=== PATIENT | male | born 1960 | race Caucasian/White ===

== ENCOUNTER 2017-05-06 17:48 | Observation (INO) | payer OTHER ==
[~2017-05-06] VITALS: Ht 167.6 cm; Wt 132.7 kg
[2017-05-06] MEDS ORDERED: SODIUM CHLORIDE 0.9% 1000ML 1,000 ML IV STA (18:02)
[2017-05-06] MEDS ORDERED: GLIP10TA9 PO (18:10)
[2017-05-06] MEDS ORDERED: ATOR-54 PO (18:10)
[2017-05-06] MEDS ORDERED: CHOL20009 PO (18:10)
[2017-05-06] MEDS ORDERED: LISI-461 PO (18:10)
[2017-05-06] MEDS ORDERED: GLC500 PO (18:10)
[2017-05-06] MEDS ORDERED: ASPI81TA28 PO (18:10)
--- NOTE | 2017-05-06 18:28 | EMERGENCY ROOM VISIT NOTE ---
History Report prepared by Efrain: Jaqueline Bach Under the Supervision of: Dr. Yeyo Zamora M.D. First contact with patient: 17:55 Chief Complaint: HYPERGLYCEMIA Stated Complaint: LOW BLOOD SUGAR History of Present Illness The patient is a 56 year old male who presents to the Emergency Room with complaints of constant hyperglycemia beginning this morning. The patient states that he has a history of diabetes but he does not have a glucose monitor at home. He states that he was seen by his PCP this morning and got a call tonight that his blood sugar was high and he should be seen in the ED. He notes that he last checked his blood sugar 1 month ago and it usually is around 100-110. The patient complains of a cold and cough for about 1 month. He denies any frequent urination, thirst, congestion, fever, rash, vomiting, and diarrhea. The patient notes that his last A1C was 5.8 and he has had diabetes for 20 years and takes his medications regularly. Per review of his history, the patient's family has been concerned as the patient has been repeating things, confused, and cannot find his words. The patient has been missing visits for his diabetic compliance and is under increased stress as his father is in ailing health. Source of History: patient Onset: this morning Position: other (global) Quality: other (hyperglycemia) Timing: constant Associated Symptoms: No fevers, No vomiting, No diarrhea, No rash Note: He denies any frequent urination, thirst, cold, congestion. He complains of a cold and congestion. Review of Systems See HPI for pertinent positives & negatives. A total of 10 systems reviewed and were otherwise negative. Past Medical & Surgical Medical Problems: (1) Diabetes mellitus, type 2 (2) Dyslipidemia (3) Hypertension (4) Obesity, morbid, BMI 40.0-49.9 Family History No pertinent family history stated. Social History Smoking Status: Former Smoker Marital Status: Housing Status: lives with significant other Current/Historical Medications Scheduled Aspirin (Aspirin Ec), 81 MG PO DAILY Atorvastatin (Lipitor), 20 MG PO DAILY Cholecalciferol (Vitamin D), 4,000 UNITS PO DAILY Glipizide (Glucotrol), 10 MG PO BID Lisinopril (Zestril), 10 MG PO DAILY Metformin HCl (Metformin HCl), 500 MG PO BID Allergies Coded Allergies: No Known Allergies (Unverified , 05/06/17) Physical Exam Vital Signs Date Time Temp Pulse Resp B/P (MAP) Pulse Ox O2 Delivery O2 Flow Rate FiO2 05/06/17 19:36 77 05/06/17 19:14 67 20 170/88 98 Room Air 05/06/17 17:52 36.9 86 20 152/70 95 Room Air Physical Exam GENERAL: Patient is in no acute distress. HEENT: No acute trauma, normocephalic atraumatic, mucous membranes moist, no nasal congestion, no scleral icterus. NECK: No stridor, no adenopathy, no meningismus, trachea is midline. LUNGS: Clear to auscultation bilaterally, no wheeze, no rhonchi, breath sounds equal. HEART: Without murmurs gallops or rubs, regular rate and rhythm. ABDOMEN: Soft, nontender, bowel sounds positive, no hernias, no peritonitis. EXTREMITIES: No cyanosis or edema, full range of motion of all the joints without pain or difficulty, no signs for acute trauma. NEUROLOGIC: Oriented x 3, no acute motor or sensory deficits, no focal weakness. SKIN: No rash, no jaundice, no diaphoresis. Medical Decision & Procedures ER Provider Diagnostic Interpretation: Radiology results as stated below per my review and radiologist interpretation: CHEST ONE VIEW PORTABLE FINDINGS: Lungs are hypoinflated with bronchovascular crowding. Prominence of the cardiac silhouette is likely secondary to technique and hypoinflation. No pneumothorax. There is blunting of left costophrenic angle with hazy bibasilar opacities. No large pleural effusion identified. Bones of the chest appear grossly intact. There are degenerative changes noted of the bilateral shoulders. IMPRESSION: 1. Hypoinflation with bronchovascular crowding. 2. Subtle bibasilar opacities suggest atelectasis. The above report was generated using voice recognition software. It may contain grammatical, syntax or spelling errors. Electronically signed by: Ramu Toro M.D. 05/06/2017 6:49 PM Dictated Date/Time: 05/06/2017 6:[address] OF THE HEAD WITHOUT CONTRAST FINDINGS: No acute intracranial hemorrhage, midline shift or mass effect is present. There is a 3 cm x 2.1 cm CSF attenuation oval-shaped lesion within the left frontal lobe shown on axial image 18 of . There is no associated mass effect. Ventricular system is normal. Basilar cisterns are patent. There are no extra-axial collections. Islas-white differentiation is maintained. There are no findings to suggest acute dural sinus thrombosis or acute territorial infarct. Visualized portions of the sinuses and mastoid air cells are clear. There are no significant calvarial abnormalities. IMPRESSION: 1. No acute intracranial hemorrhage. 2. 3 cm x 2.1 cm CSF attenuation oval-shaped focus within the left frontal lobe which is likely intraaxial. 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 No associated edema. This finding is of doubtful significance however a follow-up nonemergent MRI of the brain with and without contrast is recommended for further evaluation. Electronically signed by: Adan Raman M.D. 05/06/2017 7:11 PM Dictated Date/Time: 05/06/2017 7:03 PM Laboratory Results 05/06/17 18:20 Red Blood Count 4.42, Mean Corpuscular Volume 90.7, Mean Corpuscular Hemoglobin 31.4, Mean Corpuscular Hemoglobin Concent 34.7, Mean Platelet Volume 9.8, Neutrophils (%) (Auto) 63.1, Lymphocytes (%) (Auto) 25.4, Monocytes (%) (Auto) 9.2, Eosinophils (%) (Auto) 1.2, Basophils (%) (Auto) 0.4, Neutrophils # (Auto) 6.96, Lymphocytes # (Auto) 2.80, Monocytes # (Auto) 1.01, Eosinophils # (Auto) 0.13, Basophils # (Auto) 0.04 05/06/17 18:20 Test 05/06/17 18:20 05/06/17 19:15 05/06/17 19:51 White Blood Count 11.02 K/uL (4.8-10.8) Red Blood Count 4.42 M/uL (4.7-6.1) Hemoglobin 13.9 g/dL (14.0-18.0) Hematocrit 40.1 % (42-52) Mean Corpuscular Volume 90.7 fL (80-100) Mean Corpuscular Hemoglobin 31.4 pg (25-34) Mean Corpuscular Hemoglobin Concent 34.7 g/dl (32-36) Platelet Count 234 K/uL (130-400) Mean Platelet Volume 9.8 fL (7.4-10.4) Neutrophils (%) (Auto) 63.1 % Lymphocytes (%) (Auto) 25.4 % Monocytes (%) (Auto) 9.2 % Eosinophils (%) (Auto) 1.2 % Basophils (%) (Auto) 0.4 % Neutrophils # (Auto) 6.96 K/uL (1.4-6.5) Lymphocytes # (Auto) 2.80 K/uL (1.2-3.4) Monocytes # (Auto) 1.01 K/uL (0.11-0.59) Eosinophils # (Auto) 0.13 K/uL (0-0.5) Basophils # (Auto) 0.04 K/uL (0-0.2) RDW Standard Deviation 42.0 fL (36.4-46.3) RDW Coefficient of Variation 12.7 % (11.5-14.5) Immature Granulocyte % (Auto) 0.7 % Immature Granulocyte # (Auto) 0.08 K/uL (0.00-0.02) Prothrombin Time 11.3 SECONDS (9.0-12.0) Prothromb Time International Ratio 1.1 (0.9-1.1) Activated Partial Thromboplast Time 30.2 SECONDS (21.0-31.0) Partial Thromboplastin Ratio 1.2 Anion Gap 10.0 mmol/L (3-11) Est Creatinine Clear Calc Drug Dose 73.7 ml/min Estimated GFR () 62.0 Estimated GFR (Non- 53.5 BUN/Creatinine Ratio 20.0 (10-20) Calcium Level 9.5 mg/dl (8.5-10.1) Magnesium Level 1.9 mg/dl (1.8-2.4) Total Bilirubin 0.7 mg/dl (0.2-1) Aspartate Amino Transf (AST/SGOT) 18 U/L (15-37) Alanine Aminotransferase (ALT/SGPT) 28 U/L (12-78) Alkaline Phosphatase 92 U/L (45-117) Total Protein 7.7 gm/dl (6.4-8.2) Albumin 4.3 gm/dl (3.4-5.0) Globulin 3.4 gm/dl (2.5-4.0) Albumin/Globulin Ratio 1.3 (0.9-2) Beta-Hydroxybutyric Acid 11.53 mg/dL (0.2-2.81) Thyroid Stimulating Hormone (TSH) 1.860 uIu/ml (0.300-4.500) Urine Color YELLOW Urine Appearance CLEAR (CLEAR) Urine pH 5.0 (4.5-7.5) Urine Specific Endeavor 1.028 (1.000-1.030) Urine Protein NEG (NEG) Urine Glucose (UA) 3+ (NEG) Urine Ketones 1+ (NEG) Urine Occult Blood NEG (NEG) Urine Nitrite NEG (NEG) Urine Bilirubin NEG (NEG) Urine Urobilinogen NEG (NEG) Urine Leukocyte Esterase SMALL (NEG) Urine WBC (Auto) 10-30 /hpf (0-5) Urine RBC (Auto) 0-4 /hpf (0-4) Urine Hyaline Casts (Auto) 1-5 /lpf (0-5) Urine Epithelial Cells (Auto) 10-20 /lpf (0-5) Urine Bacteria (Auto) NEG (NEG) Urine Opiates Screen NEG (NEG) Urine Methadone, Qualitative NEG (NEG) Urine Barbiturates NEG (NEG) Urine Phencyclidine (PCP) Level NEG (NEG) Ur Amphetamine/Methamphetamine NEG (NEG) MDMA (Ecstasy) Screen NEG (NEG) Urine Benzodiazepines Screen NEG (NEG) Urine Cocaine Metabolite NEG (NEG) Urine Marijuana (THC) NEG (NEG) Bedside Glucose 217 mg/dl (70-99) Laboratory results reviewed by me. Medications Administered Medications (Trade) Dose Ordered Sig/Tori Route Start Time Stop Time Status Last Admin Dose Admin Sodium Chloride 1,000 ml @ 999 mls/hr Q1H1M STAT IV 05/06/17 18:02 05/06/17 19:02 DC 05/06/17 18:15 999 MLS/HR Insulin Human Regular (novoLIN-R U-100 PER UNIT) 8 units NOW STAT IV 05/06/17 18:57 05/06/17 18:59 DC 05/06/17 19:27 8 UNITS ECG Indication: altered mental status Rate (beats per minute): 62 Rhythm: normal sinus Findings: no acute ischemic change, no ectopy ED Course 1755: The patient was evaluated in room B6. A complete history and physical exam was performed. 1802: Sodium Chloride 1000 ml @ 999 mls/hr IV. 1822: The patient had some periods of confusion when the nurses were obtaining blood work. 185: Insulin Human Regular 6 units IV. 1949: I reevaluated and updated the patient. 2010: Discussed the patient's case with Dr. Mcqueen. The patient will be evaluated for further management. 2021: Upon reexamination the patient is doing well. I discussed results and treatment plan with the patient. He verbalizes agreement and understanding. I spoke with Dr. Mcqueen. We discussed the patient's results and findings. The patient will be evaluated by him for further management. Medical Decision The patient is a 56 year old male who presents to the ED with complaints of hyperglycemia. Differential diagnoses considered include medication noncompliance, poor diabetic diet control, dehydration, infection, UTI, pneumonia, electrolyte imbalance. There is a mild leukocytosis which could certainly be consistent with infection or possibly just the stress of his situation. No concerning anemia. Sugar was high at over 300. No acidosis. No kidney failure. There was no hepatitis. The patient appeared to be in a euthyroid state. Chest film did not show pneumonia or CHF. EKG showed a normal sinus rhythm, no acute ischemia. Urinalysis does not show evidence for infection. On exam, there was no cellulitis, no focal neurologic deficit by my testing. Brain CT shows a lesion in the frontal area of the brain which was thought chronic. The patient presents with some confusion, I high blood sugar and what sounds like some recent medical noncompliance. He did receive IV saline, he was given IV insulin, his blood sugar has lowered with treatment. The patient did have some confusion here as per the nurses. This apparently has been what he has been demonstrating at home. With the change of mental status, the high blood sugar, the abnormal brain CT, a hospital stay was felt warranted. Further workup is required. I spoke to the patient and case management. The on-call hospitalist was consulted. Medication Reconcilliation Current Medication List: was personally reviewed by me Blood Pressure Screening Patient's blood pressure: Elevated blood pressure Blood pressure disposition: Elevated BP felt to be situational Consults Time Called: 2004 Consulting Physician: Dr. Joey Nunes Returned Call: 2010 Discussed the patient's case with Dr. Mcqueen. The patient will be evaluated for further management. Impression Primary Impression: Change in mental status Additional Impression: Hyperglycemia Scribe Attestation The scribe's documentation has been prepared under my direction and personally reviewed by me in its entirety. I confirm that the note above accurately reflects all work, treatment, procedures, and medical decision making performed by me. Departure Information Dispostion Being Evaluated By Hospitalist Referrals No Doctor, Assigned (PCP) Patient Instructions My [facility] Stroke History Time Last Known Well 1 month ago Stroke t-PA Criteria Reviewed Does NOT meet criteria for t-PA Reason t-PA Not Given Treatment not indicated Problem Qualifiers
[2017-05-06 18:35] LABS: BASO % 0.4 %; BASO ABS # 0.04 K/uL (0-0.2); EOS % 1.2 %; EOS ABS # 0.13 K/uL (0-0.5); HEMATOCRIT 40.1 % (42-52); HEMOGLOBIN 13.9 g/dL (14.0-18.0); IG# 0.08 K/uL (0.00-0.02); LYMPH % 25.4 %; MEAN CELL VOLUME 90.7 fL (80-100); MEAN CORPUSCULAR HEMOGLOBIN 31.4 pg (25-34); MEAN CORPUSCULAR HGB CONC 34.7 g/dl (32-36); MEAN PLATELET VOLUME 9.8 fL (7.4-10.4); MONO % 9.2 %; MONO ABS # 1.01 K/uL (0.11-0.59); NEUT % 63.1 %; NEUT ABS # 6.96 K/uL (1.4-6.5); PLATELET COUNT 234 K/uL (130-400); RED CELL DISTRIBUTION WIDTH CV 12.7 % (11.5-14.5); WHITE BLOOD COUNT 11.02 K/uL (4.8-10.8)
--- NOTE | 2017-05-06 18:50 | DIAGNOSTIC IMAGING REPORT ---
CHEST ONE VIEW PORTABLE HISTORY: 56 years-old Male EVALUATE ALTERED MENTAL STATUS/WEAKNESS acute altered mental status COMPARISON: None available TECHNIQUE: Portable AP view of the chest FINDINGS: Lungs are hypoinflated with bronchovascular crowding. Prominence of the cardiac silhouette is likely secondary to technique and hypoinflation. No pneumothorax. There is blunting of left costophrenic angle with hazy bibasilar opacities. No large pleural effusion identified. Bones of the chest appear grossly intact. There are degenerative changes noted of the bilateral shoulders. IMPRESSION: 1. Hypoinflation with bronchovascular crowding. 2. Subtle bibasilar opacities suggest atelectasis. The above report was generated using voice recognition software. It may contain grammatical, syntax or spelling errors. Electronically signed by: Ramu Toro M.D. 05/06/2017 6:49 PM Dictated Date/Time: 05/06/2017 6:48 PM
[2017-05-06 18:56] LABS: ALBUMIN 4.3 gm/dl (3.4-5.0); CALCIUM 9.5 mg/dl (8.5-10.1); CREATININE 1.44 mg/dl (0.60-1.40); POTASSIUM 4.1 mmol/L (3.5-5.1)
[2017-05-06] MEDS ORDERED: NovoLIN-R INSULIN PER UNIT CHARGE IV STA (18:57)
[2017-05-06 19:06] LABS: TOTAL PROTEIN 7.7 gm/dl (6.4-8.2)
--- NOTE | 2017-05-06 19:12 | DIAGNOSTIC IMAGING REPORT ---
CT OF THE HEAD WITHOUT CONTRAST CLINICAL HISTORY: Confusion. COMPARISON STUDY: No previous studies for comparison. CT DOSE: 634.23 mGy.cm TECHNIQUE: Helical axial images of the head were obtained without IV contrast. Automated exposure control was utilized for the study. A dose lowering technique was utilized adhering to the principles of ALARA. FINDINGS: No acute intracranial hemorrhage, midline shift or mass effect is present. There is a 3 cm x 2.1 cm CSF attenuation oval-shaped lesion within the left frontal lobe shown on axial image 18 of 28. There is no associated mass effect. Ventricular system is normal. Basilar cisterns are patent. There are no extra-axial collections. Islas-white differentiation is maintained. There are no findings to suggest acute dural sinus thrombosis or acute territorial infarct. Visualized portions of the sinuses and mastoid air cells are clear. There are no significant calvarial abnormalities. IMPRESSION: 1. No acute intracranial hemorrhage. 2. 3 cm x 2.1 cm CSF attenuation oval-shaped focus within the left frontal lobe which is likely intraaxial. 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 No associated edema. This finding is of doubtful significance however a follow-up nonemergent MRI of the brain with and without contrast is recommended for further evaluation. Electronically signed by: Adan Raman M.D. 05/06/2017 7:11 PM Dictated Date/Time: 05/06/2017 7:03 PM
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
[2017-05-06 20:42] LABS: INR 1.1 (0.9-1.1); PTT PATIENT 30.2 SECONDS (21.0-31.0)
[2017-05-06] MEDS ORDERED: IV FLUIDS COMPLETED PRN (22:00)
[2017-05-06] MEDS ORDERED: NSS + 20MEQ KCL 1000ML 1,000 ML IV SCH (22:00)
[2017-05-06] MEDS ORDERED: INSULIN GLARGINE SOLOSTAR 100 UNITS/ML 3 ML PEN SC ONE (22:00)
[2017-05-06] MEDS ORDERED: DEXTROSE 50% 50 ML SYR IV PRN (22:00)
[2017-05-06] MEDS ORDERED: GLUCAGON FOR INJ 1 MG VIAL SQ PRN (22:00)
[2017-05-06] MEDS ORDERED: GLUCOSE 40% GEL 15 GM TUBE PO PRN (22:00)
[2017-05-06] MEDS ORDERED: GLUCOSE 10 TABS/TUBE PO PRN (22:00)
--- NOTE | 2017-05-06 22:00 | NUR ---
ID/OBV: Pt arrived to room 455 under observation status. Pt is alert and oriented X4 expressive aphasia noted. VSS. Oriented patient to room. Full assessment completed. OOB with supervision. Call dixon within reach. Hourly rounding maintained. Continuing to monitor.
[2017-05-06 23:05] VITALS: BP 149/95; PULSE 70; TEMP 36.4; O2SAT 96; BMI 47.2
[2017-05-07] VITALS: BP 111/73; PULSE 67; TEMP 36.5; O2SAT 96
[2017-05-07 01:00] LABS: HEP C IGG 13 YRS+OLDER_RFLX NEG (NEG)
[2017-05-07] MEDS ORDERED: INSULIN ASPART 100 UNITS/ML 3 ML PEN SC ONE (01:00)
--- NOTE | 2017-05-07 02:00 | NUR ---
OBS: Pt has been sleeping on and off. Alert and oriented X4. Can be confused at times. VSS. Right Saline lock. Hourly rounding maintained. Call dixon in reach. Continuing to monitor.
--- NOTE | 2017-05-07 06:00 | NUR ---
OBS: Pt sleeping in bed at this time. No complaints at this time. Assessment has not changed. Encouraged to ring for assistance, bed alarm on for safety. Hourly rounding maintained. Will continue to monitor.
[2017-05-07 07:20] VITALS: BP 147/85; PULSE 55; TEMP 36.6; O2SAT 96
[2017-05-07] MEDS ORDERED: INFLUENZA ADMINISTRATION CHARGE ONE (08:00)
[2017-05-07] MEDS ORDERED: INFLUENZA VIRUS QUAD VACCINE 0.5 ML SYR IM. ONE (08:00)
--- NOTE | 2017-05-07 08:00 | NUR ---
OBS Note: Pt. A&Ox4. vss. denies pain. tolerates a Diabetic type 2 diet well. OOB independently. ACHS BSG checks with insulin coverage as ordered. D//C planning uncertain. Will continue to monitor patient.
[2017-05-07] MEDS: ASPIRIN 81 MG ECTAB PO SCH (08:52)
[2017-05-07] MEDS: LISINOPRIL 10 MG TAB PO SCH (08:52)
[2017-05-07] MEDS: ATORVASTATIN 20 MG TAB PO SCH (08:52)
[2017-05-07] MEDS: ENOXAPARIN 40 MG/0.4 ML SYR SQ SCH (08:53)
[2017-05-07] MEDS: INSULIN ASPART 100 UNITS/ML 3 ML PEN SC SCH ×4 (08:58→20:58)
[2017-05-07] MEDS: INSULIN GLARGINE SOLOSTAR 100 UNITS/ML 3 ML PEN SC SCH ×2 (09:00→20:59)
[2017-05-07 09:15] LABS: CALCIUM 8.6 mg/dl (8.5-10.1); CREATININE 0.97 mg/dl (0.60-1.40); POTASSIUM 4.1 mmol/L (3.5-5.1)
--- NOTE | 2017-05-07 12:00 | NUR ---
OBS Note: Assessment unchanged from previous OBS note.
--- NOTE | 2017-05-07 15:51 | NUR ---
Case Management- Met with pt and to review role of disease case manager rn and discuss discharge needs. Pt lives with and reports he is independent with ADLs at baseline, he also drives. is supportive ans assists prn. Pt denies any current community services or issues related to access to medications. Physician documentation noted pt does not check his sugars, they report its because he does not have a monitor. If supplied with a machine pt is willing to check. Diabetic education consult made. Pt denies need for home health or any other services at this time. Will continue to follow.
[2017-05-07 16:06] VITALS: BP 132/81; PULSE 73; TEMP 36.6; O2SAT 97
[2017-05-07 16:10] VITALS: O2SAT 97
--- NOTE | 2017-05-07 16:12 | NUR ---
OBS: Pt is a 56 y/o male admitted with uncontrolled DM. Ordered MRI of brain and R shoulder. C/O of right shoulder pain 08/26. Refuses medication. A/O x4, did not know who the president was. Seems to be word searching, and aphasic at times. Glasses. Clear on RA. Tolerating AHA/TD2 diet. LBM yest. Voiding in toilet. Independent in room, steady gait. R AC SL.
--- NOTE | 2017-05-07 18:09 | Progress Note ---
Internal Med Progress Note Date of Service: May 07, 2017. Provider Documentation: SUBJECTIVE: resting comfortably in the chair denies any pain or sob no blurred vision concerned that patient is getting forgetful since recently denies any fevers eating ok patient does not want to go on insulin OBJECTIVE: Vital Signs-as noted below Exam: General-alert and oriented. not in distress ENT-Normal hearing Neck-no neck masses Lungs-Cta b/l no wheezing or crackles Heart-S1 and S2 heard regular No murmurs Abdomen-Soft Bowel sounds present Non tender No distension Extremities-No edema No erythema Neuro-alert and awake moves extremities Lab data as noted below. ASSESSMENT & PLAN: DM TYPE 2, UNCONTROLLED Darlene says he was sick for some time now and may be causing his sugars to go high and he doesn't want to go on isulin at discharge Hgb A1C 12.7.at pcp office yesterday and sugars were running high on metformin 500 mg BID and glipizide 10 mg BID questionable compliance . In ED this evening 324. Received 8 units regular insulin IV + 1 L NSS in ER Continuing glipizide. Holding metformin Placed on Lantus / NovoLog per protocol. declines insulin at discharge will metformin to 1000 mg BID at time of discharge. diabetes education / support. 217/182/199/202 will monitor ACUTE KIDNEY INJURY / DEHYDRATION BUN 29, creatinine 1.44. secondary to above resolved ALTERED MENTAL STATUS Metabolic encephalopathy? notes confusion / memory difficulties over past several weeks. TSH normal at pcp office as per h and p. Head CT any acute findings. 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 Will f/u MRI head ABNORMAL UA / NOCTURIA will f/u cx RIGHT SHOULDER PAIN Chronic, recently worse. will f/u mri HYPERTENSION on lisinopril. will monitor DYSLIPIDEMIA on atorvastatin. MORBID OBESITY BMI 46. Has lost about 50 kg with dietary measures as per h and p. f/u crime specialist. VTE PROPHYLAXIS on lovenox RESUSCITATION STATUS Full code as per h and p DISPOSITION to be determined Vital Signs: Date Time Temp Pulse Resp B/P (MAP) Pulse Ox O2 Delivery O2 Flow Rate FiO2 05/07/17 16:06 36.6 73 18 132/81 (98) 97 Room Air 05/07/17 09:15 Room Air 05/07/17 07:20 36.6 55 16 147/85 (105) 96 Room Air 05/07/17 00:00 36.5 67 16 111/73 (86) 96 Room Air 05/06/17 23:05 36.4 70 18 149/95 96 Room Air 05/06/17 21:11 65 20 149/92 97 Room Air 05/06/17 20:27 71 20 143/90 97 Room Air 05/06/17 19:36 77 05/06/17 19:14 67 20 170/88 98 Room Air 05/06/17 17:52 36.9 86 20 152/70 95 Room Air Lab Results: Results Past 24 Hours Test 05/06/17 17:54 05/06/17 18:00 05/06/17 18:20 05/06/17 19:15 Range/Units Bedside Glucose 315 70-99 mg/dl Hepatitis C Antibody Screen NEG NEG Hepatitis C Antibody NEG NEG White Blood Count 11.02 4.8-10.8 K/uL Red Blood Count 4.42 4.7-6.1 M/uL Hemoglobin 13.9 14.0-18.0 g/dL Hematocrit 40.1 42-52 % Mean Corpuscular Volume 90.7 80-100 fL Mean Corpuscular Hemoglobin 31.4 25-34 pg Mean Corpuscular Hemoglobin Concent 34.7 32-36 g/dl Platelet Count 234 130-400 K/uL Mean Platelet Volume 9.8 7.4-10.4 fL Neutrophils (%) (Auto) 63.1 % Lymphocytes (%) (Auto) 25.4 % Monocytes (%) (Auto) 9.2 % Eosinophils (%) (Auto) 1.2 % Basophils (%) (Auto) 0.4 % Neutrophils # (Auto) 6.96 1.4-6.5 K/uL Lymphocytes # (Auto) 2.80 1.2-3.4 K/uL Monocytes # (Auto) 1.01 0.11-0.59 K/uL Eosinophils # (Auto) 0.13 0-0.5 K/uL Basophils # (Auto) 0.04 0-0.2 K/uL RDW Standard Deviation 42.0 36.4-46.3 fL RDW Coefficient of Variation 12.7 11.5-14.5 % Immature Granulocyte % (Auto) 0.7 % Immature Granulocyte # (Auto) 0.08 0.00-0.02 K/uL Prothrombin Time 11.3 9.0-12.0 SECONDS Prothromb Time International Ratio 1.1 0.9-1.1 Activated Partial Thromboplast Time 30.2 21.0-31.0 SECONDS Partial Thromboplastin Ratio 1.2 Sodium Level 132 136-145 mmol/L Potassium Level 4.1 3.5-5.1 mmol/L Chloride Level 98 98-107 mmol/L Carbon Dioxide Level 24 21-32 mmol/L Anion Gap 10.0 3-11 mmol/L Blood Urea Nitrogen 29 7-18 mg/dl Creatinine 1.44 0.60-1.40 mg/dl Est Creatinine Clear Calc Drug Dose 73.7 ml/min Estimated GFR () 62.0 Estimated GFR (Non- 53.5 BUN/Creatinine Ratio 20.0 10-20 Random Glucose 324 70-99 mg/dl Calcium Level 9.5 8.5-10.1 mg/dl Magnesium Level 1.9 1.8-2.4 mg/dl Total Bilirubin 0.7 0.2-1 mg/dl Aspartate Amino Transf (AST/SGOT) 18 15-37 U/L Alanine Aminotransferase (ALT/SGPT) 28 12-78 U/L Alkaline Phosphatase 92 45-117 U/L Total Protein 7.7 6.4-8.2 gm/dl Albumin 4.3 3.4-5.0 gm/dl Globulin 3.4 2.5-4.0 gm/dl Albumin/Globulin Ratio 1.3 0.9-2 Beta-Hydroxybutyric Acid 11.53 0.2-2.81 mg/dL Thyroid Stimulating Hormone (TSH) 1.860 0.300-4.500 uIu/ml Urine Color YELLOW Urine Appearance CLEAR CLEAR Urine pH 5.0 4.5-7.5 Urine Specific [place] 1.028 1.000-1.030 Urine Protein NEG NEG Urine Glucose (UA) 3+ NEG Urine Ketones 1+ NEG Urine Occult Blood NEG NEG Urine Nitrite NEG NEG Urine Bilirubin NEG NEG Urine Urobilinogen NEG NEG Urine Leukocyte Esterase SMALL NEG Urine WBC (Auto) 10-30 0-5 /hpf Urine RBC (Auto) 0-4 0-4 /hpf Urine Hyaline Casts (Auto) 1-5 0-5 /lpf Urine Epithelial Cells (Auto) 10-20 0-5 /lpf Urine Bacteria (Auto) NEG NEG Urine Opiates Screen NEG NEG Urine Methadone, Qualitative NEG NEG Urine Barbiturates NEG NEG Urine Phencyclidine (PCP) Level NEG NEG Ur Amphetamine/Methamphetamine NEG NEG MDMA (Ecstasy) Screen NEG NEG Urine Benzodiazepines Screen NEG NEG Urine Cocaine Metabolite NEG NEG Urine Marijuana (THC) NEG NEG Test 05/06/17 19:51 05/06/17 22:04 05/07/17 00:52 05/07/17 08:15 Range/Units Bedside Glucose 217 182 199 70-99 mg/dl Sodium Level 137 136-145 mmol/L Potassium Level 4.1 3.5-5.1 mmol/L Chloride Level 105 98-107 mmol/L Carbon Dioxide Level 24 21-32 mmol/L Anion Gap 9.0 3-11 mmol/L Blood Urea Nitrogen 22 7-18 mg/dl Creatinine 0.97 0.60-1.40 mg/dl Est Creatinine Clear Calc Drug Dose 108.5 ml/min Estimated GFR () 100.0 Estimated GFR (Non- 86.3 BUN/Creatinine Ratio 22.7 10-20 Random Glucose 202 70-99 mg/dl Calcium Level 8.6 8.5-10.1 mg/dl Microbiology Results 05/06/17 Urine Culture - Preliminary, Resulted PIN-POINT GROWTH PRESENT, REINCUBATING.
--- NOTE | 2017-05-07 20:02 | NUR ---
OBS: Pt is resting in room. Awaiting MRI of brain and R shoulder. Pt is becoming agitated and swearing in room. States is frustrated about staying hte night. Increased confusion. Calms down easily. Provided comfort to patient. Encouraged to ring for assist.
--- NOTE | 2017-05-08 | NUR ---
OBS: Patient out of room at this time for brain and upper extremity MRI.
[2017-05-08] MEDS ORDERED: GADAVIST IV PRN (00:30)
[2017-05-08 01:14] VITALS: BP 138/98; PULSE 70; TEMP 36.6; O2SAT 98
--- NOTE | 2017-05-08 04:00 | NUR ---
A: Patient sleeping. No complaints at this time. Alert & oriented x 4; expressive aphasia noted. VSS. No c/o pain. OOB with minimal supervision/independently to BR. D/C plan at this time for return home. D/C date uncertain @ this time. Will continue to monitor.
--- NOTE | 2017-05-08 06:37 | DIAGNOSTIC IMAGING REPORT ---
MRI OF THE RIGHT SHOULDER WITHOUT CONTRAST CLINICAL HISTORY: Severe chronic right shoulder pain. COMPARISON STUDY: No previous studies for comparison. TECHNIQUE: Utilizing a 1.5 Swati magnet and dedicated coil, multiplanar, multiecho imaging of the right shoulder was performed without intravenous or intra-articular contrast. FINDINGS: This study is moderately compromised by motion artifact. There is no fracture or evidence for marrow replacement. There is moderate osteoarthritis of the right acromioclavicular joint and mild osteoarthritis of the right glenohumeral joint. There is fluid within the subacromial/subdeltoid bursa. There is a small to moderate right shoulder joint effusion. The glenoid labrum is suboptimal assessed on this nonarthrogram exam, particularly given motion artifact. A possible posterior superior labral tear is present. The proximal long head of the biceps tendon is not well visualized on this exam and is not within the bicipital groove. There is a large full-thickness tear of supraspinatus with 2.1 cm of tendon retraction and muscular atrophy. In addition, there is complete tear of infraspinatus with 1.6 cm of tendon retraction and muscular atrophy. There is marked muscular atrophy of infraspinatus. There is also a suspected high-grade tear of subscapularis with muscular atrophy. Teres minor is intact. IMPRESSION: 1. Extensive full-thickness rotator cuff tears involving supraspinatus, infraspinatus and subscapularis with tendon retraction and muscular atrophy, as described above. 2. Small to moderate right shoulder joint effusion. 3. Moderate osteoarthritis of the acromioclavicular joint with abnormal acromial alignment and suspected impingement. 4. Suboptimal evaluation of the glenoid labrum given motion artifact. Possible posterior superior labral tear. 5. Proximal long head of the biceps tendon not well visualized on this exam. This tendon may be torn or medially subluxed. Electronically signed by: Adan Raman M.D. 05/08/2017 6:36 AM Dictated Date/Time: 05/08/2017 6:29 AM
--- NOTE | 2017-05-08 06:47 | DIAGNOSTIC IMAGING REPORT ---
MRI OF THE BRAIN WITHOUT AND WITH IV CONTRAST CLINICAL HISTORY: Confusion. Abnormal head CT. COMPARISON STUDY: Head CT dated 05/06/2017 TECHNIQUE: MRI of the brain was performed from the vertex to the skull base utilizing various T1 and T2 weighted sequences. Following the IV administration of 13.2 mL of Gadavist contrast, additional enhanced images were obtained. FINDINGS: Sagittal T1, axial diffusion, proton density and T2 weighted axial, coronal FLAIR, and pre and post axial T1-weighted images were acquired. These were supplemented with post gadolinium coronal T1 weighted images. There is a 3 cm cystic lesion within the left frontal lobe. This follows CSF intensity on all sequences. There is no pathologic enhancement. There is no surrounding edema. Axial diffusion-weighted images reveal no evidence of acute or subacute infarction. There is no evidence of ventricular dilatation. Proton density T2-weighted and FLAIR images reveal scattered foci of increased T2 signal within the white matter, likely on a small vessel basis. There are no abnormal flow voids. There is no evidence of pathologic enhancement. Incidental note is made of maxillary sinus retention cysts. IMPRESSION: 1. No evidence of acute or subacute infarction 2. 3 cm cystic lesion within the left frontal lobe. There is no pathologic enhancement. There is no surrounding edema. This lesion may be congenital/developmental or related to some remote insult. It is unlikely to be of acute clinical significance. Electronically signed by: Graham Perales M.D. 05/08/2017 6:46 AM Dictated Date/Time: 05/08/2017 6:42 AM
[2017-05-08 07:35] VITALS: BP 105/69; PULSE 65; TEMP 36.4; O2SAT 99
--- NOTE | 2017-05-08 08:00 | NUR ---
OBS Note: Pt. A&Ox4. VSS. Denies pain. OOB independently. Saline lock intact. Tolerates a type two diabetic diet well. D/C planning per psychologist social. Will continue to monitor patient.
[2017-05-08] MEDS: LISINOPRIL 10 MG TAB PO SCH (08:02)
[2017-05-08] MEDS: ASPIRIN 81 MG ECTAB PO SCH (08:03)
[2017-05-08] MEDS: ENOXAPARIN 40 MG/0.4 ML SYR SQ SCH (08:03)
[2017-05-08] MEDS: ATORVASTATIN 20 MG TAB PO SCH (08:03)
[2017-05-08] MEDS: INSULIN GLARGINE SOLOSTAR 100 UNITS/ML 3 ML PEN SC SCH ×2 (08:48→20:50)
[2017-05-08] MEDS: INSULIN ASPART 100 UNITS/ML 3 ML PEN SC SCH ×4 (08:55→20:49)
[2017-05-08 15:55] VITALS: BP 132/81; PULSE 70; TEMP 36.7; O2SAT 95
[2017-05-08 16:08] VITALS: O2SAT 97
--- NOTE | 2017-05-08 16:11 | NUR ---
OBS: Pt admitted with elevated BS. A/O x4 periods of confusion. Aphasia. childbirth educator in room with patient. Independnet in room. Neuro and ortho consulted. Ryan VILLARREAL. plan to be discharged home.
--- NOTE | 2017-05-08 16:40 | Progress Note ---
Internal Med Progress Note Date of Service: May 08, 2017. Provider Documentation: SUBJECTIVE: resting comfortably in the chair feeling better today denies any pain or sob afebrile says he is ok for taking one shot of insulin every day but does not want to take insulin every time he eats OBJECTIVE: Vital Signs-as noted below Exam: General-alert and oriented. not in distress ENT-Normal hearing Neck-no neck masses Lungs-Cta b/l no wheezing or crackles Heart-S1 and S2 heard regular No murmurs Abdomen-Soft Bowel sounds present Non tender No distension Extremities-No edema No erythema painful right shoulder movements Neuro-alert and awake moves extremities Lab data as noted below. ASSESSMENT & PLAN: DM TYPE 2, UNCONTROLLED Darlene says he was sick for some time now and may be causing his sugars to go high and he doesn't want to go on isulin at discharge Hgb A1C 12.7.at pcp office yesterday and sugars were running high on metformin 500 mg BID and glipizide 10 mg BID questionable compliance . In ED this evening 324. Received 8 units regular insulin IV + 1 L NSS in ER Continuing glipizide. Holding metformin Placed on Lantus / NovoLog per protocol. Agrees for one dose of Lantus at discharge.But does not want short acting insulin diabetes education / support. will monitor ACUTE KIDNEY INJURY / DEHYDRATION BUN 29, creatinine 1.44. secondary to above resolved ALTERED MENTAL STATUS Metabolic encephalopathy? notes confusion / memory difficulties over past several weeks. TSH normal at pcp office as per h and p. Head CT any acute findings. 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 MRI head: 1. No evidence of acute or subacute infarction 2. 3 cm cystic lesion within the left frontal lobe. There is no pathologic enhancement. There is no surrounding edema. This lesion may be congenital/developmental or related to some remote insult. It is unlikely to be of acute clinical significance ABNORMAL UA / NOCTURIA will f/u cx RIGHT SHOULDER PAIN Chronic, recently worse. MRI shows rotator cuff tear consulted ortho HYPERTENSION on lisinopril. will monitor DYSLIPIDEMIA on atorvastatin. MORBID OBESITY BMI 46. Has lost about 50 kg with dietary measures as per h and p. f/u edger hand. VTE PROPHYLAXIS on lovenox RESUSCITATION STATUS Full code as per h and p DISPOSITION pt/ot to be determined Vital Signs: Date Time Temp Pulse Resp B/P (MAP) Pulse Ox O2 Delivery O2 Flow Rate FiO2 05/08/17 15:55 36.7 70 20 132/81 (98) 95 Room Air 05/08/17 08:10 Room Air 05/08/17 07:35 36.4 65 18 105/69 (81) 99 Room Air 05/08/17 01:14 36.6 70 20 138/98 (111) 98 Room Air 05/08/17 00:15 Room Air Lab Results: Results Past 24 Hours Test 05/07/17 20:42 05/08/17 07:26 Range/Units Bedside Glucose 223 91 70-99 mg/dl
--- NOTE | 2017-05-08 18:09 | Orthopedic Consultation ---
Orthopedic Consultation Date of Consultation: May 08, 2017. Attending Physician: Alex Smith MD Reason for Consultation: Right shoulder pain and rotator cuff tear History of Present Illness Patient is a 56-year-old male who was admitted for treatment of uncontrolled diabetes and altered mental status. He states that he's had pain in the right shoulder off and on for a number of months now. Denies acute trauma. Locates his pain nature laterally. He has weakness with overactivity. He has not has evaluated previously is not any treatments for this as of yet. Denies radicular pain denies neurologic symptoms. Past Medical/Surgical History Medical Problems: (1) Change in mental status Status: Acute (2) Hyperglycemia Status: Acute Family History Diabetes mellitus GRANDMOTHER Ovarian cancer Stroke FATHER Social History Smoking Status: Former Smoker Alcohol Use: occasionally Marital Status: Housing Status: lives with significant other Occupation Status: unemployed Allergies Coded Allergies: No Known Allergies (Unverified , 05/06/17) Home Medications Scheduled Aspirin (Aspirin Ec), 81 MG PO DAILY Atorvastatin (Lipitor), 20 MG PO DAILY Cholecalciferol (Vitamin D), 4,000 UNITS PO DAILY Glipizide (Glucotrol), 10 MG PO BID Lisinopril (Zestril), 10 MG PO DAILY Metformin HCl (Metformin HCl), 500 MG PO BID Current Inpatient Medications Current Inpatient Medications Medications (Trade) Dose Ordered Sig/Tori Route Start Time Stop Time Status Last Admin Dose Admin Enoxaparin Sodium (Lovenox Inj) 40 mg DAILY SQ 05/07/17 08:00 06/06/17 08:59 05/08/17 08:03 40 MG Aspirin (Ecotrin Tab) 81 mg DAILY PO 05/07/17 08:00 06/06/17 08:59 05/08/17 08:03 81 MG Atorvastatin Calcium (Lipitor Tab) 20 mg DAILY PO 05/07/17 08:00 06/06/17 08:59 05/08/17 08:03 20 MG Glipizide (Glucotrol Tab) 10 mg BIDM PO 05/07/17 08:00 06/06/17 07:59 05/08/17 17:43 10 MG Lisinopril (Zestril Tab) 10 mg DAILY PO 05/07/17 08:00 06/06/17 08:59 05/08/17 08:02 10 MG Insulin Glargine (Lantus Solostar Pen) BSG LANTUS SQ < ... BID SC 05/07/17 08:00 06/06/17 08:59 05/07/17 20:59 16 UNITS Glucose (Glucose 40% Gel) 15-30 GRAMS 15 GRAMS... UD PRN PO 05/06/17 22:00 06/05/17 21:59 Glucose (Glucose Chew Tab) 4-8 Tablets 4 Tabl... UD PRN PO 05/06/17 22:00 06/05/17 21:59 Dextrose (Dextrose 50% 50ML Syringe) 25-50ML OF 50% DW IV FOR... UD PRN IV 05/06/17 22:00 06/05/17 21:59 Glucagon (Glucagon Inj) 1 mg UD PRN SQ 05/06/17 22:00 06/05/17 21:59 Miscellaneous (Iv Fluids Completed) 1 ea PRN PRN N/A 05/06/17 22:00 05/06/18 21:59 Insulin Aspart (novoLOG ASPART) SLIDING SCALE G... ACHS SC 05/07/17 06:30 06/06/17 06:29 05/08/17 17:48 6 UNITS Gadobutrol (Gadavist) 13.2 mmol UD PRN IV 05/08/17 00:30 05/12/17 00:29 Review of Systems Constitutional: No fever, No chills Physical Exam Date Time Temp Pulse Resp B/P (MAP) Pulse Ox O2 Delivery O2 Flow Rate FiO2 05/08/17 15:55 36.7 70 20 132/81 (98) 95 Room Air 05/08/17 08:10 Room Air 05/08/17 07:35 36.4 65 18 105/69 (81) 99 Room Air 05/08/17 01:14 36.6 70 20 138/98 (111) 98 Room Air 05/08/17 00:15 Room Air Right upper extremity: Active forward flexion 0-170 active abduction 0-160. Weakness to testing of the supraspinatus as well as upper spinatus. Normal strength to the subscapularis. Positive Neer and De La Cruz impingement signs. Skin is normal. Left upper shoulder: Unremarkable examination General Appearance: WD/WN Head: normocephalic Eyes: normal inspection ENT: normal ENT inspection Neck: supple Respiratory/Chest: chest non-tender Cardiovascular: no edema Abdomen/GI: soft Laboratory Results Last 24 Hours Test 05/07/17 20:42 05/08/17 07:26 Bedside Glucose 223 mg/dl 91 mg/dl Assessment & Plan Right shoulder full-thickness rotator cuff tear MRI demonstrates a full-thickness rotator cuff right shoulder. There is only some mild retraction. This is something that would be best treated with arthroscopic repair. However is not something that we would tackle during this admission. We'll wait until his blood sugars are under better control his under better management. He can follow-up with me in the office after discharge and we can discuss proceeding with the rotator cuff repair.
[2017-05-08 18:33] VITALS: BMI 47.2
--- NOTE | 2017-05-08 18:35 | NUR ---
DIABETES press helper screen identified pt for BG > 200mg/dl via BG report and difficulty managing diabetes. Pt also identified for elevated BG > 300mg/dl on admit. Consult also received for diabetes education. BG 315 on admit. BG 395 and A1c 12.7% at PCP prior to admit. Current Meds: Lantus SSI (0-16units), Novolog 1:10 plus CF:35 with BG goal of 120-160, and Glipizide 10mg BID. Fasting BG 91 this AM. BG 244 with lunch and 240 with dinner. Please see [facility]: Inpatient Teaching Record (note pad icon) for additional info. INPATIENT RECOMMENDATIONS: 1. Consider readjusting Lantus scale to eliminate 0units. RECOMMENDATIONS POST-DISCHARGE: 1. A1c 12.7% - add Lantus once daily to current diabetes medication regimen. 2. SMBG 2x/day - fasting and another time (vary this time). 3. A1c > 9% - follow-up with PCP within next 4 weeks. Addendum: 05/08/17 at [address] Amended: Links added.
[2017-05-08] MEDS: DICLOFENAC SOD 1% GEL 100 GM TUBE EXT SCH (20:41)
[2017-05-08] MEDS: IBUPROFEN 600 MG TAB PO PRN (20:41)
--- NOTE | 2017-05-08 20:50 | NUR ---
Spoke with Dr. Joey valentine BS of 308. Ordered to check at 0100am.
--- NOTE | 2017-05-08 20:50 | NUR ---
OBS: No changes. Complaints of R shoulder pain. Ordered ibuprofen. Ryan VILLARREAL.
--- NOTE | 2017-05-08 22:15 | DIAGNOSTIC IMAGING REPORT ---
BILATERAL CAROTID DOPPLER STUDY HISTORY: tia with aphasia COMPARISON: None. TECHNIQUE: Real-time, grayscale, and color Doppler sonography of the carotid arteries was performed. Imaging reviewed in the transverse and longitudinal planes. All measurements were calculated based on NASCET criteria. FINDINGS: Antegrade flow is seen in the bilateral vertebral arteries. The brachial pressures are slightly asymmetric measuring 138/68 on the right and 114/57 on the left. However, the subclavian arteries demonstrate normal velocities and are patent.. Minimal calcified plaque within the bilateral carotid bifurcations. The peak systolic velocity within the right ICA is 72 cm/s. The right systolic ratio is . The peak systolic velocity within the left ICA is 52 cm/s. The left systolic ratio is . Elevated peak systolic velocity within the proximal left common carotid artery of 181 cm/s. However, there is no evidence for stenosis at this location. IMPRESSION: 1. No hemodynamically significant stenosis seen within the carotid arteries. 2. The vertebral arteries appear patent. 3. Elevated velocity within the proximal left common carotid artery. However, there is no evidence for stenosis at this location. Therefore, this is of uncertain clinical significance. Electronically signed by: Rico Arias M.D. 05/08/2017 10:13 PM Dictated Date/Time: 05/08/2017 10:10 PM
[2017-05-08 23:28] VITALS: BP 118/76; PULSE 58; TEMP 36.7; O2SAT 97
--- NOTE | 2017-05-09 | NUR ---
OBS/ID: Pt is AAO x 4. VSS. Sleeping in bed upon assessment. OOB independently. No c/o pain or SOB. Saline locked in RAC. See EMR for full assessment. Will continue to monitor.
[2017-05-09] MEDS ORDERED: INSULIN ASPART 100 UNITS/ML 3 ML PEN SC ONE (01:00)
--- NOTE | 2017-05-09 04:00 | NUR ---
OBS/ID: BSG at 0100 was 124. Assessment unchanged. Pt continues to sleep without any pain. SL in RAC. Anticipate to return home when medically stable. Will monitor.
[2017-05-09 07:04] VITALS: BP 113/72; PULSE 62; TEMP 36.4; O2SAT 97
--- NOTE | 2017-05-09 07:04 | NEUROLOGY CONSULTATION ---
DATE OF CONSULTATION: 05/08/2017 REASON FOR CONSULTATION: Episodic confusion. HISTORY OF PRESENT ILLNESS: The patient is a 56-year-old right-handed male with a history of diabetes, hypertension, dyslipidemia. The has noted that he has problems with confusion over the last 4-6 weeks. She reports that he has had some difficulty remembering some of the important events over the last several weeks. She was hospitalized with pneumonia and he does not recall that this was the case. She needed at home oxygen and he was confused as to what the oxygen was and why it was there in the home. She has noted some episodic isolated word-finding difficulty. She notes that when he speaks to his friends that are long-term truck drivers and they discuss locations in driving, that he no longer remembers where things were. He is also repeating himself. During this period of time in part of which she was out of the home, she is uncertain whether or not he has been taking his medications regularly. He does not monitor his home blood sugar. He has not had any episodes of sweatiness, shaking, loss of consciousness or loss of awareness. He has not had any fevers. No significant ongoing headaches. No unilateral weakness or numbness. MEDICAL HISTORY: Notable for above including dyslipidemia, hypertension, morbid obesity. FAMILY HISTORY: Father, stroke; grandmother, diabetes. Former smoker. Currently unemployed. MEDICATIONS PRIOR TO ADMISSION: Aspirin, Lipitor, vitamin D, Glucotrol, Zestril and metformin. REVIEW OF SYSTEMS: No change in vision, no hearing loss. No cough or shortness of breath. No chest pain, palpitations, nausea or vomiting. Joint pain in the right shoulder for several months. Psychiatric, depression. These are partly obtained from the review of systems from the admitting physician. LABORATORY DATA ON ADMISSION: White count was 11, H&H 13.9 and 40. PT and PTT normal. Chemistry profile on admission, glucose 315, sodium 132, BUN and creatinine 29 and 1.4. TSH normal, transaminases normal. Urinalysis notable for 1+ ketones, 3+ glucose, small leukocyte esterase, 10-20 epithelial cells. Toxicology negative. Serology for hepatitis C negative. MRI of the brain with and without contrast shows a 3 cm cystic lesion in the left frontal lobe without pathologic enhancement. There is no surrounding edema. CT of the head, noncontrast, shows no intracranial calcification. Electrocardiogram, normal sinus rhythm. PHYSICAL EXAMINATION: The patient is a well-developed male, morbidly obese, appearing older than stated age. He is oriented to person, place, time. There is no right/left confusion. He does have modest difficulty with word finding. He had 0/3 memory at 3 minutes. There are no carotid bruits. No heart murmurs. Heart has regular rate and rhythm. Lungs are clear. Pupils are equal, round, reactive to light. The optic nerve is unremarkable. Normal stahl, motility, facial sensation. There is widening of the right palpebral fissure and mild flattening of the right nasolabial fold. Speech is nondysarthric. Motor, there is atrophy of the intrinsic hand muscles with weakness of the right APB, FDI and ADM, to a lesser extent the left FDI and ADM. Otherwise, there is symmetric strength. No drift. Normal rapid alternating movements. Lower extremity reflexes are diminished. Toes are downgoing. Npsuld-[id number] and kaje-cv-vhaz are normal. There is an ankle level to temperature. No sensory loss is noted in the upper. His gait is orthopedic. IMPRESSION: This patient has had poor blood sugar control over the last 4-6 weeks and some of his cognitive dysfunction may be on the basis of the same. The history does not speak of transient events, although I recommend a carotid ultrasound. Seizure is within the differential and an EEG was ordered. 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 It is also in the frontal lobe which could affect expressive language, although appears fairly high to do so. In summary, I suspect the patient's fluctuating mental status is more likely related to his blood sugar. I will see him back in the office to further reassess cognition once he is normoglycemic. NICOLE
--- NOTE | 2017-05-09 08:00 | NUR ---
OBS Note: Pt. A&Ox4. vss. Reports pain that is tolerable with Voltaren gel. Saline lock intact. Tolerates a type two diabetic diet well. Call dixon intact and operational at bedside. D/C planning uncertain. Will continue to monitor patient.
[2017-05-09] MEDS: ASPIRIN 81 MG ECTAB PO SCH (08:42)
[2017-05-09] MEDS: LISINOPRIL 10 MG TAB PO SCH (08:42)
[2017-05-09] MEDS: ATORVASTATIN 20 MG TAB PO SCH (08:42)
[2017-05-09] MEDS: ENOXAPARIN 40 MG/0.4 ML SYR SQ SCH (08:43)
[2017-05-09] MEDS: DICLOFENAC SOD 1% GEL 100 GM TUBE EXT SCH ×2 (08:43→17:03)
[2017-05-09] MEDS: INSULIN ASPART 100 UNITS/ML 3 ML PEN SC SCH ×4 (08:48→21:53)
[2017-05-09] MEDS: INSULIN GLARGINE SOLOSTAR 100 UNITS/ML 3 ML PEN SC SCH (08:49)
[2017-05-09 10:47] VITALS: BP 139/88; PULSE 65; O2SAT 98
[2017-05-09 12:49] VITALS: BMI 47.2
--- NOTE | 2017-05-09 12:50 | NUR ---
DIABETES Diabetes Follow-up. Pt also identified for elevated BG > 300mg/dl via BG report. BG 315 on admit. BG 395 and A1c 12.7% at PCP prior to admit. Current Meds: Lantus SSI (0-16units), Novolog 1:10 plus CF:35 with BG goal of 120-160, and Glipizide 10mg BID. Fasting BG 147 this AM. Other values 91-244-240- 308-124 yesterday/overnight. TDD= 34units yesterday with Glipizide on board. Please see [facility]: Inpatient Teaching Record (note pad icon) for additional information. INPATIENT RECOMMENDATIONS: 1. Consider readjusting Lantus scale to eliminate 0units. RECOMMENDATIONS POST-DISCHARGE: 1. A1c 12.7% - add Lantus once daily to current diabetes medication regimen. 2. SMBG 2x/day - fasting and another time (vary this time). 3. A1c > 9% - follow-up with PCP within next 4 weeks. PRESCRIPTIONS NEEDED: 1. Lantus solostar pen. 2. BD Myesha insulin pen. 3. OneTouch Verio test strips to check 2x/day. 4. OneTouch Delica lancets to check 2x/day. Addendum: 05/09/17 at [address] Amended: Links added.
--- NOTE | 2017-05-09 14:49 | NUR ---
Case Management- Met with pt and to review discharge plans, they deny any needs. Pt is new to insulin, reports she feels comfortable with injections. Offered home health services, again pt and declined reporting they have an JOIST SETTER in the family if needed. Pt was given a glucometer during this hospitalization. No further needs noted.
[2017-05-09 16:00] VITALS: O2SAT 98
--- NOTE | 2017-05-09 16:00 | NUR ---
A: Patient is alert and oriented with periods of confusion. Patient without IV site at this time. Admitted with uncontrolled DM II. Blood sugars running in the mid hundreds to low two hundreds. Patient denies any other c/o other than right shoulder pain. Medicated with PRN ibuprophen and voltaren gel. Will continue to monitor.
[2017-05-09 16:04] VITALS: BP 130/79; PULSE 62; TEMP 37; O2SAT 98
[2017-05-09] MEDS ORDERED: PHARMACY GLYCEMIC MGMT CONSULT PRN (16:53)
[2017-05-09] MEDS: IBUPROFEN 600 MG TAB PO PRN (17:03)
--- NOTE | 2017-05-09 17:54 | Progress Note ---
Internal Med Progress Note Date of Service: May 09, 2017. Provider Documentation: SUBJECTIVE: resting comfortably alert and oriented in room and thinks he was little confused in the morning denies any sob afebrile OBJECTIVE: Vital Signs-as noted below Exam: General-alert and oriented. not in distress ENT-Normal hearing Neck-no neck masses Lungs-Cta b/l no wheezing or crackles Heart-S1 and S2 heard regular No murmurs Abdomen-Soft Bowel sounds present Non tender No distension Extremities-No edema No erythema painful right shoulder movements Neuro-alert and awake moves extremities Lab data as noted below. ASSESSMENT & PLAN: DM TYPE 2, UNCONTROLLED Darlene says he was sick for some time now and may be causing his sugars to go high and he doesn't want to go on isulin at discharge Hgb A1C 12.7.at pcp office yesterday and sugars were running high on metformin 500 mg BID and glipizide 10 mg BID questionable compliance . In ED this evening 324. Received 8 units regular insulin IV + 1 L NSS in ER Continuing glipizide. Holding metformin Placed on Lantus / NovoLog per protocol. Agrees for one dose of Lantus at discharge.But does not want short acting insulin diabetes education / support. pharmacy consulted to help with home regimen will monitor ACUTE KIDNEY INJURY / DEHYDRATION BUN 29, creatinine 1.44. secondary to above resolved ALTERED MENTAL STATUS Metabolic encephalopathy? notes confusion / memory difficulties over past several weeks. TSH normal at pcp office as per h and p. Head CT any acute findings. 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 MRI head: 1. No evidence of acute or subacute infarction 2. 3 cm cystic lesion within the left frontal lobe. There is no pathologic enhancement. There is no surrounding edema. This lesion may be congenital/developmental or related to some remote insult. It is unlikely to be of acute clinical significance ABNORMAL UA / NOCTURIA will f/u cx RIGHT SHOULDER PAIN Chronic, recently worse. MRI shows rotator cuff tear consulted ortho-plan for elective surgery HYPERTENSION on lisinopril. will monitor DYSLIPIDEMIA on atorvastatin. MORBID OBESITY BMI 46. Has lost about 50 kg with dietary measures as per h and p. f/u [place]. will do nocturnal pulse ox study VTE PROPHYLAXIS on lovenox RESUSCITATION STATUS Full code as per h and p DISPOSITION pt/ot possible d/c in am Vital Signs: Date Time Temp Pulse Resp B/P (MAP) Pulse Ox O2 Delivery O2 Flow Rate FiO2 05/09/17 16:04 37.0 62 18 130/79 (96) 98 Room Air 05/09/17 10:47 65 98 05/09/17 08:00 Room Air 05/09/17 07:04 36.4 62 18 113/72 (86) 97 Room Air 05/09/17 00:00 Room Air 05/08/17 23:28 36.7 58 18 118/76 (90) 97 Room Air Lab Results: Results Past 24 Hours Test 05/08/17 20:07 05/09/17 00:58 05/09/17 07:17 Range/Units Bedside Glucose 308 124 147 70-99 mg/dl
--- NOTE | 2017-05-09 17:55 | ELECTROENCEPHALOGRAPH REPORT ---
FOR: Dr. Mendez. CLINICAL DIAGNOSIS: Diabetic man with poor glucose control and episodic confusional episodes and cystic lesion, left frontal lobe of uncertain nature. ELECTROENCEPHALOGRAM DIAGNOSIS: Essentially normal during wakefulness. DESCRIPTION OF TRACING: This EEG was done as a bedside recording and was of good technical quality. There are few muscle movement artifacts early on. Photic stimulation was performed. Video analysis of patient's behavior was performed continuously. Drowsiness not recorded. Under these conditions, there is evidence for a background rhythm in the alpha range of about 9 Hz of maximum frequency and 30 microvolts of maximum amplitude. This is maximum posterior head regions and bilaterally symmetrical. Polymorphic mid frequency theta activity is seen over all head regions without clear focal or regional predominance. Anterior head region, maximal bilaterally symmetrical low voltage fast activity in the beta range is present. At no time during the waking tracing is there evidence for potentially epileptogenic activity in the form of polyspike or spike wave bursts, focal sharp waves or focal spikes. Photic stimulation provokes modest driving response without a photomyogenic or photoparoxysmal component. INTERPRETATION: This EEG is essentially normal during wakefulness without evidence for a focal or generalized encephalopathy without evidence for potentially epileptogenic activity. MTDD
--- NOTE | 2017-05-09 18:03 | PROGRESS NOTE ---
DATE: 05/09/2017 SUBJECTIVE: I saw Mr. Montesinos in followup of confusion. MRI showing a cystic left frontal mass. EEG showing no seizure activity. Carotid ultrasound, no high-grade carotid stenosis. The patient was seen. His speech and language appeared more appropriate. I suspect the patient has some ongoing cognitive impairment related to persistent hyperglycemia. I suspect this will take a month or so of relatively normal glycemia to improve. While there is no convincing evidence of transient ischemia, he does have multiple vascular risk factors and if no contraindications, I would recommend the antiplatelet therapy. The patient should see me in followup post-discharge in about a month and I will reevaluate him. I have asked the department of radiology at [facility] to reinterpret his images. 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 NICOLE
--- NOTE | 2017-05-09 20:00 | NUR ---
OBS: Assessment unchanged. Mentation appears to be clearing over the course of the shift. Patient reports shoulder pain modestly improved after PRN motrin/voltaren gel. Patient agreeable to overnight pulse ox study. Independent in the room. Will continue to monitor.
[2017-05-09] MEDS ORDERED: INSULIN GLARGINE SOLOSTAR 100 UNITS/ML 3 ML PEN SC SCH (22:00)
--- NOTE | 2017-05-09 22:19 | Pharmacy Progress Note ---
Glycemic Control Intl Consult Date of Service May 09, 2017. Scope Glycemic Pharmacist consulted by Dr Smith on 05/09/17 for glycemic control and to write orders per [facility] inpatient glycemic control protocol Objective Weight (Kilograms): 132.700 Accuchecks BSG (last 24hrs): Test 05/09/17 00:58 05/09/17 07:17 05/09/17 11:22 05/09/17 16:27 Bedside Glucose 124 mg/dl (70-99) 147 mg/dl (70-99) 225 mg/dl (70-99) 238 mg/dl (70-99) Test 05/09/17 20:41 Bedside Glucose 159 mg/dl (70-99) Recent Pertinent Medications Outpatient Anti-diabetic Regimen: * metformin 500 mg PO BID + glipizide 10 mg PO BID The patient is currently receiving: * Basal insulin: Lantus 0-16 units every 12 hours * Correctional Insulin: Novolog Correction per scale ACHS Goal Range: Low 120 mg/dL - High 180 mg/dL Correction Factor: 35 mg/dL/unit * Prandial insulin: Per carb ratio of 1 unit per 10 grams CHO consumed * Oral Agents: glipizide 10 mg PO BIDM Risk Factors for Insulin Resistance: * Diet: type 2 diabetic diet Assessment & Plan ASSESSMENT: * Mr Montesinos is a 56 y/o M admitted on 05-06-17 with altered mental status plus uncontrolled DM. His HbA1C is unknown and the patient only takes oral medications at home. On 05-07-17 his blood sugars ranged from 199-268 mg/dL ( received 58 units of insulin with 32 units of basal); on 05-08-17 his blood sugars ranged from 91-308 mg/dL (received 37 units with 16 units of basal). Today the patient's blood sugars have ranged from 147-238 mg/dL. He received Lantus 12 units today. * For dinner, the Novolog was tightened to weight based stress of 2 as the patient tends to climb throughout the day. His blood sugars tend to decrease overnight significantly. After dinner, the patient's blood sugar decreased from 238 mg/dL to 159 mg/dL. * The patient may require once daily Lantus in the morning as his blood sugars tend to recover well overnight. Gave only 12 units tonight to ensure that patient is not very low tomorrow morning. AM dose of Lantus not ordered. * Will discontinue glipizide as not recommended during hospitalization. PLAN FOR INPATIENT GLYCEMIC CONTROL: * Holding outpatient oral diabetes medications * Basal insulin with LANTUS 12 units SQ x 1 tonight then dose based upon level * Correctional Insulin with NOVOLOG per scale ACHS or Q6hrs while NPO * Goal Range: Low 110 mg/dL - High 140 mg/dL * Correction Factor: 20 mg/dL/unit * Nutritional / Prandial insulin per carb ratio of 1 unit per 6 grams CHO consumed * Please note that the plan above was derived based on current level of insulin resistance and hospital stress. These recommendations are appropriate for inpatient admission only. Plan of care upon discharge will need to be reassessed to avoid potential outpatient hypo/hyperglycemia. Thank you.
[2017-05-09 23:58] VITALS: BP 92/57; PULSE 66; TEMP 36.7; O2SAT 94
--- NOTE | 2017-05-10 | NUR ---
OBS/ID: Pt is AAO x 4 with periods of confusion. VSS. OOB independently. C/o R shoulder pain, see eMAR for medication administration. No IV site. See EMR for full assessment. Anticipate to return home when medically stable. Will continue to monitor.
[2017-05-10] MEDS: IBUPROFEN 600 MG TAB PO PRN (00:35)
--- NOTE | 2017-05-10 04:00 | NUR ---
OBS: No changes. Pt is AAO x 4 with periods of confusion. VSS. No IV site. Will continue to monitor.
[2017-05-10 05:36] VITALS: PULSE 81; O2SAT 96
[2017-05-10] MEDS ORDERED: INSULIN GLARGINE SOLOSTAR 100 UNITS/ML 3 ML PEN SC SCH (08:00)
--- NOTE | 2017-05-10 08:00 | NUR ---
OBS: Patient alert and oriented times four. Patient has no complaint of chest pain or shortness of breath. Patient ambulates independently in room. Patient is resting with call dixon in reach.
[2017-05-10 08:06] VITALS: BP 94/58; PULSE 64; TEMP 36.5; O2SAT 97
[2017-05-10] MEDS: DICLOFENAC SOD 1% GEL 100 GM TUBE EXT SCH (08:06)
[2017-05-10] MEDS: ATORVASTATIN 20 MG TAB PO SCH (08:07)
[2017-05-10] MEDS: LISINOPRIL 10 MG TAB PO SCH (08:07)
[2017-05-10] MEDS: ASPIRIN 81 MG ECTAB PO SCH (08:07)
[2017-05-10] MEDS: INSULIN ASPART 100 UNITS/ML 3 ML PEN SC SCH ×2 (08:11→12:53)
[2017-05-10] MEDS: ENOXAPARIN 40 MG/0.4 ML SYR SQ SCH (08:14)
--- NOTE | 2017-05-10 08:58 | Pharmacy Progress Note ---
Glycemic Control Progress Note Date of Service May 10, 2017. Scope Glycemic Pharmacist consulted for glycemic control to write orders per [facility] inpatient glycemic control protocol. Objective Accuchecks BSG (last 24hrs): Test 05/09/17 11:22 05/09/17 16:27 05/09/17 20:41 05/10/17 07:51 Bedside Glucose 225 mg/dl (70-99) 238 mg/dl (70-99) 159 mg/dl (70-99) 126 mg/dl (70-99) HbA1c: Test 05/10/17 06:36 Hemoglobin A1c 13.0 % (4.5-5.6) H Recent Pertinent Medications The patient is currently receiving: * Basal insulin: Lantus 12 units in AM and PM yesterday * Correctional Insulin: Novolog Correction per scale ACHS Goal Range: Low 110 mg/dL - High 140 mg/dL Correction Factor: 20 mg/dL/unit * Prandial insulin: Per carb ratio of 1 unit per 6 grams CHO consumed * Oral Agents: None currently Outpatient Anti-Diabetic Meds Metformin 500mg PO BID Glipizide 10mg PO BID A1c = 13% 05/10/17 Assessment & Plan ASSESSMENT: 05/10/17 * Poorly controlled type 2 diabetic converted to basal / bolus SQ regimen this admission and oral agents currently on hold * Fasting BSG 126 this AM with 24 units Lantus on board (~0.18unit/kg/day), would be reasonable to continue the same basal dose at this time given weight- based dose and total daily insulin requirement. * Received 51 units of SQ insulin yesterday while tolerating a diet; BSGs ranged 126-238 over the last 24 hrs * Post-prandial hyperglycemia observed yesterday until CR adjusted with dinner. HS BSG at goal after this change. PLAN FOR INPATIENT GLYCEMIC CONTROL: * Continuing Lantus 12 units SQ BID * Continuing correction factor 20 mg/dl/unit * Continuing carb ratio 1 unit per 6 grams CHO consumed * Continuing goal range Low 110 mg/dL - High 140 mg/dL RECOMMENDATIONS FOR DISCHARGE: * Given A1c of 13 % he likely needs adjustment of his outpatient regimen. He would likely benefit from the addition of basal insulin to his current outpt regimen. * Please note that the plan above was derived based on current level of insulin resistance and hospital stress. These recommendations are appropriate for inpatient admission only. Plan of care upon discharge will need to be reassessed to avoid potential outpatient hypo/hyperglycemia. Thank you.
--- NOTE | 2017-05-10 12:00 | NUR ---
OBS: patient is alert and oriented times four. Patient has no complaint of chest pain or shortness of breath. Patient ambulates independently in room. Patient has persistent pain in shoulder on right side. refuses any meds. Patient is resting with call dixon in reach.
[2017-05-10] MEDS ORDERED: MTR600X PO ×2 (14:01→16:59)
[2017-05-10] MEDS ORDERED: METF1000 PO ×2 (14:01→16:59)
[2017-05-10] MEDS ORDERED: INSDGIPEN SC ×2 (14:01→16:59)
--- NOTE | 2017-05-10 14:08 | Discharge Instructions ---
Discharge Instructions Date of Service May 10, 2017. Admission Reason for Admission: Dm, Type 2, Uncontrolled Discharge Discharge Diagnosis / Problem: Uncontrolled DM, confusion? Discharge Goals Goal(s): Decrease discomfort, Improve function Activity Recommendations Activity Limitations: resume your previous activity . Instructions / Follow-Up Instructions / Follow-Up FOLLOWUP WITH FAMILY DOCTOR IN ONE WEEK FOLLOWUP WITH NEUROLOGY DR.Kathleen Mendez IN ONE MONTH.( [address] [place] [id number] ). TO CHECK BLOOD SUGAR TWICE DAILY9 BEFORE BREAKFAST, LUNCH, DINNER OR BEFORE GOING TO SLEEP) AND TO NOTE THE READINGS WITH TIME IN A LOG BOOK AND TO SHOW THEM TO FAMILY DOCTOR FOR FURTHER ADJUSTMENTS OF DIABETIC MEDICATIONS. MEDICATION CHANGES: STOPPING GLIPIZIDE. INCREASING METFORMIN TO 1000MG PO TWICE DAILY. ADDING LANTUS (LONG ACTING INSULIN) 25UNITS DAILY IN THE MORNING BEFORE BREAKFAST TO CALL FAMILY DOCTOR IF BLOOD SUGARS ABOVE 300 OR BELOW 80. IF BLOOD SUGARS BELOW 80 TO DRINK ORANGE JUICE OR EAT SUGAR AND TO CALL FAMILY DOCTOR. FOLLOWUP WITH ORTHOPEDICS DR Lily Rader M.D. FOR RIGHT SHOULDER ROTATOR CUFF INJURY.([facility] [address] [place] [id number] ). Current Hospital Diet Patient's current hospital diet: AHA Diet (Heart Healthy), Diabetes Type 2 Diet Discharge Diet Recommended Diet: AHA Diet (Heart Healthy), Diabetes Type 2 Diet Pending Studies Studies pending at discharge: no Laboratory Results Hemoglobin A1c Test 05/10/17 06:36 Range/Units Estimated Average Glucose 326 mg/dl Hemoglobin A1c 13.0 H 4.5-5.6 % Medical Emergencies . Who to Call and When: Medical Emergencies: If at any time you feel your situation is an emergency, please call 911 immediately. . Non-Emergent Contact Non-Emergency issues call your: Primary Care Provider . . "Provider Documentation" section prepared by Alex Smith. . VTE Core Measure Inpt VTE Proph given/why not?: Enoxaparin (Lovenox)SQ
[2017-05-10 14:31] VITALS: BP 94/58; PULSE 64; TEMP 36.5; O2SAT 97
--- NOTE | 2017-05-10 18:25 | Progress Note ---
Internal Med Progress Note Date of Service: May 10, 2017. Provider Documentation: SUBJECTIVE: resting comfortably alert and oriented denies any pain no sob ok to go home OBJECTIVE: Vital Signs-as noted below Exam: General-alert and oriented. not in distress ENT-Normal hearing Neck-no neck masses Lungs-Cta b/l no wheezing or crackles Heart-S1 and S2 heard regular No murmurs Abdomen-Soft Bowel sounds present Non tender No distension Extremities-No edema No erythema painful right shoulder movements Neuro-alert and awake moves extremities Lab data as noted below. ASSESSMENT & PLAN: DM TYPE 2, UNCONTROLLED Darlene says he was sick for some time now and may be causing his sugars to go high and he doesn't want to go on isulin at discharge Hgb A1C 12.7.at pcp office yesterday and sugars were running high on metformin 500 mg BID and glipizide 10 mg BID questionable compliance . In ED this evening 324. Received 8 units regular insulin IV + 1 L NSS in ER Continuing glipizide. Holding metformin Placed on Lantus / NovoLog per protocol. Agrees for one dose of Lantus at discharge.But does not want short acting insulin diabetes education / support. pharmacy consulted to help with home regimen discharged on metformin 1000mg bid and lantus 25units in am close f/u with pcp ACUTE KIDNEY INJURY / DEHYDRATION BUN 29, creatinine 1.44. secondary to above resolved ALTERED MENTAL STATUS Metabolic encephalopathy? notes confusion / memory difficulties over past several weeks. TSH normal at pcp office as per h and p. Head CT any acute findings. 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 MRI head: 1. No evidence of acute or subacute infarction 2. 3 cm cystic lesion within the left frontal lobe. There is no pathologic enhancement. There is no surrounding edema. This lesion may be congenital/developmental or related to some remote insult. It is unlikely to be of acute clinical significance ABNORMAL UA / NOCTURIA will f/u cx RIGHT SHOULDER PAIN Chronic, recently worse. MRI shows rotator cuff tear consulted ortho-plan for elective surgery HYPERTENSION on lisinopril. will monitor DYSLIPIDEMIA on atorvastatin. MORBID OBESITY BMI 46. Has lost about 50 kg with dietary measures as per h and p. 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 will do nocturnal pulse ox study-unremarkable discharged home Vital Signs: Date Time Temp Pulse Resp B/P (MAP) Pulse Ox O2 Delivery O2 Flow Rate FiO2 05/10/17 14:31 36.5 64 18 97 Room Air 05/10/17 08:06 36.5 64 18 94/58 (70) 97 05/10/17 08:00 Room Air 05/10/17 05:36 81 16 96 Room Air 05/10/17 00:00 Room Air 05/09/17 23:58 36.7 66 18 92/57 (69) 94 Room Air Lab Results: Results Past 24 Hours Test 05/09/17 20:41 05/10/17 06:36 05/10/17 07:51 05/10/17 11:05 Range/Units Bedside Glucose 159 126 217 70-99 mg/dl Estimated Average Glucose 326 mg/dl Hemoglobin A1c 13.0 4.5-5.6 %
--- NOTE | 2017-05-10 19:03 | Discharge Summary ---
Discharge Summary Date of Service May 10, 2017. Discharge Summary Admission Date: May 06, 2017 at 20:20 Discharge Date: May 10, 2017 Discharge Disposition: Home Principal Diagnosis: METABOLIC ENCEPHALOPATHY UNCONTROLLED DM TYPE 2 Secondary Diagnoses/Problems: 1) Diabetes mellitus, type 2 Status: Chronic (2) Dyslipidemia Status: Chronic (3) Hypertension Status: Chronic (4) Obesity, morbid, BMI 40.0-49.9 Status: Chronic Procedures: CT HEAD: 1. No acute intracranial hemorrhage. 2. 3 cm x 2.1 cm CSF attenuation oval-shaped focus within the left frontal lobe which is likely intraaxial. 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 No associated edema. This finding is of doubtful significance however a follow-up nonemergent MRI of the brain with and without contrast is recommended for further evaluation. BRAIN MRI: 1. No evidence of acute or subacute infarction 2. 3 cm cystic lesion within the left frontal lobe. There is no pathologic enhancement. There is no surrounding edema. This lesion may be congenital/developmental or related to some remote insult. It is unlikely to be of acute clinical significance. MRI RIGHT SHOULDER:1. Extensive full-thickness rotator cuff tears involving supraspinatus, infraspinatus and subscapularis with tendon retraction and muscular atrophy, as described above. 2. Small to moderate right shoulder joint effusion. 3. Moderate osteoarthritis of the acromioclavicular joint with abnormal acromial alignment and suspected impingement. 4. Suboptimal evaluation of the glenoid labrum given motion artifact. Possible posterior superior labral tear. 5. Proximal long head of the biceps tendon not well visualized on this exam. This tendon may be torn or medially subluxed. CAROTID US: 1. No hemodynamically significant stenosis seen within the carotid arteries. 2. The vertebral arteries appear patent. 3. Elevated velocity within the proximal left common carotid artery. However, there is no evidence for stenosis at this location. Therefore, this is of uncertain clinical significance. EEG: This EEG is essentially normal during wakefulness without evidence for a focal or generalized encephalopathy without evidence for potentially epileptogenic activity. Consultations: NEUROLOGY ORTHOPEDICS Medication Reconciliation New Medications: Insulin Glargine (Lantus Solostar) 100 Unit/Ml Inj 25 UNITS SC DAILYBB, #1 PEN 3 Refills Metformin Hcl (Glucophage) 1,000 Mg Tab 1000 MG PO BID, #60 TAB 3 Refills Ibuprofen (Ibuprofen) 600 Mg Tab 600 MG PO Q8H PRN for pain, #30 TAB Continued Medications: Aspirin (Aspirin Ec) 81 Mg Tab 81 MG PO DAILY Atorvastatin (Lipitor) 20 Mg Tab 20 MG PO DAILY, TAB Cholecalciferol (Vitamin D) 2,000 Unit Tab 4000 UNITS PO DAILY Lisinopril (Zestril) 10 Mg Tab 10 MG PO DAILY, TAB Discontinued Medications: Glipizide (Glucotrol) 10 Mg Tab 10 MG PO BID Metformin HCl (Metformin HCl) 500 Mg Tab 500 MG PO BID Admission Information HPI (per Admitting provider): 56 YO male followed by Dr. Palomino in [place]. History of DM type 2, hypertension, dyslipidemia, and other problems as noted below. has noted problems with memory and confusion over the past several weeks. Seen in Dr. Palomino's office today and labs were obtained. Random blood sugar was 395. Patient was referred to ED for further evaluation and management. Patient states that he has been taking his medications as prescribed. Has not been checking his blood sugars regularly. Denies polyuria or polydipsia. He has morbid obesity. Lost a significant amount of weight with dietary management; weights have been fairly stable over past year. No fever. Had cold symptoms (cough) about 4-6 weeks ago with resolution of symptoms. No nausea, vomiting, diarrhea. Stable nocturia; no dysuria. Experiencing some right shoulder pain. Chronic problem, but recently worse. No trauma. . Physical Exam (per Admitting): General Appearance: no apparent distress, + obese Head: normocephalic, atraumatic Eyes: normal inspection, PERRL, EOMI, sclerae normal (conjunctivae clear) ENT: normal ENT inspection, hearing grossly normal, pharynx normal, + pertinent finding (dentition good) Neck: supple, no adenopathy, thyroid normal, trachea midline Respiratory/Chest: lungs clear (A&P), no respiratory distress, no accessory muscle use Cardiovascular: regular rate, rhythm, no edema, no gallop, no JVD, normal peripheral pulses, + systolic murmur (II/ sys murmur at base) Abdomen/GI: normal bowel sounds, non tender, soft, no organomegaly, no pulsatile mass Extremities/Musculoskelatal: no calf tenderness, normal capillary refill, + pertinent finding (right shoulder without deformity, erythema, or warmth) Neurologic/Psych: hay buckler II-XII nml as tested (PERRL, EOMI, no facial palsy, no dysarthria), no motor/sensory deficits (motor strength and sensation grossly intact), alert, oriented x 3 (oriented x 3, but unable to name current president ), + aphasia (intermittent expressive aphasia) Skin: normal color, warm/dry, no rash Lymphatic: no adenopathy (cervical) Hospital Course DM TYPE 2, UNCONTROLLED Darlene says he was sick for some time now and may be causing his sugars to go high and he doesn't want to go on isulin at discharge Hgb A1C 12.7.at pcp office yesterday and sugars were running high on metformin 500 mg BID and glipizide 10 mg BID questionable compliance . In ED this evening 324. Received 8 units regular insulin IV + 1 L NSS in ER Continuing glipizide. Holding metformin Placed on Lantus / NovoLog per protocol. Agrees for one dose of Lantus at discharge.But does not want short acting insulin diabetes education / support. pharmacy consulted to help with home regimen discharged on metformin 1000mg bid and lantus 25units in am close f/u with pcp ACUTE KIDNEY INJURY / DEHYDRATION BUN 29, creatinine 1.44. secondary to above resolved ALTERED MENTAL STATUS Metabolic encephalopathy? notes confusion / memory difficulties over past several weeks. TSH normal at pcp office as per h and p. Head CT any acute findings. 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 MRI head: 1. No evidence of acute or subacute infarction 2. 3 cm cystic lesion within the left frontal lobe. There is no pathologic enhancement. There is no surrounding edema. This lesion may be congenital/developmental or related to some remote insult. It is unlikely to be of acute clinical significance ABNORMAL UA / NOCTURIA will f/u cx RIGHT SHOULDER PAIN Chronic, recently worse. MRI shows rotator cuff tear consulted ortho-plan for elective surgery HYPERTENSION on lisinopril. will monitor DYSLIPIDEMIA on atorvastatin. MORBID OBESITY BMI 46. Has lost about 50 kg with dietary measures as per h and p. f/u nurse orthopedic. will do nocturnal pulse ox study-unremarkable discharged home Total time spent on discharge = 40MINUTES This includes examination of the patient, discharge planning, medication reconciliation, and communication with other providers. Discharge Instructions Discharge Instructions Date of Service May 10, 2017. Admission Reason for Admission: Dm, Type 2, Uncontrolled Discharge Discharge Diagnosis / Problem: Uncontrolled DM, confusion? Discharge Goals Goal(s): Decrease discomfort, Improve function Activity Recommendations Activity Limitations: resume your previous activity . Instructions / Follow-Up Instructions / Follow-Up FOLLOWUP WITH FAMILY DOCTOR IN ONE WEEK FOLLOWUP WITH NEUROLOGY DR.Kathleen Mendez IN ONE MONTH.( [address] [place] [id number] ). TO CHECK BLOOD SUGAR TWICE DAILY9 BEFORE BREAKFAST, LUNCH, DINNER OR BEFORE GOING TO SLEEP) AND TO NOTE THE READINGS WITH TIME IN A LOG BOOK AND TO SHOW THEM TO FAMILY DOCTOR FOR FURTHER ADJUSTMENTS OF DIABETIC MEDICATIONS. MEDICATION CHANGES: STOPPING GLIPIZIDE. INCREASING METFORMIN TO 1000MG PO TWICE DAILY. ADDING LANTUS (LONG ACTING INSULIN) 25UNITS DAILY IN THE MORNING BEFORE BREAKFAST TO CALL FAMILY DOCTOR IF BLOOD SUGARS ABOVE 300 OR BELOW 80. IF BLOOD SUGARS BELOW 80 TO DRINK ORANGE JUICE OR EAT SUGAR AND TO CALL FAMILY DOCTOR. FOLLOWUP WITH ORTHOPEDICS DR Lily Rader M.D. FOR RIGHT SHOULDER ROTATOR CUFF INJURY.([facility] [address] [place] [id number] ). Current Hospital Diet Patient's current hospital diet: AHA Diet (Heart Healthy), Diabetes Type 2 Diet Discharge Diet Recommended Diet: AHA Diet (Heart Healthy), Diabetes Type 2 Diet Pending Studies Studies pending at discharge: no Laboratory Results Hemoglobin A1c Test 05/10/17 06:36 Range/Units Estimated Average Glucose 326 mg/dl Hemoglobin A1c 13.0 H 4.5-5.6 % Medical Emergencies . Who to Call and When: Medical Emergencies: If at any time you feel your situation is an emergency, please call 911 immediately. . Non-Emergent Contact Non-Emergency issues call your: Primary Care Provider . . "Provider Documentation" section prepared by Alex Smith. . VTE Core Measure Inpt VTE Proph given/why not?: Enoxaparin (Lovenox)SQ
[2017-05-21 11:15] VITALS: Ht 167.6 cm; Wt 132.7 kg
--- NOTE | 2017-05-21 11:15 | NUR ---
DIABETES Spoke with via telephone to follow-up post-discharge in r/t new insulin start. Please see [facility]: Inpatient Teaching Record (note pad icon) for additional information. Addendum: 05/21/17 at [address] Amended: Links added.
[2017-06-13] MEDS ORDERED: ULT50X PO (14:34)
[2017-06-13] MEDS ORDERED: NRN300 PO (14:34)
== END 2017-05-10 15:00 | disposition home or self-care (01) ==
LOC: C.EDB 17:50 → C.MS4W 20:20 → ENRESERV 20:35 → CANRESERV 20:35 → ENRESERV 21:17
PROVIDERS: ADMIT Hospitalist; ATTEND Internal Medicine
DX: E11.65 Type 2 diabetes mellitus with hyperglycemia (principal); G93.41 Metabolic encephalopathy; D72.829 Elevated white blood cell count, unspecified; M75.101 Unspecified rotator cuff tear or rupture of right shoulder, not specified as traumatic; G93.0 Cerebral cysts; R35.1 Nocturia; R82.8 Abnormal findings on cytological and histological examination of urine; E86.0 Dehydration; N17.9 Acute kidney failure, unspecified; I10 Essential (primary) hypertension; E78.5 Hyperlipidemia, unspecified; E66.01 Morbid (severe) obesity due to excess calories; Z87.891 Personal history of nicotine dependence; Z79.82 Long term (current) use of aspirin; Z79.899 Other long term (current) drug therapy; Z79.84 Long term (current) use of oral hypoglycemic drugs; Z82.3 Family history of stroke; Z83.3 Family history of diabetes mellitus

== ENCOUNTER 2017-05-22 13:16 | Inpatient (IN) | payer OTHER ==
[2017-05-22] VITALS (8 sets, daily range): BP systolic 113–141; BP diastolic 55–82; PULSE 66–99; TEMP 36.4; O2SAT 96–100; BMI 45.5
[~2017-05-22] VITALS: Ht 165.1 cm; Wt 130.7 kg
[~2017-05-22 13:16] MED LIST: ASPI81TA28 PO; ATOR-54 PO; CHOL20009 PO; INSDGIPEN SC; LISI-461 PO; METF1000 PO; MTR600X PO
--- NOTE | 2017-05-22 14:28 | EMERGENCY ROOM VISIT NOTE ---
History First contact with patient: 13:24 Chief Complaint: MENTAL HEALTH EVALUATION Stated Complaint: DEPRESSION,PT IS HYPERGLYCEMIC History of Present Illness The patient is a 56 year old male who presents to the Emergency Room from his PCP's office for a mental health evaluation. Patient was only able to give a limited history and gave the majority of the history below. He was in [facility] from May 05 - May 10 for hyperglycemia and altered mental status. While in the hospital he had a Brain MRI which showed a 3cm cystic lesion in the frontal lobe, he had a normal EEG, normal carotid US and normal pulse ox. He was discharged home with follow up with his PCP and neurology. His PCP started the patient on escitalopram 4 days ago due to the thought that the patient may be suffering from depression. The patient went to see his PCP today and was sent to the hospital for a mental health evaluation This morning his did notice that he was unable to dress himself and was unable to shower which is a new and unusual for him. He did have dysarthria which has been occurring since March. He had no suicidal ideation and when asked if he is depressed he says he is unsure. He has guns in his home which are locked up according to his . Over the past month he has had difficulty with word finding and has been sleeping a lot. His notes that he has been repeating himself very frequently and has not been eating very much. He also notes that he has had a headache over the past few weeks which has been over his eye. Review of Systems Unable to obtain ROS as patient does not answer questions appropriately Past Medical/Surgical History Medical Problems: (1) Diabetes mellitus, type 2 (2) Dyslipidemia (3) Hypertension (4) Obesity, morbid, BMI 40.0-49.9 Family History Diabetes mellitus GRANDMOTHER Ovarian cancer Stroke FATHER Social History Smoking Status: Never Smoker Alcohol Use: none Drug Use: none Marital Status: Housing Status: lives with significant other Occupation Status: unemployed Current/Historical Medications Scheduled Aspirin (Aspirin Ec), 81 MG PO DAILY Atorvastatin (Lipitor), 20 MG PO DAILY Cholecalciferol (Vitamin D), 4,000 UNITS PO DAILY Escitalopram Oxalate (Lexapro), 5 MG PO QPM Insulin Glargine (Lantus Solostar), 25 UNITS SC DAILYBB Lisinopril (Zestril), 10 MG PO DAILY Metformin Hcl (Glucophage), 500 MG PO BID Multivitamin (Multivitamin), 1 TAB PO DAILY Scheduled PRN Ibuprofen (Ibuprofen), 600 MG PO Q8H PRN for pain Allergies NKDA Physical Exam Vital Signs Date Time Temp Pulse Resp B/P (MAP) Pulse Ox O2 Delivery O2 Flow Rate FiO2 05/22/17 15:44 55 16 131/67 96 Room Air 05/22/17 14:59 129/66 05/22/17 14:57 96 Room Air 05/22/17 14:48 138/69 05/22/17 14:46 60 05/22/17 14:30 61 05/22/17 14:28 125/73 05/22/17 13:20 36.5 72 20 157/95 94 Room Air Physical Exam HEENT: Head - normocephalic and atraumatic. Pupils are equal, round, and reactive to light. Mouth - moist buccal mucosa. Oropharynx is nonerythematous and there is no tonsillar exudate or edema noted. Neck: Supple; no JVD, nuchal rigidity, cervical lymphadenopathy, or auscultated bruits. Heart: Regular rate and rhythm. 2/6 murmur at the LLSB. Lungs: Clear to auscultation bilaterally with no wheezes, rales, or rhonchi. Abdomen: Soft, completely nontender, nondistended, with good bowel sounds. There are no palpable pulsatile masses or hepatosplenomegaly. There is no guarding, rigidity, or rebound noted. Extremities: No evidence of cyanosis, clubbing, or edema. There are easily palpable peripheral pulses. Cranial nerve exam: Unable to obtain full cranial nerve exam due to patient not cooperating with exam: Patient with PEERLA, no obvious facial droop, no facial muscular deficits, no deficits with eye movements, patient able to keep eyes closed against resistance, able to shrug shoulders against resistance, facial sensation intact Upper limb neuro: patient unable to close R hand, 5/5 power in upper extremities , decreased sensation in R upper extremity Lower limb neuro: 5/5 power in both lower extremities, sensation intact bilaterally, patient with difficulty discerning sensation in both lower extremities Medical Decision & Procedures ER Provider Diagnostic Interpretation: FINDINGS: 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 Ventricles and sulci normal in size. Chronic well-defined CSF signal intensity lesion in the paramedian left frontal lobe without clear to medication to the frontal horn of the left lateral ventricle. Brain parenchyma normal in appearance with preserved garcia-white differentiation. No mass effect or midline shift. No hemorrhage or acute territorial infarct. No extra-axial fluid collection. Paranasal sinuses and mastoid air cells clear. Calvarium intact. IMPRESSION: 1. No significant change compared to the prior study. No acute intracranial abnormality. Laboratory Results 05/22/17 14:43 05/22/17 14:43 Test 05/22/17 13:20 05/22/17 14:30 05/22/17 14:43 05/22/17 14:52 Bedside Glucose 203 mg/dl (70-99) Bedside Prothrombin Time INR 1.1 (0.9-1.1) Red Blood Count 4.32 M/uL (4.7-6.1) Mean Corpuscular Volume 90.7 fL (80-100) Mean Corpuscular Hemoglobin 31.3 pg (25-34) Mean Corpuscular Hemoglobin Concent 34.4 g/dl (32-36) RDW Standard Deviation 40.6 fL (36.4-46.3) RDW Coefficient of Variation 12.2 % (11.5-14.5) Mean Platelet Volume 9.6 fL (7.4-10.4) Prothrombin Time 11.9 SECONDS (9.0-12.0) Prothromb Time International Ratio 1.1 (0.9-1.1) Activated Partial Thromboplast Time 28.4 SECONDS (21.0-31.0) Partial Thromboplastin Ratio 1.1 Anion Gap 5.0 mmol/L (3-11) Est Creatinine Clear Calc Drug Dose 75.6 ml/min Estimated GFR () 68.9 Estimated GFR (Non- 59.5 BUN/Creatinine Ratio 18.8 (10-20) Calcium Level 9.3 mg/dl (8.5-10.1) Magnesium Level 1.3 mg/dl (1.8-2.4) Total Bilirubin 0.7 mg/dl (0.2-1) Aspartate Amino Transf (AST/SGOT) 14 U/L (15-37) Alanine Aminotransferase (ALT/SGPT) 22 U/L (12-78) Alkaline Phosphatase 78 U/L (45-117) Ammonia < 10.0 umol/L (11-32) Total Creatine Kinase 253 U/L (39-308) Creatine Kinase MB 1.7 ng/ml (0.5-3.6) Creatine Kinase MB Ratio 0.7 (0-3.0) Troponin I < 0.015 ng/ml (0-0.045) Total Protein 7.3 gm/dl (6.4-8.2) Albumin 3.8 gm/dl (3.4-5.0) Globulin 3.5 gm/dl (2.5-4.0) Albumin/Globulin Ratio 1.1 (0.9-2) Thyroid Stimulating Hormone (TSH) 1.150 uIu/ml (0.300-4.500) Acetaminophen Level < 2 ug/ml (10-30) Ethyl Alcohol mg/dL < 3.0 mg/dl (0-3) ECG Indication: altered mental status Rate (beats per minute): 57 Rhythm: sinus bradycardia ED Course 13:30 - patient was seen and a full history and exam was obtained by myself 14:10 - the case was discussed with Dr. Moody who then went to evaluate the patient. Labs were ordered and a CT scan of the patients head was ordered 14:25 - Dr. Moody called for a stroke alert and the patient was transferred to . His CT scan was unchanged from prior. I evaluated the patient at this point and the patient was in no acute distress 15:10 - Dr. Moody was able to get in contact with Dr. Amato who suggested the patient get a EEG and MRI for further investigation 15:35 - the case management assistant was contacted in order to get in contact with the [facility]ist 16:15 - Dr. Moody spoke to the [facility]ist agreed to evaluate the patient for admission and further management Medical Decision The patient's history was concerning for altered mental status. Differential diagnosis: Etiologies such as stroke, metabolic, infection, hypoglycemia, electrolyte abnormalities, cardiac sources, intracerebral event, toxicologic, neurologic, as well as others were entertained. Patient had a CT scan of his brain which showed an unchanged lesion from last time he was in the hospital. Neurology were consulted who suggested that the patient get a an EEG and that an MRI be ordered. Impression Primary Impression: Altered mental status Departure Information Dispostion Admitted as an inpatient Condition POOR Referrals Quique Palomino M.D. (PCP) Patient Instructions My [facility] Problem Qualifiers Primary Impression: Altered mental status Altered mental status type: disorientation Qualified Codes: R41.0 - Disorientation, unspecified
--- NOTE | 2017-05-22 14:41 | DIAGNOSTIC IMAGING REPORT ---
HEAD WITHOUT CONTRAST (CT) CLINICAL HISTORY: 56 years-old Male presenting with Altered mental status. TECHNIQUE: Multidetector CT imaging of the head was performed without the use of intravenous contrast. IV contrast: None. A dose lowering technique was used consistent with the principles of ALARA (as low as reasonably achievable). COMPARISON: 05/06/2017. CT DOSE (mGy.cm): The estimated cumulative dose is 537.48 mGy.cm. 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 Ventricles and sulci normal in size. Chronic well-defined CSF signal intensity lesion in the paramedian left frontal lobe without clear to medication to the frontal horn of the left lateral ventricle. Brain parenchyma normal in appearance with preserved garcia-white differentiation. No mass effect or midline shift. No hemorrhage or acute territorial infarct. No extra-axial fluid collection. Paranasal sinuses and mastoid air cells clear. Calvarium intact. IMPRESSION: 1. No significant change compared to the prior study. No acute intracranial abnormality. Electronically signed by: Marcus Pope M.D. 05/22/2017 2:40 PM Dictated Date/Time: 05/22/2017 2:37 PM
[2017-05-22 15:03] LABS: HEMATOCRIT 39.2 % (42-52); HEMOGLOBIN 13.5 g/dL (14.0-18.0); MEAN CELL VOLUME 90.7 fL (80-100); MEAN CORPUSCULAR HEMOGLOBIN 31.3 pg (25-34); MEAN CORPUSCULAR HGB CONC 34.4 g/dl (32-36); MEAN PLATELET VOLUME 9.6 fL (7.4-10.4); PLATELET COUNT 278 K/uL (130-400); RED CELL DISTRIBUTION WIDTH CV 12.2 % (11.5-14.5); RED CELL DISTRIBUTION WIDTH SD 40.6 fL (36.4-46.3); WHITE BLOOD COUNT 14.37 K/uL (4.8-10.8)
[2017-05-22 15:09] LABS: INR 1.1 (0.9-1.1); PTT PATIENT 28.4 SECONDS (21.0-31.0)
[2017-05-22 15:24] LABS: ALBUMIN 3.8 gm/dl (3.4-5.0); ALT/SGPT 22 U/L (12-78); AST/SGOT 14 U/L (15-37); BLOOD UREA NITROGEN 25 mg/dl (7-18); CALCIUM 9.3 mg/dl (8.5-10.1); CARBON DIOXIDE 29 mmol/L (21-32); CREATININE 1.32 mg/dl (0.60-1.40); GLUCOSE 197 mg/dl (70-99); POTASSIUM 4.1 mmol/L (3.5-5.1); SODIUM 129 mmol/L (136-145)
[2017-05-22 15:34] LABS: ALKALINE PHOSPHATASE 78 U/L (45-117); CKMB 1.7 ng/ml (0.5-3.6); TOTAL PROTEIN 7.3 gm/dl (6.4-8.2)
[2017-05-22] MEDS ORDERED: ESCI1TAB6 PO (15:37)
[2017-05-22] MEDS ORDERED: MULT-506 PO (15:37)
[2017-05-22] MEDS ORDERED: GLC/500 PO (15:37)
--- NOTE | 2017-05-22 17:19 | EMERGENCY ROOM VISIT NOTE ---
History Report prepared by Efrain: Chavo Brandt Under the Supervision of: Dr. Hiram Moody M.D. First contact with patient: 13:24 Chief Complaint: MENTAL HEALTH EVALUATION Stated Complaint: DEPRESSION,PT IS HYPERGLYCEMIC History of Present Illness The patient is a 56 year old male who presents to the Emergency Room with complaints of constant confusion beginning 6 weeks ago. The patient's states he had flulike symptoms 7 weeks ago. She notes he did not have a fever. Since then he has had a change in his normal cognitive state. She reports it started as a memory issue, and he was not confused. The notes he was able to recognize everyone. She states he was evaluated in the hospital from the - 08 of May due to high blood sugar levels and confusion. The reports he was evaluated by a neurologist and had an MRI of the brain that showed a 3.0 cm cystic lesion in his frontal lobe. She notes at the time it was considered benign and not significant. The states he started to develop headaches a week before his hospital stay but not when he had his flu like symptoms. She reports his blood sugars were elevated prior to admission and was told that was contributing to his altered mental status and confusion. The notes he is still having confusion and difficulty finding his words. He has had difficulty with his Medication during his hospitalization. She states since discharge, he is sleeping most of the day and wakes two to three times a day to eat and take his medication. The reports he denies suicidal ideations, fevers, alcohol use, drug use, tobacco use, and hallucinations. She notes the patient has not been eating like he used to. The states for the past 7 days he has had difficulty with normal daily tasks. He cannot open a door or dress himself. The notes he was evaluated by his PCP today and was sent to the ED for a mental health evaluation. His PCP thought that his symptoms were secondary to depression. She states the patient lost the ability to squeeze his right hand this morning, and he seems more confused since they arrived to the ED. HPI limited secondary to altered mental status. Source of History: spouse/significant other History Limited By: AMS Onset: 6 weeks, worse over the past 7 days Position: other (Global) Symptom Intensity: severe Quality: other (change in mental status) Timing: worsening Associated Symptoms: + headache, No fevers Review of Systems ROS limited secondary to altered mental status. Past Medical & Surgical Medical Problems: (1) Diabetes mellitus, type 2 (2) Dyslipidemia (3) Hypertension (4) Obesity, morbid, BMI 40.0-49.9 Family History Diabetes mellitus GRANDMOTHER Ovarian cancer Stroke FATHER Social History Smoking Status: Never Smoker Marital Status: Housing Status: lives with significant other Occupation Status: unemployed Current/Historical Medications Scheduled Aspirin (Aspirin Ec), 81 MG PO DAILY Atorvastatin (Lipitor), 20 MG PO DAILY Cholecalciferol (Vitamin D), 4,000 UNITS PO DAILY Escitalopram Oxalate (Lexapro), 5 MG PO QPM Insulin Glargine (Lantus Solostar), 25 UNITS SC DAILYBB Lisinopril (Zestril), 10 MG PO DAILY Metformin Hcl (Glucophage), 500 MG PO BID Multivitamin (Multivitamin), 1 TAB PO DAILY Scheduled PRN Ibuprofen (Ibuprofen), 600 MG PO Q8H PRN for pain Allergies Coded Allergies: No Known Allergies (Unverified , 05/22/17) Physical Exam Vital Signs Date Time Temp Pulse Resp B/P (MAP) Pulse Ox O2 Delivery O2 Flow Rate FiO2 05/22/17 16:43 66 20 120/65 97 Room Air 05/22/17 15:44 55 16 131/67 96 Room Air 05/22/17 14:59 129/66 05/22/17 14:57 96 Room Air 05/22/17 14:48 138/69 05/22/17 14:46 60 05/22/17 14:30 61 05/22/17 14:28 125/73 05/22/17 13:20 36.5 72 20 157/95 94 Room Air Physical Exam Constitutional: Vital signs reviewed. Exam is limited secondary to altered mental status. Eyes: Pupils are equal round reactive to light. Conjunctiva are noninjected. ENT: Pharynx is clear without erythema or exudate. Mucous membranes are moist. Neck supple without meningeal signs. Respiratory: Clear to auscultation bilaterally. Breath sounds are equal bilaterally. Cardiovascular: Regular rate and rhythm. No rubs or gallops. GI: Soft, nondistended and nontender. Bowel sounds are present. Musculoskeletal: No peripheral edema. No lower extremity tenderness. Integumentary: No cyanosis. Neurological: The patient is awake and oriented to person only. Expressive aphasia and agnosia. Right-sided neglect (he will follow commands on the right side but will not know when I am touching him there; he withdraws from painful stimuli but does not show any pain visibly on his face where he will do so on the left side), asymmetric smile on the right side. No pronator drift. Normal motor strength throughout extremities. Psychiatric: Affect is unable to assess Medical Decision & Procedures ER Provider Diagnostic Interpretation: CT results as stated below per my review and radiologist interpretation. HEAD WITHOUT CONTRAST (CT) CLINICAL HISTORY: 56 years-old Male presenting with Altered mental status. TECHNIQUE: Multidetector CT imaging of the head was performed without the use of intravenous contrast. IV contrast: None. A dose lowering technique was used consistent with the principles of ALARA (as low as reasonably achievable). COMPARISON: 05/06/2017. CT DOSE (mGy.cm): The estimated cumulative dose is 537.48 mGy.cm. 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 Ventricles and sulci normal in size. Chronic well-defined CSF signal intensity lesion in the paramedian left frontal lobe without clear to medication to the frontal horn of the left lateral ventricle. Brain parenchyma normal in appearance with preserved garcia-white differentiation. No mass effect or midline shift. No hemorrhage or acute territorial infarct. No extra-axial fluid collection. Paranasal sinuses and mastoid air cells clear. Calvarium intact. IMPRESSION: 1. No significant change compared to the prior study. No acute intracranial abnormality. Electronically signed by: Marcus Pope M.D. 05/22/2017 2:40 PM Dictated Date/Time: 05/22/2017 2:37 PM Laboratory Results 05/22/17 14:43 05/22/17 14:43 Test 05/22/17 13:20 05/22/17 14:30 05/22/17 14:43 05/22/17 14:52 Bedside Glucose 203 mg/dl (70-99) Bedside Prothrombin Time INR 1.1 (0.9-1.1) Red Blood Count 4.32 M/uL (4.7-6.1) Mean Corpuscular Volume 90.7 fL (80-100) Mean Corpuscular Hemoglobin 31.3 pg (25-34) Mean Corpuscular Hemoglobin Concent 34.4 g/dl (32-36) RDW Standard Deviation 40.6 fL (36.4-46.3) RDW Coefficient of Variation 12.2 % (11.5-14.5) Mean Platelet Volume 9.6 fL (7.4-10.4) Prothrombin Time 11.9 SECONDS (9.0-12.0) Prothromb Time International Ratio 1.1 (0.9-1.1) Activated Partial Thromboplast Time 28.4 SECONDS (21.0-31.0) Partial Thromboplastin Ratio 1.1 Anion Gap 5.0 mmol/L (3-11) Est Creatinine Clear Calc Drug Dose 75.6 ml/min Estimated GFR () 68.9 Estimated GFR (Non- 59.5 BUN/Creatinine Ratio 18.8 (10-20) Calcium Level 9.3 mg/dl (8.5-10.1) Magnesium Level 1.3 mg/dl (1.8-2.4) Total Bilirubin 0.7 mg/dl (0.2-1) Aspartate Amino Transf (AST/SGOT) 14 U/L (15-37) Alanine Aminotransferase (ALT/SGPT) 22 U/L (12-78) Alkaline Phosphatase 78 U/L (45-117) Ammonia < 10.0 umol/L (11-32) Total Creatine Kinase 253 U/L (39-308) Creatine Kinase MB 1.7 ng/ml (0.5-3.6) Creatine Kinase MB Ratio 0.7 (0-3.0) Troponin I < 0.015 ng/ml (0-0.045) Total Protein 7.3 gm/dl (6.4-8.2) Albumin 3.8 gm/dl (3.4-5.0) Globulin 3.5 gm/dl (2.5-4.0) Albumin/Globulin Ratio 1.1 (0.9-2) Thyroid Stimulating Hormone (TSH) 1.150 uIu/ml (0.300-4.500) Acetaminophen Level < 2 ug/ml (10-30) Ethyl Alcohol mg/dL < 3.0 mg/dl (0-3) Laboratory results as reviewed by me. ECG Indication: other (neurological symptoms) Rate (beats per minute): 57 Rhythm: sinus bradycardia Findings: no ectopy, other (Biphasic T-waves in V4-V6) ED Course 1329: The patient was evaluated in room A08 by the medical tech under my control. A complete history and physical exam was performed. 1410: The patient was evaluated in room A08 by me. A complete history and physical exam was performed. 1429: I reassessed the patient. He is still experiencing neglect on the right side and aphasic. His smile is symmetric, and the CT showed no acute process. 1526: I reevaluated the patient, and he has not changed. The said he had an EEG prior to discharge from the hospital that was normal. 1530: I discussed the patient's case with Dr. Amato, Neurology. The patient needs an MRI and MRA. He suggests the patient should be evaluated by the hospitalist for further evaluation. We are currently trying to get an EEG. 1623: I discussed the patient's case with VENKAT Kam, [facility] Hospitalist. The patient will be evaluated for further management and care. 1709: I reevaluated the patient, and Dr. Smith was evaluating the patient. The EEG was performed and was grossly normal. Medical Decision This is a 56-year-old male who presents with altered mental status. Differential diagnosis includes TIA, CVA, encephalopathy, intracranial mass, intracranial bleed, postictal state, seizure. I did perform a limited focused review of portions of the patient's old chart on the electronic medical record. The patient was admitted from the -08 of May for what was thought to be metabolic encephalopathy. He had a brain MRI that showed a 3.0cm cystic lesion to the frontal lobe that was thought to be insignificant. I did evaluate the patient as noted above. The patient is presenting with worsening altered mental status over the past 6 days. He has gotten to the point where he can no longer perform daily tasks such as dressing himself or opening a door. This morning he woke up and his states that he has not been using the right side of his body. On my examination he does appear to have neglect of the right side although no appreciable loss of strength as described above. He initially had an asymmetric smile but when I later tested and he had asymmetric smile. I'm unclear if this was true weakness or lack of cooperation. He does have expressive aphasia. I did call a stroke alert after seeing the patient. He is not a TPA candidate due to the timeframe. IV access was established. The patient was placed on a continuous monitoring manager. I did order and personally review the patient's 12-lead EKG and chest x-ray as described above. I did order and review the patient's blood work as noted in the electronic medical record. He does have hyponatremia. I did order a CT of the head. I did review the images myself as well as the radiology report as described above. There is no evidence of acute intracranial process. I did reassess the patient multiple times. He has not had any significant change in his symptoms. I did talk to Dr. Amato of neurology who recommended admitting the patient for MRI and MRA and further workup. I did order a stat EEG which was performed in the emergency department. No acute abnormalities were noted. I did discuss case with the hospitalist and rn case management. Resident Physician Supervision Note: I did evaluate and examine this patient myself. I did guide management for the patient. I agree with the resident's Dr. Markus Whitney assessment as discussed. Please see the resident's dictation for further details. Medication Reconcilliation Current Medication List: was personally reviewed by me Blood Pressure Screening Patient's blood pressure: Elevated blood pressure Blood pressure disposition: Referred to PCP Consults Time Called: 1446 Consulting Physician: Dr. Amato, Neurology Returned Call: 1530 I discussed the patient's case with Dr. Amato, Neurology. The patient needs an MRI and MRA. He suggests the patient should be evaluated by the hospitalist for further evaluation. Additional Consults: Time Called: 1621 Consulted Physician: VENKAT Kam [facility]ist Returned Call: 1628 Additional Comments: I [facility] the patient[facility] The patient will be evaluated for further management and care. Impression Primary Impression: Altered mental status Additional Impressions: Expressive aphasia Herb-neglect of right side Hyponatremia Scribe Attestation The scribe's documentation has been prepared under my direct and personally reviewed by me in its entirety. I confirm that the note above accurately reflects all work, treatment, procedures, and medical decision making performed by me. Departure Information Dispostion Being Evaluated By Hospitalist Referrals Quique Palomino M.D. (PCP) Patient Instructions My [facility] Problem Qualifiers Primary Impression: Altered mental status Altered mental status type: disorientation Qualified Codes: R41.0 - Disorientation, unspecified
[2017-05-22] MEDS ORDERED: ALUMINUM/MAGNESIUM/SIMETH (MAALOX MAX) 30 ML UDC PO PRN (17:30)
[2017-05-22] MEDS ORDERED: ACETAMINOPHEN 325 MG TAB PO PRN (17:30)
[2017-05-22] MEDS ORDERED: ONDANSETRON INJ 2 MG/ML 2 ML VIAL IV PRN (17:30)
[2017-05-22] MEDS ORDERED: NITROGLYCERIN 0.4 MG SL PER TAB CHARGE SL PRN (17:30)
[2017-05-22] MEDS ORDERED: DEXTROSE 50% 50 ML SYR IV PRN (17:45)
[2017-05-22] MEDS ORDERED: GLUCAGON FOR INJ 1 MG VIAL SQ PRN (17:45)
[2017-05-22] MEDS ORDERED: GLUCOSE 10 TABS/TUBE PO PRN (17:45)
[2017-05-22] MEDS ORDERED: GLUCOSE 40% GEL 15 GM TUBE PO PRN (17:45)
--- NOTE | 2017-05-22 17:52 | ELECTROENCEPHALOGRAPH REPORT ---
REQUESTING PHYSICIAN: Dr. Amato. CLINICAL DIAGNOSIS: Episodic confusion, question intermittent seizure activity. EEG DIAGNOSIS: Abnormal EEG with focal slow wave activity left hemisphere, maximum central mid temporal regions during apparent wakefulness. DESCRIPTION OF TRACING: This EEG was done as a bedside recording and is of good technical quality with few or no muscle or movement artifacts. Simultaneous video analysis of patient movement and behavior was obtained. Photic stimulation was performed. Hyperventilation was not and drowsiness and light sleep were not clearly seen. Under these conditions there is evidence for a normal appearing background rhythm in the alpha range of up to 9-10 Hz of maximum frequency and up to 30 microvolts of maximum amplitude. This is maximum posterior head regions bilaterally symmetrical. Polymorphic mid frequency theta activity is seen over the right hemisphere in normal amounts, but over the left hemisphere this activity is shifted into slightly lower frequencies and is slightly higher amplitude and at times appears to be more rhythmic, but there are not any clear cut potentially epileptogenic features in the form of focal sharp waves, spikes or long runs of high amplitude rhythmic theta or delta. Anterior head region maximum bilaterally symmetrical low voltage fast activity in the beta range is present. Episodically throughout the recording there is short duration bursts of some posterior higher amplitude semi-rhythmic delta activity but again no clear cut potentially epileptogenic features are seen and there is no clinical manifestations based on video analysis. Photic stimulation provokes no significant driving response and no photomyogenic or photoparoxysmal components are seen. INTERPRETATION: This EEG reveals focal slow wave activity over the left hemisphere, maximum in the central mid temporal regions. This is not associated with any unequivocal potentially epileptogenic features and may indicate the presence of some structural disease in this area, but could alternatively also reflect postictal slowing. Clinical correlation is required.
[2017-05-22] MEDS ORDERED: CLOPIDOGREL BISULFATE 75 MG TAB PO ONE (18:00)
--- NOTE | 2017-05-22 18:10 | DIAGNOSTIC IMAGING REPORT ---
CHEST ONE VIEW PORTABLE CLINICAL HISTORY: 56 years-old Male presenting with INFILTRATE. TECHNIQUE: Portable upright AP view of the chest was obtained. COMPARISON: . FINDINGS: Atherosclerosis of the aortic arch. Prominence of the cardiac silhouette and pulmonary vasculature likely related to low lung volumes and hypoventilatory changes. Lungs and pleural spaces otherwise clear. Degenerative changes of the thoracic spine. Upper abdomen normal. IMPRESSION: 1. Low lung volumes and hypoventilatory changes. No focal infiltrate to suggest pneumonia. Electronically signed by: Marcus Pope M.D. 05/22/2017 6:08 PM Dictated Date/Time: 05/22/2017 6:07 PM
[2017-05-22] MEDS ORDERED: PHARMACIST DISCHARGE MED REC CONSULT PRN (18:45)
[2017-05-22] MEDS ORDERED: VANCOMYCIN CONSULT ACTIVE PRN (19:00)
--- NOTE | 2017-05-22 19:28 | HISTORY & PHYSICAL EXAMINATION ---
DATE OF ADMISSION: 05/22/2017 CHIEF COMPLAINT: Confusion. HISTORY OF PRESENT ILLNESS: This is a 56-year-old male with past medical history significant for morbid obesity, diabetes, hypertension, hyperlipidemia, presents with confusion. The patient was here in the hospital from May 06 to May 10 with the same problem. At that time it was mild, thought to be secondary to hyperglycemia. At that time, workup for his MRI of the head and CT of the head and carotid Dopplers and EEG were unremarkable and evaluated by neurology and thought to be possibly secondary to hyperglycemia as his blood sugars were also running high and his HbA1c was high. 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 He was having difficulty finding words and also he was not eating and was helping him to eat and even he is having difficulty putting on his dress and he was also sleeping a lot. She notified family doctor and thought to be depression, started him on Lexapro, but today morning, he seems to be having right facial droop and weakness in the right extremities, so she brought him to the ER and initial stroke alert was called. CT of the head was unremarkable and he was thought to be not a TPA candidate with timeframe. Currently, the patient is comfortable and hemodynamically stable. He can tell his name, can tell his 's name. He cannot tell his date of , does not know where is he, initially did not recognize me but later he told I saw him in the hospital. On and off waxing and waning mental status, could not get a complete review. As per the and as per the patient too, denies any chest pain, no shortness of breath, no cough, no fever, no chills, no nausea, no abdominal pain. As per , he is moving his bowels okay. Appetite is not that great. ALLERGIES: No known drug allergies. PAST MEDICAL AND SURGICAL HISTORY: As above. FAMILY HISTORY: Significant for father had stroke. Grandmother has diabetes. SOCIAL HISTORY: Former smoker. Alcohol occasionally. 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 MEDICATIONS: Aspirin 81 mg p.o. daily, Lipitor 20 mg p.o. daily, vitamin D 4000 units p.o. daily, lisinopril 10 mg p.o. daily, metformin 500 mg p.o. b.i.d. and Lantus 25 mg p.o. a.m. REVIEW OF SYSTEMS: Unobtainable at this time as the patient is confused. PHYSICAL EXAMINATION: GENERAL: The patient is morbidly obese, confused, not in distress. VITAL SIGNS: Temperature 36.5, pulse 64, respiratory rate 20, blood pressure 120/60, oxygen 97% room air. HEENT: No pallor, no icterus. Pupils equal, round react to light. NECK: No JVD, no neck masses, no carotid bruits. CARDIOVASCULAR: S1, S2 heard, regular rate and rhythm, no murmur, no gallop. RESPIRATORY SYSTEM: Clear to auscultation bilaterally. No wheezing, no crackles. ABDOMEN: Soft, bowel sounds present. Nontender. No distention. CENTRAL NERVOUS SYSTEM: Alert and oriented x1. Intact recent memory, waxing and waning. Obeys simple commands. moving his extremities. Some lack of sensation on and off on the right extremities. Could not do complete exam as the patient is confused. EXTREMITIES: No edema, no erythema. LABORATORY DATA: WBC 14.3, hemoglobin 13.5, hematocrit 39.2, platelets 278. Sodium 129, potassium 4.1, chloride 95, CO2 29, BUN 25, creatinine 1.3, serum glucose 187, calcium 9.3, magnesium 1.3. Total bilirubin 0.7, AST 14, ALT 22, alkaline phosphatase 78. Ammonia less than 10. Total creatine kinase 253, CK-MB 1.7, troponin I less than 0.015. TSH 1.15. PT 11.9, INR 1.1, PTT 28.4. Acetaminophen level less than 2. Ethyl alcohol level less than 3. CT of the head, no acute intracranial findings. EKG sinus bradycardia, rate of 57, no significant change from previous EKG. EEG, focal wave activity of the left hemisphere at mid temporal regions is not associated with any unequivocal potential epileptogenic features and may indicate the presence of some structural disease in this area but could alternate also with postictal slowing. Clinical correlation is required. ASSESSMENT AND PLAN: This is a 56-year-old male who presents with altered mental status. 1. Altered mental status, confusion, encephalopathy, possible cerebrovascular accident versus seizures versus metabolic causes. CAT scan of the head is unremarkable and EEG is nonspecific. We will plan to do MRI/MRA of the head. The patient is already on aspirin, statin and we will add Plavix. Neurology is notified. Further recommendation as per neurology. Monitor on tele floor. Last admission MRI of the head, EEG and nocturnal pulse oximetry were unremarkable. We will also follow the echocardiogram. 2. Leukocytosis. We will follow urinalysis, chest x-ray, empirically place on IV vancomycin and Zosyn and follow the cultures. 3. Diabetes. Continue his Lantus. Hold his metformin. Last time metformin increased dose he was not tolerating. Back metformin 500 mg BID at home which we will hold for now and place on insulin sliding scale. 4. Hypertension. Continue lisinopril. 5. Hyperlipidemia. Continue statin. 6. Deep venous thrombosis prophylaxis, heparin subQ. DISPOSITION: Admit to tele floor. Social Service to help with discharge planning. Level 1 full code. MTDD
[2017-05-22] MEDS ORDERED: VANCOMYCIN INJ 2,750 MG in SODIUM CHLORIDE 0.9% 500ML 500 ML IV ONE (19:30)
[2017-05-22] MEDS ORDERED: NURSING VERBAL MED ORDER ONE (20:00)
[2017-05-22] MEDS ORDERED: LORAZEPAM 2 MG/ML 1 ML VIAL ONE (20:21)
[2017-05-22] MEDS ORDERED: METHYLPREDNISOLONE 125 MG VIAL ONE (20:29)
[2017-05-22] MEDS ORDERED: AMPICILLIN/SULBACTAM SOD INJ 1,500 MG in SODIUM CHLORIDE 0.9% 100ML 100 ML IV SCH (20:45)
[2017-05-22] MEDS ORDERED: LORAZEPAM INJ 2 MG in SYRINGE 1 ML IV PRN (20:45)
[2017-05-22] MEDS ORDERED: LORAZEPAM 2 MG/ML 1 ML VIAL IV PRN (20:45)
--- NOTE | 2017-05-22 20:50 | DIAGNOSTIC IMAGING REPORT ---
CT HEAD WITHOUT CONTRAST (CT) CLINICAL HISTORY: seizure activity COMPARISON STUDY: 05/22/2017 TECHNIQUE: Axial CT of the brain is performed from the vertex to the skull base. IV contrast was not administered for this examination. A dose lowering technique was utilized adhering to the principles of ALARA. CT DOSE: 1074.96 mGy.cm FINDINGS: There is a stable 31 mm left frontal cystic lesion. There is no significant mass effect. There is no CT evidence of acute cortical infarction. There is no evidence of midline shift. There is no evidence of acute hemorrhage. There are patchy white matter hypodensities likely on a small vessel basis. There is no evidence of pathologic ventricular dilatation. There is no evidence of acute sinusitis IMPRESSION: 1. No significant change from the preceding study. Stable 31 mm cystic left frontal lesion. 2. No acute intracranial findings. Electronically signed by: Graham Perales M.D. 05/22/2017 8:49 PM Dictated Date/Time: 05/22/2017 8:46 PM
[2017-05-22] MEDS ORDERED: ALBUT/IPRATROP 3MG/0.5MG NEB 3 ML VIAL INH ONE (21:00)
[2017-05-22] MEDS ORDERED: INSULIN ASPART 100 UNITS/ML 3 ML PEN SC SCH (21:00)
[2017-05-22] MEDS ORDERED: METHYLPREDNISOLONE IV 20 MG in SYRINGE 0 ML IV ONE (21:00)
[2017-05-22] MEDS ORDERED: VANCOMYCIN INJ 1,000 MG in SODIUM CHLORIDE 0.9% 250ML 250 ML IV SCH (21:00)
[2017-05-22] MEDS ORDERED: CEFEPIME IV 2,000 MG in DEXTROSE 5% 100ML 100 ML IV SCH (21:00)
[2017-05-22] MEDS: SODIUM CHLORIDE 0.9% 1000ML 1,000 ML IV SCH (21:03)
[2017-05-22] MEDS: VALPROATE SOD IV 500 MG in DEXTROSE 5% 50ML 50 ML IV SCH (21:04)
--- NOTE | 2017-05-22 21:10 | DIAGNOSTIC IMAGING REPORT ---
CHEST ONE VIEW PORTABLE CLINICAL HISTORY: aspiration COMPARISON STUDY: 05/22/2017 FINDINGS: The cardiac and mediastinal contours remain stable. There is no overt failure. There is no acute parenchymal consolidation. There are no significant pleural effusions. There are relatively low lung volumes with mild basilar hypoventilatory changes.[ IMPRESSION: AP portable study. No acute findings. Electronically signed by: Graham Perales M.D. 05/22/2017 9:09 PM Dictated Date/Time: 05/22/2017 9:08 PM
[2017-05-22] MEDS: CEFEPIME IV 2,000 MG in SYRINGE 7.5 ML IV SCH (21:32)
--- NOTE | 2017-05-22 21:32 | Critical Care Consultation ---
Critical Care Consultation Date of Consultation: May 22, 2017. Attending Physician: Alex Smith MD Reason for Consultation: Juani Worley s/p seizure History of Present Illness Scot pages 56-year-old male with a past medical history of hyperlipidemia, htn, dm2 that presented to [facility] this evening for a mental health evaluation at the prompting of his PCP. Per emergency room documentation patient was unable to provide much history but the was available at that time and did state that he has been unable to dress himself and unable to shower which is new and unusual for him. She also states that over the past month patient has had difficulty with word finding and has been sleeping more than usual. He has not been eating much and has been frequently repeating himself. Patient's PCP had recently started him on Lexapro 4 days prior to arrival for suspicion of depression. She notes that the confusion began a proximally 6 weeks ago, approximately one week after flulike symptoms. Per emergency room documentation the patient had been experiencing neglect on the right side and was a phasic. His smile was symmetric. EEG performed in the emergency department showed no acute abnormalities. Discussion with Dr. Amato of neurology recommended admission for MRI/MRA and patient was admitted to telemetry. Patient's most recent admission was May 06 to the for hyperglycemia and altered mental status at which time incidental finding of 3cm cystic lesion in the left frontal lobe was noted on head CT. This evening patient was found to be unresponsive in his bed at approximately 2030, he had last been seen well at 2015 during an Accu-Check. Juani worley was called patient had previously been on room air with adequate saturations. During code patient did desaturate, received a nasal trumpet and nonrebreather. Patient received 2 of Ativan for what appeared to be witnessed tonic-clonic seizure activity. Upon my arrival patient was post ictal and unresponsive. Patient was transferred to ICU where he did regain some level of consciousness; but was not back to baseline. Per documentation prior to code patient was able to tell you his name and his 's name. He could not tell you his date of or where he was. It is my understanding that his mental status was waxing and waning. ABG in the ICU demonstrated a pH of 7.456, a PCO2 of 34.7, PO2 200, and a bicarbonate of 24.6. Patient's nasal trumpet and nonrebreather removed and is placed on 4 L nasal cannula with adequate saturations at that time. Dr. Smith spoke with Dr. Dillard and the decision to begin Depakote was made. Pt became combative around midnight in the ICU, at which time he raised his forearm to his forehead and went still. His eyes oscillated left to right and he went unresponsive. Pt received 2mg of IV Ativan for second seizure. I updated Dr. Corea, community engagement coordinator and paged Dr. Dillard. She returned the call and stated that she believes the pt to be having clinical seizures, no additional eeg is needed currently as prior eeg demonstrated pt was not in status. She suggested that we load the pt with Dilantin at this time. Pt remained post-ictal and left for MRI a short time after. ROS could not be obtained secondary to pts altered mental status. He his not oriented and can not answer questions. Past Medical/Surgical History Medical Problems: Diabetes mellitus, type 2 Dyslipidemia Hypertension Obesity, morbid, BMI 40.0-49.9 Hyperlipidemia Right-sided neglect Confusion Seizure Altered mental status Family History Diabetes mellitus GRANDMOTHER Ovarian cancer Stroke FATHER Social History Smoking Status: Former Smoker Drug Use: none Marital Status: Housing Status: lives with significant other Occupation Status: unemployed Allergies Coded Allergies: No Known Allergies (Unverified , 05/22/17) Home Medications Scheduled Aspirin (Aspirin Ec), 81 MG PO DAILY Atorvastatin (Lipitor), 20 MG PO DAILY Cholecalciferol (Vitamin D), 4,000 UNITS PO DAILY Escitalopram Oxalate (Lexapro), 5 MG PO QPM Insulin Glargine (Lantus Solostar), 25 UNITS SC DAILYBB Lisinopril (Zestril), 10 MG PO DAILY Metformin Hcl (Glucophage), 500 MG PO BID Multivitamin (Multivitamin), 1 TAB PO DAILY Scheduled PRN Ibuprofen (Ibuprofen), 600 MG PO Q8H PRN for pain Current Inpatient Medications Current Inpatient Medications Medications (Trade) Dose Ordered Sig/Tori Route Start Time Stop Time Status Last Admin Dose Admin Heparin Sodium (Porcine) (Heparin Sq 5000 Unit/0.5ml) 5,000 unit Q8 SQ 05/22/17 22:00 06/21/17 21:59 Sodium Chloride 1,000 ml @ 75 mls/hr [id number] IV 05/22/17 17:25 06/21/17 17:24 05/22/17 21:03 75 MLS/HR Acetaminophen (Tylenol Tab) 650 mg Q4H PRN PO 05/22/17 17:30 06/21/17 17:29 Al Hydrox/Mg Hydrox/Simethicone (Maalox Max Susp) 15 ml Q4H PRN PO 05/22/17 17:30 06/21/17 17:29 Ondansetron HCl (Zofran Inj) 4 mg Q6H PRN IV 05/22/17 17:30 06/21/17 17:29 Nitroglycerin (Nitrostat Tab) 0.4 mg UD PRN SL 05/22/17 17:30 06/21/17 17:29 Aspirin (Ecotrin Tab) 81 mg DAILY PO 05/23/17 09:00 06/22/17 08:59 Atorvastatin Calcium (Lipitor Tab) 20 mg DAILY PO 05/23/17 09:00 06/22/17 08:59 Lisinopril (Zestril Tab) 10 mg DAILY PO 05/23/17 09:00 06/22/17 08:59 Multivitamins (Multivitamin Tab) 1 tab DAILY PO 05/23/17 09:00 06/22/17 08:59 Cholecalciferol (Vitamin D Tab) 4,000 inter.unit DAILY PO 05/23/17 09:00 06/22/17 08:59 Clopidogrel Bisulfate (plAVix TAB) 75 mg QAM PO 05/23/17 09:00 06/22/17 08:59 Glucose (Glucose 40% Gel) 15-30 GRAMS 15 GRAMS... UD PRN PO 05/22/17 17:45 06/21/17 17:44 Glucose (Glucose Chew Tab) 4-8 Tablets 4 Tabl... UD PRN PO 05/22/17 17:45 06/21/17 17:44 Dextrose (Dextrose 50% 50ML Syringe) 25-50ML OF 50% DW IV FOR... UD PRN IV 05/22/17 17:45 06/21/17 17:44 Glucagon (Glucagon Inj) 1 mg UD PRN SQ 05/22/17 17:45 06/21/17 17:44 Miscellaneous Information (Pharmacist Discharge Med Rec Consult) 1 ea UD PRN N/A 05/22/17 18:45 06/21/17 18:44 Vancomycin HCl 2750 mg/Sodium Chloride 555 ml @ 200 mls/hr ONE ONCE IV 05/22/17 19:30 05/22/17 22:16 Vancomycin HCl (Consult) 1 ea UD PRN N/A 05/22/17 19:00 06/21/17 18:59 Cefepime HCl 2000 mg/Syringe 20 ml @ 5 mls/min Q8H IV 05/22/17 21:00 05/29/17 20:59 Vancomycin HCl 1750 mg/Sodium Chloride 535 ml @ 200 mls/hr Q18H IV 05/23/17 13:00 05/30/17 12:59 Insulin Glargine (Lantus Solostar Pen) 20 units DAILYBB SC 05/23/17 06:00 06/22/17 06:59 Insulin Aspart (novoLOG ASPART) SLIDING SCALE G... Q6 SC 05/23/17 00:00 06/22/17 00:00 Valproate Sodium 500 mg/Dextrose 55 ml @ 55 mls/hr Q12H IV 05/22/17 21:00 06/21/17 20:59 05/22/17 21:04 55 MLS/HR Lorazepam 2 mg/ Syringe 2 ml @ 0.5 mls/min Q2HWA PRN IV 05/22/17 20:45 06/21/17 20:44 Lorazepam (Ativan Inj) 2 mg Q2H PRN IV 05/22/17 20:45 06/21/17 20:44 Review of Systems ROS could not be obtained secondary to pts altered mental status. He his not oriented and can not answer questions. Physical Exam Date Time Temp Pulse Resp B/P (MAP) Pulse Ox O2 Delivery O2 Flow Rate FiO2 05/22/17 20:35 88 20 98 15.0 05/22/17 19:47 36.4 66 18 136/78 (97) 96 Room Air 05/22/17 18:23 98 Room Air 05/22/17 17:48 54 18 122/76 95 Room Air 05/22/17 16:43 66 20 120/65 97 Room Air 05/22/17 15:44 55 16 131/67 96 Room Air 05/22/17 14:59 129/66 05/22/17 14:57 96 Room Air 05/22/17 14:48 138/69 05/22/17 14:46 60 05/22/17 14:30 61 05/22/17 14:28 125/73 05/22/17 13:20 36.5 72 20 157/95 94 Room Air Vital Signs - as noted Laboratory Data - as noted Physical Exam: General - Unresponsive in post ictal state Eyes - PERRL, No icterus, gaze conjugate ENT - Mucosa dry, no lesions or candidiasis Neck - Supple, trachea midline, no masses or lymphadenopathy, no JVD or bruits Lungs - No paradoxical chest wall movement, clear to auscultation bilaterally, no wheezes, rales, or rhonchi Heart - Reg rate and rhythm, No murmur, rubs, clicks, or gallops appreciated Abdomen - normoactive BS present, no bruits noted, tympanic to percussion, soft , nontender, nondistended, no organomegaly Extremities - No edema, pedal pulses intact Neuro - Best Rahat Coma Score 12 Strength moves all extremities CN:PERRL, no facial asymmetry, uvula/tongue midline Laboratory Results Last 24 Hours Test 05/22/17 13:20 05/22/17 14:25 05/22/17 14:30 05/22/17 14:43 Bedside Glucose 203 mg/dl Creatine Kinase MB Ratio 0.7 Bedside Prothrombin Time INR 1.1 White Blood Count 14.37 K/uL Red Blood Count 4.32 M/uL Hemoglobin 13.5 g/dL Hematocrit 39.2 % Mean Corpuscular Volume 90.7 fL Mean Corpuscular Hemoglobin 31.3 pg Mean Corpuscular Hemoglobin Concent 34.4 g/dl RDW Standard Deviation 40.6 fL RDW Coefficient of Variation 12.2 % Platelet Count 278 K/uL Mean Platelet Volume 9.6 fL Prothrombin Time 11.9 SECONDS Prothromb Time International Ratio 1.1 Activated Partial Thromboplast Time 28.4 SECONDS Partial Thromboplastin Ratio 1.1 Sodium Level 129 mmol/L Potassium Level 4.1 mmol/L Chloride Level 95 mmol/L Carbon Dioxide Level 29 mmol/L Anion Gap 5.0 mmol/L Blood Urea Nitrogen 25 mg/dl Creatinine 1.32 mg/dl Est Creatinine Clear Calc Drug Dose 75.6 ml/min Estimated GFR () 68.9 Estimated GFR (Non- 59.5 BUN/Creatinine Ratio 18.8 Random Glucose 197 mg/dl Calcium Level 9.3 mg/dl Magnesium Level 1.3 mg/dl Total Bilirubin 0.7 mg/dl Aspartate Amino Transf (AST/SGOT) 14 U/L Alanine Aminotransferase (ALT/SGPT) 22 U/L Alkaline Phosphatase 78 U/L Ammonia < 10.0 umol/L Total Creatine Kinase 253 U/L Creatine Kinase MB 1.7 ng/ml Troponin I < 0.015 ng/ml Total Protein 7.3 gm/dl Albumin 3.8 gm/dl Globulin 3.5 gm/dl Albumin/Globulin Ratio 1.1 Thyroid Stimulating Hormone (TSH) 1.150 uIu/ml Acetaminophen Level < 2 ug/ml Test 05/22/17 14:52 05/22/17 19:25 05/22/17 19:54 05/22/17 20:31 Ethyl Alcohol mg/dL < 3.0 mg/dl Urine Color DK YELLOW Urine Appearance CLEAR Urine pH 5.0 Urine Specific [place] 1.026 Urine Protein NEG Urine Glucose (UA) TRACE Urine Ketones TRACE Urine Occult Blood NEG Urine Nitrite NEG Urine Bilirubin NEG Urine Urobilinogen NEG Urine Leukocyte Esterase TRACE Urine WBC (Auto) 1-5 /hpf Urine RBC (Auto) 0-4 /hpf Urine Hyaline Casts (Auto) 1-5 /lpf Urine Epithelial Cells (Auto) 5-10 /lpf Urine Bacteria (Auto) NEG Urine Opiates Screen NEG Urine Methadone, Qualitative NEG Urine Barbiturates NEG Urine Phencyclidine (PCP) Level NEG Ur Amphetamine/Methamphetamine NEG MDMA (Ecstasy) Screen NEG Urine Benzodiazepines Screen NEG Urine Cocaine Metabolite NEG Urine Marijuana (THC) NEG Bedside Glucose 201 mg/dl Test 05/22/17 21:19 Diagnostic Results HEAD WITHOUT CONTRAST (CT) CLINICAL HISTORY: 56 years-old Male presenting with Altered mental status. TECHNIQUE: Multidetector CT imaging of the head was performed without the use of intravenous contrast. IV contrast: None. A dose lowering technique was used consistent with the principles of ALARA (as low as reasonably achievable). COMPARISON: 05/06/2017. CT DOSE (mGy.cm): The estimated cumulative dose is 537.48 mGy.cm. FINDINGS: Collection Manager topogram: 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 Ventricles and sulci normal in size. Chronic well-defined CSF signal intensity lesion in the paramedian left frontal lobe without clear to medication to the frontal horn of the left lateral ventricle. Brain parenchyma normal in appearance with preserved garcia-white differentiation. No mass effect or midline shift. No hemorrhage or acute territorial infarct. No extra-axial fluid collection. Paranasal sinuses and mastoid air cells clear. Calvarium intact. IMPRESSION: 1. No significant change compared to the prior study. No acute intracranial abnormality. Electronically signed by: Marcus Pope M.D. 05/22/2017 2:40 PM Dictated Date/Time: 05/22/2017 2:37 PM CHEST ONE VIEW PORTABLE CLINICAL HISTORY: 56 years-old Male presenting with INFILTRATE. TECHNIQUE: Portable upright AP view of the chest was obtained. COMPARISON: . FINDINGS: Atherosclerosis of the aortic arch. Prominence of the cardiac silhouette and pulmonary vasculature likely related to low lung volumes and hypoventilatory changes. Lungs and pleural spaces otherwise clear. Degenerative changes of the thoracic spine. Upper abdomen normal. IMPRESSION: 1. Low lung volumes and hypoventilatory changes. No focal infiltrate to suggest pneumonia. Electronically signed by: Marcus Pope M.D. 05/22/2017 6:08 PM Dictated Date/Time: 05/22/2017 6:[address] HEAD WITHOUT CONTRAST (CT) CLINICAL HISTORY: seizure activity COMPARISON STUDY: 05/22/2017 TECHNIQUE: Axial CT of the brain is performed from the vertex to the skull base. IV contrast was not administered for this examination. A dose lowering technique was utilized adhering to the principles of ALARA. CT DOSE: 1074.96 mGy.cm FINDINGS: There is a stable 31 mm left frontal cystic lesion. There is no significant mass effect. There is no CT evidence of acute cortical infarction. There is no evidence of midline shift. There is no evidence of acute hemorrhage. There are patchy white matter hypodensities likely on a small vessel basis. There is no evidence of pathologic ventricular dilatation. There is no evidence of acute sinusitis IMPRESSION: 1. No significant change from the preceding study. Stable 31 mm cystic left frontal lesion. 2. No acute intracranial findings. Electronically signed by: Graham Perales M.D. 05/22/2017 8:49 PM Dictated Date/Time: 05/22/2017 8:46 PM CHEST ONE VIEW PORTABLE CLINICAL HISTORY: aspiration COMPARISON STUDY: 05/22/2017 FINDINGS: The cardiac and mediastinal contours remain stable. There is no overt failure. There is no acute parenchymal consolidation. There are no significant pleural effusions. There are relatively low lung volumes with mild basilar hypoventilatory changes.[ IMPRESSION: AP portable study. No acute findings. Electronically signed by: Graham Perales M.D. 05/22/2017 9:09 PM Dictated Date/Time: 05/22/2017 9:08 PM 05/22/17 EEG INTERPRETATION: This EEG reveals focal slow wave activity over the left hemisphere, maximum in the central mid temporal regions. This is not associated with any unequivocal potentially epileptogenic features and may indicate the presence of some structural disease in this area, but could alternatively also reflect postictal slowing. Clinical correlation is required. Assessment & Plan (1) Seizure (2) Expressive aphasia (3) DM (diabetes mellitus), type 2, uncontrolled (4) Hypertension (5) Dyslipidemia (6) Abnormal CT of brain (7) Obesity, morbid, BMI 40.0-49.9 (8) Altered mental status Reason Critically Ill: Patient is an 56-year-old male who is transferred to the ICU after tonic clonic seizure activity was noted. Pt has recently been hospitalized for hyperglycemia and confusion. At which time an incidental finding of a 3 cm cystic lesion on the left frontal lobe was identified. This lesion was thought to be insignificant. Patient was discharged May 10 home. Since that time his has noted increasing confusion, increasing sleep patterns, decreasing appetite and inability to complete daily activities of life. Patient has now been treated with multiple doses of Ativan; as well as started on Depakote and Dilantin as prophylaxis. Emergency room EEG did demonstrate the patient was not in status epilepticus. Neurology consult is pending. PLAN: Neuro: * 3 witnessed seizures at this time. Pt becomes combative and agitated shortly before the last 2 seizures. * MRI brain pending * Neuro consult pending * Pt started on Depakote and Dilantin as noted above. * Prior Head CT demonstrated 3cm cystic lesion on the left frontal lobe * Per ED: aphasic and right sided neglected * This had resolved and was not seen by nursing staff on admission to med/tele * Neuro checks per protocol * Ammonia < 10; Toxicology Negative * Seizure precautions ordered Resp: * Pt on Non-rebreather during code purple with nasal trumpet in palced * AB.456/34.7/200/24.6 * Transitioned to 4L nasal cannula * Wean as tolerated, Adequate saturations on telemetry CV: * Hx of Hyperlipidemia, Hypertension * Pts home medications continued * ASA, Lipitor, Lisinopril * Cardiac Enzymes Negative * Monitor on telemetry Fluids/Renal: * Cr 1.32 -> 1.37, Last admit 0.97 * NSS at 75mL/hr * Song Catheter to [place] * Strict I&Os ID: * No obvious source for infection * Leukocytosis, afebrile, trend fever curve * U/A: Trace Leukocyte Esterase * Blood Cultures x 2 pending * No overt signs of infection * Broad Spectrum Abx: Cefepime and Vanco (first day 05/22/17) GI/Nutrition: * NPO * AST Low, otherwise LFTs WNL Heme: * H&H: 13.5/39.2; plts: 278 * Coags: WNL * Trend daily labs Endocrine: * Insulin infusion started for 2 accu-checks greater than 180 * Continue home lantus dose in addition * TSH: 1.15 CCT: 60 Minutes; This time is exclusive of all separately billable procedures. Thank you for involving us in the care of this patient. Please refer to Dr. Niall Corea's addendum for further recommendations. I have personally evaluated and examined this patient. I agree with assessment and plan of Dominique Wells PA-C. During my evaluation the patient patient still exhibited post ictal signs and symptoms. We will load him with antiepileptics and if patient does not improve in alertness the next hour he may need to undergo further testing to evaluate for seizure activity Problem Qualifiers (1) Altered mental status: Altered mental status type: disorientation Qualified Codes: R41.0 - Disorientation, unspecified
[2017-05-22] MEDS: HEPARIN SOD 5000 UNIT/0.5 ML CARP SQ SCH (22:03)
[2017-05-22 22:54] LABS: CALCIUM 9.2 mg/dl (8.5-10.1); CREATININE 1.39 mg/dl (0.60-1.40); POTASSIUM 4.2 mmol/L (3.5-5.1)
[2017-05-22] MEDS ORDERED: INSULIN GLARGINE SOLOSTAR 100 UNITS/ML 3 ML PEN SC ONE (23:32)
[2017-05-23] VITALS (13 sets, daily range): BP systolic 89–181; BP diastolic 39–69; PULSE 49–76; TEMP 36.5–37; O2SAT 94–100; Ht 165.1 cm; Wt 130.7 kg
[2017-05-23] MEDS ORDERED: SODIUM CHLORIDE 0.9% IV STA (00:28)
[2017-05-23] MEDS ORDERED: PHENYTOIN INFUSION IV STA (00:28)
[2017-05-23] MEDS: MAGNESIUM SULFATE 1GM / D5W 1 GM in PREMIXED IN D5W 100 ML IV SCH ×3 (00:40→03:56)
[2017-05-23] MEDS ORDERED: LORAZEPAM 2 MG/ML 1 ML VIAL IV STA (01:07)
[2017-05-23] MEDS ORDERED: LORAZEPAM 2 MG/ML 1 ML VIAL IV PRN (01:15)
[2017-05-23] MEDS ORDERED: INSULIN IV INFUSION PROTOCOL STA (02:11)
[2017-05-23] MEDS ORDERED: INSULIN PROTOCOL GOAL RANGE ONE (02:15)
[2017-05-23] MEDS ORDERED: SEVERE STRESS LEVEL ONE (02:15)
[2017-05-23] MEDS ORDERED: NovoLIN R BOLUS FROM BAG IV ONE (02:30)
[2017-05-23] MEDS ORDERED: INSULIN REGULAR 250 UNITS in SODIUM CHLORIDE 0.9% 250ML 250 ML IV SCH (02:30)
[2017-05-23] MEDS: CEFEPIME IV 2,000 MG in SYRINGE 7.5 ML IV SCH ×2 (05:14→12:27)
[2017-05-23] MEDS: HEPARIN SOD 5000 UNIT/0.5 ML CARP SQ SCH ×2 (05:15→14:28)
[2017-05-23] MEDS ORDERED: INSULIN GLARGINE SOLOSTAR 100 UNITS/ML 3 ML PEN SC SCH ×3 (06:00→09:00)
[2017-05-23 06:24] LABS: HEMATOCRIT 35.8 % (42-52); HEMOGLOBIN 12.2 g/dL (14.0-18.0); MEAN CELL VOLUME 89.9 fL (80-100); MEAN CORPUSCULAR HEMOGLOBIN 30.7 pg (25-34); MEAN CORPUSCULAR HGB CONC 34.1 g/dl (32-36); MEAN PLATELET VOLUME 9.2 fL (7.4-10.4); PLATELET COUNT 234 K/uL (130-400); RED CELL DISTRIBUTION WIDTH CV 12.1 % (11.5-14.5); RED CELL DISTRIBUTION WIDTH SD 39.4 fL (36.4-46.3); WHITE BLOOD COUNT 20.03 K/uL (4.8-10.8)
[2017-05-23 06:53] LABS: BASO ABS # 0.01 K/uL (0-0.2); IG# 0.07 K/uL (0.00-0.02); LYMPH % 8.2 %; LYMPH ABS # 1.65 K/uL (1.2-3.4); MONO % 7.2 %; MONO ABS # 1.45 K/uL (0.11-0.59); NEUT % 84.3 %; NEUT ABS # 16.85 K/uL (1.4-6.5)
[2017-05-23 07:03] LABS: CALCIUM 8.8 mg/dl (8.5-10.1); CREATININE 0.94 mg/dl (0.60-1.40)
[2017-05-23] MEDS: SODIUM CHLORIDE 0.9% 1000ML 1,000 ML IV SCH (07:03)
[2017-05-23 07:07] LABS: PHOSPHORUS 2.9 mg/dl (2.5-4.9)
[2017-05-23] MEDS: VALPROATE SOD IV 500 MG in DEXTROSE 5% 50ML 50 ML IV SCH (08:00)
[2017-05-23] MEDS ORDERED: INSULIN ASPART 100 UNITS/ML 3 ML PEN SC SCH ×2 (08:00)
[2017-05-23 08:22] LABS: HEMOGLOBIN A1C 12.1 % (4.5-5.6)
[2017-05-23] MEDS ORDERED: NORMOSOL R 1,000 ML IV SCH (08:45)
[2017-05-23] MEDS ORDERED: CHOLECALCIFEROL 1000 INTER.UNIT TAB PO SCH (09:00)
[2017-05-23] MEDS ORDERED: LISINOPRIL 10 MG TAB PO SCH (09:00)
[2017-05-23] MEDS ORDERED: MULTIVITAMIN TAB PO SCH (09:00)
[2017-05-23] MEDS ORDERED: ASPIRIN 81 MG ECTAB PO SCH (09:00)
[2017-05-23] MEDS ORDERED: ATORVASTATIN 20 MG TAB PO SCH (09:00)
[2017-05-23] MEDS ORDERED: CLOPIDOGREL BISULFATE 75 MG TAB PO SCH (09:00)
[2017-05-23] MEDS ORDERED: [UNRECOGNIZED DRUG - REMARK] ONE (10:00)
--- NOTE | 2017-05-23 10:12 | Neurology Consultation ---
Neurology Consultation Date of Consultation: May 23, 2017. Attending Physician: Alex Smith MD Primary Care Physician: Quique Palomino M.D. Reason for Consultation: Consultation for altered mental status History of Present Illness Source: patient, hospital records This is a 56-year-old male who initially presented last month for evaluation of altered mental status. It does not sound like he ever fully recovered and due to worsening mental status was brought back to the hospital yesterday. Patient was initially evaluated by neurologist Dr. Mendez, but per family request wanted an evaluation by a different neurologist. When he was evaluated in April the only explanation for his altered mental status with uncontrolled diabetes at that time. Reportedly he has had better control in the last few weeks but still remains significantly altered. There is also reports that over the last month he has become more lethargic and tends to repeat himself frequently, and doesn't seem to be using his right side as much. EEG done in April was normal Ultrasound of the carotids done in April was unremarkable MRI of the brain report and images from April were reviewed by myself. Significant for a left frontal cystic lesion. [place] to be a remote injury or congenital on previous evaluation. At previous and recent labs were reviewed. Patient noted to have a sodium on this admission 01 29, WBCs of 14 that went to 20 this morning. Tox screen and April was negative. Hep C was negative. TSH unremarkable. Hemoglobin A1c in April was 13 and this admission 12. Magnesium was 1.3. Ammonia less than 10. Creatinine 1.3 This morning labs are notable for another negative tox screen. UA was unremarkable. Phosphorus level was normal. Repeat magnesium level was normal. I sent off for some lapses morning and so far B12 level is normal at 992, ESR is within normal limits, CRP is slightly elevated at 0.8 CT of the head still notes left frontal cystic lesion. Repeat MRI of the brain which was recommended for further evaluation has not been obtained due to mental status and the patient not standing still. Repeat EEG done yesterday afternoon showed some mild left hemispheric slowing. I reviewed the EEG tracings myself and I agree with formal read. After the patient had been admitted to the floor nursing described seizure-like activity of unresponsiveness, eyes rolled up, and shaking. Patient reportedly became hypoxic and was transferred to the ICU. Per my recommendation, patient was started on Depakote IV 500 mg twice a day. At around midnight the patient had a another seizure-like episode described as sudden unresponsiveness and eyes rolled up. Patient was given Ativan and per my recommendations was loaded with Dilantin. Per nursing notes it appears the patient may have had another small seizure-like events as Dilantin was being administered. No additional seizure-like activity since Dilantin was given. Past Medical/Surgical History Medical Problems: (1) Altered mental status Status: Acute (2) Change in mental status Status: Acute (3) Expressive aphasia Status: Acute (4) Herb-neglect of right side Status: Acute (5) Hyperglycemia Status: Acute (6) Hyponatremia Status: Acute Diabetes type 2 Dyslipidemia Hypertension Family History Unobtainable at this time due to mental status Social History Unobtainable due to mental status Drug Use: none Marital Status: Housing Status: lives with significant other Occupation Status: unemployed Allergies Coded Allergies: No Known Allergies (Unverified , 05/22/17) Current Inpatient Medications Current Inpatient Medications Medications (Trade) Dose Ordered Sig/Tori Route Start Time Stop Time Status Last Admin Dose Admin Heparin Sodium (Porcine) (Heparin Sq 5000 Unit/0.5ml) 5,000 unit Q8 SQ 05/22/17 22:00 06/21/17 21:59 05/23/17 05:15 5,000 UNIT Acetaminophen (Tylenol Tab) 650 mg Q4H PRN PO 05/22/17 17:30 06/21/17 17:29 Al Hydrox/Mg Hydrox/Simethicone (Maalox Max Susp) 15 ml Q4H PRN PO 05/22/17 17:30 06/21/17 17:29 Ondansetron HCl (Zofran Inj) 4 mg Q6H PRN IV 05/22/17 17:30 06/21/17 17:29 Nitroglycerin (Nitrostat Tab) 0.4 mg UD PRN SL 05/22/17 17:30 06/21/17 17:29 Aspirin (Ecotrin Tab) 81 mg DAILY PO 05/23/17 09:00 06/22/17 08:59 Atorvastatin Calcium (Lipitor Tab) 20 mg DAILY PO 05/23/17 09:00 06/22/17 08:59 Lisinopril (Zestril Tab) 10 mg DAILY PO 05/23/17 09:00 06/22/17 08:59 Multivitamins (Multivitamin Tab) 1 tab DAILY PO 05/23/17 09:00 06/22/17 08:59 Cholecalciferol (Vitamin D Tab) 4,000 inter.unit DAILY PO 05/23/17 09:00 06/22/17 08:59 Clopidogrel Bisulfate (plAVix TAB) 75 mg QAM PO 05/23/17 09:00 06/22/17 08:59 Future Hold Glucose (Glucose 40% Gel) 15-30 GRAMS 15 GRAMS... UD PRN PO 05/22/17 17:45 06/21/17 17:44 Glucose (Glucose Chew Tab) 4-8 Tablets 4 Tabl... UD PRN PO 05/22/17 17:45 06/21/17 17:44 Dextrose (Dextrose 50% 50ML Syringe) 25-50ML OF 50% DW IV FOR... UD PRN IV 05/22/17 17:45 06/21/17 17:44 Glucagon (Glucagon Inj) 1 mg UD PRN SQ 05/22/17 17:45 06/21/17 17:44 Miscellaneous Information (Pharmacist Discharge Med Rec Consult) 1 ea UD PRN N/A 05/22/17 18:45 06/21/17 18:44 Vancomycin HCl (Consult) 1 ea UD PRN N/A 05/22/17 19:00 06/21/17 18:59 Cefepime HCl 2000 mg/Syringe 20 ml @ 5 mls/min Q8H IV 05/22/17 21:00 05/29/17 20:59 05/23/17 05:14 5 MLS/MIN Vancomycin HCl 1750 mg/Sodium Chloride 535 ml @ 200 mls/hr Q18H IV 05/23/17 13:00 05/30/17 12:59 Valproate Sodium 500 mg/Dextrose 55 ml @ 55 mls/hr Q12H IV 05/22/17 21:00 06/21/17 20:59 05/23/17 08:00 55 MLS/HR Lorazepam 2 mg/ Syringe 2 ml @ 0.5 mls/min Q2HWA PRN IV 05/22/17 20:45 06/21/17 20:44 Lorazepam (Ativan Inj) 2 mg Q2H PRN IV 1/4/18 20:45 06/21/17 20:44 05/22/17 23:47 2 MG Lorazepam (Ativan Inj) 1 mg NOW PRN IV 05/23/17 01:15 06/22/17 01:14 Insulin Aspart (novoLOG ASPART) SLIDING SCALE PCHS SC 05/23/17 08:00 06/22/17 07:59 Insulin Human Regular 250 units/ Sodium Chloride 252.5 ml @ 0 mls/hr Q24H IV 05/23/17 02:30 06/22/17 02:29 05/23/17 02:58 4.6 MLS/HR Insulin Glargine (Lantus Solostar Pen) 7 units BID SC 05/23/17 09:00 06/22/17 08:59 Parenteral Electrolyte Solution 1,000 ml @ 75 mls/hr [id number] IV 05/23/17 08:45 06/22/17 08:44 05/23/17 08:50 75 MLS/HR Review of Systems Unobtainable due to mental status Physical Exam Vital Signs (Past 24 Hrs): Date Time Temp Pulse Resp B/P (MAP) Pulse Ox O2 Delivery O2 Flow Rate FiO2 05/23/17 08:00 96 Nasal Cannula 3.0 05/23/17 08:00 62 15 89/51 (64) 95 3.0 05/23/17 06:00 65 18 98/62 (74) 97 3.0 05/23/17 04:00 36.5 66 16 141/60 (87) 99 3.0 05/23/17 04:00 97 Nasal Cannula 3.0 05/23/17 02:34 69 19 142/51 (81) 97 3.0 05/23/17 02:00 76 111/44 (66) 98 4.0 05/23/17 01:00 75 20 160/46 (84) 94 4.0 05/23/17 00:30 64 21 147/46 (79) 98 4.0 05/23/17 00:01 36.8 62 21 126/39 (68) 95 4.0 05/22/17 23:59 97 Nasal Cannula 05/22/17 22:01 74 19 126/55 (106) 100 05/22/17 21:31 85 26 141/75 (95) 99 05/22/17 21:01 97 30 135/82 (103) 97 05/22/17 20:55 99 25 137/65 (91) 96 05/22/17 20:35 88 20 98 15.0 05/22/17 19:47 36.4 66 18 136/78 (97) 96 Room Air 05/22/17 18:23 98 Room Air 05/22/17 17:48 54 18 122/76 95 Room Air 05/22/17 16:43 66 20 120/65 97 Room Air 05/22/17 15:44 55 16 131/67 96 Room Air 05/22/17 14:59 129/66 05/22/17 14:57 96 Room Air 05/22/17 14:48 138/69 05/22/17 14:46 60 05/22/17 14:30 61 05/22/17 14:28 125/73 05/22/17 13:20 36.5 72 20 157/95 94 Room Air Overall physical examination is limited due to mental status Gen.: Patient is alert and in no acute distress. HEENT: Normocephalic /atraumatic, no scleral icterus Heart: Regular rate and rhythm Extremities: No gross deformities or rashes noted Neurological examination: Mental status: Patient is alert. Not oriented to person place or time. Appears to be agitated and moving frequently. Does not follow commands. Fund of knowledge and remote and recent memory are impaired Speech: Sparse with only rare words spoken. No dysarthria noted Cranial nerve: Funduscopic examination not well visualized due to mental status and patient moving around. Pupils equally round and reactive to light. Patient appeared to be able to look in all directions. No facial asymmetry noted at rest or with spontaneous movement. The rest of the cranial nerve examination was not obtainable due to patient's mental status and cooperation Strength: Patient was moving all extremities equally and antigravity. Was not able to do a formal strength examination due to mental status Sensation: Appeared to be grossly intact to touch. Deep tendon reflexes: +1 in bilateral biceps, brachioradialis and patellar. Toes were downgoing to plantar stimulation on the right but upgoing on the left Coordination: Could not adequately assess coordination due to mental status Station within the bed was normal. Cannot assess gait due to mental status Laboratory Results Past 24 Hours: 05/23/17 05:54 Red Blood Count 3.98, Mean Corpuscular Volume 89.9, Mean Corpuscular Hemoglobin 30.7, Mean Corpuscular Hemoglobin Concent 34.1, Mean Platelet Volume 9.2, Neutrophils (%) (Auto) 84.3, Lymphocytes (%) (Auto) 8.2, Monocytes (%) (Auto) 7.2, Eosinophils (%) (Auto) 0.0, Basophils (%) (Auto) 0.0, Neutrophils # (Auto) 16.85, Lymphocytes # (Auto) 1.65, Monocytes # (Auto) 1.45, Eosinophils # (Auto) 0.00, Basophils # (Auto) 0.01 05/23/17 05:54 Test 05/22/17 14:30 05/22/17 14:43 05/22/17 14:52 05/22/17 19:25 Bedside Prothrombin Time INR 1.1 (0.9-1.1) Prothrombin Time 11.9 SECONDS (9.0-12.0) Prothromb Time International Ratio 1.1 (0.9-1.1) Activated Partial Thromboplast Time 28.4 SECONDS (21.0-31.0) Partial Thromboplastin Ratio 1.1 Total Bilirubin 0.7 mg/dl (0.2-1) Aspartate Amino Transf (AST/SGOT) 14 U/L (15-37) Alanine Aminotransferase (ALT/SGPT) 22 U/L (12-78) Alkaline Phosphatase 78 U/L (45-117) Ammonia < 10.0 umol/L (11-32) Total Creatine Kinase 253 U/L (39-308) Creatine Kinase MB 1.7 ng/ml (0.5-3.6) Creatine Kinase MB Ratio 0.7 (0-3.0) Troponin I < 0.015 ng/ml (0-0.045) Total Protein 7.3 gm/dl (6.4-8.2) Albumin 3.8 gm/dl (3.4-5.0) Globulin 3.5 gm/dl (2.5-4.0) Albumin/Globulin Ratio 1.1 (0.9-2) Thyroid Stimulating Hormone (TSH) 1.150 uIu/ml (0.300-4.500) Acetaminophen Level < 2 ug/ml (10-30) Ethyl Alcohol mg/dL < 3.0 mg/dl (0-3) Urine Color DK YELLOW Urine Appearance CLEAR (CLEAR) Urine pH 5.0 (4.5-7.5) Urine Specific [place] 1.026 (1.000-1.030) Urine Protein NEG (NEG) Urine Glucose (UA) TRACE (NEG) Urine Ketones TRACE (NEG) Urine Occult Blood NEG (NEG) Urine Nitrite NEG (NEG) Urine Bilirubin NEG (NEG) Urine Urobilinogen NEG (NEG) Urine Leukocyte Esterase TRACE (NEG) Urine WBC (Auto) 1-5 /hpf (0-5) Urine RBC (Auto) 0-4 /hpf (0-4) Urine Hyaline Casts (Auto) 1-5 /lpf (0-5) Urine Epithelial Cells (Auto) 5-10 /lpf (0-5) Urine Bacteria (Auto) NEG (NEG) Urine Opiates Screen NEG (NEG) Urine Methadone, Qualitative NEG (NEG) Urine Barbiturates NEG (NEG) Urine Phencyclidine (PCP) Level NEG (NEG) Ur Amphetamine/Methamphetamine NEG (NEG) MDMA (Ecstasy) Screen NEG (NEG) Urine Benzodiazepines Screen NEG (NEG) Urine Cocaine Metabolite NEG (NEG) Urine Marijuana (THC) NEG (NEG) Test 05/22/17 21:19 05/22/17 21:59 05/23/17 03:44 05/23/17 05:54 Osmolality 291 mOsm/kg (280-300) Blood Gas Sample Site L Radial Bedside Blood Gas pH (LAB) 7.46 (7.35-7.45) Bedside Blood Gas pCO2 (LAB) 35 mmHg (35-46) Bedside Blood Gas pO2 (LAB) 200 mmHg (80-95) Bedside Blood Gas HCO3 (LAB) 25 meq/L (19-24) Bedside Blood Gas Total CO2 26 mEq/l (24-31) Bedside Blood Gas Base Excess (LAB) 1.0 meq/L (-9-1.8) Bedside Blood Gas O2 Saturation 100.0 % (90-95) Oxygen Delivery Device NonRb Mask Bedside FiO2 0 % Bedside Glucose 174 mg/dl (70-99) White Blood Count 20.03 K/uL (4.8-10.8) Red Blood Count 3.98 M/uL (4.7-6.1) Hemoglobin 12.2 g/dL (14.0-18.0) Hematocrit 35.8 % (42-52) Mean Corpuscular Volume 89.9 fL (80-100) Mean Corpuscular Hemoglobin 30.7 pg (25-34) Mean Corpuscular Hemoglobin Concent 34.1 g/dl (32-36) Platelet Count 234 K/uL (130-400) Mean Platelet Volume 9.2 fL (7.4-10.4) Neutrophils (%) (Auto) 84.3 % Lymphocytes (%) (Auto) 8.2 % Monocytes (%) (Auto) 7.2 % Eosinophils (%) (Auto) 0.0 % Basophils (%) (Auto) 0.0 % Neutrophils # (Auto) 16.85 K/uL (1.4-6.5) Lymphocytes # (Auto) 1.65 K/uL (1.2-3.4) Monocytes # (Auto) 1.45 K/uL (0.11-0.59) Eosinophils # (Auto) 0.00 K/uL (0-0.5) Basophils # (Auto) 0.01 K/uL (0-0.2) RDW Standard Deviation 39.4 fL (36.4-46.3) RDW Coefficient of Variation 12.1 % (11.5-14.5) Immature Granulocyte % (Auto) 0.3 % Immature Granulocyte # (Auto) 0.07 K/uL (0.00-0.02) Erythrocyte Sedimentation Rate 13 mm/hr (0-14) Arterial Blood pH 7.44 (7.35-7.45) Arterial Blood Partial Pressure CO2 38 mmHg (35-46) Arterial Blood Partial Pressure O2 111 mm/Hg (80-95) Arterial Blood HCO3 25 mmol/L (19-24) Arterial Blood Oxygen Saturation 98.3 % (90-95) Arterial Blood Base Excess 1.2 mEq/L (-9-1.8) Arterial Blood Gas Delivery 2.5L Sam Test POS (POS) Anion Gap 8.0 mmol/L (3-11) Est Creatinine Clear Calc Drug Dose 109.4 ml/min Estimated GFR () 103.9 Estimated GFR (Non- 89.6 BUN/Creatinine Ratio 24.2 (10-20) Estimated Average Glucose 301 mg/dl Hemoglobin A1c 12.1 % (4.5-5.6) Calcium Level 8.8 mg/dl (8.5-10.1) Phosphorus Level 2.9 mg/dl (2.5-4.9) Magnesium Level 2.3 mg/dl (1.8-2.4) C-Reactive Protein 0.86 mg/dl (0-0.29) Triglycerides Level 55 mg/dl (0-150) Cholesterol Level 81 mg/dl (0-200) HDL Cholesterol 44 mg/dl LDL Cholesterol, Calculated 26 mg/dl VLDL Cholesterol, Calculated 11 mg/dl Cholesterol/HDL Ratio 1.8 Vitamin B12 Level 992 pg/mL (211-911) Procalcitonin < 0.05 ng/ml (0-0.5) Lyme Disease IgG Antibody NEG (NEG) Date/Time Source Procedure Growth Status 05/22/17 21:00 Nasal MRSA DNA Surveillance Screen - Final Specimen Negative for MRSA by DNA Probe Complete Imaging As noted above in history of present illness Impression This is a 56-year-old male who presents with progressive encephalopathy over the last month or 2. Since being admitted to the hospital he's had at least 2 discrete events that seem consistent with seizures without a return to baseline consistent with status epilepticus. Based off of the exam and limited description could have a left hemispheric focal onset especially considering cystic lesion in the left frontal lobe. Patient's white cell count is elevated concerning for possible underlying infectious etiology. No fevers have been recorded in hospital. Plan This morning I had sent for additional labs for general evaluation of acute encephalopathy including heavy metal screen, OSMANY, Lyme, thiamine. EEG this morning to make sure the patient is not in nonconvulsive status. Recommend repeating MRI of the brain with contrast for further evaluation of cystic lesion to see if there is any changes or progression. This has been complicated by patient's mental status. Discussed care and further workup with ICU team. Agree that due to limitations with trying to adequately and fully evaluate cystic lesion which could be a source of seizures, may need neurosurgical evaluation. Also discussed lumbar puncture for further evaluation but due to size of cystic lesion, would feel more comfortable with patient being at a facility with neurosurgery in case there is complications. Overall for further workup, recommend considering lumbar puncture for infectious workup to include basic cell count, bacterial and viral cultures, AFB culture, cytology, cryptococcal, VDRL If no infectious etiology is found, could consider sending for paraneoplastic antibody panel Would also recommend considering checking for HIV for further evaluation of seizures and a progressive encephalopathy. Thank you for allowing me to participate in this patient's care. If there is any questions or concerns, feel free to call/page me
--- NOTE | 2017-05-23 10:48 | EEG Procedure Note ---
EEG Procedure Note Date of Service May 23, 2017. Start / End Times Start Time: 8:53 AM End Time: 9:13 AM Referring Physician Bobbi Dillard History This is a 56-year-old male who presented with acute encephalopathy and multiple seizure-like events overnight. EEG for further evaluation of seizure etiology and to rule out nonconvulsive status. Home Medication List Scheduled Aspirin (Aspirin Ec), 81 MG PO DAILY Atorvastatin (Lipitor), 20 MG PO DAILY Cholecalciferol (Vitamin D), 4,000 UNITS PO DAILY Escitalopram Oxalate (Lexapro), 5 MG PO QPM Insulin Glargine (Lantus Solostar), 25 UNITS SC DAILYBB Lisinopril (Zestril), 10 MG PO DAILY Metformin Hcl (Glucophage), 500 MG PO BID Multivitamin (Multivitamin), 1 TAB PO DAILY Scheduled PRN Ibuprofen (Ibuprofen), 600 MG PO Q8H PRN for pain Inpatient Medication List Current Inpatient Medications Medications (Trade) Dose Ordered Sig/Tori Route Start Time Stop Time Status Last Admin Dose Admin Heparin Sodium (Porcine) (Heparin Sq 5000 Unit/0.5ml) 5,000 unit Q8 SQ 05/22/17 22:00 06/21/17 21:59 05/23/17 05:15 5,000 UNIT Acetaminophen (Tylenol Tab) 650 mg Q4H PRN PO 05/22/17 17:30 06/21/17 17:29 Al Hydrox/Mg Hydrox/Simethicone (Maalox Max Susp) 15 ml Q4H PRN PO 05/22/17 17:30 06/21/17 17:29 Ondansetron HCl (Zofran Inj) 4 mg Q6H PRN IV 05/22/17 17:30 06/21/17 17:29 Nitroglycerin (Nitrostat Tab) 0.4 mg UD PRN SL 05/22/17 17:30 06/21/17 17:29 Aspirin (Ecotrin Tab) 81 mg DAILY PO 05/23/17 09:00 06/22/17 08:59 Atorvastatin Calcium (Lipitor Tab) 20 mg DAILY PO 05/23/17 09:00 06/22/17 08:59 Lisinopril (Zestril Tab) 10 mg DAILY PO 05/23/17 09:00 06/22/17 08:59 Multivitamins (Multivitamin Tab) 1 tab DAILY PO 05/23/17 09:00 06/22/17 08:59 Cholecalciferol (Vitamin D Tab) 4,000 inter.unit DAILY PO 05/23/17 09:00 06/22/17 08:59 Clopidogrel Bisulfate (plAVix TAB) 75 mg QAM PO 05/23/17 09:00 06/22/17 08:59 Future Hold Glucose (Glucose 40% Gel) 15-30 GRAMS 15 GRAMS... UD PRN PO 05/22/17 17:45 06/21/17 17:44 Glucose (Glucose Chew Tab) 4-8 Tablets 4 Tabl... UD PRN PO 05/22/17 17:45 06/21/17 17:44 Dextrose (Dextrose 50% 50ML Syringe) 25-50ML OF 50% DW IV FOR... UD PRN IV 05/22/17 17:45 06/21/17 17:44 Glucagon (Glucagon Inj) 1 mg UD PRN SQ 05/22/17 17:45 06/21/17 17:44 Miscellaneous Information (Pharmacist Discharge Med Rec Consult) 1 ea UD PRN N/A 05/22/17 18:45 06/21/17 18:44 Vancomycin HCl (Consult) 1 ea UD PRN N/A 05/22/17 19:00 06/21/17 18:59 Cefepime HCl 2000 mg/Syringe 20 ml @ 5 mls/min Q8H IV 05/22/17 21:00 05/29/17 20:59 05/23/17 05:14 5 MLS/MIN Valproate Sodium 500 mg/Dextrose 55 ml @ 55 mls/hr Q12H IV 05/22/17 21:00 06/21/17 20:59 05/23/17 08:00 55 MLS/HR Lorazepam 2 mg/ Syringe 2 ml @ 0.5 mls/min Q2HWA PRN IV 05/22/17 20:45 06/21/17 20:44 Lorazepam (Ativan Inj) 2 mg Q2H PRN IV 05/22/17 20:45 06/21/17 20:44 05/22/17 23:47 2 MG Lorazepam (Ativan Inj) 1 mg NOW PRN IV 05/23/17 01:15 2/4/18 01:14 Insulin Glargine (Lantus Solostar Pen) 7 units BID SC 05/23/17 09:00 06/22/17 08:59 Future hold Parenteral Electrolyte Solution 1,000 ml @ 75 mls/hr [id number] IV 05/23/17 08:45 06/22/17 08:44 05/23/17 08:50 75 MLS/HR Insulin Aspart (novoLOG ASPART) SLIDING SCALE Q4 SC 05/23/17 12:00 06/22/17 11:59 Vancomycin HCl 1750 mg/Sodium Chloride 535 ml @ 200 mls/hr Q10H IV 05/23/17 12:00 05/30/17 11:59 Description This is a 21 electrode EEG with a single channel dedicated to limited EKG. The electrodes were placed in accordance with the International 10-20 system. At the start of this recording the patient was in altered mental status. Background was poorly organized with poorly formed anterior to posterior gradient. Background was composed of moderate amplitude predominantly 5-6 Hz theta frequencies with intermixed delta and elbow/beta frequencies. There was mild continuous slowing over the left hemisphere. Hyperventilation and photic stimulation were not done. There was no state changes or sleep transients. Interpretation This is an abnormal routine EEG secondary to: 1) mild continuous left hemispheric slowing 2) moderate background disorganization and slowing There was no electrographic seizures or epileptiform discharges. Clinical Correlation This EEG indicates: 1) functional or structural cerebral dysfunction in the left hemisphere. This could be consistent with patient's known cystic lesion in the left frontal lobe. Cannot rule out postictal slowing. 2) moderate encephalopathy of nonspecific etiology
[2017-05-23] MEDS: INSULIN ASPART 100 UNITS/ML 3 ML PEN SC SCH ×2 (12:00→16:00)
[2017-05-23] MEDS ORDERED: VANCOMYCIN INJ 1,750 MG in SODIUM CHLORIDE 0.9% 500ML 500 ML IV SCH ×2 (12:00→13:00)
--- NOTE | 2017-05-23 15:35 | Pharmacy Progress Note ---
Pharmacy Abx Dose Short Note Date of Service May 23, 2017. Assessment & Plan Assessment * 56 year old, poorly controlled, type 2 diabetic admitted yesterday for mental status changes, tonic clonic sz, possible CVA/TIA * Empiric abx therapy started for leukocytosis: Vancomycin + Cefepime * Afebrile, leukocytosis noted on labs however Solu-medrol given in ED * UA not remarkable for UTI, CXR reported negative, BLCX's pending, MRSA nasal swab negative, Lyme IgM equivocal - bands pending Plan Vancomycin * Loading dose: 2750mg x 1 given at 2132 last PM * eCrCl ~100-110cc/min * Maintenance dose: 1750mg (13.4mg/kg) IV Q 10 hours * Goal trough level for empiric coverage for unknown source : 15 to 20 mcg/mL * Trough level ordered for: 05/24/17 w/ 4th dose Glycemic control * Patient's BSGs were in the 200's yesterday when first admitted and he was started on IV insulin infusion per protocol, goal range 100-180 * He was given 10 units of Lantus last PM + 20 units of Lantus at ~0600 this AM * Insulin drip on hold this AM due to BSGs in the 70's. Will stop the insulin infusion at this time as he likely has adequate basal insulin on board and remains NPO. * He has 30 units of Lantus on board at this time, will not give additional Lantus this AM. Rather will place him a reduced dose according to scale. * Will check BSGs Q 4 hrs and cover with Novolog SQ * Plan: * Lantus Q AM: 0 units if BSG less than 110, 18 units if BSG 110-160, 25 units if above 160 * Novolog SQ: Goal 130 - 160mg/dL, CF 20mg/dL/unit, CR 1 unit per 7gm CHO Pharmacy will continue to follow and will adjust dose/frequency as necessary. Thank you.
[2017-05-23] MEDS ORDERED: AMPICILLIN CONSULT PHARMACY PRN (16:15)
[2017-05-23] MEDS ORDERED: ACYCLOVIR CONSULT ACTIVE PRN (16:15)
[2017-05-23] MEDS ORDERED: ACYCLOVIR SOD INJ 500 MG in DEXTROSE 5% 100ML 100 ML IV SCH (16:15)
[2017-05-23] MEDS ORDERED: CEFTRIAXONE SOD INJ 2,000 MG in DEXTROSE 5% 50ML 50 ML IV SCH (17:00)
--- NOTE | 2017-05-23 17:00 | Discharge Instructions ---
Discharge Instructions Date of Service May 23, 2017. Admission Reason for Admission: Altered Mental Status Discharge Discharge Diagnosis / Problem: AMS, seizures, meningitis? Discharge Goals Goal(s): Decrease discomfort, Improve function Activity Recommendations Activity Level: Bedrest . Additional Information Patient informed of condition: Yes Advance Directives: Yes DNR: No Level of Care: Other ([place], [place]) Communicable Disease: No Prognosis: Other (TRANSFERRING TO [place]) Song Catheter: Yes Instructions / Follow-Up Instructions / Follow-Up FOLLOWUP PER [place] RECOMMENDATIONS Current Hospital Diet Patient's current hospital diet: Full Liquid Diet, Diabetes Type 2 Diet Discharge Diet Recommended Diet: Full Liquid Diet, Diabetes Type 2 Diet Pending Studies Studies pending at discharge: no Physician Orders On Transfer IV Therapy: IV VANCO IV ROCEPHIN IV AMPICILLIN IV ACYCLOVIR IV VALPROATE IV ATIVAN PRN Additional Orders: PLEASE GO THROUGH MEDICATION RECONCILIATION FOR ACCURATE CURRENT MED LIST Laboratory Results Hemoglobin A1c Test 05/23/17 05:54 Range/Units Estimated Average Glucose 301 mg/dl Hemoglobin A1c 12.1 H 4.5-5.6 % Lipid Panel Test 05/23/17 05:54 Range/Units Triglycerides Level 55 0-150 mg/dl Cholesterol Level 81 0-200 mg/dl HDL Cholesterol 44 mg/dl Cholesterol/HDL Ratio 1.8 LDL Cholesterol, Calculated 26 mg/dl Medical Emergencies . Who to Call and When: Medical Emergencies: If at any time you feel your situation is an emergency, please call 911 immediately. . Non-Emergent Contact Non-Emergency issues call your: Primary Care Provider . . "Provider Documentation" section prepared by Alex Smith. . Core Measure Problem Core Measures: None
--- NOTE | 2017-05-23 17:45 | ECHOCARDIOGRAM REPORT ---
*NOTICE TO RECEIVING CONSTITUTION PARTY AGENCY This information is strictly Confidential and protected under [place] law. [place] law prohibits you from making any further disclosure of this information unless further disclosure is expressly permitted by the written consent of the person to whom it pertains or is authorized by law. A general authorization for the release of medical or other information is not sufficient for this purpose. Hospital accepts no responsibility if the information is made available to any other person, INCLUDING THE PATIENT. Interpretation Summary * Name: JEVON TAVERAS Study Date: 05/23/2017 07:57 AM BP: 141/60 mmHg * Patient Location: .[facility]\S\E108\S\1 HR: 66 * : 1960 (M/d/yyyy) Gender: Male Height: 65 in * Age: 56 yrs Ethnicity: [place] Weight: 273 lb * Ordering Physician: Alex Smith * Referring Physician: Self, Referred * Performed By: Adele Mcghee RDCS * * Reason For Study: CVA * BSA: 2.3 m2 * The study was technically difficult. * There is no comparison study available. * -- Conclusions -- * There is normal left ventricular wall thickness. * There is mild global hypokinesis of the left ventricle. * Left ventricular systolic function is mildly reduced. * The LV Ejection Fraction = 45-50%. * The right ventricle is mildly dilated. * The right ventricular systolic function is normal as assessed by tricuspid annular plane systolic excursion (TAPSE) (normal >1.5 cm). * There is no significant valvular heart disease. Procedure Details * A complete two-dimensional transthoracic echocardiogram was performed (2D, M-mode, Doppler and color flow Doppler). * A saline contrast injection was performed to assess for cardiac shunting. * The injection was performed through an intravenous line in the left arm. * The attending nurse who injected the saline contrast was Alfred Trinidad RN. * A total of 20 cc of agitated saline was given. * A contrast injection of Definity was performed to improve assessment of LV function. * Contrast was injected into an intravenous site in the left arm. * One vial of Definity ultrasound contrast was diluted in normal saline to a total volume of 10 ml. A total of '2' ml of solution was administered during imaging. * Lot # [id number] of Definity utilized for procedure. * Expiration date JUL 07. * The attending nurse who injected the contrast agent was Alfred Trinidad RN. Left Ventricle * The left ventricle is normal in size. * There is normal left ventricular wall thickness. * Left ventricular systolic function is mildly reduced. * Ejection Fraction = 45-50%. * There is mild global hypokinesis of the left ventricle. Right Ventricle * The right ventricle is mildly dilated. * The right ventricular systolic function is normal as assessed by tricuspid annular plane systolic excursion (TAPSE) (normal >1.5 cm). Atria * The left atrial size is normal. * Right atrial size is normal. * The interatrial septum is intact with no evidence for an atrial septal defect. Mitral Valve * The mitral valve is normal. * There is no mitral valve stenosis. * Significant mitral regurgitation is absent. Tricuspid Valve * The tricuspid valve is normal. * There is no tricuspid stenosis. * Significant tricuspid regurgitation is absent. Aortic Valve * The aortic valve is trileaflet. * Aortic stenosis is absent. * There is no significant aortic regurgitation. Pulmonic Valve * The pulmonary valve is not well seen, but the Doppler examination is normal without significant regurgitation or stenosis. Great Vessels * The aortic root and proximal ascending aorta are normal sized. Pericardium/Pleural * There is no pericardial effusion. Great Vessels * Normal inferior vena cava diameter and respiratory variation suggests normal central venous pressure. Left Ventricular Diastolic Function * Grade I diastolic dysfunction, (abnormal relaxation pattern). MMode 2D Measurements and Calculations IVSd 0.79 cm LVIDd 5.1 cm LVIDs 3.8 cm LVPWd 0.98 cm IVS/LVPW 0.80 FS 26.7 % EDV(Teich) 125.7 ml ESV(Teich) 60.6 ml EF(Teich) 51.8 % EDV(cubed) 135.3 ml ESV(cubed) 53.4 ml EF(cubed) 60.5 % LV mass(C)d 162.4 grams LV mass(C)dI 71.9 grams/m\S\2 SV(Teich) 65.1 ml SI(Teich) 28.8 ml/m\S\2 SV(cubed) 81.9 ml SI(cubed) 36.3 ml/m\S\2 Ao root diam 3.0 cm Ao root area 7.0 cm\S\2 ACS 2.2 cm LA dimension 3.4 cm asc Aorta Diam 3.0 cm LA/Ao 1.1 LVOT diam 2.0 cm LVOT area 3.2 cm\S\2 LVAd ap4 41.4 cm\S\2 LVLd ap4 7.9 cm EDV(MOD-sp4) 178.2 ml EDV(sp4-el) 184.3 ml LVAs ap4 27.7 cm\S\2 LVLs ap4 7.0 cm ESV(MOD-sp4) 90.6 ml ESV(sp4-el) 93.9 ml EF(MOD-sp4) 49.1 % EF(sp4-el) 49.0 % LVAd ap2 51.1 cm\S\2 LVLd ap2 9.4 cm EDV(MOD-sp2) 233.3 ml EDV(sp2-el) 237.3 ml LVAs ap2 32.4 cm\S\2 LVLs ap2 7.6 cm ESV(MOD-sp2) 116.3 ml ESV(sp2-el) 117.7 ml EF(MOD-sp2) 50.1 % EF(sp2-el) 50.4 % LVLd %diff 15.4 % EDV(MOD-bp) 222.1 ml LVLs %diff 8.4 % ESV(MOD-bp) 107.7 ml EF(MOD-bp) 51.5 % SV(MOD-sp4) 87.6 ml SI(MOD-sp4) 38.8 ml/m\S\2 SV(MOD-sp2) 117.0 ml SI(MOD-sp2) 51.8 ml/m\S\2 SV(MOD-bp) 114.5 ml SI(MOD-bp) 50.7 ml/m\S\2 SV(sp4-el) 90.4 ml SI(sp4-el) 40.0 ml/m\S\2 SV(sp2-el) 119.6 ml SI(sp2-el) 53.0 ml/m\S\2 Doppler Measurements and Calculations MV E max cielo 57.2 cm/sec MV A max cielo 54.3 cm/sec MV E/A 1.1 MV dec time 0.23 sec Ao V2 max 106.9 cm/sec Ao max PG 4.6 mmHg Ao max PG (full) 0.88 mmHg ELE(V,A) 2.9 cm\S\2 ELE(V,D) 2.9 cm\S\2 LV V1 max PG 3.7 mmHg LV V1 max 96.0 cm/sec
[2017-05-23] MEDS ORDERED: AMPICILLIN IV 2,000 MG in SODIUM CHLOR 0.9% AD-VAN 100ML 100 ML IV SCH (18:00)
[2017-05-23] MEDS ORDERED: ACYCLOVIR SOD INJ 600 MG in DEXTROSE 5% 100ML 100 ML IV SCH (18:00)
--- NOTE | 2017-05-23 18:15 | Critical Care Progress Note ---
Critical Care Progress Note Date of Service May 23, 2017. ICU Day ICU Day Number: [address] Corea Subjective Increased alertness compared to yesterday, however difficult to reorient Objective General - resting comfortably in bed Eyes - PERRL, ENT -moist mucous membranes Neck - Supple, trachea midline, no nuchal rigidity Lungs -lungs clear to auscultation Heart - Reg rate and rhythm Abdomen -soft abdomen Extremities - No edema, pedal pulses intact Neuro -alert, needing constant redirection, will follow commands Strength moves all extremities Assessment & Plan (1) Seizure (2) Expressive aphasia (3) DM (diabetes mellitus), type 2, uncontrolled (4) Hypertension (5) Dyslipidemia (6) Abnormal CT of brain (7) Obesity, morbid, BMI 40.0-49.9 (8) Altered mental status Neuro: Seizure activity Left frontal cystic lesion Progressive encephalopathy * Family reports that this has been a progressive change in his mental status with the past several weeks. He had questionable seizure activity with his last admission. Clinically he appeared to have seizure activity during this admission. * Antiepileptic medication * Initial load of Depakote * Second antiepileptic after repeated seizure-like activity Dilantin Resp: * Tolerating nasal cannula CV: * Hx of Hyperlipidemia, Hypertension * Pts home medications continued * ASA, Lipitor, Lisinopril * Plavix was added on admission, I have discontinued this in case he needs surgical intervention Fluids/Renal: * Improved and creatinine * normosol maintenance fluid * Song Catheter to Burke ID: * Leukocytosis, afebrile, unremarkable * U/A: Trace Leukocyte Esterase * Blood Cultures x 2 pending * No overt signs of infection * Broad Spectrum Abx: Cefepime (first day 05/22/17) and Vanco (first day 05/22/17) * Procalcitonin negative GI/Nutrition: * NPO * AST Low, otherwise LFTs WNL Heme: * H&H: 13.5/39.2; plts: 278 * Coags: WNL * Trend daily labs * Patient was on heparin 5000 units 3 times a day prophylaxis Endocrine: * Adjusted patient's insulin, suspect hyperglycemia secondary to seizure-like activity in the acute phase reactant * TSH: 1.15 Patient has returned to his recent baseline, however this is not his baseline compared to several months ago. Discussed with neurology today. Given the brain lesion on progressive worsening of his neuro status, felt that neurosurgical evaluation should be undertaken to better clarify the lesion. Patient had already been placed on antibiotics and would likely result in sterile tap with concern for meningitis. I would note that there are no clinical signs at this time for meningitis, nuchal rigidity, fever. Given that the patient does have a brain lesion and the addition of antibiotics we will defer lumbar puncture to neurosurgical service. Discussed with hospital service with regards to transfer for formal neurosurgical evaluation. Consults & Procedures Consultants: Neurology Procedures: EEG #1 05/22/2017 EEG #2 05/23/2017 Data Medications: Current Inpatient Medications Medications (Trade) Dose Ordered Sig/Tori Route Start Time Stop Time Status Last Admin Dose Admin Heparin Sodium (Porcine) (Heparin Sq 5000 Unit/0.5ml) 5,000 unit Q8 SQ 05/22/17 22:00 06/21/17 21:59 05/23/17 14:28 5,000 UNIT Acetaminophen (Tylenol Tab) 650 mg Q4H PRN PO 05/22/17 17:30 06/21/17 17:29 Al Hydrox/Mg Hydrox/Simethicone (Maalox Max Susp) 15 ml Q4H PRN PO 05/22/17 17:30 06/21/17 17:29 Ondansetron HCl (Zofran Inj) 4 mg Q6H PRN IV 05/22/17 17:30 06/21/17 17:29 Nitroglycerin (Nitrostat Tab) 0.4 mg UD PRN SL 05/22/17 17:30 06/21/17 17:29 Aspirin (Ecotrin Tab) 81 mg DAILY PO 05/23/17 09:00 06/22/17 08:59 Atorvastatin Calcium (Lipitor Tab) 20 mg DAILY PO 05/23/17 09:00 06/22/17 08:59 Lisinopril (Zestril Tab) 10 mg DAILY PO 05/23/17 09:00 06/22/17 08:59 Multivitamins (Multivitamin Tab) 1 tab DAILY PO 05/23/17 09:00 06/22/17 08:59 Cholecalciferol (Vitamin D Tab) 4,000 inter.unit DAILY PO 05/23/17 09:00 06/22/17 08:59 Clopidogrel Bisulfate (plAVix TAB) 75 mg QAM PO 05/23/17 09:00 06/22/17 08:59 Future Hold Glucose (Glucose 40% Gel) 15-30 GRAMS 15 GRAMS... UD PRN PO 05/22/17 17:45 06/21/17 17:44 Glucose (Glucose Chew Tab) 4-8 Tablets 4 Tabl... UD PRN PO 05/22/17 17:45 06/21/17 17:44 Dextrose (Dextrose 50% 50ML Syringe) 25-50ML OF 50% DW IV FOR... UD PRN IV 05/22/17 17:45 06/21/17 17:44 05/23/17 17:05 25 ML Glucagon (Glucagon Inj) 1 mg UD PRN SQ 05/22/17 17:45 06/21/17 17:44 Miscellaneous Information (Pharmacist Discharge Med Rec Consult) 1 ea UD PRN N/A 05/22/17 18:45 06/21/17 18:44 Vancomycin HCl (Consult) 1 ea UD PRN N/A 05/22/17 19:00 06/21/17 18:59 Valproate Sodium 500 mg/Dextrose 55 ml @ 55 mls/hr Q12H IV 05/22/17 21:00 06/21/17 20:59 05/23/17 08:00 55 MLS/HR Lorazepam 2 mg/ Syringe 2 ml @ 0.5 mls/min Q2HWA PRN IV 05/22/17 20:45 06/21/17 20:44 Lorazepam (Ativan Inj) 2 mg Q2H PRN IV 05/22/17 20:45 06/21/17 20:44 05/22/17 23:47 2 MG Lorazepam (Ativan Inj) 1 mg NOW PRN IV 05/23/17 01:15 06/22/17 01:14 Parenteral Electrolyte Solution 1,000 ml @ 75 mls/hr [id number] IV 05/23/17 08:45 06/22/17 08:44 05/23/17 08:50 75 MLS/HR Insulin Aspart (novoLOG ASPART) SLIDING SCALE Q4 SC 05/23/17 12:00 06/22/17 11:59 Vancomycin HCl 1750 mg/Sodium Chloride 535 ml @ 200 mls/hr Q10H IV 05/23/17 12:00 05/30/17 11:59 05/23/17 12:28 200 MLS/HR Insulin Glargine (Lantus Solostar Pen) see protocol text QAM SC 05/24/17 09:00 06/23/17 08:59 Ceftriaxone Sodium 2000 mg/ Dextrose 70 ml @ 100 mls/hr Q12@0500,1700 IV 05/23/17 17:00 06/02/17 16:59 05/23/17 16:48 100 MLS/HR Acyclovir Sodium (Consult) 1 ea UD PRN N/A 05/23/17 16:15 06/22/17 16:14 Miscellaneous Information (Pharmacy Consult) 1 ea UD PRN N/A 05/23/17 16:15 06/22/17 16:14 Acyclovir Sodium 600 mg/Dextrose 112 ml @ 100 mls/hr Q8H IV 05/23/17 18:00 06/02/17 17:59 Ampicillin Sodium 2000 mg/Sodium Chloride 108 ml @ 216 mls/hr Q4H IV 05/23/17 18:00 06/02/17 17:59 I & O: 24-Hour Column 05/24/17 07:59 Intake Total 804 ml Output Total 1300 ml Balance -496 ml Vital Signs: Date Time Temp Pulse Resp B/P (MAP) Pulse Ox O2 Delivery O2 Flow Rate FiO2 05/23/17 16:00 100 Nasal Cannula 3.0 05/23/17 16:00 37.0 67 18 115/69 (84) 100 Nasal Cannula 3.0 05/23/17 14:00 67 25 128/45 (72) 05/23/17 12:00 96 Nasal Cannula 3.0 05/23/17 12:00 49 17 181/66 (104) 100 2.0 05/23/17 10:00 36.9 58 17 129/47 (74) 99 2.0 05/23/17 08:00 96 Nasal Cannula 3.0 05/23/17 08:00 62 15 89/51 (64) 95 3.0 05/23/17 06:00 65 18 98/62 (74) 97 3.0 05/23/17 04:00 36.5 66 16 141/60 (87) 99 3.0 05/23/17 04:00 97 Nasal Cannula 3.0 05/23/17 02:34 69 19 142/51 (81) 97 3.0 05/23/17 02:00 76 111/44 (66) 98 4.0 05/23/17 01:00 75 20 160/46 (84) 94 4.0 05/23/17 00:30 64 21 147/46 (79) 98 4.0 05/23/17 00:01 36.8 62 21 126/39 (68) 95 4.0 05/22/17 23:59 97 Nasal Cannula 05/22/17 22:01 74 19 126/55 (106) 100 05/22/17 21:31 85 26 141/75 (95) 99 05/22/17 21:01 97 30 135/82 (103) 97 05/22/17 20:55 99 25 137/65 (91) 96 05/22/17 20:35 88 20 98 15.0 05/22/17 19:47 36.4 66 18 136/78 (97) 96 Room Air 05/22/17 18:23 98 Room Air 05/22/17 17:48 54 18 122/76 95 Room Air Laboratory Results: Last 24 Hours Test 05/22/17 19:25 05/22/17 19:54 05/22/17 21:19 05/22/17 21:59 Urine Color DK YELLOW Urine Appearance CLEAR Urine pH 5.0 Urine Specific Burke 1.026 Urine Protein NEG Urine Glucose (UA) TRACE Urine Ketones TRACE Urine Occult Blood NEG Urine Nitrite NEG Urine Bilirubin NEG Urine Urobilinogen NEG Urine Leukocyte Esterase TRACE Urine WBC (Auto) 1-5 /hpf Urine RBC (Auto) 0-4 /hpf Urine Hyaline Casts (Auto) 1-5 /lpf Urine Epithelial Cells (Auto) 5-10 /lpf Urine Bacteria (Auto) NEG Urine Opiates Screen NEG Urine Methadone, Qualitative NEG Urine Barbiturates NEG Urine Phencyclidine (PCP) Level NEG Ur Amphetamine/Methamphetamine NEG MDMA (Ecstasy) Screen NEG Urine Benzodiazepines Screen NEG Urine Cocaine Metabolite NEG Urine Marijuana (THC) NEG Bedside Glucose 201 mg/dl Sodium Level 130 mmol/L Potassium Level 4.2 mmol/L Chloride Level 94 mmol/L Carbon Dioxide Level 23 mmol/L Anion Gap 13.0 mmol/L Blood Urea Nitrogen 26 mg/dl Creatinine 1.39 mg/dl Est Creatinine Clear Calc Drug Dose 71.7 ml/min Estimated GFR () 64.7 Estimated GFR (Non- 55.9 BUN/Creatinine Ratio 18.6 Random Glucose 261 mg/dl Osmolality 291 mOsm/kg Calcium Level 9.2 mg/dl Magnesium Level 1.3 mg/dl Blood Gas Sample Site L Radial Bedside Blood Gas pH (LAB) 7.46 Bedside Blood Gas pCO2 (LAB) 35 mmHg Bedside Blood Gas pO2 (LAB) 200 mmHg Bedside Blood Gas HCO3 (LAB) 25 meq/L Bedside Blood Gas Total CO2 26 mEq/l Bedside Blood Gas Base Excess (LAB) 1.0 meq/L Bedside Blood Gas O2 Saturation 100.0 % Sam Test Pass Oxygen Delivery Device NonRb Mask Bedside FiO2 0 % Test 05/22/17 23:55 05/23/17 03:44 05/23/17 04:44 05/23/17 05:42 Bedside Glucose 255 mg/dl 174 mg/dl 138 mg/dl 139 mg/dl Test 05/23/17 05:54 05/23/17 06:30 05/23/17 07:41 05/23/17 07:57 White Blood Count 20.03 K/uL Red Blood Count 3.98 M/uL Hemoglobin 12.2 g/dL Hematocrit 35.8 % Mean Corpuscular Volume 89.9 fL Mean Corpuscular Hemoglobin 30.7 pg Mean Corpuscular Hemoglobin Concent 34.1 g/dl Platelet Count 234 K/uL Mean Platelet Volume 9.2 fL Neutrophils (%) (Auto) 84.3 % Lymphocytes (%) (Auto) 8.2 % Monocytes (%) (Auto) 7.2 % Eosinophils (%) (Auto) 0.0 % Basophils (%) (Auto) 0.0 % Neutrophils # (Auto) 16.85 K/uL Lymphocytes # (Auto) 1.65 K/uL Monocytes # (Auto) 1.45 K/uL Eosinophils # (Auto) 0.00 K/uL Basophils # (Auto) 0.01 K/uL RDW Standard Deviation 39.4 fL RDW Coefficient of Variation 12.1 % Immature Granulocyte % (Auto) 0.3 % Immature Granulocyte # (Auto) 0.07 K/uL Erythrocyte Sedimentation Rate 13 mm/hr Arterial Blood pH 7.44 Arterial Blood Partial Pressure CO2 38 mmHg Arterial Blood Partial Pressure O2 111 mm/Hg Arterial Blood HCO3 25 mmol/L Arterial Blood Oxygen Saturation 98.3 % Arterial Blood Base Excess 1.2 mEq/L Arterial Blood Gas Delivery 2.5L Sam Test POS Sodium Level 134 mmol/L Potassium Level 4.0 mmol/L Chloride Level 101 mmol/L Carbon Dioxide Level 25 mmol/L Anion Gap 8.0 mmol/L Blood Urea Nitrogen 23 mg/dl Creatinine 0.94 mg/dl Est Creatinine Clear Calc Drug Dose 109.4 ml/min Estimated GFR () 103.9 Estimated GFR (Non- 89.6 BUN/Creatinine Ratio 24.2 Random Glucose 117 mg/dl Estimated Average Glucose 301 mg/dl Hemoglobin A1c 12.1 % Calcium Level 8.8 mg/dl Phosphorus Level 2.9 mg/dl Magnesium Level 2.3 mg/dl C-Reactive Protein 0.86 mg/dl Triglycerides Level 55 mg/dl Cholesterol Level 81 mg/dl HDL Cholesterol 44 mg/dl LDL Cholesterol, Calculated 26 mg/dl VLDL Cholesterol, Calculated 11 mg/dl Cholesterol/HDL Ratio 1.8 Vitamin B12 Level 992 pg/mL Procalcitonin < 0.05 ng/ml Lyme Disease IgG Antibody NEG Lyme Disease IgM Antibody EQUIVOCAL Bedside Glucose 120 mg/dl 90 mg/dl 89 mg/dl Test 05/23/17 08:27 05/23/17 09:23 05/23/17 11:30 05/23/17 11:37 Bedside Glucose 79 mg/dl 73 mg/dl 74 mg/dl Problem Qualifiers (1) Altered mental status: Altered mental status type: disorientation Qualified Codes: R41.0 - Disorientation, unspecified
[2017-05-23] MEDS ORDERED: AMPICILLIN IV 2 GM in SODIUM CHLOR 0.9% AD-VAN 50ML 50 ML IV SCH (20:00)
--- NOTE | 2017-05-23 20:39 | Progress Note ---
Internal Med Progress Note Date of Service: May 23, 2017. Provider Documentation: SUBJECTIVE: awake but confused cannot tell his name and does not recognize his afebrile hemodynamics stable OBJECTIVE: Vital Signs-as noted below Exam: General-alert and awake. confused. Not oriented. ENT-Normal hearing Neck-no neck masses supple Lungs-cta b/l no wheezing no crackles present Heart-S1 and S2 heard regular rate and rthym, no murmurs Abdomen-Soft bowel sounds present non tender distended Extremities-no edema no erythema Neuro-alert and awake confused moves extremities Lab data as noted below. ASSESSMENT & PLAN: This is a 56-year-old male who presents with altered mental status. 1. Altered mental status, confusion, encephalopathy, possible cerebrovascular accident versus seizures versus metabolic causes. CAT scan of the head is unremarkable and EEG is nonspecific. We will plan to do MRI of the head. The patient is already on aspirin, statin and we will add Plavix. Neurology is notified. Further recommendation as per neurology. Monitor on tele floor. Last admission MRI of the head, EEG and nocturnal pulse oximetry were unremarkable. We will also follow the echocardiogram. 05/23/17 last night had seizures and jose worley was called. Was given iv Ativan and transferred to ICU/ Neurology recommended iv valproic acid. Again later in night had another seizure and Ativan was given and notified neurology and at that patient was loaded with Dilantin. Today neurology recommenced transfer to [facility] to be valuated by Neurosurgery for the a 3 cm cystic lesion within the left frontal lobe. Also Need LP. D/w neurosurgery, Neurology and critical care and was accepted to transfer to [facility]. Broadened abx to cover fully meningitis. 2. Leukocytosis. on iv abx. 3. Diabetes. Continue his Lantus. Hold his metformin. ISS. 4. Hypertension. Continue lisinopril. 5. Hyperlipidemia. Continue statin. 6. Deep venous thrombosis prophylaxis, heparin subQ. Transferred to [facility]. Vital Signs: Date Time Temp Pulse Resp B/P (MAP) Pulse Ox O2 Delivery O2 Flow Rate FiO2 05/23/17 18:00 63 20 106/41 (62) 99 Nasal Cannula 3.0 05/23/17 16:00 100 Nasal Cannula 3.0 05/23/17 16:00 37.0 67 18 115/69 (84) 100 Nasal Cannula 3.0 05/23/17 14:00 67 25 128/45 (72) 05/23/17 12:00 96 Nasal Cannula 3.0 05/23/17 12:00 49 17 181/66 (104) 100 2.0 05/23/17 10:00 36.9 58 17 129/47 (74) 99 2.0 05/23/17 08:00 96 Nasal Cannula 3.0 05/23/17 08:00 62 15 89/51 (64) 95 3.0 05/23/17 06:00 65 18 98/62 (74) 97 3.0 05/23/17 04:00 36.5 66 16 141/60 (87) 99 3.0 05/23/17 04:00 97 Nasal Cannula 3.0 05/23/17 02:34 69 19 142/51 (81) 97 3.0 05/23/17 02:00 76 111/44 (66) 98 4.0 05/23/17 01:00 75 20 160/46 (84) 94 4.0 05/23/17 00:30 64 21 147/46 (79) 98 4.0 05/23/17 00:01 36.8 62 21 126/39 (68) 95 4.0 05/22/17 23:59 97 Nasal Cannula 05/22/17 22:01 74 19 126/55 (106) 100 05/22/17 21:31 85 26 141/75 (95) 99 05/22/17 21:01 97 30 135/82 (103) 97 05/22/17 20:55 99 25 137/65 (91) 96 05/22/17 20:35 88 20 98 15.0 Lab Results: Results Past 24 Hours Test 05/22/17 21:19 05/22/17 21:59 05/22/17 23:55 05/23/17 03:44 Range/Units Sodium Level 130 136-145 mmol/L Potassium Level 4.2 3.5-5.1 mmol/L Chloride Level 94 98-107 mmol/L Carbon Dioxide Level 23 21-32 mmol/L Anion Gap 13.0 3-11 mmol/L Blood Urea Nitrogen 26 7-18 mg/dl Creatinine 1.39 0.60-1.40 mg/dl Est Creatinine Clear Calc Drug Dose 71.7 ml/min Estimated GFR () 64.7 Estimated GFR (Non- 55.9 BUN/Creatinine Ratio 18.6 10-20 Random Glucose 261 70-99 mg/dl Osmolality 291 280-300 mOsm/kg Calcium Level 9.2 8.5-10.1 mg/dl Magnesium Level 1.3 1.8-2.4 mg/dl Blood Gas Sample Site L Radial Bedside Blood Gas pH (LAB) 7.46 7.35-7.45 Bedside Blood Gas pCO2 (LAB) 35 35-46 mmHg Bedside Blood Gas pO2 (LAB) 200 80-95 mmHg Bedside Blood Gas HCO3 (LAB) 25 19-24 meq/L Bedside Blood Gas Total CO2 26 24-31 mEq/l Bedside Blood Gas Base Excess (LAB) 1.0 -9-1.8 meq/L Bedside Blood Gas O2 Saturation 100.0 90-95 % Sam Test Pass Oxygen Delivery Device NonRb Mask Bedside FiO2 0 % Bedside Glucose 255 174 70-99 mg/dl Test 05/23/17 04:44 05/23/17 05:42 05/23/17 05:54 05/23/17 06:30 Range/Units Bedside Glucose 138 139 120 70-99 mg/dl White Blood Count 20.03 4.8-10.8 K/uL Red Blood Count 3.98 4.7-6.1 M/uL Hemoglobin 12.2 14.0-18.0 g/dL Hematocrit 35.8 42-52 % Mean Corpuscular Volume 89.9 80-100 fL Mean Corpuscular Hemoglobin 30.7 25-34 pg Mean Corpuscular Hemoglobin Concent 34.1 32-36 g/dl Platelet Count 234 130-400 K/uL Mean Platelet Volume 9.2 7.4-10.4 fL Neutrophils (%) (Auto) 84.3 % Lymphocytes (%) (Auto) 8.2 % Monocytes (%) (Auto) 7.2 % Eosinophils (%) (Auto) 0.0 % Basophils (%) (Auto) 0.0 % Neutrophils # (Auto) 16.85 1.4-6.5 K/uL Lymphocytes # (Auto) 1.65 1.2-3.4 K/uL Monocytes # (Auto) 1.45 0.11-0.59 K/uL Eosinophils # (Auto) 0.00 0-0.5 K/uL Basophils # (Auto) 0.01 0-0.2 K/uL RDW Standard Deviation 39.4 36.4-46.3 fL RDW Coefficient of Variation 12.1 11.5-14.5 % Immature Granulocyte % (Auto) 0.3 % Immature Granulocyte # (Auto) 0.07 0.00-0.02 K/uL Erythrocyte Sedimentation Rate 13 0-14 mm/hr Arterial Blood pH 7.44 7.35-7.45 Arterial Blood Partial Pressure CO2 38 35-46 mmHg Arterial Blood Partial Pressure O2 111 80-95 mm/Hg Arterial Blood HCO3 25 19-24 mmol/L Arterial Blood Oxygen Saturation 98.3 90-95 % Arterial Blood Base Excess 1.2 -9-1.8 mEq/L Arterial Blood Gas Delivery 2.5L Sam Test POS POS Sodium Level 134 136-145 mmol/L Potassium Level 4.0 3.5-5.1 mmol/L Chloride Level 101 98-107 mmol/L Carbon Dioxide Level 25 21-32 mmol/L Anion Gap 8.0 3-11 mmol/L Blood Urea Nitrogen 23 7-18 mg/dl Creatinine 0.94 0.60-1.40 mg/dl Est Creatinine Clear Calc Drug Dose 109.4 ml/min Estimated GFR () 103.9 Estimated GFR (Non- 89.6 BUN/Creatinine Ratio 24.2 10-20 Random Glucose 117 70-99 mg/dl Estimated Average Glucose 301 mg/dl Hemoglobin A1c 12.1 4.5-5.6 % Calcium Level 8.8 8.5-10.1 mg/dl Phosphorus Level 2.9 2.5-4.9 mg/dl Magnesium Level 2.3 1.8-2.4 mg/dl C-Reactive Protein 0.86 0-0.29 mg/dl Triglycerides Level 55 0-150 mg/dl Cholesterol Level 81 0-200 mg/dl HDL Cholesterol 44 mg/dl LDL Cholesterol, Calculated 26 mg/dl VLDL Cholesterol, Calculated 11 mg/dl Cholesterol/HDL Ratio 1.8 Vitamin B12 Level 992 211-911 pg/mL Procalcitonin < 0.05 0-0.5 ng/ml Lyme Disease IgG Antibody NEG NEG Lyme Disease IgM Antibody EQUIVOCAL NEG Test 05/23/17 07:41 05/23/17 07:57 05/23/17 08:27 05/23/17 09:23 Range/Units Bedside Glucose 90 89 79 73 70-99 mg/dl Test 05/23/17 11:30 05/23/17 11:37 05/23/17 17:30 Range/Units Bedside Glucose 74 101 70-99 mg/dl Microbiology Results 05/22/17 MRSA DNA Surveillance Screen - Final, Complete Specimen Negative for MRSA by DNA Probe
--- NOTE | 2017-05-23 20:54 | Discharge Summary ---
Discharge Summary Date of Service May 23, 2017. Discharge Summary Admission Date: May 22, 2017 at 17:34 Discharge Date: May 23, 2017 Discharge Disposition: Acute care facility ([facility]) Principal Diagnosis: morbid obesity, diabetes, hypertension, hyperlipidemia, Procedures: CT HEAD: 1. No significant change compared to the prior study. No acute intracranial abnormality. CXR: 1. Low lung volumes and hypoventilatory changes. No focal infiltrate to suggest pneumonia. ECHO: * There is normal left ventricular wall thickness. * There is mild global hypokinesis of the left ventricle. * Left ventricular systolic function is mildly reduced. * The LV Ejection Fraction = 45-50%. * The right ventricle is mildly dilated. * The right ventricular systolic function is normal as assessed by tricuspid annular plane systolic excursion (TAPSE) (normal >1.5 cm). * There is no significant valvular heart disease. * * EEG: * 1) functional or structural cerebral dysfunction in the left hemisphere. This could be consistent with patient's known cystic lesion in the left frontal lobe. Cannot rule out postictal slowing. 2) moderate encephalopathy of nonspecific etiology Consultations: NEUROLOGY CRITICAL CARE Medication Reconciliation Continued Medications: Aspirin (Aspirin Ec) 81 Mg Tab 81 MG PO DAILY Atorvastatin (Lipitor) 20 Mg Tab 20 MG PO DAILY, TAB Insulin Glargine (Lantus Solostar) 100 Unit/Ml Inj 25 UNITS SC DAILYBB, #1 PEN 3 Refills Lisinopril (Zestril) 10 Mg Tab 10 MG PO DAILY, TAB Discontinued Medications: Cholecalciferol (Vitamin D) 2,000 Unit Tab 4000 UNITS PO DAILY Escitalopram Oxalate (Lexapro) 5 Mg Tab 5 MG PO QPM, TAB Ibuprofen (Ibuprofen) 600 Mg Tab 600 MG PO Q8H PRN for pain, #30 TAB Metformin Hcl (Glucophage) 500 Mg Tab 500 MG PO BID, TAB Multivitamin (Multivitamin) Tab 1 TAB PO DAILY, TAB Admission Information HPI (per Admitting provider): This is a 56-year-old male with past medical history significant for morbid obesity, diabetes, hypertension, hyperlipidemia, presents with confusion. The patient was here in the hospital from May 06 to May 10 with the same problem. At that time it was mild, thought to be secondary to hyperglycemia. At that time, workup for his MRI of the head and CT of the head and carotid Dopplers and EEG were unremarkable and evaluated by neurology and thought to be possibly secondary to hyperglycemia as his blood sugars were also running high and his HbA1c was high. 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 He was having difficulty finding words and also he was not eating and was helping him to eat and even he is having difficulty putting on his dress and he was also sleeping a lot. She notified family doctor and thought to be depression, started him on Lexapro, but today morning, he seems to be having right facial droop and weakness in the right extremities, so she brought him to the ER and initial stroke alert was called. CT of the head was unremarkable and he was thought to be not a TPA candidate with timeframe. Currently, the patient is comfortable and hemodynamically stable. He can tell his name, can tell his 's name. He cannot tell his date of , does not know where is he, initially did not recognize me but later he told I saw him in the hospital. On and off waxing and waning mental status, could not get a complete review. As per the and as per the patient too, denies any chest pain, no shortness of breath, no cough, no fever, no chills, no nausea, no abdominal pain. As per , he is moving his bowels okay. Appetite is not that great. Physical Exam (per Admitting): GENERAL: The patient is morbidly obese, confused, not in distress. VITAL SIGNS: Temperature 36.5, pulse 64, respiratory rate 20, blood pressure 120/60, oxygen 97% room air. HEENT: No pallor, no icterus. Pupils equal, round react to light. NECK: No JVD, no neck masses, no carotid bruits. CARDIOVASCULAR: S1, S2 heard, regular rate and rhythm, no murmur, no gallop. RESPIRATORY SYSTEM: Clear to auscultation bilaterally. No wheezing, no crackles. ABDOMEN: Soft, bowel sounds present. Nontender. No distention. CENTRAL NERVOUS SYSTEM: Alert and oriented x1. Intact recent memory, waxing and waning. Obeys simple commands. moving his extremities. Some lack of sensation on and off on the right extremities. Could not do complete exam as the patient is confused. EXTREMITIES: No edema, no erythema. Hospital Course This is a 56-year-old male who presents with altered mental status. 1. Altered mental status, confusion, encephalopathy, possible cerebrovascular accident versus seizures versus metabolic causes. CAT scan of the head is unremarkable and EEG is nonspecific. We will plan to do MRI of the head. The patient is already on aspirin, statin and we will add Plavix. Neurology is notified. Further recommendation as per neurology. Monitor on tele floor. Last admission MRI of the head, EEG and nocturnal pulse oximetry were unremarkable. We will also follow the echocardiogram. 05/23/17 last night had seizures and jose worley was called. Was given iv Ativan and transferred to ICU/ Neurology recommended iv valproic acid. Again later in night had another seizure and Ativan was given and notified neurology and at that patient was loaded with Dilantin. 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 Also Need LP. D/w neurosurgery, Neurology and critical care and was accepted to transfer to [facility]. Broadened abx to cover fully meningitis. 2. Leukocytosis. on iv abx. 3. Diabetes. Continue his Lantus. Hold his metformin. ISS. 4. Hypertension. Continue lisinopril. 5. Hyperlipidemia. Continue statin. 6. Deep venous thrombosis prophylaxis, heparin subQ. Transferred to [facility]. Total time spent on discharge = 45MINUTES This includes examination of the patient, discharge planning, medication reconciliation, and communication with other providers. Discharge Instructions Discharge Instructions Date of Service May 23, 2017. Admission Reason for Admission: Altered Mental Status Discharge Discharge Diagnosis / Problem: AMS, seizures, meningitis? Discharge Goals Goal(s): Decrease discomfort, Improve function Activity Recommendations Activity Level: Bedrest . Additional Information Patient informed of condition: Yes Advance Directives: Yes DNR: No Level of Care: Other ([facility] [place]) Communicable Disease: No Prognosis: Other (TRANSFERRING TO [facility]) Song Catheter: Yes Instructions / Follow-Up Instructions / Follow-Up FOLLOWUP PER [facility] RECOMMENDATIONS Current Hospital Diet Patient's current hospital diet: Full Liquid Diet, Diabetes Type 2 Diet Discharge Diet Recommended Diet: Full Liquid Diet, Diabetes Type 2 Diet Pending Studies Studies pending at discharge: no Physician Orders On Transfer IV Therapy: IV VANCO IV ROCEPHIN IV AMPICILLIN IV ACYCLOVIR IV VALPROATE IV ATIVAN PRN Additional Orders: PLEASE GO THROUGH MEDICATION RECONCILIATION FOR ACCURATE CURRENT MED LIST Laboratory Results Hemoglobin A1c Test 05/23/17 05:54 Range/Units Estimated Average Glucose 301 mg/dl Hemoglobin A1c 12.1 H 4.5-5.6 % Lipid Panel Test 05/23/17 05:54 Range/Units Triglycerides Level 55 0-150 mg/dl Cholesterol Level 81 0-200 mg/dl HDL Cholesterol 44 mg/dl Cholesterol/HDL Ratio 1.8 LDL Cholesterol, Calculated 26 mg/dl Medical Emergencies . Who to Call and When: Medical Emergencies: If at any time you feel your situation is an emergency, please call 911 immediately. .
[2017-05-24] MEDS ORDERED: VANCOMYCIN TROUGH ONE ×2 (06:30→17:30)
[2017-05-24] MEDS ORDERED: INSULIN GLARGINE SOLOSTAR 100 UNITS/ML 3 ML PEN SC SCH (09:00)
[2017-05-27 13:46] LABS: ANA SCREEN TC 249X POSITIVE (NEGATIVE)
[2017-05-30 15:05] LABS: ANA TITER > OR = 1:1280 TITER (<1:40)
[2017-06-13] MEDS ORDERED: NRN300 PO (14:34)
[2017-06-13] MEDS ORDERED: ULT50X PO (14:34)
== END 2017-05-23 18:25 | disposition short-term general hospital (02) | DRG 100 ==
LOC: C.EDB 13:17 → C.MED 17:34 → ENRESERV 17:52 → C.MSICU 20:49
PROVIDERS: ADMIT Internal Medicine; ATTEND Internal Medicine
DX: R56.9 Unspecified convulsions (principal); G03.9 Meningitis, unspecified; I63.9 Cerebral infarction, unspecified; G93.40 Encephalopathy, unspecified; Z68.42 Body mass index [BMI] 45.0-49.9, adult; R47.01 Aphasia; G81.91 Hemiplegia, unspecified affecting right dominant side; E87.1 Hypo-osmolality and hyponatremia; G93.0 Cerebral cysts; D72.829 Elevated white blood cell count, unspecified; R29.703 NIHSS score 3; R51 Headache; R41.82 Altered mental status, unspecified; E11.9 Type 2 diabetes mellitus without complications; I10 Essential (primary) hypertension; E66.01 Morbid (severe) obesity due to excess calories; E78.5 Hyperlipidemia, unspecified; Z51.81 Encounter for therapeutic drug level monitoring; Z79.899 Other long term (current) drug therapy; Z79.4 Long term (current) use of insulin; Z79.82 Long term (current) use of aspirin; Z83.3 Family history of diabetes mellitus; Z87.891 Personal history of nicotine dependence; Z82.3 Family history of stroke; Z80.41 Family history of malignant neoplasm of ovary

== ENCOUNTER 2017-06-08 10:01 | Inpatient (IN) | payer OTHER ==
[~2017-06-08] VITALS: Ht 165.1 cm; Wt 130.2 kg
[~2017-06-08 10:01] MED LIST changes: +ESCI1TAB6 PO; +GLC/500 PO; -METF1000 PO; +MULT-506 PO
--- NOTE | 2017-06-08 10:12 | EMERGENCY ROOM VISIT NOTE ---
History Report prepared by fErain: Liseth Hamilton Under the Supervision of: Dr. Markus Milian M.D. First contact with patient: 10:04 Stated Complaint: ILLNESS/HYPOTENSION History of Present Illness The patient is a 56 year old male who presents to the Emergency Room with complaints of worsening fatigue. He was brought to the ED via EMS. He states "I haven't been feeling well" and "my blood pressures has been low". He reports he saw his PCP recently and was told "everything was OK". A few days later, his doctor called him and told him he had "issues with his sugar" and he was told to go to the ED. He went to [facility] and was released a few days ago after approximately a 10 day stay. He was discharged to [facility] and brought to the ED this morning via EMS. EMS reports last night his blood pressure was in the 60's and his BSG was elevated. The patient denies any chest pain, shortness of breath or abdominal pain. He has a history of kidney failure and makes only small amounts of urine. He denies any headaches, melena or hematochezia. Source of History: patient, EMS Onset: PSYCH TECH Position: other (global) Timing: worsening Associated Symptoms: + weakness, No headache, No chest pain, No SOB, No abdominal pain, No melena, No hematochezia Review of Systems See HPI for pertinent positives & negatives. A total of 10 systems reviewed and were otherwise negative. Past Medical & Surgical Medical Problems: (1) Diabetes mellitus, type 2 (2) Dyslipidemia (3) Hypertension (4) Obesity, morbid, BMI 40.0-49.9 (5) Seizure Family History Diabetes mellitus GRANDMOTHER Ovarian cancer Stroke FATHER Social History Smoking Status: Former Smoker Alcohol Use: none Drug Use: none Marital Status: Housing Status: lives with significant other Occupation Status: unemployed Current/Historical Medications Scheduled Atorvastatin (Lipitor), 20 MG PO DAILY Cholecalciferol (Vitamin D), 4,000 UNITS PO DAILY Docusate Sodium (Docusate Sodium), 100 MG PO BID Insulin Aspart (Novolog Flexpen), 15 UNITS SC TIDM Insulin Aspart (Novolog Flexpen), 1 DOSE SC ACHS Insulin Glargine (Lantus Solostar), 60 UNITS SC HS Levetiracetam (Keppra), 500 MG PO BID Multivitamin (Multivitamin), 1 TAB PO DAILY Nystatin (Topical) (Nystatin), 1 APPLN TOP BID Pantoprazole (Protonix), 40 MG PO DAILY Scheduled PRN Acetaminophen (Tylenol), 500 MG PO Q4H PRN for UNDECIDED Magnesium Hydroxide (Milk Of Magnesia), 30 ML PO DAILY PRN for Constipation Allergies Coded Allergies: No Known Allergies (Unverified , 05/22/17) Physical Exam Vital Signs Date Time Temp Pulse Resp B/P (MAP) Pulse Ox O2 Delivery O2 Flow Rate FiO2 06/08/17 13:08 65 16 98/52 97 Room Air 06/08/17 11:24 70 16 126/50 99 Room Air 06/08/17 10:17 79 06/08/17 10:12 36.6 88 18 126/50 99 Room Air Physical Exam GENERAL: Patient is well appearing and in no acute distress. HEENT: No acute trauma, normocephalic atraumatic, mucous membranes moist, no nasal congestion, no scleral icterus. NECK: No stridor, no adenopathy, no meningismus, trachea is midline. LUNGS: No dyspnea. Clear to auscultation and equal bilaterally. No wheeze, no rhonchi. HEART: Regular rate and rhythm. No murmurs, rubs, gallops appreciated. ABDOMEN: Soft, nontender, bowel sounds positive, no masses appreciated, no peritonitis. BACK: No midline tenderness, no CVA tenderness EXTREMITIES: Edema in bilateral lower extremities and bilateral hands. Normal motion all extremities, no cyanosis. NEUROLOGIC: Alert and oriented, no acute motor or sensory deficits, no focal weakness, cranial nerves grossly intact. SKIN: No rash, no jaundice, no diaphoresis. Medical Decision & Procedures ER Provider Diagnostic Interpretation: Radiology results and stated below per my review and radiologist interpretation: CHEST ONE VIEW PORTABLE HISTORY: 56 years-old Male generalized weakness acute generalized weakness COMPARISON: Chest radiograph 05/22/2017 TECHNIQUE: Portable AP view of the chest FINDINGS: Cardiomediastinal and hilar silhouettes are within normal limits. There is no pneumothorax, pleural effusion, focal airspace consolidation or overt pulmonary edema. Mild right hemidiaphragmatic elevation. Degenerative changes involve the shoulders and spine. The bones appear grossly intact. IMPRESSION: No acute process. The above report was generated using voice recognition software. It may contain grammatical, syntax or spelling errors. Electronically signed by: Ramu Toro M.D. 06/08/2017 10:26 AM Laboratory Results 06/08/17 10:45 Red Blood Count 3.59, Mean Corpuscular Volume 92.2, Mean Corpuscular Hemoglobin 30.9, Mean Corpuscular Hemoglobin Concent 33.5, Mean Platelet Volume 9.3, Neutrophils (%) (Auto) 62.2, Lymphocytes (%) (Auto) 24.3, Monocytes (%) (Auto) 7.9, Eosinophils (%) (Auto) 3.0, Basophils (%) (Auto) 0.8, Neutrophils # (Auto) 4.39, Lymphocytes # (Auto) 1.72, Monocytes # (Auto) 0.56, Eosinophils # (Auto) 0.21, Basophils # (Auto) 0.06 06/08/17 10:45 Test 06/08/17 10:45 06/08/17 11:19 White Blood Count 7.07 K/uL (4.8-10.8) Red Blood Count 3.59 M/uL (4.7-6.1) Hemoglobin 11.1 g/dL (14.0-18.0) Hematocrit 33.1 % (42-52) Mean Corpuscular Volume 92.2 fL (80-100) Mean Corpuscular Hemoglobin 30.9 pg (25-34) Mean Corpuscular Hemoglobin Concent 33.5 g/dl (32-36) Platelet Count 331 K/uL (130-400) Mean Platelet Volume 9.3 fL (7.4-10.4) Neutrophils (%) (Auto) 62.2 % Lymphocytes (%) (Auto) 24.3 % Monocytes (%) (Auto) 7.9 % Eosinophils (%) (Auto) 3.0 % Basophils (%) (Auto) 0.8 % Neutrophils # (Auto) 4.39 K/uL (1.4-6.5) Lymphocytes # (Auto) 1.72 K/uL (1.2-3.4) Monocytes # (Auto) 0.56 K/uL (0.11-0.59) Eosinophils # (Auto) 0.21 K/uL (0-0.5) Basophils # (Auto) 0.06 K/uL (0-0.2) RDW Standard Deviation 44.8 fL (36.4-46.3) RDW Coefficient of Variation 13.4 % (11.5-14.5) Immature Granulocyte % (Auto) 1.8 % Immature Granulocyte # (Auto) 0.13 K/uL (0.00-0.02) Anion Gap 10.0 mmol/L (3-11) Estimated GFR () 19.9 Estimated GFR (Non- 17.2 BUN/Creatinine Ratio 19.6 (10-20) Calcium Level 9.9 mg/dl (8.5-10.1) Urine Color YELLOW Urine Appearance CLEAR (CLEAR) Urine pH 5.0 (4.5-7.5) Urine Specific [place] 1.014 (1.000-1.030) Urine Protein NEG (NEG) Urine Glucose (UA) NEG (NEG) Urine Ketones NEG (NEG) Urine Occult Blood NEG (NEG) Urine Nitrite NEG (NEG) Urine Bilirubin NEG (NEG) Urine Urobilinogen NEG (NEG) Urine Leukocyte Esterase NEG (NEG) Urine WBC (Auto) 0 /hpf (0-5) Urine RBC (Auto) 0-4 /hpf (0-4) Urine Hyaline Casts (Auto) 1-5 /lpf (0-5) Urine Epithelial Cells (Auto) 10-20 /lpf (0-5) Urine Bacteria (Auto) NEG (NEG) Laboratory results as reviewed by me. Medications Administered Medications (Trade) Dose Ordered Sig/Tori Route Start Time Stop Time Status Last Admin Dose Admin Sodium Chloride 1,000 ml @ 100 mls/hr Q10H STAT IV 06/08/17 11:44 06/08/17 21:43 06/08/17 11:44 100 MLS/HR ED Course 1005: The patient was evaluated in room B4. A complete history and physical exam was performed. 1129: I discussed the patients case with Dr. Smith, [facility] Hospitalist. The patient will be further evaluated. 1144: NSS 1000 ml @ 100 mls/hr IV. 1150: I revaluated the patient. He is resting comfortably. I discussed my recommendation he remain in the hospital for further evaluation and management and he verbalized complete understanding and agreement. Medical Decision Differential: Sepsis, Infectious (UTI/Pneumonia/Meningitis/etc), Metabolic/ Electrolyte Abnormality, Cardiac, Hepatic, Endocrine, Toxicologic, Neurologic, amongst other pathologies entertained. 56 yr old male arrives for evaluation of abnormal labs as outpatient. Complex history over last month with multiple admissions, infections and plasmapheresis for immune encephalopathy. He is awake, alert, oriented and really in no distress here. No evidence infection by exam. Vitals are stable and he is comfortable. Labs do reveal acute renal failure significant up from his normal baseline Cr. BUN quite elevated though he doesn't appear significantly dehydrated. Will start fluids while awaiting medicine evaluation. K at 5 thus no need to intervene on this currently. Medication Reconcilliation Current Medication List: was personally reviewed by me Blood Pressure Screening Patient's blood pressure: Low blood pressure Consults Time Called: 1121 Consulting Physician: Manju Del Valle Hospitalist Returned Call: [phone] I discussed the patients case with Manju Del Valle Hospitalist. The patient will be further evaluated. Impression Primary Impression: Acute renal failure Scribe Attestation The scribe's documentation has been prepared under my direction and personally reviewed by me in its entirety. I confirm that the note above accurately reflects all work, treatment, procedures, and medical decision making performed by me. Departure Information Dispostion Being Evaluated By Hospitalist Referrals Quique Palomino M.D. (PCP)
--- NOTE | 2017-06-08 10:27 | DIAGNOSTIC IMAGING REPORT ---
CHEST ONE VIEW PORTABLE HISTORY: 56 years-old Male generalized weakness acute generalized weakness COMPARISON: Chest radiograph 05/22/2017 TECHNIQUE: Portable AP view of the chest FINDINGS: Cardiomediastinal and hilar silhouettes are within normal limits. There is no pneumothorax, pleural effusion, focal airspace consolidation or overt pulmonary edema. Mild right hemidiaphragmatic elevation. Degenerative changes involve the shoulders and spine. The bones appear grossly intact. IMPRESSION: No acute process. The above report was generated using voice recognition software. It may contain grammatical, syntax or spelling errors. Electronically signed by: Ramu Toro M.D. 06/08/2017 10:26 AM Dictated Date/Time: 06/08/2017 10:25 AM
[2017-06-08] MEDS ORDERED: INSDGIPEN SC (10:33)
[2017-06-08] MEDS ORDERED: LEVE500T13 PO (10:33)
[2017-06-08] MEDS ORDERED: PANT40TA PO (10:33)
[2017-06-08] MEDS ORDERED: MOML PO (10:33)
[2017-06-08] MEDS ORDERED: DOCU100C31 PO (10:33)
[2017-06-08] MEDS ORDERED: NYST100033 TOP (10:33)
[2017-06-08] MEDS ORDERED: NVLGI/PEN SC ×2 (10:33)
[2017-06-08] MEDS ORDERED: ACET-1256 PO (10:33)
[2017-06-08 11:05] LABS: BASO % 0.8 %; BASO ABS # 0.06 K/uL (0-0.2); EOS ABS # 0.21 K/uL (0-0.5); HEMATOCRIT 33.1 % (42-52); HEMOGLOBIN 11.1 g/dL (14.0-18.0); IG# 0.13 K/uL (0.00-0.02); LYMPH % 24.3 %; LYMPH ABS # 1.72 K/uL (1.2-3.4); MEAN CELL VOLUME 92.2 fL (80-100); MEAN CORPUSCULAR HEMOGLOBIN 30.9 pg (25-34); MEAN CORPUSCULAR HGB CONC 33.5 g/dl (32-36); MEAN PLATELET VOLUME 9.3 fL (7.4-10.4); MONO % 7.9 %; MONO ABS # 0.56 K/uL (0.11-0.59); NEUT % 62.2 %; NEUT ABS # 4.39 K/uL (1.4-6.5); PLATELET COUNT 331 K/uL (130-400); RED CELL DISTRIBUTION WIDTH CV 13.4 % (11.5-14.5); RED CELL DISTRIBUTION WIDTH SD 44.8 fL (36.4-46.3); WHITE BLOOD COUNT 7.07 K/uL (4.8-10.8)
[2017-06-08 11:17] LABS: BLOOD UREA NITROGEN 72 mg/dl (7-18); CALCIUM 9.9 mg/dl (8.5-10.1); CARBON DIOXIDE 22 mmol/L (21-32); CREATININE 3.69 mg/dl (0.60-1.40); GLUCOSE 217 mg/dl (70-99); SODIUM 133 mmol/L (136-145)
[2017-06-08] MEDS ORDERED: SODIUM CHLORIDE 0.9% 1000ML 1,000 ML IV STA (11:44)
[2017-06-08] MEDS ORDERED: NITROGLYCERIN 0.4 MG SL PER TAB CHARGE SL PRN (13:30)
[2017-06-08] MEDS ORDERED: ACETAMINOPHEN 325 MG TAB PO PRN (13:30)
[2017-06-08] MEDS ORDERED: ALUMINUM/MAGNESIUM/SIMETH (MAALOX MAX) 30 ML UDC PO PRN (13:30)
[2017-06-08] MEDS ORDERED: ONDANSETRON INJ 2 MG/ML 2 ML VIAL IV PRN (13:30)
[2017-06-08] MEDS ORDERED: POLYETHYLENE (MIRALAX) 17 GM PACK PO PRN (13:30)
[2017-06-08] MEDS ORDERED: PHARMACY GLYCEMIC MGMT CONSULT PRN (13:46)
[2017-06-08 15:36] VITALS: O2SAT 96; BMI 48.5
--- NOTE | 2017-06-08 15:40 | Pharmacy Progress Note ---
Glycemic Control Intl Consult Date of Service Jun 08, 2017. Scope Glycemic Pharmacist consulted by Dr Smith on 06/08/17 for glycemic control and to write orders per [facility] inpatient glycemic control protocol Objective Weight (Kilograms): 132.200 Accuchecks BSG (last 24hrs): Test 06/08/17 10:45 Random Glucose 217 mg/dl (70-99) Laboratory Data (last 24hrs) Test 06/08/17 10:45 Anion Gap 10.0 mmol/L BUN/Creatinine Ratio 19.6 Blood Urea Nitrogen 72 mg/dl Creatinine 3.69 mg/dl Potassium Level 5.0 mmol/L Sodium Level 133 mmol/L White Blood Count 7.07 K/uL Red Blood Count 3.59 M/uL Hemoglobin 11.1 g/dL Hematocrit 33.1 % Mean Corpuscular Volume 92.2 fL Mean Corpuscular Hemoglobin 30.9 pg Mean Corpuscular Hemoglobin Concent 33.5 g/dl Platelet Count 331 K/uL Mean Platelet Volume 9.3 fL Neutrophils (%) (Auto) 62.2 % Lymphocytes (%) (Auto) 24.3 % Monocytes (%) (Auto) 7.9 % Eosinophils (%) (Auto) 3.0 % Basophils (%) (Auto) 0.8 % Neutrophils # (Auto) 4.39 K/uL Lymphocytes # (Auto) 1.72 K/uL Monocytes # (Auto) 0.56 K/uL Eosinophils # (Auto) 0.21 K/uL Basophils # (Auto) 0.06 K/uL Recent Pertinent Medications Risk Factors for Insulin Resistance: * Diet: ordered T2DM / AHA diet Assessment & Plan ASSESSMENT: 06/08/17 * Type 2 diabetic admitted today for increasing fatigue and hypotension - noted to have MACIE on initial labs * Patient is known to the glycemic control service thru prior admissions * His outpt reported insulin doses on the med rec are much greater than he has required while hospitalized * Given MACIE and prior admission data will reduce the Lantus dose to 12 units BID ; he has become mildly hypoglycemic when given 30 units of basal per day but seems to tolerate a dose in the range of 16 - 24 units of basal daily * Will trial the same CF and CR that performed well in the past PLAN FOR INPATIENT GLYCEMIC CONTROL: * Changing Lantus to 12 units SQ BID * Novolog SQ ACHS per the following parameters: * Correction factor 20 mg/dl/unit * Carb ratio 1 unit per 6 grams CHO consumed * Goal range Low 110 mg/dL - High 140 mg/dL * Please note that the plan above was derived based on current level of insulin resistance and hospital stress. These recommendations are appropriate for inpatient admission only. Plan of care upon discharge will need to be reassessed to avoid potential outpatient hypo/hyperglycemia. Thank you.
[2017-06-08 15:46] VITALS: BP 100/64; PULSE 71; TEMP 36.5; O2SAT 100
--- NOTE | 2017-06-08 15:52 | Nephrology Consultation ---
Nephrology Consultation Date of Consultation: Jun 08, 2017. Attending Physician: Dr Smith Requesting Physician: Dr Smith Reason for Consultation: MACIE History of Present Illness 56 year old male w/ dm, htn, obesity, baseline creatinine 0.9-1.3 for admission today w/ hypotension and acute renal failure w/ presenting creatinine 3.7. He was admitted here in late Dec for mild confusion attributed to hyperglycemia. 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 MS improved but not to baseline and then worsened again. He presented here again w/ confusion 05/22/17 and was transferred the next day to [facility] for lumbar puncture after he had seizures here. 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 He was discharged from [facility] 06/04 to [facility] with new meds including insulin, keppra, omeprazole; his prior to admission statin and ACEI were resumed. His d/c creatinine was 0.9; his creatinine ran 0.7-0.9 throughout the [facility] admission. His metformin was stopped at [facility] discharge. He did have IV contrast w/ CT imaging on 05/24/17. The patient tells me that his blood pressures have been "normal" at "140-170/120" until the past day when they were "50-60/30-40." EMS reported that last evening his sbp had been in 60s systolic w/ elevated BG. His initial SBP here was 128 but then dropped to 90s. He denies feeling acutely ill. Has ongoing diffuse myalgias / arthralgias over the past several weeks which are unchanged. Denies loss of appetite or decreased po intake though his who is at bedside states that he has eaten poorly and drunk less in the past 24 hrs than previously. Past Medical/Surgical History Medical Problems: (1) Acute renal failure Status: Acute (2) Change in mental status Status: Acute (3) Expressive aphasia Status: Acute (4) Herb-neglect of right side Status: Acute (5) Hyperglycemia Status: Acute (6) Hyponatremia Status: Acute as per hpi Family History Diabetes mellitus GRANDMOTHER Ovarian cancer Stroke FATHER Social History Smoking Status: Never Smoker Alcohol Use: none Drug Use: none Marital Status: Housing Status: lives with significant other Occupation Status: unemployed Allergies Coded Allergies: No Known Allergies (Unverified , 05/22/17) Medications Current Inpatient Medications Medications (Trade) Dose Ordered Sig/Tori Route Start Time Stop Time Status Last Admin Dose Admin Sodium Chloride 1,000 ml @ 100 mls/hr Q10H STAT IV 06/08/17 11:44 06/08/17 21:43 06/08/17 11:44 100 MLS/HR Heparin Sodium (Porcine) (Heparin Sq 5000 Unit/0.5ml) 5,000 unit Q8 SQ 06/08/17 14:00 07/08/17 13:59 UNV Sodium Chloride 1,000 ml @ 100 mls/hr Q10H IV 06/08/17 13:29 07/08/17 13:28 UNV Acetaminophen (Tylenol Tab) 650 mg Q4H PRN PO 06/08/17 13:30 07/08/17 13:29 Al Hydrox/Mg Hydrox/Simethicone (Maalox Max Susp) 15 ml Q4H PRN PO 06/08/17 13:30 07/08/17 13:29 Ondansetron HCl (Zofran Inj) 4 mg Q6H PRN IV 06/08/17 13:30 07/08/17 13:29 Nitroglycerin (Nitrostat Tab) 0.4 mg UD PRN SL 06/08/17 13:30 07/08/17 13:29 Polyethylene (Miralax Powder Packet) 17 gm DAILY PRN PO 06/08/17 13:30 07/08/17 13:29 UNV Atorvastatin Calcium (Lipitor Tab) 20 mg DAILY PO 06/09/17 09:00 07/09/17 08:59 UNV Docusate Sodium (coLACE CAP) 100 mg BID PO 06/08/17 21:00 07/08/17 20:59 UNV Levetiracetam (Keppra Tab) 500 mg BID PO 06/08/17 21:00 07/08/17 20:59 UNV Multivitamins (Multivitamin Tab) 1 tab DAILY PO 06/09/17 09:00 07/09/17 08:59 UNV Nystatin (Mycostatin Powder) 1 appln BID EXT 06/08/17 21:00 07/08/17 20:59 UNV Pantoprazole Sodium (Protonix Tab) 40 mg DAILY PO 06/09/17 09:00 07/09/17 08:59 UNV Insulin Glargine (Lantus Solostar Pen) 20 units HS SC 06/08/17 21:00 07/08/17 20:59 UNV Insulin Aspart (novoLOG ASPART) SLIDING SCALE G... ACHS SC 06/08/17 16:00 07/08/17 15:59 UNV Miscellaneous Information (Consult Glycemic Management Pharmacy) 1 ea UD PRN N/A 06/08/17 13:46 07/08/17 13:45 Home Meds and Scripts Medications Dose Route/Sig Max Daily Dose Days Date Category Dose Instructions Novolog Flexpen (Insulin Aspart) 100 Units/Ml Inj 1 Dose SC ACHS 06/08/17 Reported LESS THAN 70 = HYPGLYCEMIA PROTOCOL 70-130 = 0 UNITS 131-180 = 4 UNITS 181-240 = 8 UNITS 241-300 = 10 UNITS 301-350 = 12 UNITS 351-400 = 16 UNITS GREATER THAN 400 = 20 UNITS / CALL Novolog Flexpen (Insulin Aspart) 100 Units/Ml Inj 15 Units SC TIDM 06/08/17 Reported Lantus Solostar (Insulin Glargine) 100 Unit/Ml Inj 60 Units SC HS 06/08/17 Reported Nystatin (Nystatin (Topical)) 100,000 Unit/Gm Pow 1 Appln TOP BID 06/08/17 Reported Tylenol (Acetaminophen) 500 Mg Tab 500 Mg PO Q4H PRN 06/08/17 Reported Milk Of Magnesia (Magnesium Hydroxide) 30 Ml Susp 30 Ml PO DAILY PRN 06/08/17 Reported Docusate Sodium 100 Mg Cap 100 Mg PO BID 7 06/08/17 Reported Protonix (Pantoprazole Sodium) 40 Mg Tab 40 Mg PO DAILY 06/08/17 Reported Keppra (Levetiracetam) 500 Mg Tab 500 Mg PO BID 06/08/17 Reported Multivitamin (Multivitamins) Tab 1 Tab PO DAILY 05/22/17 Reported Vitamin D (Cholecalciferol) 2,000 Unit Tab 4,000 Units PO DAILY 05/06/17 Reported Lipitor (Atorvastatin) 20 Mg Tab 20 Mg PO DAILY 05/06/17 Reported Review of Systems Constitutional: + weakness, + fatigue, No fever Eyes: No worsening of vision ENT: No hearing loss Respiratory: No cough, No shortness of breath, No dyspnea on exertion, No dyspnea at rest Cardiac: No chest pain, No orthopnea, No edema, No palpitations Abdomen: No pain, No nausea, No vomiting, No diarrhea, No constipation Musculoskeletal: + see HPI, + joint pain, + muscle pain Male : No dysuria, No urinary frequency, No incontinence, No hematuria Neuro: + memory loss, + weakness, + balance problems Psych: No depression symptoms, No anxiety Heme: No abnormal bleeding/bruising Endo: + fatigue Skin: No rash Physical Exam Date Time Temp Pulse Resp B/P (MAP) Pulse Ox O2 Delivery O2 Flow Rate FiO2 06/08/17 13:08 65 16 98/52 97 Room Air 06/08/17 11:24 70 16 126/50 99 Room Air 06/08/17 10:17 79 06/08/17 10:12 36.6 88 18 126/50 99 Room Air General Appearance: WD/WN, no apparent distress (on RA, alert and oriented x 3 but not clear how reliable a historian he is), + obese Eyes: EOMI ENT: normal ENT inspection Neck: supple Respiratory/Chest: lungs clear, normal breath sounds Cardiovascular: regular rate, rhythm, no edema Abdomen: normal bowel sounds, non tender, soft Extremities: normal inspection, no pedal edema Neurologic/Psych: alert, normal mood/affect, oriented x 3 Skin: no jaundice, warm/dry, no rash Diagnostics Last 24 Hours Test 06/08/17 10:45 06/08/17 11:19 White Blood Count 7.07 K/uL Red Blood Count 3.59 M/uL Hemoglobin 11.1 g/dL Hematocrit 33.1 % Mean Corpuscular Volume 92.2 fL Mean Corpuscular Hemoglobin 30.9 pg Mean Corpuscular Hemoglobin Concent 33.5 g/dl Platelet Count 331 K/uL Mean Platelet Volume 9.3 fL Neutrophils (%) (Auto) 62.2 % Lymphocytes (%) (Auto) 24.3 % Monocytes (%) (Auto) 7.9 % Eosinophils (%) (Auto) 3.0 % Basophils (%) (Auto) 0.8 % Neutrophils # (Auto) 4.39 K/uL Lymphocytes # (Auto) 1.72 K/uL Monocytes # (Auto) 0.56 K/uL Eosinophils # (Auto) 0.21 K/uL Basophils # (Auto) 0.06 K/uL RDW Standard Deviation 44.8 fL RDW Coefficient of Variation 13.4 % Immature Granulocyte % (Auto) 1.8 % Immature Granulocyte # (Auto) 0.13 K/uL Sodium Level 133 mmol/L Potassium Level 5.0 mmol/L Chloride Level 101 mmol/L Carbon Dioxide Level 22 mmol/L Anion Gap 10.0 mmol/L Blood Urea Nitrogen 72 mg/dl Creatinine 3.69 mg/dl Estimated GFR () 19.9 Estimated GFR (Non- 17.2 BUN/Creatinine Ratio 19.6 Random Glucose 217 mg/dl Calcium Level 9.9 mg/dl Urine Color YELLOW Urine Appearance CLEAR Urine pH 5.0 Urine Specific [place] 1.014 Urine Protein NEG Urine Glucose (UA) NEG Urine Ketones NEG Urine Occult Blood NEG Urine Nitrite NEG Urine Bilirubin NEG Urine Urobilinogen NEG Urine Leukocyte Esterase NEG Urine WBC (Auto) 0 /hpf Urine RBC (Auto) 0-4 /hpf Urine Hyaline Casts (Auto) 1-5 /lpf Urine Epithelial Cells (Auto) 10-20 /lpf Urine Bacteria (Auto) NEG Diagnostic Radiology: CT chest/abd/pelvis w/ con 06/03/17 in [facility] unremarkable overall including unremarkable kidneys, bladder, adrenals Assessment & Plan complex 56 y/o M w/ DM, obesity, HTN, HL, baseline creatinine 0.9, multiple recent admissions to evaluate stuttering confusion/seizures attributed to post infectious autoimmune encephalopathy s/p plasmapheresis and d/c on 06/04 after 11 day [facility] admission to [facility] now admitted on 06/08 with hypotension and acute kidney injury w/ presenting creatinine 3.7. Of note his lisinopril was resumed at hospital d/c; had not been given for at least 4 days prior to hospital d/c while he was receiving apheresis. Doubt role for post contrast nephropathy as creatinine was stable after studies at [facility] all on 05/24. Acute renal failure and relative hypotension with bland urine sediment in the setting of recent therapy for presumed post infectious autoimmune encephalitis -unclear if this is prerenal or ischemic ATN; much less likely would be dx like rhabdomyolysis; doubt interstitial nephritis given completely bland urine sediment and no eos on CBC; favor prerenal MACIE from lower blood pressures -agree with holding lisinopril -recommend hydration w/ NS at as aggressive a rate as pt will tolerate to get SBP consistently >100 -do not believe he needs sales but recommend bladder scan q shift and straight cath if >200 mL retained urine -cont strict I/O -daily bmp -added CK to his labs from admission -recommend low K diet until it can be established which way his creatinine will trend -no indication for renal u/s yet or for prot/creat ratio unless he does not improve clinically Myalgias/ arthralgias, hypotension -given that he had a recent central line and now w/ hypotension check blood cultures but would not treat empirically -consider checking ESR in am Appreciate consult; will follow with you.
[2017-06-08] MEDS: INSULIN ASPART 100 UNITS/ML 3 ML PEN SC SCH ×2 (17:26→21:33)
[2017-06-08] MEDS: SODIUM CHLORIDE 0.9% 1000ML 1,000 ML IV SCH (17:28)
--- NOTE | 2017-06-08 18:12 | HISTORY & PHYSICAL EXAMINATION ---
DATE OF ADMISSION: 06/08/2017 CHIEF COMPLAINT: Acute renal failure and a history of hypertension. HISTORY OF PRESENT ILLNESS: This is a 56-year-old male with a past medical history significant for diabetes, hyperlipidemia, hypertension, GERD, questionable seizures, morbid obesity and recently diagnosed with postinfectious autoimmune encephalomyelitis, presents from rehab for hypotension and not feeling well and found to have acute kidney failure. The patient has been admitted in May 06 and also May 22 with confusion and when he was first admitted in May 06, his altered mental status was thought to be secondary to hyperglycemia and his hba1c was greater than 12 and was placed on Lantus and NovoLog and was discharged, but after going home, he was not getting better. During first admission, also EEG and MRI of the brain and a nocturnal pulse ox were okay except for an old brain cyst, but after discharge, he was again getting more and more confused and having word finding difficulties and his family doctor put him on Lexapro, but he was not getting better and he was readmitted on May 22 to [facility] as he was having some facial droop and some weakness . He was not given TPA was not given as he was out of the window and CT head was unremarkable . He admitted to the telemetry floor and in the night, he had episode of seizure activity and received iv Ativan.. Then he became hypoxic and was transferred to the ICU and then in the night, he had another episode of seizure and was loaded with Dilantin and the next day, he was transferred to [place] for further workup. In [place], LP was done and it showed elevated WBCs and because of viral like infection before all this symptoms started, it was thought to be postinfectious autoimmune encephalomyelitis and he was given plasmapheresis 5 times every other day, after which his mental status much improved .Today seems like his mental status seems to be back to baseline. During the second hospital course received antibiotic vancomycin and Zosyn.In [place], he also has an anion gap metabolic acidosis,thought to be from atypical DKA. He did fine and since he was deconditioned, he was transferred to [facility]. In the [facility], he was walking with the help of assistance, but he is complaining of pain all over his body and today, he was also found to be hypotensive and was transferred to [facility] and his labs showed a creatinine of 3.6. Currently, resting comfortably except for pain all over the body. Denies any other complaints. Denies any fever or chills. No cough. No runny nose. No sore throat. No difficulty swallowing. No chest pain. No abdominal pain. Says that he is urinating okay. Normal bowel movements. No diarrhea. No vomiting. He has some swelling in the legs. Blood pressure is okay here in the ER. ALLERGIES: No known drug allergies. PAST MEDICAL HISTORY: As mentioned above. The patient is also alert and oriented x3 now. He can suspect 100 from 7. He knows the President. He knows the [facility]. His mental status seems to be back to his baseline, though his thinks that he is not completely back. PAST SURGICAL HISTORY: Nothing as per records. MEDICATIONS: The patient is currently on Lantus 44 units at bedtime, NovoLog sliding scale with every 0ne unit for every blood sugar 50 above 150, Keppra 500 mg p.o. b.i.d., omeprazole 20 mg p.o. daily, vitamin D 4000 units p.o. daily, multivitamins 1 tablet daily, lisinopril 10 mg p.o. daily, and Lipitor 20 mg p.o. daily. FAMILY HISTORY: Significant for father had stroke. Grandmother has diabetes. SOCIAL HISTORY: Former smoker. Alcohol occasionally. . 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 REVIEW OF SYMPTOMS: As per HPI. Rest of review of systems negative. PHYSICAL EXAMINATION: GENERAL: The patient is morbidly obese, not in distress. VITAL SIGNS: Temperature 36.6, pulse 65, respiratory rate 16, blood pressure 90/52, and oxygen 97% on room air. HEENT: No pallor. No icterus. Pupils equal and round react to light. NECK: No JVD, no neck masses, and no carotid bruits. CARDIOVASCULAR: S1 and S2 heard. Regular rate and rhythm. No murmur. No gallop. RESPIRATORY SYSTEM: No accessory muscle use. No wheezing. No crackles. ABDOMEN: Soft. Bowel sounds present. Nontender. No distention. CENTRAL NERVOUS SYSTEM: Cranial nerves II-XII grossly intact. Alert and oriented x3. Nonfocal. EXTREMITIES: No extremity edema. No erythema seen. LABORATORIES: WBC 7, hemoglobin 11.1, hematocrit 33.1, and platelets 331. Sodium 133, potassium 5, chloride 101, CO2 of 22, BUN 72, creatinine 3.6, serum glucose 217, and calcium 9.9. Urinalysis negative. Chest x-ray, no acute process seen. EKG: Normal sinus rhythm with rate of 73. No acute ST changes seen. ASSESSMENT AND PLAN: This is a 56-year-old male who presents with acute renal failure. 1. Acute renal failure. The patient has prolonged hospitalizations recently.New medication Keppra was added, also received antibiotics Could be from medications. Could be from contrast for CT of the abdomen and pelvis on 05/24/2017 at [place]. Could be from dehydration and poor oral intake. We will check bladder scan to make sure there is no obstruction. We will do ultrasound. He hypotensive today at the rehab. We will place him on IV NS 100 mL per hour. Check urine for eosinophils. Follow the labs. Notified nephrology and further recommendation as per nephrology. 2. Diabetes. He was on Lantus 44 units at bedtime and insulin sliding scale. We will cut back the Lantus to 20 units at bedtime and place him on insulin sliding scale as the patient is having renal failure and consult pharmacy for glycemic management. Last HbA1c was greater than 12. 3. Seizures ON Keppra.Last admission he had a Code purple for seizures. He was started on Depakote and load of Dilantin here and he was transferred to [place]. AT [place] was placed on Keppra. As per the family, he had 3 days of seizure study at [place] and it was unremarkable. To follow with neurology for continuation of Keppra. 4. GERD, Prilosec. 5. Hyperlipidemia. Continue statin. 6. History of postinfectious encephalomyelitis, status post plasmapheresis. 7. Deep venous thrombosis prophylaxis, heparin subQ. DISPOSITION: Close monitor in tele floor. PT and OT prior to discharge. Social Service is to help with discharge planning. Possible d/c back to rehab when stable MTDD
[2017-06-08 19:25] VITALS: O2SAT 100
[2017-06-08 19:27] VITALS: BP 101/56; PULSE 70; TEMP 36.7; O2SAT 97
[2017-06-08] MEDS: NYSTATIN POWDER 15GM BTL EXT SCH (21:25)
[2017-06-08] MEDS: DOCUSATE SODIUM 100 MG CAP PO SCH (21:26)
[2017-06-08] MEDS: LEVETIRACETAM 500 MG TAB PO SCH (21:26)
[2017-06-08] MEDS: INSULIN GLARGINE SOLOSTAR 100 UNITS/ML 3 ML PEN SC SCH (21:34)
[2017-06-08] MEDS: HEPARIN SOD 5000 UNIT/0.5 ML CARP SQ SCH (21:34)
[2017-06-08 23:46] VITALS: BP 104/63; PULSE 86; TEMP 36.4; O2SAT 96
[2017-06-09] VITALS (8 sets, daily range): BP systolic 84–135; BP diastolic 50–71; PULSE 65–96; TEMP 36.4–37; O2SAT 96–99; Ht 165.1 cm; Wt 130.2 kg
[2017-06-09] MEDS: SODIUM CHLORIDE 0.9% 1000ML 1,000 ML IV SCH ×3 (01:33→22:40)
[2017-06-09 06:12] LABS: BASO % 1.9 %; EOS % 2.6 %; EOS ABS # 0.14 K/uL (0-0.5); HEMATOCRIT 28.6 % (42-52); HEMOGLOBIN 9.4 g/dL (14.0-18.0); IG# 0.08 K/uL (0.00-0.02); LYMPH % 28.9 %; LYMPH ABS # 1.53 K/uL (1.2-3.4); MEAN CELL VOLUME 92.9 fL (80-100); MEAN CORPUSCULAR HEMOGLOBIN 30.5 pg (25-34); MEAN CORPUSCULAR HGB CONC 32.9 g/dl (32-36); MEAN PLATELET VOLUME 9.1 fL (7.4-10.4); MONO % 11.3 %; NEUT % 53.8 %; NEUT ABS # 2.85 K/uL (1.4-6.5); PLATELET COUNT 279 K/uL (130-400); RED CELL DISTRIBUTION WIDTH CV 13.5 % (11.5-14.5); RED CELL DISTRIBUTION WIDTH SD 46.1 fL (36.4-46.3)
[2017-06-09] MEDS: HEPARIN SOD 5000 UNIT/0.5 ML CARP SQ SCH ×3 (06:17→23:10)
[2017-06-09 06:52] LABS: CALCIUM 9.1 mg/dl (8.5-10.1); CREATININE 2.27 mg/dl (0.60-1.40); POTASSIUM 5.2 mmol/L (3.5-5.1)
--- NOTE | 2017-06-09 07:49 | Nephrology Progress Note ---
Nephrology Progress Note Date of Service: Jun 09, 2017. Subjective 56 yo male seen for tommie in the setting of ms and recent admission for post infection autoimmune encephalitis requiring 5 plasmapheresis treatments. pt eating breakfast. no sob. on iv fluids. urinating well. Objective Date Time Temp Pulse Resp B/P (MAP) Pulse Ox O2 Delivery O2 Flow Rate FiO2 06/09/17 04:00 Room Air 06/09/17 02:54 36.5 96 18 112/68 (83) 98 Room Air 06/08/17 23:59 Room Air 06/08/17 23:46 36.4 86 16 104/63 (77) 96 Room Air 06/08/17 19:27 36.7 70 20 101/56 (71) 97 Room Air 06/08/17 19:25 100 Room Air 06/08/17 15:46 36.5 71 20 100/64 (76) 100 Room Air 06/08/17 15:36 96 Room Air 06/08/17 15:03 73 16 96/78 99 Room Air 06/08/17 13:08 65 16 98/52 97 Room Air 06/08/17 11:24 70 16 126/50 99 Room Air 06/08/17 10:17 79 06/08/17 10:12 36.6 88 18 126/50 99 Room Air Physical Exam: General-[id number] Eyes-no scleral icterus ENT-mmm Neck-supple Lungs-cta Heart-rrr Abdomen-bs+ s/nt/nd Extremities-no c/c/e Neuro-nonfocal Current Inpatient Medications Medications (Trade) Dose Ordered Sig/Tori Route Start Time Stop Time Status Last Admin Dose Admin Heparin Sodium (Porcine) (Heparin Sq 5000 Unit/0.5ml) 5,000 unit Q8 SQ 06/08/17 22:00 07/08/17 21:59 06/09/17 06:17 5,000 UNIT Sodium Chloride 1,000 ml @ 100 mls/hr Q10H IV 06/08/17 16:30 07/08/17 16:29 06/09/17 01:33 100 MLS/HR Acetaminophen (Tylenol Tab) 650 mg Q4H PRN PO 06/08/17 13:30 07/08/17 13:29 06/08/17 23:49 650 MG Al Hydrox/Mg Hydrox/Simethicone (Maalox Max Susp) 15 ml Q4H PRN PO 06/08/17 13:30 07/08/17 13:29 Ondansetron HCl (Zofran Inj) 4 mg Q6H PRN IV 06/08/17 13:30 07/08/17 13:29 Nitroglycerin (Nitrostat Tab) 0.4 mg UD PRN SL 06/08/17 13:30 07/08/17 13:29 Polyethylene (Miralax Powder Packet) 17 gm DAILY PRN PO 06/08/17 13:30 07/08/17 13:29 Atorvastatin Calcium (Lipitor Tab) 20 mg DAILY PO 06/09/17 09:00 07/09/17 08:59 Docusate Sodium (coLACE CAP) 100 mg BID PO 06/08/17 21:00 07/08/17 20:59 06/08/17 21:26 100 MG Levetiracetam (Keppra Tab) 500 mg BID PO 06/08/17 21:00 07/08/17 20:59 06/08/17 21:26 500 MG Nystatin (Mycostatin Powder) 1 appln BID EXT 06/08/17 21:00 07/08/17 20:59 06/08/17 21:25 1 APPLN Pantoprazole Sodium (Protonix Tab) 40 mg DAILY PO 06/09/17 09:00 07/09/17 08:59 Insulin Glargine (Lantus Solostar Pen) 12 units BID SC 06/08/17 21:00 07/08/17 20:59 06/08/17 21:34 12 UNITS Insulin Aspart (novoLOG ASPART) SLIDING SCALE G... ACHS SC 06/08/17 16:00 07/08/17 15:59 06/08/17 21:33 3 UNITS Miscellaneous Information (Consult Glycemic Management Pharmacy) 1 ea UD PRN N/A 06/08/17 13:46 07/08/17 13:45 Oxycodone/ Acetaminophen (Percocet 5-325mg Tab) 1 tab Q4H PRN PO 06/08/17 18:45 06/22/17 18:44 Last 24 Hours Test 06/08/17 10:45 06/08/17 11:19 06/08/17 16:21 06/08/17 20:58 White Blood Count 7.07 K/uL Red Blood Count 3.59 M/uL Hemoglobin 11.1 g/dL Hematocrit 33.1 % Mean Corpuscular Volume 92.2 fL Mean Corpuscular Hemoglobin 30.9 pg Mean Corpuscular Hemoglobin Concent 33.5 g/dl Platelet Count 331 K/uL Mean Platelet Volume 9.3 fL Neutrophils (%) (Auto) 62.2 % Lymphocytes (%) (Auto) 24.3 % Monocytes (%) (Auto) 7.9 % Eosinophils (%) (Auto) 3.0 % Basophils (%) (Auto) 0.8 % Neutrophils # (Auto) 4.39 K/uL Lymphocytes # (Auto) 1.72 K/uL Monocytes # (Auto) 0.56 K/uL Eosinophils # (Auto) 0.21 K/uL Basophils # (Auto) 0.06 K/uL RDW Standard Deviation 44.8 fL RDW Coefficient of Variation 13.4 % Immature Granulocyte % (Auto) 1.8 % Immature Granulocyte # (Auto) 0.13 K/uL Sodium Level 133 mmol/L Potassium Level 5.0 mmol/L Chloride Level 101 mmol/L Carbon Dioxide Level 22 mmol/L Anion Gap 10.0 mmol/L Blood Urea Nitrogen 72 mg/dl Creatinine 3.69 mg/dl Estimated GFR () 19.9 Estimated GFR (Non- 17.2 BUN/Creatinine Ratio 19.6 Random Glucose 217 mg/dl Calcium Level 9.9 mg/dl Urine Color YELLOW Urine Appearance CLEAR Urine pH 5.0 Urine Specific [place] 1.014 Urine Protein NEG Urine Glucose (UA) NEG Urine Ketones NEG Urine Occult Blood NEG Urine Nitrite NEG Urine Bilirubin NEG Urine Urobilinogen NEG Urine Leukocyte Esterase NEG Urine WBC (Auto) 0 /hpf Urine RBC (Auto) 0-4 /hpf Urine Hyaline Casts (Auto) 1-5 /lpf Urine Epithelial Cells (Auto) 10-20 /lpf Urine Bacteria (Auto) NEG Bedside Glucose 161 mg/dl 189 mg/dl Test 06/09/17 05:26 06/09/17 07:13 White Blood Count 5.30 K/uL Red Blood Count 3.08 M/uL Hemoglobin 9.4 g/dL Hematocrit 28.6 % Mean Corpuscular Volume 92.9 fL Mean Corpuscular Hemoglobin 30.5 pg Mean Corpuscular Hemoglobin Concent 32.9 g/dl Platelet Count 279 K/uL Mean Platelet Volume 9.1 fL Neutrophils (%) (Auto) 53.8 % Lymphocytes (%) (Auto) 28.9 % Monocytes (%) (Auto) 11.3 % Eosinophils (%) (Auto) 2.6 % Basophils (%) (Auto) 1.9 % Neutrophils # (Auto) 2.85 K/uL Lymphocytes # (Auto) 1.53 K/uL Monocytes # (Auto) 0.60 K/uL Eosinophils # (Auto) 0.14 K/uL Basophils # (Auto) 0.10 K/uL RDW Standard Deviation 46.1 fL RDW Coefficient of Variation 13.5 % Immature Granulocyte % (Auto) 1.5 % Immature Granulocyte # (Auto) 0.08 K/uL Erythrocyte Sedimentation Rate 5 mm/hr Sodium Level 141 mmol/L Potassium Level 5.2 mmol/L Chloride Level 111 mmol/L Carbon Dioxide Level 21 mmol/L Anion Gap 9.0 mmol/L Blood Urea Nitrogen 69 mg/dl Creatinine 2.27 mg/dl Est Creatinine Clear Calc Drug Dose 45.2 ml/min Estimated GFR () 35.8 Estimated GFR (Non- 30.9 BUN/Creatinine Ratio 30.3 Random Glucose 168 mg/dl Calcium Level 9.1 mg/dl Magnesium Level 2.2 mg/dl Total Creatine Kinase 84 U/L Bedside Glucose 167 mg/dl Assessment & Plan tommie-thought to be pre-renal vs atn from hemodynamic compromise with low blood pressures. bp is better. creatinine responding favorably to the iv fluids. ua was bland so unlikely to have GN component. continue iv fluids for another 24 hours and then re-evaluate.
[2017-06-09] MEDS: INSULIN GLARGINE SOLOSTAR 100 UNITS/ML 3 ML PEN SC SCH ×2 (09:00→20:43)
[2017-06-09] MEDS ORDERED: MULTIVITAMIN TAB PO SCH (09:00)
[2017-06-09] MEDS: DOCUSATE SODIUM 100 MG CAP PO SCH ×2 (09:36→20:36)
[2017-06-09] MEDS: PANTOprazole SOD 40 MG TAB PO SCH (09:36)
[2017-06-09] MEDS: NYSTATIN POWDER 15GM BTL EXT SCH ×2 (09:36→20:35)
[2017-06-09] MEDS: LEVETIRACETAM 500 MG TAB PO SCH ×2 (09:36→20:36)
[2017-06-09] MEDS: ATORVASTATIN 20 MG TAB PO SCH (09:36)
[2017-06-09] MEDS: INSULIN ASPART 100 UNITS/ML 3 ML PEN SC SCH ×4 (09:40→20:42)
--- NOTE | 2017-06-09 13:37 | Pharmacy Progress Note ---
Glycemic: Assessment & Plan Date of Service Jun 09, 2017. Assessment & Plan Please see pharmacist note from 06/08/17 for additional background information Assessment * BSG's ranging 161-212 mg/dL over the last 24 hours * Highest BSG post-prandial elevation after breakfast - will very slightly tighten carb ratio * Will maintain Lantus at current dose despite AM fasting BSG elevated to 167 mg /dL as patient will receive a 2nd dose of Lantus this AM. Anticipate improvement in AM BSG without alteration of regimen Plan * Basal insulin: Lantus 12 units every 12 hours * Correctional Insulin: Novolog Correction per scale ACHS Goal Range: Low 110 mg/dL - High 140 mg/dL Correction Factor: 20 mg/dL/unit * Prandial insulin: Tighten Per carb ratio of 1 unit per 5 grams CHO consumed Pharmacy will continue to monitor patient daily and write orders per [facility] inpatient glycemic control protocol. Thanks. * Please note that the plan above was derived based on current level of insulin resistance and hospital stress. These recommendations are appropriate for inpatient admission only. Plan of care upon discharge will need to be reassessed to avoid potential outpatient hypo/hyperglycemia.
--- NOTE | 2017-06-09 19:45 | Progress Note ---
Medicine Progress Note Date & Time of Visit: Jun 09, 2017 at ~ 19:00 . Subjective CC: Follow-up visit for acute kidney injury and other problems. HPI: Doing well. No nausea, vomiting, diarrhea. Urine output improved. No dysuria or hematuria. ROS: General- no fever, no chills Resp- no cough; no shortness of breath Cardiac- no chest pain, no edema GI- as noted above in HPI - as noted above in HPI . Objective Last 8 Hrs Date Time Temp Pulse Resp B/P (MAP) Pulse Ox O2 Delivery O2 Flow Rate FiO2 06/09/17 16:08 36.5 67 18 107/61 (76) 97 Room Air 06/09/17 16:00 96 Room Air 06/09/17 12:27 36.5 71 16 118/53 (74) 96 Room Air 06/09/17 12:22 96 Room Air Physical Exam: General- sitting in chair; no distress Lungs- clear to auscultation; no respiratory distress Cardiovascular- RRR; no gallop; no JVD; no pretibial edema Abdomen- + bowel sounds, soft, nontender Extremities- no cyanosis; no calf tenderness Neuro- alert, oriented Skin- warm & dry . Laboratory Results: Last 24 Hours Test 06/08/17 20:58 06/09/17 05:26 06/09/17 07:13 06/09/17 11:06 Bedside Glucose 189 mg/dl 167 mg/dl 212 mg/dl White Blood Count 5.30 K/uL Red Blood Count 3.08 M/uL Hemoglobin 9.4 g/dL Hematocrit 28.6 % Mean Corpuscular Volume 92.9 fL Mean Corpuscular Hemoglobin 30.5 pg Mean Corpuscular Hemoglobin Concent 32.9 g/dl Platelet Count 279 K/uL Mean Platelet Volume 9.1 fL Neutrophils (%) (Auto) 53.8 % Lymphocytes (%) (Auto) 28.9 % Monocytes (%) (Auto) 11.3 % Eosinophils (%) (Auto) 2.6 % Basophils (%) (Auto) 1.9 % Neutrophils # (Auto) 2.85 K/uL Lymphocytes # (Auto) 1.53 K/uL Monocytes # (Auto) 0.60 K/uL Eosinophils # (Auto) 0.14 K/uL Basophils # (Auto) 0.10 K/uL RDW Standard Deviation 46.1 fL RDW Coefficient of Variation 13.5 % Immature Granulocyte % (Auto) 1.5 % Immature Granulocyte # (Auto) 0.08 K/uL Erythrocyte Sedimentation Rate 5 mm/hr Sodium Level 141 mmol/L Potassium Level 5.2 mmol/L Chloride Level 111 mmol/L Carbon Dioxide Level 21 mmol/L Anion Gap 9.0 mmol/L Blood Urea Nitrogen 69 mg/dl Creatinine 2.27 mg/dl Est Creatinine Clear Calc Drug Dose 45.2 ml/min Estimated GFR () 35.8 Estimated GFR (Non- 30.9 BUN/Creatinine Ratio 30.3 Random Glucose 168 mg/dl Calcium Level 9.1 mg/dl Magnesium Level 2.2 mg/dl Total Creatine Kinase 84 U/L Test 06/09/17 16:34 Bedside Glucose 133 mg/dl Assessment & Plan ACUTE KIDNEY INJURY Serum creatinine at time of admission 3.69. UA benign. Seen by Nephrology. Probable prerenal azotemia. Receiving IV fluids with improvement. Creatinine today 2.27. DIABETES MELLITUS TYPE 2 Not well-controlled. Hgb A1C 12.1 05/23/17. Lantus / NovoLog per protocol. GERD Continue PPI. SEIZURE DISORDER Continue levetiracetam. 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 MORBID OBESITY BMI 47. AHA / diabetic diet. VTE PROPHYLAXIS SQ heparin. DISPOSITION Expected return to [facility] for inpatient rehab. . Consultants: Nephrology . Current Inpatient Medications: Current Inpatient Medications Medications (Trade) Dose Ordered Sig/Tori Route Start Time Stop Time Status Last Admin Dose Admin Heparin Sodium (Porcine) (Heparin Sq 5000 Unit/0.5ml) 5,000 unit Q8 SQ 06/08/17 22:00 07/08/17 21:59 06/09/17 17:19 5,000 UNIT Sodium Chloride 1,000 ml @ 100 mls/hr Q10H IV 06/08/17 16:30 07/08/17 16:29 06/09/17 11:03 100 MLS/HR Acetaminophen (Tylenol Tab) 650 mg Q4H PRN PO 06/08/17 13:30 07/08/17 13:29 06/08/17 23:49 650 MG Al Hydrox/Mg Hydrox/Simethicone (Maalox Max Susp) 15 ml Q4H PRN PO 06/08/17 13:30 07/08/17 13:29 Ondansetron HCl (Zofran Inj) 4 mg Q6H PRN IV 06/08/17 13:30 07/08/17 13:29 Nitroglycerin (Nitrostat Tab) 0.4 mg UD PRN SL 06/08/17 13:30 07/08/17 13:29 Polyethylene (Miralax Powder Packet) 17 gm DAILY PRN PO 06/08/17 13:30 07/08/17 13:29 Atorvastatin Calcium (Lipitor Tab) 20 mg DAILY PO 06/09/17 09:00 07/09/17 08:59 06/09/17 09:36 20 MG Docusate Sodium (coLACE CAP) 100 mg BID PO 06/08/17 21:00 07/08/17 20:59 06/09/17 09:36 100 MG Levetiracetam (Keppra Tab) 500 mg BID PO 06/08/17 21:00 07/08/17 20:59 06/09/17 09:36 500 MG Nystatin (Mycostatin Powder) 1 appln BID EXT 06/08/17 21:00 07/08/17 20:59 06/09/17 09:36 1 APPLN Pantoprazole Sodium (Protonix Tab) 40 mg DAILY PO 06/09/17 09:00 07/09/17 08:59 06/09/17 09:36 40 MG Insulin Glargine (Lantus Solostar Pen) 12 units BID SC 06/08/17 21:00 07/08/17 20:59 06/09/17 09:00 12 UNITS Insulin Aspart (novoLOG ASPART) SLIDING SCALE G... ACHS SC 06/08/17 16:00 07/08/17 15:59 06/09/17 17:19 8 UNITS Miscellaneous Information (Consult Glycemic Management Pharmacy) 1 ea UD PRN N/A 06/08/17 13:46 07/08/17 13:45 Oxycodone/ Acetaminophen (Percocet 5-325mg Tab) 1 tab Q4H PRN PO 06/08/17 18:45 06/22/17 18:44
[2017-06-10] VITALS (8 sets, daily range): BP systolic 85–142; BP diastolic 45–83; PULSE 62–88; TEMP 36.6–37; O2SAT 94–98
[2017-06-10 05:53] LABS: BASO % 1.8 %; BASO ABS # 0.09 K/uL (0-0.2); EOS % 3.8 %; EOS ABS # 0.19 K/uL (0-0.5); HEMATOCRIT 28.6 % (42-52); HEMOGLOBIN 9.5 g/dL (14.0-18.0); IG# 0.03 K/uL (0.00-0.02); LYMPH % 23.2 %; LYMPH ABS # 1.15 K/uL (1.2-3.4); MEAN CELL VOLUME 92.6 fL (80-100); MEAN CORPUSCULAR HEMOGLOBIN 30.7 pg (25-34); MEAN CORPUSCULAR HGB CONC 33.2 g/dl (32-36); MONO ABS # 0.84 K/uL (0.11-0.59); NEUT % 53.6 %; NEUT ABS # 2.65 K/uL (1.4-6.5); PLATELET COUNT 277 K/uL (130-400); RED CELL DISTRIBUTION WIDTH CV 13.5 % (11.5-14.5); RED CELL DISTRIBUTION WIDTH SD 45.3 fL (36.4-46.3); WHITE BLOOD COUNT 4.95 K/uL (4.8-10.8)
[2017-06-10] MEDS: HEPARIN SOD 5000 UNIT/0.5 ML CARP SQ SCH ×3 (06:36→21:44)
[2017-06-10 06:40] LABS: CALCIUM 9.1 mg/dl (8.5-10.1); CREATININE 1.47 mg/dl (0.60-1.40); POTASSIUM 4.6 mmol/L (3.5-5.1)
[2017-06-10] MEDS: INSULIN ASPART 100 UNITS/ML 3 ML PEN SC SCH ×4 (07:49→20:04)
[2017-06-10] MEDS: INSULIN GLARGINE SOLOSTAR 100 UNITS/ML 3 ML PEN SC SCH ×2 (07:49→20:06)
[2017-06-10] MEDS: LEVETIRACETAM 500 MG TAB PO SCH ×2 (07:50→19:56)
[2017-06-10] MEDS: PANTOprazole SOD 40 MG TAB PO SCH (07:50)
[2017-06-10] MEDS: ATORVASTATIN 20 MG TAB PO SCH (07:50)
[2017-06-10] MEDS: DOCUSATE SODIUM 100 MG CAP PO SCH ×2 (07:51→19:55)
[2017-06-10] MEDS: NYSTATIN POWDER 15GM BTL EXT SCH ×2 (07:51→20:10)
[2017-06-10] MEDS: SODIUM CHLORIDE 0.9% 1000ML 1,000 ML IV SCH ×2 (07:51→20:02)
--- NOTE | 2017-06-10 09:28 | Nephrology Progress Note ---
Nephrology Progress Note Date of Service: Jun 10, 2017. Subjective 56 yo male with tommie which is improving with iv fluids. tolerating the fluids well. no specific complaints. eating and drinking well. Objective Date Time Temp Pulse Resp B/P (MAP) Pulse Ox O2 Delivery O2 Flow Rate FiO2 06/10/17 07:34 37.0 68 18 125/63 (83) 95 06/10/17 04:00 Room Air 06/10/17 03:23 36.8 88 18 142/73 (96) 96 Room Air 06/09/17 23:59 Room Air 06/09/17 23:18 36.5 68 18 84/62 (69) 97 Room Air 135/58 (83) 06/09/17 20:00 Room Air 06/09/17 19:54 37.0 73 20 118/50 (72) 99 Room Air 06/09/17 16:08 36.5 67 18 107/61 (76) 97 Room Air 06/09/17 16:00 96 Room Air 06/09/17 12:27 36.5 71 16 118/53 (74) 96 Room Air 06/09/17 12:22 96 Room Air Physical Exam: General-aaox3 Eyes-no scleral icterus ENT-mmm Neck-supple Lungs-clear Heart-regular Abdomen-bs+ s/nt/nd Extremities-no c/c/e Neuro-nonfocal Current Inpatient Medications Medications (Trade) Dose Ordered Sig/Tori Route Start Time Stop Time Status Last Admin Dose Admin Heparin Sodium (Porcine) (Heparin Sq 5000 Unit/0.5ml) 5,000 unit Q8 SQ 06/08/17 22:00 07/08/17 21:59 06/10/17 06:36 5,000 UNIT Sodium Chloride 1,000 ml @ 100 mls/hr Q10H IV 06/08/17 16:30 07/08/17 16:29 06/10/17 07:51 100 MLS/HR Acetaminophen (Tylenol Tab) 650 mg Q4H PRN PO 06/08/17 13:30 07/08/17 13:29 06/08/17 23:49 650 MG Al Hydrox/Mg Hydrox/Simethicone (Maalox Max Susp) 15 ml Q4H PRN PO 06/08/17 13:30 07/08/17 13:29 Ondansetron HCl (Zofran Inj) 4 mg Q6H PRN IV 06/08/17 13:30 07/08/17 13:29 Nitroglycerin (Nitrostat Tab) 0.4 mg UD PRN SL 06/08/17 13:30 07/08/17 13:29 Polyethylene (Miralax Powder Packet) 17 gm DAILY PRN PO 06/08/17 13:30 07/08/17 13:29 Atorvastatin Calcium (Lipitor Tab) 20 mg DAILY PO 06/09/17 09:00 07/09/17 08:59 06/10/17 07:50 20 MG Docusate Sodium (coLACE CAP) 100 mg BID PO 06/08/17 21:00 07/08/17 20:59 06/09/17 09:36 100 MG Levetiracetam (Keppra Tab) 500 mg BID PO 06/08/17 21:00 07/08/17 20:59 06/10/17 07:50 500 MG Nystatin (Mycostatin Powder) 1 appln BID EXT 06/08/17 21:00 07/08/17 20:59 06/10/17 07:51 1 APPLN Pantoprazole Sodium (Protonix Tab) 40 mg DAILY PO 06/09/17 09:00 07/09/17 08:59 06/10/17 07:50 40 MG Insulin Glargine (Lantus Solostar Pen) 12 units BID SC 06/08/17 21:00 07/08/17 20:59 06/10/17 07:49 12 UNITS Insulin Aspart (novoLOG ASPART) SLIDING SCALE G... ACHS SC 06/08/17 16:00 07/08/17 15:59 06/10/17 07:49 7 UNITS Miscellaneous Information (Consult Glycemic Management Pharmacy) 1 ea UD PRN N/A 06/08/17 13:46 07/08/17 13:45 Oxycodone/ Acetaminophen (Percocet 5-325mg Tab) 1 tab Q4H PRN PO 06/08/17 18:45 06/22/17 18:44 Last 24 Hours Test 06/09/17 11:06 06/09/17 16:34 06/09/17 20:39 06/10/17 05:22 Bedside Glucose 212 mg/dl 133 mg/dl 166 mg/dl White Blood Count 4.95 K/uL Red Blood Count 3.09 M/uL Hemoglobin 9.5 g/dL Hematocrit 28.6 % Mean Corpuscular Volume 92.6 fL Mean Corpuscular Hemoglobin 30.7 pg Mean Corpuscular Hemoglobin Concent 33.2 g/dl Platelet Count 277 K/uL Mean Platelet Volume 9.0 fL Neutrophils (%) (Auto) 53.6 % Lymphocytes (%) (Auto) 23.2 % Monocytes (%) (Auto) 17.0 % Eosinophils (%) (Auto) 3.8 % Basophils (%) (Auto) 1.8 % Neutrophils # (Auto) 2.65 K/uL Lymphocytes # (Auto) 1.15 K/uL Monocytes # (Auto) 0.84 K/uL Eosinophils # (Auto) 0.19 K/uL Basophils # (Auto) 0.09 K/uL RDW Standard Deviation 45.3 fL RDW Coefficient of Variation 13.5 % Immature Granulocyte % (Auto) 0.6 % Immature Granulocyte # (Auto) 0.03 K/uL Sodium Level 142 mmol/L Potassium Level 4.6 mmol/L Chloride Level 113 mmol/L Carbon Dioxide Level 21 mmol/L Anion Gap 8.0 mmol/L Blood Urea Nitrogen 48 mg/dl Creatinine 1.47 mg/dl Est Creatinine Clear Calc Drug Dose 69.8 ml/min Estimated GFR () 60.5 Estimated GFR (Non- 52.2 BUN/Creatinine Ratio 33.0 Random Glucose 99 mg/dl Calcium Level 9.1 mg/dl Magnesium Level 1.9 mg/dl Assessment & Plan tommie-creatinine continues to improve with hydration. bp is good. will stop the iv fluids. ok from renal perspective to go home off the lisinopril. repeat bmp in a week.
--- NOTE | 2017-06-10 10:12 | Progress Note ---
Medicine Progress Note Date & Time of Visit: Jun 10, 2017 at 10:01. Subjective patient seen sitting up in bedside chair oriented x 2, comfortable states he feels somewhat better since admission no problems with urinating denies dizziness no chest pain, dyspnea, palpitations reports mild BL knee and ankle pain no other symptoms Objective Last 8 Hrs Date Time Temp Pulse Resp B/P (MAP) Pulse Ox O2 Delivery O2 Flow Rate FiO2 06/10/17 08:00 Room Air 06/10/17 07:34 37.0 68 18 125/63 (83) 95 06/10/17 04:00 Room Air 06/10/17 03:23 36.8 88 18 142/73 (96) 96 Room Air Physical Exam: General- oriented x 2, not in distress, speaks in sentences with no effort Head- atraumatic Eyes- PERRL, EOMI, anicteric ENT- oropharynx clear Neck- supple, no JVD, no adenopathy, no thyromegaly Lungs- clear breath sounds bilaterally, no rales/wheezes Heart- regular rhythm; no murmur, normal rate Abdomen- normal bowel sounds, soft, nontender Extremities- no pretibial edema, no calf tenderness; peripheral pulses intact no joint edema/warmth/tenderness Neuro- alert, oriented x 2; PERRL, EOMI; no facial palsy; no dysarthria; motor 5 /5 bilaterally; sensation 100% no other gross focal neuro deficits Skin- warm & dry Laboratory Results: Last 24 Hours Test 06/09/17 11:06 06/09/17 16:34 06/09/17 20:39 06/10/17 05:22 Bedside Glucose 212 mg/dl 133 mg/dl 166 mg/dl White Blood Count 4.95 K/uL Red Blood Count 3.09 M/uL Hemoglobin 9.5 g/dL Hematocrit 28.6 % Mean Corpuscular Volume 92.6 fL Mean Corpuscular Hemoglobin 30.7 pg Mean Corpuscular Hemoglobin Concent 33.2 g/dl Platelet Count 277 K/uL Mean Platelet Volume 9.0 fL Neutrophils (%) (Auto) 53.6 % Lymphocytes (%) (Auto) 23.2 % Monocytes (%) (Auto) 17.0 % Eosinophils (%) (Auto) 3.8 % Basophils (%) (Auto) 1.8 % Neutrophils # (Auto) 2.65 K/uL Lymphocytes # (Auto) 1.15 K/uL Monocytes # (Auto) 0.84 K/uL Eosinophils # (Auto) 0.19 K/uL Basophils # (Auto) 0.09 K/uL RDW Standard Deviation 45.3 fL RDW Coefficient of Variation 13.5 % Immature Granulocyte % (Auto) 0.6 % Immature Granulocyte # (Auto) 0.03 K/uL Sodium Level 142 mmol/L Potassium Level 4.6 mmol/L Chloride Level 113 mmol/L Carbon Dioxide Level 21 mmol/L Anion Gap 8.0 mmol/L Blood Urea Nitrogen 48 mg/dl Creatinine 1.47 mg/dl Est Creatinine Clear Calc Drug Dose 69.8 ml/min Estimated GFR () 60.5 Estimated GFR (Non- 52.2 BUN/Creatinine Ratio 33.0 Random Glucose 99 mg/dl Calcium Level 9.1 mg/dl Magnesium Level 1.9 mg/dl Assessment & Plan ACUTE KIDNEY INJURY Serum creatinine at time of admission 3.69. UA benign. Seen by Nephrology Dr. 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 He had a lumbar puncture which showed elevated protein and WBCs, consistent with diagnosis. 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 He was started on plasmapheresis with much improvement in mental status. He completed 5 treatments (every other day) with last treatment on 06/02/17." - during my update with patient's , Reina, today, she expressed concern regarding continuation of Keppra because of its possible side effects will consult Neurologist Dr. Catalan DIABETES MELLITUS TYPE 2 Not well-controlled. Hgb A1C 12.1 05/23/17. Lantus / NovoLog per protocol. -- BSG improving MORBID OBESITY BMI 47. AHA / diabetic diet. BILATERAL KNEE AND ANKLE PAIN possible osteoarthritis no swelling, tenderness, warmth on exam may need further work up if persistent VTE PROPHYLAXIS SQ heparin. DISPOSITION Expected return to [facility] for inpatient rehab. 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 He had a lumbar puncture which showed elevated protein and WBCs, consistent with diagnosis. 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 He was started on plasmapheresis with much improvement in mental status. He completed 5 treatments (every other day) with last treatment on 06/02/17. Consultants: Nephrology . Current Inpatient Medications: Current Inpatient Medications Medications (Trade) Dose Ordered Sig/Tori Route Start Time Stop Time Status Last Admin Dose Admin Heparin Sodium (Porcine) (Heparin Sq 5000 Unit/0.5ml) 5,000 unit Q8 SQ 06/08/17 22:00 07/08/17 21:59 06/10/17 06:36 5,000 UNIT Acetaminophen (Tylenol Tab) 650 mg Q4H PRN PO 06/08/17 13:30 07/08/17 13:29 06/08/17 23:49 650 MG Al Hydrox/Mg Hydrox/Simethicone (Maalox Max Susp) 15 ml Q4H PRN PO 06/08/17 13:30 07/08/17 13:29 Ondansetron HCl (Zofran Inj) 4 mg Q6H PRN IV 06/08/17 13:30 07/08/17 13:29 Nitroglycerin (Nitrostat Tab) 0.4 mg UD PRN SL 06/08/17 13:30 07/08/17 13:29 Polyethylene (Miralax Powder Packet) 17 gm DAILY PRN PO 06/08/17 13:30 07/08/17 13:29 Atorvastatin Calcium (Lipitor Tab) 20 mg DAILY PO 06/09/17 09:00 07/09/17 08:59 06/10/17 07:50 20 MG Docusate Sodium (coLACE CAP) 100 mg BID PO 06/08/17 21:00 07/08/17 20:59 06/09/17 09:36 100 MG Levetiracetam (Keppra Tab) 500 mg BID PO 06/08/17 21:00 07/08/17 20:59 06/10/17 07:50 500 MG Nystatin (Mycostatin Powder) 1 appln BID EXT 06/08/17 21:00 07/08/17 20:59 06/10/17 07:51 1 APPLN Pantoprazole Sodium (Protonix Tab) 40 mg DAILY PO 06/09/17 09:00 07/09/17 08:59 06/10/17 07:50 40 MG Insulin Glargine (Lantus Solostar Pen) 12 units BID SC 06/08/17 21:00 07/08/17 20:59 06/10/17 07:49 12 UNITS Insulin Aspart (novoLOG ASPART) SLIDING SCALE G... ACHS SC 06/08/17 16:00 07/08/17 15:59 06/10/17 07:49 7 UNITS Miscellaneous Information (Consult Glycemic Management Pharmacy) 1 ea UD PRN N/A 06/08/17 13:46 07/08/17 13:45 Oxycodone/ Acetaminophen (Percocet 5-325mg Tab) 1 tab Q4H PRN PO 06/08/17 18:45 06/22/17 18:44
[2017-06-10] MEDS: OXYCODONE/ACETAMINOPHEN 5-325 TAB PO PRN ×2 (12:42→20:02)
[2017-06-11] MEDS: HEPARIN SOD 5000 UNIT/0.5 ML CARP SQ SCH ×3 (05:30→21:04)
[2017-06-11 06:00] LABS: BASO % 1.7 %; BASO ABS # 0.07 K/uL (0-0.2); EOS % 4.3 %; EOS ABS # 0.18 K/uL (0-0.5); HEMATOCRIT 28.9 % (42-52); HEMOGLOBIN 9.4 g/dL (14.0-18.0); IG# 0.04 K/uL (0.00-0.02); LYMPH % 29.4 %; LYMPH ABS # 1.23 K/uL (1.2-3.4); MEAN CELL VOLUME 94.1 fL (80-100); MEAN CORPUSCULAR HEMOGLOBIN 30.6 pg (25-34); MEAN CORPUSCULAR HGB CONC 32.5 g/dl (32-36); MONO % 17.9 %; MONO ABS # 0.75 K/uL (0.11-0.59); NEUT % 45.7 %; NEUT ABS # 1.92 K/uL (1.4-6.5); PLATELET COUNT 252 K/uL (130-400); RED CELL DISTRIBUTION WIDTH CV 13.6 % (11.5-14.5); RED CELL DISTRIBUTION WIDTH SD 46.8 fL (36.4-46.3); WHITE BLOOD COUNT 4.19 K/uL (4.8-10.8)
[2017-06-11 06:24] LABS: CREATININE 1.37 mg/dl (0.60-1.40)
[2017-06-11 06:25] LABS: CALCIUM 8.7 mg/dl (8.5-10.1); POTASSIUM 4.8 mmol/L (3.5-5.1)
[2017-06-11 08:05] VITALS: BP 90/57; PULSE 56; TEMP 36.4; O2SAT 97
[2017-06-11] MEDS: LEVETIRACETAM 500 MG TAB PO SCH ×2 (08:34→19:33)
[2017-06-11] MEDS: PANTOprazole SOD 40 MG TAB PO SCH (08:34)
[2017-06-11] MEDS: DOCUSATE SODIUM 100 MG CAP PO SCH ×2 (08:35→19:31)
[2017-06-11] MEDS: ATORVASTATIN 20 MG TAB PO SCH (08:35)
[2017-06-11] MEDS: NYSTATIN POWDER 15GM BTL EXT SCH ×2 (08:36→19:32)
[2017-06-11] MEDS: INSULIN ASPART 100 UNITS/ML 3 ML PEN SC SCH ×4 (08:44→21:00)
[2017-06-11] MEDS ORDERED: MAGNESIUM SULFATE 1GM / D5W 1 GM in PREMIXED IN D5W 100 ML IV ONE (08:45)
[2017-06-11] MEDS: INSULIN GLARGINE SOLOSTAR 100 UNITS/ML 3 ML PEN SC SCH ×2 (08:48→19:37)
[2017-06-11] MEDS: SODIUM CHLORIDE 0.9% 1000ML 1,000 ML IV SCH ×2 (08:49→15:53)
--- NOTE | 2017-06-11 13:15 | Pharmacy Progress Note ---
Pharmacy Glycemic Short Note 2 Date of Service Jun 11, 2017. OUTPATIENT ANTIDIABETIC REGIMEN: * Lantus 60 units qHS plus Novolog 15 units TIDM and SS ASSESSMENT: * Mr Montesinos is a 56 y/o M well known to the glycemic service to who presents with fatigue and decreased blood pressure. Like previous admissions, the patient has a lower blood sugar in the morning and then has significant spikes at lunch. Had a low blood sugar yesterday at dinner time secondary to aggressive Novolog at lunch. * Fasting today is 117 mg/dL which is similar to yesterday's fasting of 103 mg/ dL. Yesterday blood sugars ranged from 65-249 mg/dL and he received about 42 units of insulin. Estimate patient requires around 50 units/day. * Due to excessive spikes around lunch- tighten Novolog significantly for breakfast then use el teacher scale for the rest of the day.Fasting is okay so continue Lantus. PLAN FOR INPATIENT GLYCEMIC CONTROL: * Basal insulin * Lantus 12 units SQ BID * Bolus insulin * NovoLog per scale ACHS or Q6hrs while NPO * Goal Range: Low 110 mg/dL - High 140 mg/dL * Correction Factor: 20 mg/dL/unit * Nutritional / Prandial insulin per carb ratio of 1 unit per 4 grams CHO consumed with breakfast and 6 rest of the day.
--- NOTE | 2017-06-11 13:16 | Neurology Consultation ---
Neurology Consultation Date of Consultation: Jun 11, 2017. Attending Physician: Alejandro Sanford MD Primary Care Physician: Quique Palomino M.D. Reason for Consultation: Consultation regarding management of seizure medication History of Present Illness Source: patient, hospital records This is a 56-year-old male who was seen previously by myself in consultation May 23. Patient at that time was having progressive worsening mental status since April. He was found to have a cystic lesion in his left frontal lobe region on MRI. He was transferred to [place] for further evaluation and care. They did a lumbar puncture with increased WBCs. 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 They also did plasmapheresis. In the H&P there was notation of some sort of "three-day seizure study" which I do not have any reports of what this was. When the patient was originally evaluated by myself in May, the patient had several generalized seizure-like events witnessed by hospital staff was placed on Depakote and Dilantin. Initial EEG in April was normal, but EEG in May noted left focal slowing. Patient was discharged from [place] to [facility]. There he became hypotensive and had symptoms of acute renal failure for which he presented for his current hospital admission. Apparently the reason for this consult is is concerned about "potential" side effects of Keppra. Keppra was started as an antiepileptic medication when the patient was in [place]. This morning the patient does not have any specific complaints. The patient denies any side effects to Keppra. No increased sedation. No worsening moods. Denies any additional seizure-like events since his hospitalization in fact was unaware that he had any seizure-like events. On review of systems the patient denies any new numbness or weakness. Denies any changes with his vision or speech. He does report occasional confusion, such as trying to remember his dog's names. Past Medical/Surgical History Medical Problems: (1) Acute renal failure Status: Acute (2) Change in mental status Status: Acute (3) Expressive aphasia Status: Acute (4) Herb-neglect of right side Status: Acute (5) Hyperglycemia Status: Acute (6) Hyponatremia Status: Acute Diabetes type 2 Dyslipidemia Hypertension Family History Noncontributory Social History Currently at [facility]. Drug Use: none Marital Status: Housing Status: lives with significant other Occupation Status: unemployed Allergies Coded Allergies: No Known Allergies (Unverified , 05/22/17) Current Inpatient Medications Current Inpatient Medications Medications (Trade) Dose Ordered Sig/Tori Route Start Time Stop Time Status Last Admin Dose Admin Heparin Sodium (Porcine) (Heparin Sq 5000 Unit/0.5ml) 5,000 unit Q8 SQ 06/08/17 22:00 07/08/17 21:59 06/11/17 05:30 5,000 UNIT Acetaminophen (Tylenol Tab) 650 mg Q4H PRN PO 06/08/17 13:30 07/08/17 13:29 06/08/17 23:49 650 MG Al Hydrox/Mg Hydrox/Simethicone (Maalox Max Susp) 15 ml Q4H PRN PO 06/08/17 13:30 07/08/17 13:29 Ondansetron HCl (Zofran Inj) 4 mg Q6H PRN IV 06/08/17 13:30 07/08/17 13:29 Nitroglycerin (Nitrostat Tab) 0.4 mg UD PRN SL 06/08/17 13:30 07/08/17 13:29 Polyethylene (Miralax Powder Packet) 17 gm DAILY PRN PO 06/08/17 13:30 07/08/17 13:29 Atorvastatin Calcium (Lipitor Tab) 20 mg DAILY PO 06/09/17 09:00 07/09/17 08:59 06/11/17 08:35 20 MG Docusate Sodium (coLACE CAP) 100 mg BID PO 06/08/17 21:00 07/08/17 20:59 06/11/17 08:35 100 MG Levetiracetam (Keppra Tab) 500 mg BID PO 06/08/17 21:00 07/08/17 20:59 06/11/17 08:34 500 MG Nystatin (Mycostatin Powder) 1 appln BID EXT 06/08/17 21:00 07/08/17 20:59 06/11/17 08:36 1 APPLN Pantoprazole Sodium (Protonix Tab) 40 mg DAILY PO 06/09/17 09:00 07/09/17 08:59 06/11/17 08:34 40 MG Insulin Glargine (Lantus Solostar Pen) 12 units BID SC 06/08/17 21:00 07/08/17 20:59 06/11/17 08:48 12 UNITS Insulin Aspart (novoLOG ASPART) SLIDING SCALE G... ACHS SC 06/08/17 16:00 07/08/17 15:59 06/11/17 12:44 10 UNITS Miscellaneous Information (Consult Glycemic Management Pharmacy) 1 ea UD PRN N/A 06/08/17 13:46 07/08/17 13:45 Oxycodone/ Acetaminophen (Percocet 5-325mg Tab) 1 tab Q4H PRN PO 06/08/17 18:45 06/22/17 18:44 06/10/17 20:02 1 TAB Sodium Chloride 1,000 ml @ 125 mls/hr Q8H IV 06/10/17 20:00 07/10/17 19:59 06/11/17 08:49 125 MLS/HR Review of Systems Complete review of systems otherwise negative except for the above-noted history of present illness Physical Exam Vital Signs (Past 24 Hrs): Date Time Temp Pulse Resp B/P (MAP) Pulse Ox O2 Delivery O2 Flow Rate FiO2 06/11/17 09:00 Room Air 06/11/17 08:05 36.4 56 17 90/57 (68) 97 Room Air 06/11/17 00:25 Room Air 06/10/17 23:30 36.9 72 18 95 Room Air 06/10/17 21:57 62 102/52 (69) 06/10/17 20:42 Room Air 06/10/17 19:19 73 85/45 (58) 06/10/17 14:57 36.6 64 16 85/48 (60) 98 Room Air Gen.: Patient is alert and sitting in chair, in no acute distress. HEENT: Normocephalic /atraumatic, no scleral icterus Heart: Regular rate and rhythm Extremities: No gross deformities or rashes noted Neurological examination: Mental status: Patient is alert and oriented x3. Attention and concentration normal for the situation. Good fund of knowledge. Remote and recent memory mostly intact but I get a sense or could be some cognitive impairment. Speech is fluent without any dysarthria noted. At times does have trouble with word finding or has wrong word substitutions Cranial nerve: Funduscopic examination was unremarkable. No papilledema. Pupils equally round and reactive to light. Extraocular muscles intact without nystagmus. No facial asymmetry noted. Facial sensation intact. Tongue is midline. Good palatal elevation. Good shoulder shrug bilaterally. Hearing grossly intact to voice. Strength: 5/5 both proximal and distally in all extremities. There is no arm drift. Tone is normal. Sensation: Grossly intact to light touch in all extremities. Deep tendon reflexes: +1 in bilateral biceps, brachioradialis and patellar. Toes were downgoing to plantar stimulation Coordination: Patient had good finger to nose without dysmetria. Good heel-to- zapien without ataxia Station within the chair was normal Laboratory Results Past 24 Hours: 06/11/17 05:18 Red Blood Count 3.07, Mean Corpuscular Volume 94.1, Mean Corpuscular Hemoglobin 30.6, Mean Corpuscular Hemoglobin Concent 32.5, Mean Platelet Volume 10.0, Neutrophils (%) (Auto) 45.7, Lymphocytes (%) (Auto) 29.4, Monocytes (%) (Auto) 17.9, Eosinophils (%) (Auto) 4.3, Basophils (%) (Auto) 1.7, Neutrophils # (Auto ) 1.92, Lymphocytes # (Auto) 1.23, Monocytes # (Auto) 0.75, Eosinophils # (Auto ) 0.18, Basophils # (Auto) 0.07 06/11/17 05:18 Test 06/11/17 05:18 06/11/17 12:08 White Blood Count 4.19 K/uL (4.8-10.8) Red Blood Count 3.07 M/uL (4.7-6.1) Hemoglobin 9.4 g/dL (14.0-18.0) Hematocrit 28.9 % (42-52) Mean Corpuscular Volume 94.1 fL (80-100) Mean Corpuscular Hemoglobin 30.6 pg (25-34) Mean Corpuscular Hemoglobin Concent 32.5 g/dl (32-36) Platelet Count 252 K/uL (130-400) Mean Platelet Volume 10.0 fL (7.4-10.4) Neutrophils (%) (Auto) 45.7 % Lymphocytes (%) (Auto) 29.4 % Monocytes (%) (Auto) 17.9 % Eosinophils (%) (Auto) 4.3 % Basophils (%) (Auto) 1.7 % Neutrophils # (Auto) 1.92 K/uL (1.4-6.5) Lymphocytes # (Auto) 1.23 K/uL (1.2-3.4) Monocytes # (Auto) 0.75 K/uL (0.11-0.59) Eosinophils # (Auto) 0.18 K/uL (0-0.5) Basophils # (Auto) 0.07 K/uL (0-0.2) RDW Standard Deviation 46.8 fL (36.4-46.3) RDW Coefficient of Variation 13.6 % (11.5-14.5) Immature Granulocyte % (Auto) 1.0 % Immature Granulocyte # (Auto) 0.04 K/uL (0.00-0.02) Anion Gap 5.0 mmol/L (3-11) Est Creatinine Clear Calc Drug Dose 74.9 ml/min Estimated GFR () 65.9 Estimated GFR (Non- 56.8 BUN/Creatinine Ratio 25.0 (10-20) Calcium Level 8.7 mg/dl (8.5-10.1) Magnesium Level 1.6 mg/dl (1.8-2.4) Bedside Glucose 222 mg/dl (70-99) Impression This is a 56-year-old male with recent observed generalized seizures earlier this month with previous history of worsening mental status likely secondary to postinfectious autoimmune encephalitis. No side effects identified with Keppra. Plan Continue Keppra without change. No blood work monitoring as needed with Keppra. Keppra does not tend to interfere with other medications. Keppra does not cause renal or liver toxicity. Anticipate that the patient will need to be on antiepileptic medications at least for 6 months before considering a trial off. Patient may still be at high risk for focal onset seizures considering his left hemispheric cystic lesion on imaging. Patient may follow-up in neurology clinic for further care as previously recommended. If there is any questions or concerns about medications, patient and can follow-up in clinic.
--- NOTE | 2017-06-11 14:43 | Progress Note ---
Medicine Progress Note Date & Time of Visit: Jun 11, 2017 at 14:38. Subjective seen resting in bed, comfortable states he feels about the same as yesterday reports pain on the knees, feet, shoulders- mild to moderate denies dizziness urinating fine no other symptoms Objective Last 8 Hrs Date Time Temp Pulse Resp B/P (MAP) Pulse Ox O2 Delivery O2 Flow Rate FiO2 06/11/17 09:00 Room Air 06/11/17 08:05 36.4 56 17 90/57 (68) 97 Room Air Physical Exam: General- oriented x 2, not in distress, speaks in sentences with no effort Eyes- EOMI, anicteric Neck- supple, no JVD Lungs- clear breath sounds no rales/wheezes b/l Heart- regular rhythm; no murmur, normal rate Abdomen- normal bowel sounds, soft, nontender Extremities- no pretibial edema, no calf tenderness; peripheral pulses intact no joint edema/warmth/tenderness Neuro- alert, oriented x 2; no gross focal deficits Skin- warm & dry Laboratory Results: Last 24 Hours Test 06/10/17 17:19 06/10/17 18:15 06/10/17 19:46 06/11/17 05:18 Bedside Glucose 77 mg/dl 119 mg/dl 169 mg/dl White Blood Count 4.19 K/uL Red Blood Count 3.07 M/uL Hemoglobin 9.4 g/dL Hematocrit 28.9 % Mean Corpuscular Volume 94.1 fL Mean Corpuscular Hemoglobin 30.6 pg Mean Corpuscular Hemoglobin Concent 32.5 g/dl Platelet Count 252 K/uL Mean Platelet Volume 10.0 fL Neutrophils (%) (Auto) 45.7 % Lymphocytes (%) (Auto) 29.4 % Monocytes (%) (Auto) 17.9 % Eosinophils (%) (Auto) 4.3 % Basophils (%) (Auto) 1.7 % Neutrophils # (Auto) 1.92 K/uL Lymphocytes # (Auto) 1.23 K/uL Monocytes # (Auto) 0.75 K/uL Eosinophils # (Auto) 0.18 K/uL Basophils # (Auto) 0.07 K/uL RDW Standard Deviation 46.8 fL RDW Coefficient of Variation 13.6 % Immature Granulocyte % (Auto) 1.0 % Immature Granulocyte # (Auto) 0.04 K/uL Sodium Level 141 mmol/L Potassium Level 4.8 mmol/L Chloride Level 112 mmol/L Carbon Dioxide Level 24 mmol/L Anion Gap 5.0 mmol/L Blood Urea Nitrogen 34 mg/dl Creatinine 1.37 mg/dl Est Creatinine Clear Calc Drug Dose 74.9 ml/min Estimated GFR () 65.9 Estimated GFR (Non- 56.8 BUN/Creatinine Ratio 25.0 Random Glucose 117 mg/dl Calcium Level 8.7 mg/dl Magnesium Level 1.6 mg/dl Test 06/11/17 07:42 06/11/17 12:08 Bedside Glucose 122 mg/dl 222 mg/dl Assessment & Plan ACUTE KIDNEY INJURY Serum creatinine at time of admission 3.69. UA benign. Seen by Nephrology Dr. Rajput -- given IV NSS crea improved from 3.69 to 1.3 -- back to NSS due to borderline BP monitor crea RECENT POSTINFECTIOUS AUTOIMMUNE ENCEPHALOMYELITIS NEW ONSET SEIZURE - diagnosed earlier this month during hospitalization in [facility] - per Discharge Summary: "Given progressive decline s/p viral prodrome, AMS, and new onset seizure, there was concern for post-infectious autoimmune encephalopathy. He had a lumbar puncture which showed elevated protein and WBCs, consistent with diagnosis. 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 He was started on plasmapheresis with much improvement in mental status. He completed 5 treatments (every other day) with last treatment on 06/02/17." - reviewed Dr. Gunderson's recommendations will continue Keppra BID for at least 6 months as recommended monitor BORDERLINE BP - from dehydration? IV NSS - from Percocet? d/c Percocet, PRN Tramadol ordered - monitor BILATERAL KNEE, FEET PAIN - from DM Neuropathy? Osteoarthritis? r/o RA - check ESR, RF - PRN Tylenol, Tramadol PT/OT DIABETES MELLITUS TYPE 2 Not well-controlled. Hgb A1C 12.1 05/23/17. Lantus / NovoLog per protocol. -- Pharmacy consulted [facility] BMI 47. AHA / diabetic diet. VTE PROPHYLAXIS SQ heparin. DISPOSITION Expected return to [facility] for inpatient rehab when medically stable- likely in 1-2 days Consultants: Nephrology . Current Inpatient Medications: Current Inpatient Medications Medications (Trade) Dose Ordered Sig/Tori Route Start Time Stop Time Status Last Admin Dose Admin Heparin Sodium (Porcine) (Heparin Sq 5000 Unit/0.5ml) 5,000 unit Q8 SQ 06/08/17 22:00 07/08/17 21:59 06/11/17 13:51 5,000 UNIT Acetaminophen (Tylenol Tab) 650 mg Q4H PRN PO 06/08/17 13:30 07/08/17 13:29 06/08/17 23:49 650 MG Al Hydrox/Mg Hydrox/Simethicone (Maalox Max Susp) 15 ml Q4H PRN PO 06/08/17 13:30 07/08/17 13:29 Ondansetron HCl (Zofran Inj) 4 mg Q6H PRN IV 06/08/17 13:30 07/08/17 13:29 Nitroglycerin (Nitrostat Tab) 0.4 mg UD PRN SL 06/08/17 13:30 07/08/17 13:29 Polyethylene (Miralax Powder Packet) 17 gm DAILY PRN PO 06/08/17 13:30 07/08/17 13:29 Atorvastatin Calcium (Lipitor Tab) 20 mg DAILY PO 06/09/17 09:00 07/09/17 08:59 06/11/17 08:35 20 MG Docusate Sodium (coLACE CAP) 100 mg BID PO 06/08/17 21:00 07/08/17 20:59 06/11/17 08:35 100 MG Levetiracetam (Keppra Tab) 500 mg BID PO 06/08/17 21:00 07/08/17 20:59 06/11/17 08:34 500 MG Nystatin (Mycostatin Powder) 1 appln BID EXT 06/08/17 21:00 07/08/17 20:59 06/11/17 08:36 1 APPLN Pantoprazole Sodium (Protonix Tab) 40 mg DAILY PO 06/09/17 09:00 07/09/17 08:59 06/11/17 08:34 40 MG Insulin Glargine (Lantus Solostar Pen) 12 units BID SC 06/08/17 21:00 07/08/17 20:59 06/11/17 08:48 12 UNITS Miscellaneous Information (Consult Glycemic Management Pharmacy) 1 ea UD PRN N/A 06/08/17 13:46 07/08/17 13:45 Oxycodone/ Acetaminophen (Percocet 5-325mg Tab) 1 tab Q4H PRN PO 06/08/17 18:45 06/22/17 18:44 06/10/17 20:02 1 TAB Sodium Chloride 1,000 ml @ 125 mls/hr Q8H IV 06/10/17 20:00 07/10/17 19:59 06/11/17 08:49 125 MLS/HR Insulin Aspart (novoLOG ASPART) SLIDING SCALE G... DAILY@0630 CA 06/12/17 06:30 07/12/17 06:29 Insulin Aspart (novoLOG ASPART) SLIDING SCALE G... TID@1100,1630,2100 CA 06/11/17 16:30 07/11/17 16:29
[2017-06-11 15:20] VITALS: BP 83/51; PULSE 63; TEMP 36.3; O2SAT 98
[2017-06-11] MEDS ORDERED: SODIUM CHLORIDE 0.9% 500ML 500 ML IV SCH (15:45)
[2017-06-11 17:07] VITALS: BP 107/73; PULSE 61
[2017-06-11] MEDS: GABAPENTIN 300 MG CAP PO SCH (19:38)
[2017-06-11 20:00] VITALS: O2SAT 98
[2017-06-11] MEDS: TRAMADOL HCL 50 MG TAB PO PRN (23:03)
[2017-06-11 23:34] VITALS: BP 99/61; PULSE 63; TEMP 36.4; O2SAT 97
[2017-06-12] VITALS: O2SAT 98
[2017-06-12] MEDS: SODIUM CHLORIDE 0.9% 1000ML 1,000 ML IV SCH ×4 (03:23→22:33)
[2017-06-12] MEDS: HEPARIN SOD 5000 UNIT/0.5 ML CARP SQ SCH ×3 (06:09→20:06)
[2017-06-12 06:39] LABS: CALCIUM 8.4 mg/dl (8.5-10.1); CREATININE 1.11 mg/dl (0.60-1.40); POTASSIUM 4.4 mmol/L (3.5-5.1)
[2017-06-12 07:51] VITALS: BP 114/70; PULSE 58; TEMP 36.5; O2SAT 96
[2017-06-12] MEDS: ATORVASTATIN 20 MG TAB PO SCH (07:54)
[2017-06-12] MEDS: GABAPENTIN 300 MG CAP PO SCH ×2 (07:54→19:58)
[2017-06-12] MEDS: PANTOprazole SOD 40 MG TAB PO SCH (07:56)
[2017-06-12] MEDS: LEVETIRACETAM 500 MG TAB PO SCH ×2 (07:56→19:58)
[2017-06-12] MEDS: INSULIN GLARGINE SOLOSTAR 100 UNITS/ML 3 ML PEN SC SCH ×2 (07:58→20:05)
[2017-06-12] MEDS: DOCUSATE SODIUM 100 MG CAP PO SCH ×2 (07:59→19:57)
[2017-06-12] MEDS: NYSTATIN POWDER 15GM BTL EXT SCH ×2 (07:59→19:57)
[2017-06-12 08:17] VITALS: O2SAT 96
[2017-06-12] MEDS: INSULIN ASPART 100 UNITS/ML 3 ML PEN SC SCH ×4 (08:39→20:05)
[2017-06-12] MEDS: TRAMADOL HCL 50 MG TAB PO PRN ×2 (08:40→15:45)
[2017-06-12 15:04] VITALS: BP 116/73; PULSE 63; TEMP 36.5; O2SAT 98
[2017-06-12 15:56] VITALS: O2SAT 98
[2017-06-12 22:59] VITALS: BP 147/75; PULSE 68; TEMP 36.5; O2SAT 97
[2017-06-13] VITALS: O2SAT 98
[2017-06-13] MEDS: HEPARIN SOD 5000 UNIT/0.5 ML CARP SQ SCH ×2 (06:06→12:46)
[2017-06-13 06:52] LABS: CALCIUM 8.8 mg/dl (8.5-10.1); CREATININE 1.09 mg/dl (0.60-1.40); POTASSIUM 4.4 mmol/L (3.5-5.1)
[2017-06-13 07:40] VITALS: BP 145/76; PULSE 63; TEMP 36.7; O2SAT 96
[2017-06-13] MEDS: LEVETIRACETAM 500 MG TAB PO SCH (07:53)
[2017-06-13] MEDS: PANTOprazole SOD 40 MG TAB PO SCH (07:53)
[2017-06-13] MEDS: GABAPENTIN 300 MG CAP PO SCH (07:54)
[2017-06-13] MEDS: ATORVASTATIN 20 MG TAB PO SCH (07:54)
[2017-06-13] MEDS: DOCUSATE SODIUM 100 MG CAP PO SCH (07:54)
[2017-06-13] MEDS: NYSTATIN POWDER 15GM BTL EXT SCH (07:55)
[2017-06-13] MEDS: SODIUM CHLORIDE 0.9% 1000ML 1,000 ML IV SCH ×2 (07:55→12:47)
[2017-06-13] MEDS: INSULIN GLARGINE SOLOSTAR 100 UNITS/ML 3 ML PEN SC SCH (08:49)
[2017-06-13] MEDS: INSULIN ASPART 100 UNITS/ML 3 ML PEN SC SCH ×3 (08:49→17:29)
--- NOTE | 2017-06-13 12:15 | Pharmacy Progress Note ---
Pharmacy Glycemic Short Note 2 Date of Service Jun 13, 2017. OUTPATIENT ANTIDIABETIC REGIMEN: * Lantus 60 units qHS plus Novolog 15 units TIDM and SS ASSESSMENT: * Mr Montesinos is a 56 y/o M well known to the glycemic service to who presents with fatigue and decreased blood pressure. Like previous admissions, the patient has a lower blood sugar in the morning and then has significant spikes at lunch. * Fasting today is 95 mg/dL which is similar to yesterday's fasting of 100 mg/ dL. Yesterday blood sugars ranged from 100-191 mg/dL and he received about 56 units of insulin. Estimate patient requires around 50-60 units/day. Lunch spike yesterday and today was only 190 mg/dL which is significantly better than 249 mg /dL and 222 mg/dL. There was no overcorrection yesterday. Lowered goal range for breakfast correction so no Novolog was subtracted. * Continue current regimen. Could consider increasing AM dose of Lantus. PLAN FOR INPATIENT GLYCEMIC CONTROL: * Basal insulin * Lantus 12 units SQ BID * Bolus insulin * NovoLog per scale ACHS or Q6hrs while NPO * Goal Range: Low 110 mg/dL - High 140 mg/dL (80-140 mg/dL for breakfast) * Correction Factor: 20 mg/dL/unit * Nutritional / Prandial insulin per carb ratio of 1 unit per 4 grams CHO consumed with breakfast and 6 rest of the day.
--- NOTE | 2017-06-13 14:25 | Progress Note ---
Medicine Progress Note Date & Time of Visit: Jun 13, 2017 at 14:23. Subjective delayed entry date of service as noted above seen resting in bedside chair states he feels slightly better, leg pain about the same but tolerating ambulation better no other symptoms Objective Last 8 Hrs Date Time Temp Pulse Resp B/P (MAP) Pulse Ox O2 Delivery O2 Flow Rate FiO2 06/13/17 08:00 Room Air 06/13/17 07:40 36.7 63 18 145/76 (99) 96 Room Air Physical Exam: General- oriented x 2, not in distress, speaks in sentences with no effort Eyes- anicteric Neck- no JVD Lungs- clear breath sounds bilaterally Heart- regular rhythm; no murmur, normal rate Abdomen- normal bowel sounds, soft, nontender Extremities- no pretibial edema, no calf tenderness; peripheral pulses intact no joint edema/warmth/tenderness Neuro- alert, oriented x 2; no gross focal deficits Skin- warm & dry Laboratory Results: Last 24 Hours Test 06/12/17 16:49 06/12/17 19:55 06/13/17 05:36 06/13/17 07:51 Bedside Glucose 147 mg/dl 147 mg/dl 95 mg/dl Sodium Level 141 mmol/L Potassium Level 4.4 mmol/L Chloride Level 113 mmol/L Carbon Dioxide Level 23 mmol/L Anion Gap 6.0 mmol/L Blood Urea Nitrogen 22 mg/dl Creatinine 1.09 mg/dl Est Creatinine Clear Calc Drug Dose 94.1 ml/min Estimated GFR () 86.9 Estimated GFR (Non- 74.9 BUN/Creatinine Ratio 19.7 Random Glucose 93 mg/dl Calcium Level 8.8 mg/dl Test 06/13/17 11:40 Bedside Glucose 192 mg/dl Assessment & Plan ACUTE KIDNEY INJURY Serum creatinine at time of admission 3.69. UA benign. Seen by Nephrology Oncu -- given IV NSS crea improved from 3.69 to 1.3 --d/c fluids RECENT POSTINFECTIOUS AUTOIMMUNE ENCEPHALOMYELITIS NEW ONSET SEIZURE - diagnosed earlier this month during hospitalization in [facility] - per Discharge Summary: "Given progressive decline s/p viral prodrome, AMS, and new onset seizure, there was concern for post-infectious autoimmune encephalopathy. He had a lumbar puncture which showed elevated protein and WBCs, consistent with diagnosis. 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 He was started on plasmapheresis with much improvement in mental status. He completed 5 treatments (every other day) with last treatment on 06/02/17." - reviewed Dr. Gunderson's recommendations will continue Keppra BID for at least 6 months as recommended monitor BORDERLINE BP - from dehydration? IV NSS given improved - from Percocet? d/c Percocet, PRN Tramadol ordered - BP improving BILATERAL KNEE, FEET PAIN - from DM Neuropathy? Osteoarthritis? r/o RA - check ESR, RF - PRN Tylenol, Tramadol PT/OT DIABETES MELLITUS TYPE 2 Not well-controlled. Hgb A1C 12.1 05/23/17. Lantus / NovoLog per protocol. -- Pharmacy consulted [facility] BMI 47. AHA / diabetic diet. VTE PROPHYLAXIS SQ heparin. DISPOSITION Expected return to [facility] for inpatient rehab when medically stable- likely in 1-2 days Consultants: Nephrology . Current Inpatient Medications: Current Inpatient Medications Medications (Trade) Dose Ordered Sig/Tori Route Start Time Stop Time Status Last Admin Dose Admin Heparin Sodium (Porcine) (Heparin Sq 5000 Unit/0.5ml) 5,000 unit Q8 SQ 06/08/17 22:00 07/08/17 21:59 06/13/17 12:46 5,000 UNIT Acetaminophen (Tylenol Tab) 650 mg Q4H PRN PO 06/08/17 13:30 07/08/17 13:29 06/08/17 23:49 650 MG Al Hydrox/Mg Hydrox/Simethicone (Maalox Max Susp) 15 ml Q4H PRN PO 06/08/17 13:30 07/08/17 13:29 Ondansetron HCl (Zofran Inj) 4 mg Q6H PRN IV 06/08/17 13:30 07/08/17 13:29 Nitroglycerin (Nitrostat Tab) 0.4 mg UD PRN SL 06/08/17 13:30 07/08/17 13:29 Polyethylene (Miralax Powder Packet) 17 gm DAILY PRN PO 06/08/17 13:30 07/08/17 13:29 Atorvastatin Calcium (Lipitor Tab) 20 mg DAILY PO 06/09/17 09:00 2/21/18 08:59 06/13/17 07:54 20 MG Docusate Sodium (coLACE CAP) 100 mg BID PO 06/08/17 21:00 07/08/17 20:59 06/13/17 07:54 100 MG Levetiracetam (Keppra Tab) 500 mg BID PO 06/08/17 21:00 07/08/17 20:59 06/13/17 07:53 500 MG Nystatin (Mycostatin Powder) 1 appln BID EXT 06/08/17 21:00 07/08/17 20:59 06/13/17 07:55 1 APPLN Pantoprazole Sodium (Protonix Tab) 40 mg DAILY PO 06/09/17 09:00 07/09/17 08:59 06/13/17 07:53 40 MG Insulin Glargine (Lantus Solostar Pen) 12 units BID SC 06/08/17 21:00 07/08/17 20:59 06/13/17 08:49 12 UNITS Miscellaneous Information (Consult Glycemic Management Pharmacy) 1 ea UD PRN N/A 06/08/17 13:46 07/08/17 13:45 Sodium Chloride 1,000 ml @ 125 mls/hr Q8H IV 06/10/17 20:00 07/10/17 19:59 06/12/17 19:57 125 MLS/HR Insulin Aspart (novoLOG ASPART) SLIDING SCALE G... DAILY@0630 SC 06/12/17 06:30 07/12/17 06:29 06/13/17 08:49 17 UNITS Insulin Aspart (novoLOG ASPART) SLIDING SCALE G... TID@1100,1630,2100 SC 06/11/17 16:30 07/11/17 16:29 06/13/17 12:46 15 UNITS Tramadol HCl (Ultram Tab) 50 mg Q6H PRN PO 06/11/17 14:45 07/11/17 14:44 06/12/17 15:45 50 MG Gabapentin (Neurontin Cap) 300 mg BID PO 06/11/17 20:00 07/11/17 19:59 06/13/17 07:54 300 MG
[2017-06-13 14:27] VITALS: BP 145/76; PULSE 63; TEMP 36.7; O2SAT 96
--- NOTE | 2017-06-13 14:31 | Progress Note ---
Medicine Progress Note Date & Time of Visit: Jun 13, 2017 at 14:25. Subjective seen resting in bed, comfortable states he feels fine today overall strength coming back lower extremity pain improving denies other symptoms states he is ready for discharge today Objective Last 8 Hrs Date Time Temp Pulse Resp B/P (MAP) Pulse Ox O2 Delivery O2 Flow Rate FiO2 06/13/17 08:00 Room Air 06/13/17 07:40 36.7 63 18 145/76 (99) 96 Room Air Physical Exam: General- oriented x 2, not in distress, speaks in sentences with no effort Lungs- clear breath sounds bilaterally, no rales/wheezes Heart- regular rhythm; no murmur, normal rate Abdomen- normal bowel sounds, soft, nontender, non distended Extremities- no pretibial edema, no calf tenderness; peripheral pulses intact no joint edema/warmth/tenderness Neuro- alert, oriented x 2; no gross focal deficits Skin- warm & dry Laboratory Results: Last 24 Hours Test 06/12/17 16:49 06/12/17 19:55 06/13/17 05:36 06/13/17 07:51 Bedside Glucose 147 mg/dl 147 mg/dl 95 mg/dl Sodium Level 141 mmol/L Potassium Level 4.4 mmol/L Chloride Level 113 mmol/L Carbon Dioxide Level 23 mmol/L Anion Gap 6.0 mmol/L Blood Urea Nitrogen 22 mg/dl Creatinine 1.09 mg/dl Est Creatinine Clear Calc Drug Dose 94.1 ml/min Estimated GFR () 86.9 Estimated GFR (Non- 74.9 BUN/Creatinine Ratio 19.7 Random Glucose 93 mg/dl Calcium Level 8.8 mg/dl Test 06/13/17 11:40 Bedside Glucose 192 mg/dl Assessment & Plan ACUTE KIDNEY INJURY, RESOLVED Serum creatinine at time of admission 3.69. UA benign. Seen by Nephrology Oncu -- given IV NSS crea improved from 3.69 to 1.09 (baseline around 0.9) -- encouraged to ensure adequate daily fluid intake monitor renal function periodically RECENT POSTINFECTIOUS AUTOIMMUNE ENCEPHALOMYELITIS NEW ONSET SEIZURE - diagnosed earlier this month during hospitalization in [facility] - per Discharge Summary: "Given progressive decline s/p viral prodrome, AMS, and new onset seizure, there was concern for post-infectious autoimmune encephalopathy. He had a lumbar puncture which showed elevated protein and WBCs, consistent with diagnosis. 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 He was started on plasmapheresis with much improvement in mental status. He completed 5 treatments (every other day) with last treatment on 06/02/17." -evaluated by Dr. Gunderson- Neurologist will continue Keppra BID for at least 6 months as recommended ff up with Neurology BORDERLINE HYPOTENSION, RESOLVED - from dehydration? IV NSS given improved - from Percocet? d/c Percocet, PRN Tramadol ordered - BP improving, now systolic 140s monitor BILATERAL KNEE, FEET PAIN - from DM Neuropathy? Osteoarthritis? r/o RA - ESR and Rheum Factor Normal - PRN Tylenol, Tramadol PT/OT DIABETES MELLITUS TYPE 2 Not well-controlled. Hgb A1C 12.1 05/23/17. Lantus / NovoLog per protocol. -- Pharmacy consulted MORBID OBESITY BMI 47. AHA / diabetic diet. VTE PROPHYLAXIS SQ heparin given DISPOSITION d/c to [facility] patient to be followed by Dr. Shankar ff up with Neurologist as outpatient- patient's prefers to follow up with Dr. Amato case discussed with by phone yesterday and today at length all questions answered she is agreeable and comfortable with plan of care Consultants: Nephrology . Current Inpatient Medications: Current Inpatient Medications Medications (Trade) Dose Ordered Sig/Tori Route Start Time Stop Time Status Last Admin Dose Admin Heparin Sodium (Porcine) (Heparin Sq 5000 Unit/0.5ml) 5,000 unit Q8 SQ 06/08/17 22:00 07/08/17 21:59 06/13/17 12:46 5,000 UNIT Acetaminophen (Tylenol Tab) 650 mg Q4H PRN PO 06/08/17 13:30 07/08/17 13:29 06/08/17 23:49 650 MG Al Hydrox/Mg Hydrox/Simethicone (Maalox Max Susp) 15 ml Q4H PRN PO 06/08/17 13:30 07/08/17 13:29 Ondansetron HCl (Zofran Inj) 4 mg Q6H PRN IV 06/08/17 13:30 07/08/17 13:29 Nitroglycerin (Nitrostat Tab) 0.4 mg UD PRN SL 06/08/17 13:30 07/08/17 13:29 Polyethylene (Miralax Powder Packet) 17 gm DAILY PRN PO 06/08/17 13:30 07/08/17 13:29 Atorvastatin Calcium (Lipitor Tab) 20 mg DAILY PO 06/09/17 09:00 07/09/17 08:59 06/13/17 07:54 20 MG Docusate Sodium (coLACE CAP) 100 mg BID PO 06/08/17 21:00 07/08/17 20:59 06/13/17 07:54 100 MG Levetiracetam (Keppra Tab) 500 mg BID PO 06/08/17 21:00 07/08/17 20:59 06/13/17 07:53 500 MG Nystatin (Mycostatin Powder) 1 appln BID EXT 06/08/17 21:00 07/08/17 20:59 06/13/17 07:55 1 APPLN Pantoprazole Sodium (Protonix Tab) 40 mg DAILY PO 06/09/17 09:00 07/09/17 08:59 06/13/17 07:53 40 MG Insulin Glargine (Lantus Solostar Pen) 12 units BID SC 06/08/17 21:00 07/08/17 20:59 06/13/17 08:49 12 UNITS Miscellaneous Information (Consult Glycemic Management Pharmacy) 1 ea UD PRN N/A 06/08/17 13:46 07/08/17 13:45 Sodium Chloride 1,000 ml @ 125 mls/hr Q8H IV 06/10/17 20:00 07/10/17 19:59 06/12/17 19:57 125 MLS/HR Insulin Aspart (novoLOG ASPART) SLIDING SCALE G... DAILY@0630 SC 06/12/17 06:30 07/12/17 06:29 06/13/17 08:49 17 UNITS Insulin Aspart (novoLOG ASPART) SLIDING SCALE G... TID@1100,1630,2100 SC 06/11/17 16:30 07/11/17 16:29 06/13/17 12:46 15 UNITS Tramadol HCl (Ultram Tab) 50 mg Q6H PRN PO 06/11/17 14:45 07/11/17 14:44 06/12/17 15:45 50 MG Gabapentin (Neurontin Cap) 300 mg BID PO 06/11/17 20:00 07/11/17 19:59 06/13/17 07:54 300 MG
[2017-06-13] MEDS ORDERED: ULT50X PO (14:34)
[2017-06-13] MEDS ORDERED: NRN300 PO (14:34)
--- NOTE | 2017-06-13 14:38 | Discharge Instructions ---
Discharge Instructions Date of Service Jun 13, 2017. Admission Reason for Admission: Acute Renal Failure Discharge Discharge Diagnosis / Problem: ACUTE RENAL FAILURE, RESOLVED Discharge Goals Goal(s): Diagnostic testing, Therapeutic intervention Activity Recommendations Activity Level: Assistance Required Therapies: Physical Therapy, Occupational Therapy . Additional Information Patient informed of condition: Yes Advance Directives: No (UNKNOWN) DNR: No (PATIENT IS FULL CODE) Level of Care: Acute Rehab Communicable Disease: No Prognosis: Improving Instructions / Follow-Up Instructions / Follow-Up PLEASE REFER TO ACCOMPANYING DISCHARGE SUMMARY. Current Hospital Diet Patient's current hospital diet: AHA Diet (Heart Healthy), Diabetes Type 2 Diet , Renal Diet Discharge Diet Recommended Diet: AHA Diet (Heart Healthy), Diabetes Type 2 Diet Procedures Procedures Performed: CHEST XRAY Pending Studies Studies pending at discharge: yes List of pending studies: PLEASE REFER TO ACCOMPANYING DISCHARGE SUMMARY. Physician Orders On Transfer Special Precautions: PLEASE REFER TO ACCOMPANYING DISCHARGE SUMMARY. Laboratory Results Hemoglobin A1c Test 05/23/17 05:54 Range/Units Estimated Average Glucose 301 mg/dl Hemoglobin A1c 12.1 H 4.5-5.6 % Lipid Panel Test 05/23/17 05:54 Range/Units Triglycerides Level 55 0-150 mg/dl Cholesterol Level 81 0-200 mg/dl HDL Cholesterol 44 mg/dl Cholesterol/HDL Ratio 1.8 LDL Cholesterol, Calculated 26 mg/dl Medical Emergencies . Who to Call and When: Medical Emergencies: If at any time you feel your situation is an emergency, please call 911 immediately. . Non-Emergent Contact Non-Emergency issues call your: Primary Care Provider, Neurologist Call Non-Emergent contact if: you have a fever, your pain is not controlled, your pain is worsening, you have any medication questions . Past History Medical & Surgical History: (1) Seizure (2) Acute renal failure (3) DM (diabetes mellitus), type 2, uncontrolled (4) Diabetes mellitus, type 2 (5) Hypertension (6) Dyslipidemia (7) Abnormal CT of brain (8) Obesity, morbid, BMI 40.0-49.9 (9) Altered mental status . "Provider Documentation" section prepared by Alejandro Sanford. . Core Measure Problem Core Measures: None [place] Drug Monitoring Program Search Results: patient reviewed within database, no issues identified
--- NOTE | 2017-06-13 14:42 | Discharge Summary ---
Discharge Summary Date of Service Jun 13, 2017. Discharge Summary Admission Date: Jun 08, 2017 at 13:36 Discharge Date: Jun 13, 2017 Discharge Disposition: Rehab Principal Diagnosis: ACUTE KIDNEY INJURY, RESOLVED; LIKELY PRE-RENAL ETIOLOGY Secondary Diagnoses/Problems: Please refer to hospital course below. Procedures: CHEST ONE VIEW PORTABLE HISTORY: 56 years-old Male generalized weakness acute generalized weakness COMPARISON: Chest radiograph 05/22/2017 TECHNIQUE: Portable AP view of the chest FINDINGS: Cardiomediastinal and hilar silhouettes are within normal limits. There is no pneumothorax, pleural effusion, focal airspace consolidation or overt pulmonary edema. Mild right hemidiaphragmatic elevation. Degenerative changes involve the shoulders and spine. The bones appear grossly intact. IMPRESSION: No acute process. Consultations: Nephrology Dr. Rajput Pending Studies/Follow-Up: Please refer to hospital course below. Medication Reconciliation New Medications: Gabapentin (Gabapentin) 300 Mg Cap 300 MG PO BID for 30 Days Tramadol HCl (Tramadol HCl) 50 Mg Tab 50 MG PO Q6H PRN for Pain, #10 TAB 0 Refills Continued Medications: Acetaminophen (Tylenol) 500 Mg Tab 500 MG PO Q4H PRN for UNDECIDED, TAB Atorvastatin (Lipitor) 20 Mg Tab 20 MG PO DAILY, TAB Cholecalciferol (Vitamin D) 2,000 Unit Tab 4000 UNITS PO DAILY Docusate Sodium (Docusate Sodium) 100 Mg Cap 100 MG PO BID for 7 Days, #14 CAP Insulin Aspart (Novolog Flexpen) 100 Units/Ml Inj 15 UNITS SC TIDM Insulin Aspart (Novolog Flexpen) 100 Units/Ml Inj 1 DOSE SC ACHS LESS THAN 70 = HYPGLYCEMIA PROTOCOL 70-130 = 0 UNITS 131-180 = 4 UNITS 181-240 = 8 UNITS 241-300 = 10 UNITS 301-350 = 12 UNITS 351-400 = 16 UNITS GREATER THAN 400 = 20 UNITS / CALL Insulin Glargine (Lantus Solostar) 100 Unit/Ml Inj 60 UNITS SC HS, PEN Levetiracetam (Keppra) 500 Mg Tab 500 MG PO BID, TAB Magnesium Hydroxide (Milk Of Magnesia) 30 Ml Susp 30 ML PO DAILY PRN for Constipation, ML Multivitamin (Multivitamin) Tab 1 TAB PO DAILY, TAB Nystatin (Topical) (Nystatin) 100,000 Unit/Gm Pow 1 APPLN TOP BID Pantoprazole (Protonix) 40 Mg Tab 40 MG PO DAILY, #30 TAB Admission Information HPI (per Admitting provider): DATE OF ADMISSION: 06/08/2017 CHIEF COMPLAINT: Acute renal failure and a history of hypertension. HISTORY OF PRESENT ILLNESS: This is a 56-year-old male with a past medical history significant for diabetes, hyperlipidemia, hypertension, GERD, questionable seizures, morbid obesity and recently diagnosed with postinfectious autoimmune encephalomyelitis, presents from rehab for hypotension and not feeling well and found to have acute kidney failure. The patient has been admitted in May 06 and also May 22 with confusion and when he was first admitted in May 06, his altered mental status was thought to be secondary to hyperglycemia and his hba1c was greater than 12 and was placed on Lantus and NovoLog and was discharged, but after going home, he was not getting better. During first admission, also EEG and MRI of the brain and a nocturnal pulse ox were okay except for an old brain cyst, but after discharge, he was again getting more and more confused and having word finding difficulties and his family doctor put him on Lexapro, but he was not getting better and he was readmitted on May 22 to [facility] as he was having some facial droop and some weakness . He was not given TPA was not given as he was out of the window and CT head was unremarkable . He admitted to the telemetry floor and in the night, he had episode of seizure activity and received iv Ativan.. Then he became hypoxic and was transferred to the ICU and then in the night, he had another episode of seizure and was loaded with Dilantin and the next day, he was transferred to [place] for further workup. In [place], LP was done and it showed elevated WBCs and because of viral like infection before all this symptoms started, it was thought to be postinfectious autoimmune encephalomyelitis and he was given plasmapheresis 5 times every other day, after which his mental status much improved .Today seems like his mental status seems to be back to baseline. During the second hospital course received antibiotic vancomycin and Zosyn.In [place], he also has an anion gap metabolic acidosis,thought to be from atypical DKA. He did fine and since he was deconditioned, he was transferred to [facility]. In the [facility], he was walking with the help of assistance, but he is complaining of pain all over his body and today, he was also found to be hypotensive and was transferred to [facility] and his labs showed a creatinine of 3.6. Currently, resting comfortably except for pain all over the body. Denies any other complaints. Denies any fever or chills. No cough. No runny nose. No sore throat. No difficulty swallowing. No chest pain. No abdominal pain. Says that he is urinating okay. Normal bowel movements. No diarrhea. No vomiting. He has some swelling in the legs. Blood pressure is okay here in the ER. Physical Exam (per Admitting): GENERAL: The patient is morbidly obese, not in distress. VITAL SIGNS: Temperature 36.6, pulse 65, respiratory rate 16, blood pressure 90/52, and oxygen 97% on room air. HEENT: No pallor. No icterus. Pupils equal and round react to light. NECK: No JVD, no neck masses, and no carotid bruits. CARDIOVASCULAR: S1 and S2 heard. Regular rate and rhythm. No murmur. No gallop. RESPIRATORY SYSTEM: No accessory muscle use. No wheezing. No crackles. ABDOMEN: Soft. Bowel sounds present. Nontender. No distention. CENTRAL NERVOUS SYSTEM: Cranial nerves II-XII grossly intact. Alert and oriented x3. Nonfocal. EXTREMITIES: No extremity edema. No erythema seen. Hospital Course ACUTE KIDNEY INJURY, RESOLVED LIKELY PRE-RENAL ETIOLOGY Serum creatinine at time of admission 3.69. UA benign. Seen by Nephrology Dr. Rajput -- given IV NSS crea improved from 3.69 to 1.09 (baseline around 0.9) -- encouraged to ensure adequate daily fluid intake monitor renal function periodically RECENT POSTINFECTIOUS AUTOIMMUNE ENCEPHALOMYELITIS NEW ONSET SEIZURE - diagnosed earlier this month during hospitalization in [facility] - per Discharge Summary: "Given progressive decline s/p viral prodrome, AMS, and new onset seizure, there was concern for post-infectious autoimmune encephalopathy. He had a lumbar puncture which showed elevated protein and WBCs, consistent with diagnosis. 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 He was started on plasmapheresis with much improvement in mental status. He completed 5 treatments (every other day) with last treatment on 06/02/17." -evaluated by Dr. Gunderson- Neurologist will continue Keppra BID for at least 6 months as recommended ff up with Neurology BORDERLINE HYPOTENSION, RESOLVED - from dehydration? IV NSS given improved - from Percocet? d/c Percocet, PRN Tramadol ordered - BP improving, now systolic 140s monitor BILATERAL KNEE, FEET PAIN - from DM Neuropathy? Osteoarthritis? r/o RA - ESR and Rheum Factor Normal - PRN Tylenol, Tramadol PT/OT DIABETES MELLITUS TYPE 2 Not well-controlled. Hgb A1C 12.1 05/23/17. Lantus / NovoLog per protocol. -- monitor BSGs closely MORBID OBESITY BMI 47. AHA / diabetic diet. VTE PROPHYLAXIS SQ heparin given DISPOSITION d/c to [facility] patient to be followed by Dr. Shankar ff up with Neurologist as outpatient- patient's prefers to follow up with Dr. Amato Total time spent on discharge = 35 minutes This includes examination of the patient, discharge planning, medication reconciliation, and communication with other providers. Discharge Instructions Discharge Instructions Date of Service Jun 13, 2017. Admission Reason for Admission: Acute Renal Failure Discharge Discharge Diagnosis / Problem: ACUTE RENAL FAILURE, RESOLVED Discharge Goals Goal(s): Diagnostic testing, Therapeutic intervention Activity Recommendations Activity Level: Assistance Required Therapies: Physical Therapy, Occupational Therapy . Additional Information Patient informed of condition: Yes Advance Directives: No (UNKNOWN) DNR: No (PATIENT IS FULL CODE) Level of Care: Acute Rehab Communicable Disease: No Prognosis: Improving Instructions / Follow-Up Instructions / Follow-Up PLEASE REFER TO ACCOMPANYING DISCHARGE SUMMARY. Current Hospital Diet Patient's current hospital diet: AHA Diet (Heart Healthy), Diabetes Type 2 Diet , Renal Diet Discharge Diet Recommended Diet: AHA Diet (Heart Healthy), Diabetes Type 2 Diet Procedures Procedures Performed: CHEST XRAY Pending Studies Studies pending at discharge: yes List of pending studies: PLEASE REFER TO ACCOMPANYING DISCHARGE SUMMARY. Physician Orders On Transfer Special Precautions: PLEASE REFER TO ACCOMPANYING DISCHARGE SUMMARY. Laboratory Results Hemoglobin A1c Test 05/23/17 05:54 Range/Units Estimated Average Glucose 301 mg/dl Hemoglobin A1c 12.1 H 4.5-5.6 % Lipid Panel Test 05/23/17 05:54 Range/Units Triglycerides Level 55 0-150 mg/dl Cholesterol Level 81 0-200 mg/dl HDL Cholesterol 44 mg/dl Cholesterol/HDL Ratio 1.8 LDL Cholesterol, Calculated 26 mg/dl Medical Emergencies . Who to Call and When: Medical Emergencies: If at any time you feel your situation is an emergency, please call 911 immediately. . Non-Emergent Contact Non-Emergency issues call your: Primary Care Provider, Neurologist Call Non-Emergent contact if: you have a fever, your pain is not controlled, your pain is worsening, you have any medication questions . Past History Medical & Surgical History: (1) Seizure (2) Acute renal failure (3) DM (diabetes mellitus), type 2, uncontrolled (4) Diabetes mellitus, type 2 (5) Hypertension (6) Dyslipidemia (7) Abnormal CT of brain (8) Obesity, morbid, BMI 40.0-49.9 (9) Altered mental status . "Provider Documentation" section prepared by Alejandro Sanford. . Core Measure Problem Core Measures: None [place] Drug Monitoring Program Search Results: patient reviewed within database, no issues identified
[2017-06-13] MEDS: TRAMADOL HCL 50 MG TAB PO PRN (16:00)
== END 2017-06-13 18:35 | DRG 682 ==
LOC: C.EDB 10:01 → EDBD 10:01 → C.2E 13:36 → ENRESERV 14:57 → C.4E 06-10 12:32
PROVIDERS: ADMIT Internal Medicine; ATTEND Internal Medicine
DX: N17.9 Acute kidney failure, unspecified (principal); G04.01 Postinfectious acute disseminated encephalitis and encephalomyelitis (postinfectious ADEM); Z68.42 Body mass index [BMI] 45.0-49.9, adult; E11.9 Type 2 diabetes mellitus without complications; E78.5 Hyperlipidemia, unspecified; I10 Essential (primary) hypertension; E66.01 Morbid (severe) obesity due to excess calories; I95.9 Hypotension, unspecified; G40.909 Epilepsy, unspecified, not intractable, without status epilepticus; K21.9 Gastro-esophageal reflux disease without esophagitis; Z79.4 Long term (current) use of insulin; Z79.899 Other long term (current) drug therapy; Z87.891 Personal history of nicotine dependence

== ENCOUNTER 2021-10-07 14:02 | Inpatient (IN) ==
[2021-10-07] MEDS ORDERED: SODIUM CHLORIDE 0.9% 1000ML 1,000 ML IV ONE ×2 (14:24→15:25)
[2021-10-07 14:30] LABS: iSTAT Creatinine 1.6 mg/dl (0.6-1.3); iSTAT Hemoglobin 12.2 g/dl (14.0-18.0); iSTAT Ionized Calcium 1.22 mmol/l (1.12-1.32); iSTAT Potassium 4.5 mmol/L (3.3-5.0)
[2021-10-07 14:38] LABS: Basophils # (auto) 0.02 K/uL (0-0.2); Basophils % (auto) 0.1 %; Hematocrit (blood only) 35.9 % (42-52); Hemoglobin 11.9 g/dL (14.0-18.0); Immature Granulocytes # (auto) 0.05 K/uL (0.00-0.02); Immature Granulocytes % (auto) 0.3 %; Lymphocytes % (auto) 6.5 %; Mean Corpuscular Hemoglobin 30.1 pg (25-34); Mean Corpuscular Hgb Conc 33.1 g/dL (32-36); Mean Corpuscular Volume 90.9 fL (80-100); Mean Platelet Volume 10.6 fL (7.4-10.4); Monocytes # (auto) 1.23 K/uL (0.11-0.59); Monocytes % (auto) 7.2 %; Neutrophils # (auto) 14.57 K/uL (1.4-6.5); Neutrophils % (auto) 85.9 %; Platelet Count 300 K/uL (130-400); RDW Coefficient of Variation 13.6 % (11.5-14.5); RDW Standard Deviation 45.3 fL (36.4-46.3); Red Blood Count 3.95 M/uL (4.7-6.1); White Blood Count 16.97 K/uL (4.8-10.8)
--- NOTE | 2021-10-07 14:40 | Emergency Department Note ---
Impression & Plan DKA (diabetic ketoacidosis), AMS (altered mental status), Headache ED Provider Note NAME: JEVON TAVERAS AGE: 60 SEX: M : 1960 ARRIVES VIA: Ambulance INFORMANT: Patient, EMS, the patient's significant other ED PROVIDER(S): Dante Jones DO CHIEF COMPLAINT: Altered mental status HPI: The patient is a 60-year-old male who presented to the emergency department for an evaluation of altered mental status. I did receive a prehospital notification about this patient. His significant other called 911 thinking the patient might be having a stroke. He has been having worsening mental status over the course of the last few days. He has been complaining of a headache which has been ongoing for the last few weeks. He has been using Tylenol as well as a sinus medication every day for approximately 3 weeks. This does co ntain Tylenol. He was noted to have epistaxis recently. The patient is also been noted to have elevated blood sugar and confusion. also thought he may have a facial droop. He does have a history of altered mental status and seizure in the past. She states otherwise he has been compliant with his outpatient medications. He had no reported fever. He had no reported trauma. ROS: See above HPI for pertinent positives & negatives. A total of 10 systems reviewed and were otherwise negative. PAST MEDICAL HISTORY: See Below PAST SURGICAL HISTORY: See Below FAMILY HISTORY: See Below SOCIAL HISTORY: See Below HOME MEDICATIONS: See Below ALLERGIES: See Below VITALS: See Below PHYSICAL EXAMINATION: GENERAL: The patient is awake and looking around the room. He is slow to answer questions and appears somewhat obtunded. EYES: The conjunctivae are clear. The pupils are round and reactive. EARS, NOSE, MOUTH AND THROAT: The nose is without any evidence of any deformity. Mucous membranes are moist. There is dried blood noted over the face it is unclear if this is from his nose or from his emesis. NECK: The neck is nontender and supple. RESPIRATORY: Shallow respirations were noted. Diminished breath sounds are noted throughout. CARDIOVASCULAR: Regular rate and rhythm noted there no murmurs rubs or gallops normal S1 normal S2. GASTROINTESTINAL: The abdomen is soft and nontender. Stool is brown and heme- negative. MUSCULOSKELETAL/EXTREMITIES: There is no evidence of gross deformity full range of motion is noted in the hips and shoulders. SKIN: Skin is cool and dry. Trace pedal edema is noted bilaterally. NEUROLOGIC: The patient was awake and oriented to person place but not time. He does follow commands and moves extremities well. There is no facial droop appreciated on my exam. MEDICAL DECISION MAKING: Patient is a 60-year-old male who presented to the emergency department for an evaluation of altered mental status. The patient has had worsening altered status over the last few weeks. He is also been complaining of headache and using excessive amount of Tylenol. The patient arrived at the emergency department and appeared to be obtunded. I discussed the patient's laboratory and radiographic studies with him. I also discussed his case with the on-call [facility]. He was treated as septic including blood cultures IV fluids and IV antibiotics. He also received IV insulin for DKA findings. Triage Nursing notes reviewed. Prior medical records reviewed Vital Signs: reviewed and remarkable for febrile all Differential diagnosis: Infection, hypoglycemia, electrolyte abnormalities, overdose, toxicologic, cardiac sources, intracerebral event, neurologic, trauma, as well as other pathologies. ER treatment provided: See below Diagnostics interpreted by me: ECG: EKG was obtained in the emergency department. My interpretation is normal sinus rhythm at 70 bpm. PVCs were noted. There is no acute ST segment abnormalities noted. This was compared to a tracing from June 08, 2017. The ectopy was new otherwise no changes were noted. Cardiac Monitoring: An order was placed for continuous cardiac monitoring. The monitor shows a rate of 66 bpm with sinus rhythm. Laboratory studies: As stated above and show below. Imaging studies: See below Consultation(s): I discussed this case with Dr. Oscar who is on-call for the [facility] group. ED COURSE: Procedures: none Critical Care: I have personally spent greater than 35 minutes of critical care time in the direct management of this patient. This includes bedside care, interpretation of diagnostic studies, and testing, discussion with consultants, patient, and family members, and other required patient management activities. This 35 minutes is in excess of all separately billable procedures. Past Med/Surg History Medical History Abnormal CT of brain Altered mental status Diabetes mellitus, type 2 DM (diabetes mellitus), type 2, uncontrolled Dyslipidemia Hypertension Obesity, morbid, BMI 40.0-49.9 Seizure Social History Smoking Status: Former smoker Tobacco Type: Cigarettes Hx Alcohol Use: No Hx Substance Use: No Preferred Language: Panamanian Communication Ability: Effective Building Services Technician Required: No Beliefs That Will Affect Care: None Current Living Situation: Spouse Other Information That Helps Us Care for You: No Feels Safe at Home: Yes Safety Concerns: Feels Safe At This Time Assistive Devices: None Allergies Allergies Allergy/AdvReac Type Severity Reaction Status Date / Time No Known Allergies Allergy Unverified 05/22/17 15:36 Home Meds Home Medications Medication Instructions Recorded Confirmed atorvastatin 20 mg tablet 20 mg PO DAILY 10/07/21 10/07/21 donepezil 5 mg tablet 5 mg PO DAILY 10/07/21 10/07/21 empagliflozin 10 mg tablet 10 mg PO DAILY 10/07/21 10/07/21 (Jardiance) insulin glargine 100 unit/mL (3 0 unit SUBCUT DAILY 10/07/21 10/07/21 mL) subcutaneous pen (Lantus Solostar U-100 Insulin) levothyroxine 25 mcg tablet 25 mcg PO DAILY 10/07/21 10/07/21 lisinopril 10 mg tablet 10 mg PO DAILY 10/07/21 10/07/21 metformin 500 mg tablet,extended 500 mg PO DAILY 10/07/21 10/07/21 release 24 hr sertraline 25 mg tablet 25 mg PO DAILY 10/07/21 10/07/21 Results & Data (ED) Vital Signs Vital Signs - 24 hr 10/07/21 14:09 10/07/21 14:28 10/07/21 14:54 Temperature 37.0 C Temperature Source Oral Pulse Rate 91 H Pulse Rate [Apical] Respiratory Rate 22 22 Respiratory Effort / Characteristics Non-Labored Spontaneous Non-Labored Spontaneous Non-Labored Spontaneous Respiratory Depth Normal Respiratory Pattern Regular Blood Pressure 128/69 Blood Pressure [Right Arm] Blood Pressure Mean 88 Blood Pressure Mean [Right Arm] Blood Pressure Position Sitting Blood Pressure Position [Right Arm] Pulse Oximetry 94 98 97 Oxygen Delivery Method Room Air Room Air Room Air Sepsis Recent Fever Within 48 Hours No Sepsis New/Unexplained Change in Mental Status N/A Sepsis Action Taken by Nursing No Action Required 10/07/21 15:24 10/07/21 15:54 10/07/21 16:24 Temperature Temperature Source Pulse Rate Pulse Rate [Apical] Respiratory Rate 22 20 22 Respiratory Effort / Characteristics Non-Labored Spontaneous Non-Labored Spontaneous Non-Labored Spontaneous Respiratory Depth Respiratory Pattern Blood Pressure Blood Pressure [Right Arm] Blood Pressure Mean Blood Pressure Mean [Right Arm] Blood Pressure Position Blood Pressure Position [Right Arm] Pulse Oximetry 98 97 97 Oxygen Delivery Method Room Air Room Air Room Air Sepsis Recent Fever Within 48 Hours Sepsis New/Unexplained Change in Mental Status Sepsis Action Taken by Nursing 10/07/21 16:26 10/07/21 16:30 Temperature Temperature Source Pulse Rate Pulse Rate [Apical] 81 Respiratory Rate 20 22 Respiratory Effort / Characteristics Non-Labored Spontaneous Non-Labored Spontaneous Respiratory Depth Normal Respiratory Pattern Regular Blood Pressure Blood Pressure [Right Arm] 128/68 Blood Pressure Mean Blood Pressure Mean [Right Arm] 88 Blood Pressure Position Blood Pressure Position [Right Arm] Sitting Pulse Oximetry 97 97 Oxygen Delivery Method Room Air Room Air Sepsis Recent Fever Within 48 Hours Sepsis New/Unexplained Change in Mental Status Sepsis Action Taken by [facility] Medications Current Medication List: was personally reviewed by me Laboratory Data Attestation: I reviewed the patient's lab results. Result diagrams: 10/07/21 14:15 10/07/21 17:20 Lab Results 10/07/21 10/07/21 10/07/21 Range/Units 14:08 14:15 14:15 WBC 16.97 H (4.8-10.8) K/uL RBC 3.95 L (4.7-6.1) M/uL Hgb 11.9 L (14.0-18.0) g/dL POC Hgb (14.0-18.0) g/dl Hct 35.9 L (42-52) % POC Hct (42-52) % MCV 90.9 (80-100) fL MCH 30.1 (25-34) pg MCHC 33.1 (32-36) g/dL RDW Std Deviation 45.3 (36.4-46.3) fL RDW Coeff of Justice 13.6 (11.5-14.5) % Plt Count 300 (130-400) K/uL MPV 10.6 H (7.4-10.4) fL Immature Gran % (Auto) 0.3 % Neut % (Auto) 85.9 % Lymph % (Auto) 6.5 % Saline % (Auto) 7.2 % Eos % (Auto) 0.0 % Baso % (Auto) 0.1 % Neut # (Auto) 14.57 H (1.4-6.5) K/uL Lymph # (Auto) 1.10 L (1.2-3.4) K/uL Saline # (Auto) 1.23 H (0.11-0.59) K/uL Eos # (Auto) 0.00 (0-0.5) K/uL Baso # (Auto) 0.02 (0-0.2) K/uL Immature Gran # (Auto) 0.05 H (0.00-0.02) K/uL ESR 33 H (0-20) mm/hr PT INR APTT PTT Ratio VBG pH (7.36-7.41) VBG pCO2 (38-50) mmHg VBG pO2 mmHg VBG HCO3 mmol/L VBG O2 Saturation % VBG Base Excess mEq/L Barometric Pressure mm/Hg POC Sodium (135-144) mmol/L Sodium (136-145) mmol/L POC Potassium (3.3-5.0) mmol/L Potassium (3.5-5.1) mmol/L POC Chloride (101-112) mmol/L Chloride (98-107) mmol/L Carbon Dioxide (21-32) mmol/L POC Total CO2 (24-31) mmol/L Anion Gap (3-11) POC Anion Gap (16-25) mmol/L POC BUN (7-18) mg/dl BUN (6-23) mg/dl Creatinine (0.6-1.4) mg/dl POC Creatinine (0.6-1.3) mg/dl Est Cr Clr Drug Dosing ml/min Est GFR ( Amer) ml/min Est GFR (Non-Af Amer) ml/min BUN/Creatinine Ratio (10-20) Glucose (70-99(Fasting)) mg/dl POC Glucose > 600 H* (70-99) mg/dl POC Glucose (other) (70-99) mg/dl Osmolality (280-300) mOsm/kg Lactate (0.4-2.0) mmol/L Calcium (8.5-10.1) mg/dl POC Ioniz Calcium Britney (1.12-1.32) mmol/l Magnesium (1.7-2.4) mg/dl Total Bilirubin (0.2-1.0) mg/dl AST (13-39) U/L ALT (7-52) U/L Alkaline Phosphatase (34-104) U/L Ammonia (18-72) umol/L C-Reactive Protein (0-0.5) mg/dl Total Protein (6.0-8.3) gm/dl Albumin (3.4-5.0) gm/dl Globulin (2.5-4.0) gm/dl Albumin/Globulin Ratio (0.9-2) Salicylates (3.0-30) mg/dl Acetaminophen (10-30) ug/ml Ethyl Alcohol mg/dL (<10.0) mg/dl SARS-CoV-2, RNA, NAAT (NEGATIVE) 10/07/21 10/07/21 10/07/21 Range/Units 14:15 14:15 14:15 WBC (4.8-10.8) K/uL RBC (4.7-6.1) M/uL Hgb (14.0-18.0) g/dL POC Hgb (14.0-18.0) g/dl Hct (42-52) % POC Hct (42-52) % MCV (80-100) fL MCH (25-34) pg MCHC (32-36) g/dL RDW Std Deviation (36.4-46.3) fL RDW Coeff of Justice (11.5-14.5) % Plt Count (130-400) K/uL MPV (7.4-10.4) fL Immature Gran % (Auto) % Neut % (Auto) % Lymph % (Auto) % Saline % (Auto) % Eos % (Auto) % Baso % (Auto) % Neut # (Auto) (1.4-6.5) K/uL Lymph # (Auto) (1.2-3.4) K/uL Saline # (Auto) (0.11-0.59) K/uL Eos # (Auto) (0-0.5) K/uL Baso # (Auto) (0-0.2) K/uL Immature Gran # (Auto) (0.00-0.02) K/uL ESR (0-20) mm/hr PT Cancelled INR Cancelled APTT Cancelled PTT Ratio Cancelled VBG pH (7.36-7.41) VBG pCO2 (38-50) mmHg VBG pO2 mmHg VBG HCO3 mmol/L VBG O2 Saturation % VBG Base Excess mEq/L Barometric Pressure mm/Hg POC Sodium (135-144) mmol/L Sodium 128 L (136-145) mmol/L POC Potassium (3.3-5.0) mmol/L Potassium 4.2 (3.5-5.1) mmol/L POC Chloride (101-112) mmol/L Chloride 95 L (98-107) mmol/L Carbon Dioxide 19 L (21-32) mmol/L POC Total CO2 (24-31) mmol/L Anion Gap 14 H (3-11) POC Anion Gap (16-25) mmol/L POC BUN (7-18) mg/dl BUN 35 H (6-23) mg/dl Creatinine 1.81 H (0.6-1.4) mg/dl POC Creatinine (0.6-1.3) mg/dl Est Cr Clr Drug Dosing 52.0 ml/min Est GFR ( Amer) 45.7 ml/min Est GFR (Non-Af Amer) 39.5 ml/min BUN/Creatinine Ratio 19.3 (10-20) Glucose 707 H* (70-99(Fasting)) mg/dl POC Glucose (70-99) mg/dl POC Glucose (other) (70-99) mg/dl Osmolality 311 H (280-300) mOsm/kg Lactate (0.4-2.0) mmol/L Calcium 9.2 (8.5-10.1) mg/dl POC Ioniz Calcium Britney (1.12-1.32) mmol/l Magnesium 1.5 L (1.7-2.4) mg/dl Total Bilirubin 0.8 (0.2-1.0) mg/dl AST 21 (13-39) U/L ALT 15 (7-52) U/L Alkaline Phosphatase 73 (34-104) U/L Ammonia (18-72) umol/L C-Reactive Protein 3.89 H (0-0.5) mg/dl Total Protein 6.7 (6.0-8.3) gm/dl Albumin 4.2 (3.4-5.0) gm/dl Globulin 2.5 (2.5-4.0) gm/dl Albumin/Globulin Ratio 1.7 (0.9-2) Salicylates (3.0-30) mg/dl Acetaminophen (10-30) ug/ml Ethyl Alcohol mg/dL (<10.0) mg/dl SARS-CoV-2, RNA, NAAT (NEGATIVE) 10/07/21 10/07/21 10/07/21 Range/Units 14:15 14:15 14:15 WBC (4.8-10.8) K/uL RBC (4.7-6.1) M/uL Hgb (14.0-18.0) g/dL POC Hgb (14.0-18.0) g/dl Hct (42-52) % POC Hct (42-52) % MCV (80-100) fL MCH (25-34) pg MCHC (32-36) g/dL RDW Std Deviation (36.4-46.3) fL RDW Coeff of Justice (11.5-14.5) % Plt Count (130-400) K/uL MPV (7.4-10.4) fL Immature Gran % (Auto) % Neut % (Auto) % Lymph % (Auto) % Saline % (Auto) % Eos % (Auto) % Baso % (Auto) % Neut # (Auto) (1.4-6.5) K/uL Lymph # (Auto) (1.2-3.4) K/uL Saline # (Auto) (0.11-0.59) K/uL Eos # (Auto) (0-0.5) K/uL Baso # (Auto) (0-0.2) K/uL Immature Gran # (Auto) (0.00-0.02) K/uL ESR (0-20) mm/hr PT INR APTT PTT Ratio VBG pH (7.36-7.41) VBG pCO2 (38-50) mmHg VBG pO2 mmHg VBG HCO3 mmol/L VBG O2 Saturation % VBG Base Excess mEq/L Barometric Pressure mm/Hg POC Sodium (135-144) mmol/L Sodium (136-145) mmol/L POC Potassium (3.3-5.0) mmol/L Potassium (3.5-5.1) mmol/L POC Chloride (101-112) mmol/L Chloride (98-107) mmol/L Carbon Dioxide (21-32) mmol/L POC Total CO2 (24-31) mmol/L Anion Gap (3-11) POC Anion Gap (16-25) mmol/L POC BUN (7-18) mg/dl BUN (6-23) mg/dl Creatinine (0.6-1.4) mg/dl POC Creatinine (0.6-1.3) mg/dl Est Cr Clr Drug Dosing ml/min Est GFR ( Amer) ml/min Est GFR (Non-Af Amer) ml/min BUN/Creatinine Ratio (10-20) Glucose (70-99(Fasting)) mg/dl POC Glucose (70-99) mg/dl POC Glucose (other) (70-99) mg/dl Osmolality (280-300) mOsm/kg Lactate 1.7 (0.4-2.0) mmol/L Calcium (8.5-10.1) mg/dl POC Ioniz Calcium Britney (1.12-1.32) mmol/l Magnesium (1.7-2.4) mg/dl Total Bilirubin (0.2-1.0) mg/dl AST (13-39) U/L ALT (7-52) U/L Alkaline Phosphatase (34-104) U/L Ammonia (18-72) umol/L C-Reactive Protein (0-0.5) mg/dl Total Protein (6.0-8.3) gm/dl Albumin (3.4-5.0) gm/dl Globulin (2.5-4.0) gm/dl Albumin/Globulin Ratio (0.9-2) Salicylates < 3.0 L (3.0-30) mg/dl Acetaminophen < 3 L (10-30) ug/ml Ethyl Alcohol mg/dL < 10.0 (<10.0) mg/dl SARS-CoV-2, RNA, NAAT (NEGATIVE) 10/07/21 10/07/21 10/07/21 Range/Units 14:17 14:50 14:50 WBC (4.8-10.8) K/uL RBC (4.7-6.1) M/uL Hgb (14.0-18.0) g/dL POC Hgb 12.2 L (14.0-18.0) g/dl Hct (42-52) % POC Hct 36 L (42-52) % MCV (80-100) fL MCH (25-34) pg MCHC (32-36) g/dL RDW Std Deviation (36.4-46.3) fL RDW Coeff of Justice (11.5-14.5) % Plt Count (130-400) K/uL MPV (7.4-10.4) fL Immature Gran % (Auto) % Neut % (Auto) % Lymph % (Auto) % Saline % (Auto) % Eos % (Auto) % Baso % (Auto) % Neut # (Auto) (1.4-6.5) K/uL Lymph # (Auto) (1.2-3.4) K/uL Saline # (Auto) (0.11-0.59) K/uL Eos # (Auto) (0-0.5) K/uL Baso # (Auto) (0-0.2) K/uL Immature Gran # (Auto) (0.00-0.02) K/uL ESR (0-20) mm/hr PT INR APTT PTT Ratio VBG pH 7.34 L (7.36-7.41) VBG pCO2 39 (38-50) mmHg VBG pO2 19 mmHg VBG HCO3 21 mmol/L VBG O2 Saturation < 60.0 % VBG Base Excess -4.6 mEq/L Barometric Pressure 731.9 mm/Hg POC Sodium 130 L (135-144) mmol/L Sodium (136-145) mmol/L POC Potassium 4.5 (3.3-5.0) mmol/L Potassium (3.5-5.1) mmol/L POC Chloride 99 L (101-112) mmol/L Chloride (98-107) mmol/L Carbon Dioxide (21-32) mmol/L POC Total CO2 21 L (24-31) mmol/L Anion Gap (3-11) POC Anion Gap 17.0 (16-25) mmol/L POC BUN 32 H (7-18) mg/dl BUN (6-23) mg/dl Creatinine (0.6-1.4) mg/dl POC Creatinine 1.6 H (0.6-1.3) mg/dl Est Cr Clr Drug Dosing ml/min Est GFR ( Amer) ml/min Est GFR (Non-Af Amer) ml/min BUN/Creatinine Ratio (10-20) Glucose (70-99(Fasting)) mg/dl POC Glucose (70-99) mg/dl POC Glucose (other) 691 H* (70-99) mg/dl Osmolality (280-300) mOsm/kg Lactate (0.4-2.0) mmol/L Calcium (8.5-10.1) mg/dl POC Ioniz Calcium Britney 1.22 (1.12-1.32) mmol/l Magnesium (1.7-2.4) mg/dl Total Bilirubin (0.2-1.0) mg/dl AST (13-39) U/L ALT (7-52) U/L Alkaline Phosphatase (34-104) U/L Ammonia 26.0 (18-72) umol/L C-Reactive Protein (0-0.5) mg/dl Total Protein (6.0-8.3) gm/dl Albumin (3.4-5.0) gm/dl Globulin (2.5-4.0) gm/dl Albumin/Globulin Ratio (0.9-2) Salicylates (3.0-30) mg/dl Acetaminophen (10-30) ug/ml Ethyl Alcohol mg/dL (<10.0) mg/dl SARS-CoV-2, RNA, NAAT (NEGATIVE) 10/07/21 10/07/21 10/07/21 Range/Units 14:57 15:31 15:44 WBC (4.8-10.8) K/uL RBC (4.7-6.1) M/uL Hgb (14.0-18.0) g/dL POC Hgb (14.0-18.0) g/dl Hct (42-52) % POC Hct (42-52) % MCV (80-100) fL MCH (25-34) pg MCHC (32-36) g/dL RDW Std Deviation (36.4-46.3) fL RDW Coeff of Justice (11.5-14.5) % Plt Count (130-400) K/uL MPV (7.4-10.4) fL Immature Gran % (Auto) % Neut % (Auto) % Lymph % (Auto) % Saline % (Auto) % Eos % (Auto) % Baso % (Auto) % Neut # (Auto) (1.4-6.5) K/uL Lymph # (Auto) (1.2-3.4) K/uL Saline # (Auto) (0.11-0.59) K/uL Eos # (Auto) (0-0.5) K/uL Baso # (Auto) (0-0.2) K/uL Immature Gran # (Auto) (0.00-0.02) K/uL ESR (0-20) mm/hr PT 11.8 INR 1.1 APTT 27.9 PTT Ratio 1.0 VBG pH (7.36-7.41) VBG pCO2 (38-50) mmHg VBG pO2 mmHg VBG HCO3 mmol/L VBG O2 Saturation % VBG Base Excess mEq/L Barometric Pressure mm/Hg POC Sodium (135-144) mmol/L Sodium (136-145) mmol/L POC Potassium (3.3-5.0) mmol/L Potassium (3.5-5.1) mmol/L POC Chloride (101-112) mmol/L Chloride (98-107) mmol/L Carbon Dioxide (21-32) mmol/L POC Total CO2 (24-31) mmol/L Anion Gap (3-11) POC Anion Gap (16-25) mmol/L POC BUN (7-18) mg/dl BUN (6-23) mg/dl Creatinine (0.6-1.4) mg/dl POC Creatinine (0.6-1.3) mg/dl Est Cr Clr Drug Dosing ml/min Est GFR ( Amer) ml/min Est GFR (Non-Af Amer) ml/min BUN/Creatinine Ratio (10-20) Glucose (70-99(Fasting)) mg/dl POC Glucose 598 H* (70-99) mg/dl POC Glucose (other) (70-99) mg/dl Osmolality (280-300) mOsm/kg Lactate (0.4-2.0) mmol/L Calcium (8.5-10.1) mg/dl POC Ioniz Calcium Britney (1.12-1.32) mmol/l Magnesium (1.7-2.4) mg/dl Total Bilirubin (0.2-1.0) mg/dl AST (13-39) U/L ALT (7-52) U/L Alkaline Phosphatase (34-104) U/L Ammonia (18-72) umol/L C-Reactive Protein (0-0.5) mg/dl Total Protein (6.0-8.3) gm/dl Albumin (3.4-5.0) gm/dl Globulin (2.5-4.0) gm/dl Albumin/Globulin Ratio (0.9-2) Salicylates (3.0-30) mg/dl Acetaminophen (10-30) ug/ml Ethyl Alcohol mg/dL (<10.0) mg/dl SARS-CoV-2, RNA, NAAT NEGATIVE (NEGATIVE) Administered Medications Insulin Human Regular 250 (units/ Sodium Chloride) 250 mls @ 10 mls/hr IV .Q24H YANETH; Protocol Stop: 11/06/21 17:44 Last Titration: 10/07/21 18:54 Dose: 10 units/hr, 10 mls/hr Documented by: [id number] Cosigned by: [id number] Titration: 10/07/21 18:35 Dose: 10 units/hr, 10 mls/hr Documented by: [id number] Cosigned by: [id number] Titration: 10/07/21 18:27 Dose: 10 units/hr, 10 mls/hr Documented by: [id number] Cosigned by: [id number] Admin: 10/07/21 17:33 Dose: 10 units/hr, 10 mls/hr Documented by: [id number] Cosigned by: [id number] Insulin Aspart (Insulin Aspart Per Unit) 0 units SC ACHS YANETH Stop: 11/06/21 16:29 Last Admin: 10/07/21 18:38 Dose: Not Given Documented by: [id number] Discontinued Medications Sodium Chloride (Nss 1000ml) 1,000 mls @ 999 mls/hr IV .Q1H1M ONE Stop: 10/07/21 15:24 Last Infusion: 10/07/21 15:48 Dose: 0 mls/hr Documented by: [id number] Admin: 10/07/21 14:38 Dose: 999 mls/hr Documented by: [id number] Piperacillin Sod/Tazobactam Sod (Zosyn) 4.5 gm in 120 mls @ 240 mls/hr IV NOW ONE Stop: 10/07/21 15:54 Last Infusion: 10/07/21 16:24 Dose: 0 mls/hr Documented by: [id number] Admin: 10/07/21 15:46 Dose: 240 mls/hr Documented by: [id number] Magnesium Sulfate/Dextrose (Magnesium Sulfate / D5w) 1 gm in 100 mls @ 100 mls/hr IV Q1H YANETH Stop: 10/07/21 17:25 Last Infusion: 10/07/21 18:27 Dose: 0 mls/hr Documented by: [id number] Admin: 10/07/21 17:29 Dose: 100 mls/hr Documented by: [id number] Infusion: 10/07/21 17:29 Dose: 0 mls/hr Documented by: [id number] Admin: 10/07/21 15:58 Dose: 100 mls/hr Documented by: [id number] Sodium Chloride (Nss 1000ml) 1,000 mls @ 999 mls/hr IV .Q1H1M ONE Stop: 10/07/21 16:25 Last Infusion: 10/07/21 17:59 Dose: 0 mls/hr Documented by: [id number] Admin: 10/07/21 15:51 Dose: 999 mls/hr Documented by: [id number] Sodium Chloride (Nss 1000ml) 1,000 mls @ 150 mls/hr IV .Q6H40M [facility] Stop: 11/06/21 16:59 Last Admin: 10/07/21 18:56 Dose: 150 mls/hr Documented by: [id number] Insulin Human Regular (Novolin-R Bolus From Bag) 10 units IV ONE ONE Stop: 10/07/21 17:31 Last Admin: 10/07/21 17:34 Dose: 10 units Documented by: [id number] Cosigned by: [id number] Miscellaneous (Stat Insulin Drip) 1 ea N/A NOW STA Stop: 10/07/21 15:26 Last Admin: 10/07/21 17:28 Dose: 1 ea Documented by: [id number] Miscellaneous (Dka Goal Range 150-250 Mg/Dl) 1 ea N/A ONE ONE Stop: 10/07/21 15:26 Last Admin: 10/07/21 17:28 Dose: 1 ea Documented by: [id number] Imaging Data Radiologist's Impression: Abdomen/Pelvis CT 10/07/21 14:24 CT abd pelvis wo con CLINICAL HISTORY: GIB . Vomiting COMPARISON STUDY: No previous studies for comparison. CT DOSE: 1944.73 mGy.cm TECHNIQUE: Standard CT of the Abdomen and Pelvis was performed without IV contrast. The patient did not receive oral contrast. A dose lowering technique was utilized adhering to the principles of ALARA. FINDINGS: Lung base: The lung bases are clear. Abdominal cavity: There is no evidence for abdominal mass, adenopathy or ascites. Liver: The liver is homogeneous in attenuation on these limited noncontrast images.. Spleen: The spleen is homogeneous in attenuation on these limited noncontrast images. Pancreas: The pancreas is homogeneous in attenuation on these limited noncontrast images. Gall Bladder: The gallbladder is well distended with no evidence for cholelithiasis, wall thickening or pericholecystic edema.. Adrenal glands: The adrenal glands are normal in size and attenuation on these limited noncontrast images. Kidneys: The kidneys are homogeneous in attenuation on these limited noncontrast images. There is no evidence for gross renal mass, calculus or hydronephrosis bilaterally. Bowel: The bowel loops are normally placed within the abdomen and pelvis without evidence for dilatation or obstruction. There is no evidence for mass lesion. There are no inflammatory changes present. There is no evidence for free air. There is mild mucosal thickening of the rectosigmoid colon which is most likely related to nondistention. Follow-up direct visualization is recommended. Bladder: There is no evidence for focal bladder wall thickening, calculus or diverticulum. : There is no evidence for pelvic mass or adenopathy. Vasculature: There is no evidence for focal aneurysmal dilatation of the abdominal aorta. Osseous structures: There is no acute osseous pathology. IMPRESSION: 1. No acute intra-abdominal or pelvic abnormality on these limited noncontrast images. 2. Mild mucosal thickening of the rectosigmoid colon which is probably related to nondistention. Direct visualization is recommended for further evaluation. ACT 112: Positive. There are findings on this exam that require communication between the performing entity and the patient following Patient Test Result Information Act ([place] Act 112) guidelines. Electronically signed by: Junito Quintanilla M.D. 10/07/2021 3:40 PM Chest X-Ray 10/07/21 14:24 XR chest 1V portable CLINICAL HISTORY: SEPSIS. COMPARISON STUDY: 06/08/2017 TECHNIQUE: 1 view of the chest FINDINGS: Single frontal view of the chest demonstrates the cardiomediastinal silhouette to be within normal limits. There is a decreased inspiratory effort with elevation of the hemidiaphragms and crowding of the bronchovascular markings at the lung bases and centrally. The lungs are clear of alveolar opacities. There is no evidence for pleural effusion. There is no evidence for vascular congesti on. There is no acute osseous pathology. IMPRESSION: 1. There is a decreased inspiratory effort with otherwise no acute chest disease. ACT 112: Negative or not required by law. Electronically signed by: Junito Quintanilla M.D. 10/07/2021 3:[address] 10/07/21 14:24 CT head/brain wo con CLINICAL HISTORY: ams COMPARISON STUDY: 05/22/2017 CT DOSE: 614.27 mGy.cm TECHNIQUE: Standard CT of the Brain was performed without IV contrast. A dose lowering technique was utilized adhering to the principles of ALARA. FINDINGS: Extraaxial space: There is no evidence for subdural hematoma. There are no extra-axial fluid collections. Ventricles and cisterns: The ventricles are normal in size and configuration. There is no evidence for midline shift or mass effect. Parenchyma: There is no subarachnoid or intraparenchymal hemorrhage. There is no evidence for an acute infarct or cerebral edema. There is homogeneous attenuation of the brain parenchyma. There is a stable 3.1 left frontal cystic lesion. There are no other gross mass lesions. Osseous structures: There is no evidence for an acute fracture. The visualized paranasal sinuses are clear. The mastoid air cells are clear bilaterally. Soft tissues: There is no evidence for focal soft tissue swelling. IMPRESSION: 1. No acute intracerebral pathology. 2. Stable cystic lesion is again seen in the left frontal lobe. ACT 112: Negative or not required by law. Electronically signed by: Junito Quintanilla M.D. 10/07/2021 3:28 PM Discharge Plan Visit Data Chief Complaint: Hyperglycemia ED Provider: Dante Jones Discharge Problem: DKA (diabetic ketoacidosis), AMS (altered mental status), Headache Patient Disposition: Admitted As Inpatient Discharge Problem: DKA (diabetic ketoacidosis) Qualifiers: Diabetes mellitus type: other specified (including SAIGE) Diabetes mellitus complication detail: without coma Qualified Code(s): E13.10 - Other specified diabetes mellitus with ketoacidosis without coma AMS (altered mental status) Qualifiers: Altered mental status type: unspecified Qualified Code(s): R41.82 - Altered mental status, unspecified Headache Qualifiers: Headache type: unspecified Headache chronicity pattern: unspecified pattern Intractability: not intractable Qualified Code(s): R51.9 - Headache, unspecified
[2021-10-07 14:51] LABS: Acetaminophen < 3 ug/ml (10-30); Salicylate < 3.0 mg/dl (3.0-30)
[2021-10-07 14:58] LABS: Albumin Globulin Ratio 1.7 (0.9-2); Albumin Level 4.2 gm/dl (3.4-5.0); BUN Creatinine Ratio 19.3 (10-20); Bilirubin,Total 0.8 mg/dl (0.2-1.0); C Reactive Protein 3.89 mg/dl (0-0.5); Calcium 9.2 mg/dl (8.5-10.1); Est GFR (African American) 45.7 ml/min; Est GFR (Non-African American) 39.5 ml/min; Globulin 2.5 gm/dl (2.5-4.0); Magnesium 1.5 mg/dl (1.7-2.4); Potassium 4.2 mmol/L (3.5-5.1); Total Protein 6.7 gm/dl (6.0-8.3)
[2021-10-07 15:13] LABS: Base Excess VBG -4.6 mEq/L; HCO3 VBG 21 mmol/L; PCO2 VBG 39 mmHg (38-50); PO2 VBG 19 mmHg; pH VBG 7.34 (7.36-7.41)
--- NOTE | 2021-10-07 15:15 | Electrocardiogram Report ---
Test Reason : Blood Pressure : / mmHG Vent. Rate : 078 BPM Atrial Rate : 078 BPM P-R Int : 168 ms QRS Dur : 098 ms QT Int : 374 ms P-R-T Axes : 058 004 026 degrees QTc Int : 426 ms Poor data quality, interpretation may be adversely affected Sinus rhythm with occasional Premature ventricular complexes Otherwise normal ECG When compared with ECG of 08-JUN-2017 10:51, Premature ventricular complexes are now Present Confirmed by Dante Ferguson ([id number]) on 10/07/2021 3:15:36 PM Referred By: Confirmed By:Dante Ferguson
[2021-10-07 15:16] LABS: Oxygen Saturation VBG < 60.0 %
--- NOTE | 2021-10-07 15:18 | XRay Report ---
XR chest 1V portable CLINICAL HISTORY: SEPSIS. COMPARISON STUDY: 06/08/2017 TECHNIQUE: 1 view of the chest FINDINGS: Single frontal view of the chest demonstrates the cardiomediastinal silhouette to be within normal li mits. There is a decreased inspiratory effort with elevation of the hemidiaphragms and crowding of th e bronchovascular markings at the lung bases and centrally. The lungs are clear of alveolar opacities . There is no evidence for pleural effusion. There is no evidence for vascular congestion. There is n o acute osseous pathology. IMPRESSION: 1. There is a decreased inspiratory effort with otherwise no acute chest disease. ACT 112: Negative or not required by law. Electronically signed by: Junito Quintanilla M.D. 10/07/2021 3:17 PM
[2021-10-07] MEDS ORDERED: STAT INSULIN DRIP STA (15:25)
[2021-10-07] MEDS ORDERED: CARBOHYDRATES FOR HYPOGLYCEMIA PO PRN (15:25)
[2021-10-07] MEDS ORDERED: PIPERACILLIN/TAZOBACTAM 4.5 GM/120 ML BAG IV ONE (15:25)
[2021-10-07] MEDS ORDERED: GLUCAGON FOR INJ 1 MG VIAL SQ PRN (15:25)
[2021-10-07] MEDS ORDERED: GLUCOSE 40% GEL 15 GM TUBE PO PRN (15:25)
[2021-10-07] MEDS ORDERED: PIPERACILL/TAZOBAC CONSULT ACTIVE PRN (15:25)
[2021-10-07] MEDS ORDERED: DEXTROSE 50% 50 ML SYRINGE IV PRN (15:25)
[2021-10-07] MEDS ORDERED: DKA GOAL RANGE 150-250 mg/dl ONE ×2 (15:25→16:59)
[2021-10-07] MEDS ORDERED: GLUCOSE 10 TABS/TUBE PO PRN (15:25)
[2021-10-07] MEDS ORDERED: INSULIN REGULAR 250 UNITS in SODIUM CHLORIDE 0.9% 247.5 ML IV SCH ×3 (15:30→17:45)
--- NOTE | 2021-10-07 15:30 | CT Scan Report ---
CT head/brain wo con CLINICAL HISTORY: ams COMPARISON STUDY: 05/22/2017 CT DOSE: 614.27 mGy.cm TECHNIQUE: Standard CT of the Brain was performed without IV contrast. A dose lowering technique was utilized adhering to the principles of ALARA. FINDINGS: Extraaxial space: There is no evidence for subdural hematoma. There are no extra-axial fluid collecti ons. Ventricles and cisterns: The ventricles are normal in size and configuration. There is no evidence fo r midline shift or mass effect. Parenchyma: There is no subarachnoid or intraparenchymal hemorrhage. There is no evidence for an acut e infarct or cerebral edema. There is homogeneous attenuation of the brain parenchyma. There is a sta ble 3.1 left frontal cystic lesion. There are no other gross mass lesions. Osseous structures: There is no evidence for an acute fracture. The visualized paranasal sinuses are clear. The mastoid air cells are clear bilaterally. Soft tissues: There is no evidence for focal soft tissue swelling. IMPRESSION: 1. No acute intracerebral pathology. 2. Stable cystic lesion is again seen in the left frontal lobe. ACT 112: Negative or not required by law. Electronically signed by: Junito Quintanilla M.D. 10/07/2021 3:28 PM
--- NOTE | 2021-10-07 15:43 | CT Scan Report ---
CT abd pelvis wo con CLINICAL HISTORY: GIB . Vomiting COMPARISON STUDY: No previous studies for comparison. CT DOSE: 1944.73 mGy.cm TECHNIQUE: Standard CT of the Abdomen and Pelvis was performed without IV contrast. The patient did not receive oral contrast. A dose lowering technique was utilized adhering to the principles of ALL [place]. FINDINGS: Lung base: The lung bases are clear. Abdominal cavity: There is no evidence for abdominal mass, adenopathy or ascites. Liver: The liver is homogeneous in attenuation on these limited noncontrast images.. Spleen: The spleen is homogeneous in attenuation on these limited noncontrast images. Pancreas: The pancreas is homogeneous in attenuation on these limited noncontrast images. Gall Bladder: The gallbladder is well distended with no evidence for cholelithiasis, wall thickening or pericholecystic edema.. Adrenal glands: The adrenal glands are normal in size and attenuation on these limited noncontrast im ages. Kidneys: The kidneys are homogeneous in attenuation on these limited noncontrast images. There is no evidence for gross renal mass, calculus or hydronephrosis bilaterally. Bowel: The bowel loops are normally placed within the abdomen and pelvis without evidence for dilatat ion or obstruction. There is no evidence for mass lesion. There are no inflammatory changes present. There is no evidence for free air. There is mild mucosal thickening of the rectosigmoid colon which i s most likely related to nondistention. Follow-up direct visualization is recommended. Bladder: There is no evidence for focal bladder wall thickening, calculus or diverticulum. : There is no evidence for pelvic mass or adenopathy. Vasculature: There is no evidence for focal aneurysmal dilatation of the abdominal aorta. Osseous structures: There is no acute osseous pathology. IMPRESSION: 1. No acute intra-abdominal or pelvic abnormality on these limited noncontrast images. 2. Mild mucosal thickening of the rectosigmoid colon which is probably related to nondistention. Dire ct visualization is recommended for further evaluation. ACT 112: Positive. There are findings on this exam that require communication between the performing entity and the patient following Patient Test Result Information Act ([place] Act 112) guidelines. Electronically signed by: Junito Quintanilla M.D. 10/07/2021 3:40 PM
[2021-10-07] MEDS: MAGNESIUM SULFATE / D5W 1 GM/100 ML BAG IV SCH ×2 (15:58→17:29)
[2021-10-07 16:03] LABS: INR 1.1 (0.9-1.1); Partial Thromboplastin Time 27.9 Seconds (21.0-31.0); Prothrombin Time 11.8 Seconds (9.0-12.0)
[2021-10-07] MEDS ORDERED: MAGNESIUM HYDROXIDE SUSP 30 ML UDC PO PRN (16:55)
[2021-10-07] MEDS ORDERED: POLYETHYLENE (MIRALAX) 17 GM PACK PO PRN (16:55)
[2021-10-07] MEDS ORDERED: PHARMACY GLYCEMIC MGMT CONSULT PRN (16:59)
[2021-10-07] MEDS ORDERED: STAT IV Infusion **Titration per Protocol STA ×2 (16:59)
[2021-10-07] MEDS ORDERED: DC ALL PREVIOUSLY ORDERED DIABETES MEDS ONE (16:59)
[2021-10-07] MEDS ORDERED: PENDING D5 1/2NS+40mEq KCL IVF SCH (17:00)
[2021-10-07] MEDS ORDERED: SODIUM CHLORIDE 0.9% 1000ML 1,000 ML IV SCH (17:00)
[2021-10-07] MEDS ORDERED: PENDING 1/2NSS+40mEq KCL IVF SCH (17:00)
[2021-10-07] MEDS ORDERED: PENDING 1/2NSS+20mEq KCL IVF SCH (17:00)
--- NOTE | 2021-10-07 17:25 | History & Physical Report ---
Date of Service October 07, 2021 Assessment & Plan (1) DKA (diabetic ketoacidosis): Plan: #. Acute metabolic encephalopathy #. DKA #. Pseudohyponatremia #. MACIE over CKD stage III #. 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 Patient takes 18 units of Lantus in the evening daily. Patient presented with worsening confusion since 1 to 2 days on the background of dementia. Admitting imagings reviewed DKA likely secondary to medication noncompliance versus infection, leading to electrolyte abnormalities as above and acute metabolic encephalopathy. Admitting blood glucose of greater than 600, anion gap elevated, sodium 128, magnesium 1.5, urine analysis pending. DKA protocol, empiric antibiotic, monitor and replete electrolytes, IV fluids, n.p.o., diet and bridging insulin per DKA protocol. #. Other chronic medical conditions: HTN, HLD, dementia, left frontal lobe lesion Medications reviewed with patient's over the phone. Continue/resume home meds as and when appropriate. Hold nephrotoxic's for concerns of MACIE with CKD. #. DVT prophylaxis: SCDs, concerns of epistaxis recently per . History of Present Illness Chief Complaint: Altered mental status Primary Care Provider: Quique Palomino 60-year-old gentleman with PMH of T2DM, obesity, HLD, hypothyroidism, CKD stage IIIa, left frontal lobe lesion, postinfectious encephalomyelitis, mild cognitive impairment with memory loss, anemia presented to our ED 10/07 with complaint of worsening headache and confusion. Patient though alert and oriented to time and place, seemed not very reliable for history taking. Talked with patient's over the phone to confirm's patient's given history. Patient is reported to have having worsening headache since last 1 week, he has been having headaches last few weeks. He has been taking 2 Tylenol a day to help with his headache since last 1 week. No relief of headache. Per patient's , he was more confused since 1-2 day prior to arrival, that triggered her to send him to the hospital. Per his , patient has missed his dose of Jardiance since Friday prior to arrival. He takes 18 units of Lantus in the evening daily. Home medications were reviewed with his . He does have history of altered mental status and seizure in the past. Patient denies any headache at bedside, any belly pain, any chest pain or feeling of heart racing. Patient reports that he smoked tobacco in his 20s, no alcohol use or no recreational drug use. Family history [place], patient reports that his grandfather and grandmother of some kind of cancer which he is not aware of. He is not able to elaborate other family history. Allergies Allergy/AdvReac Type Severity Reaction Status Date / Time No Known Allergies Allergy Unverified 05/22/17 15:36 Home Medications Medication Instructions Recorded Confirmed Type atorvastatin 20 mg tablet 20 mg PO DAILY 10/07/21 10/07/21 History donepezil 5 mg tablet 5 mg PO DAILY 10/07/21 10/07/21 History empagliflozin 10 mg tablet 10 mg PO DAILY 10/07/21 10/07/21 History (Jardiance) insulin glargine 100 unit/mL (3 0 unit SUBCUT DAILY 10/07/21 10/07/21 History mL) subcutaneous pen (Lantus Solostar U-100 Insulin) levothyroxine 25 mcg tablet 25 mcg PO DAILY 10/07/21 10/07/21 History lisinopril 10 mg tablet 10 mg PO DAILY 10/07/21 10/07/21 History metformin 500 mg tablet,extended 500 mg PO DAILY 10/07/21 10/07/21 History release 24 hr sertraline 25 mg tablet 25 mg PO DAILY 10/07/21 10/07/21 History Past Med/Surg History Medical History Abnormal CT of brain Altered mental status Diabetes mellitus, type 2 DM (diabetes mellitus), type 2, uncontrolled Dyslipidemia Hypertension Obesity, morbid, BMI 40.0-49.9 Seizure Social History Smoking Status: Former smoker Tobacco Type: Cigarettes Hx Alcohol Use: No Hx Substance Use: No Preferred Language: Malay Communication Ability: Effective Roving Frame Tender Required: No Beliefs That Will Affect Care: None Current Living Situation: Spouse Other Information That Helps Us Care for You: No Feels Safe at Home: Yes Safety Concerns: Feels Safe At This Time Assistive Devices: None Review of Systems Review of Systems: Negative otherwise mentioned in HPI. Physical Exam Physical Exam: GENERAL: Alert and oriented x2. Confused during examination. Slow reaction time. NAD, room air. Unkempt looking. Obese. HEENT: No pallor, no icterus. Pupils equal, round and reactive to light. Oral mucosa moist. NECK: No JVD, no neck masses. HEART: S1 and S2 heard. Regular rate and rhythm. No murmur, no gallop. RESPIRATORY SYSTEM: Normal AP diameter. No accessory muscle use. No wheezing, no crackles. ABDOMEN: Soft, bowel sounds present, nontender, no distention. CENTRAL NERVOUS SYSTEM: No facial droop. Speech is clear. Obeys simple commands. Moves extremities. EXTREMITIES: Trace BLE edema, no erythema seen. Results & Data Results & Data ([facility]) Vital Signs (Past 12 Hours) Vital Signs Temp Pulse Pulse Resp BP BP Pulse Ox 10/07/21 16:30 22 97 10/07/21 16:26 81 20 128/68 97 10/07/21 16:24 22 97 10/07/21 15:54 20 97 10/07/21 15:24 22 98 10/07/21 14:54 97 10/07/21 14:28 22 98 10/07/21 14:09 37.0 C 91 H 22 128/69 94 Code Status & VTE Plan VTE Prophylaxis Plan VTE Prophylaxis will be ordered: No (1) DKA (diabetic ketoacidosis) Diabetes mellitus complication detail: without coma Diabetes mellitus type: other specified (including SAIGE) Qualified Code(s): E13.10 - Other specified diabetes mellitus with ketoacidosis without coma
[2021-10-07] MEDS ORDERED: NovoLIN-R BOLUS FROM BAG IV ONE (17:30)
[2021-10-07 17:57] LABS: Calcium 8.7 mg/dl (8.5-10.1); Creatinine Clr Calc Pharmacy 61.5 ml/min; Est GFR (African American) 56.1 ml/min; Est GFR (Non-African American) 48.4 ml/min; Magnesium 1.8 mg/dl (1.7-2.4); Phosphorus 2.6 mg/dl (2.5-4.9); Potassium 3.8 mmol/L (3.5-5.1)
[2021-10-07] MEDS: INSULIN ASPART PER UNIT SC SCH ×2 (18:38→20:09)
[2021-10-07] MEDS ORDERED: SODIUM CHLOR 0.45% + 20MEQ KCL 20 MEQ/1,000 ML BAG IV SCH (19:15)
[2021-10-07] MEDS ORDERED: PENDING D5 1/2NS+20mEq KCL IVF SCH (19:15)
[2021-10-07] MEDS: D5W AND 1/2NSS + 20MEQ KCL 20 MEQ/1,000 ML BAG IV SCH (20:42)
[2021-10-07] MEDS ORDERED: INSULIN ASPART PER UNIT SC SCH (21:00)
[2021-10-07] MEDS ORDERED: INSULIN GLARGINE SOLOSTAR 100 UNITS/ML 3 ML PEN SC ONE (21:00)
--- NOTE | 2021-10-07 21:01 | Pharmacy Report ---
Pharmacy Glycemic Short Note 2 - Date of Service October 07, 2021 - Glycemic Short BSG Results (Last 24 hours): 10/07/21 10/07/21 10/07/21 14:08 14:15 14:17 Glucose 707 H* POC Glucose > 600 H* POC Glucose (other) 691 H* 10/07/21 10/07/21 10/07/21 15:44 17:14 17:20 Glucose 556 H* POC Glucose 598 H* 541 H* POC Glucose (other) 10/07/21 10/07/21 10/07/21 18:32 19:35 20:40 Glucose POC Glucose 379 H* 233 H 152 H POC Glucose (other) OUTPATIENT ANTIDIABETIC REGIMEN: * Metformin 500 mg PO BIDM * Jardiance 10 mg PO AM * Lantus 18 units SQ HS * Ozempic 0.5 mg SQ weekly * HbA1c = 13.4% (07/27/21) * Repeat pending ASSESSMENT: * 60 yo M admitted secondary to worsening confusion and found to be in DKA. Pharmacy was consulted to assist with inpatient glycemic management. There is a question of non-compliance with this patient given his most recent HbA1c and medication list. * Initial labs were: K+ 4.2, CO2 19, AG 14, Glucose 707, venous pH 7.34. * Patient was given a 10 unit IV insulin bolus followed by starting an IV insulin infusion at 10 units/hr. BSGs began trending down. * Will add a small dose of Lantus this evening to assist with transition off the drip overnight, if possible. * Patient remains NPO and is on Zosyn empirically. Currently running D5 1/2NS + 20 KCl at 150 mL/hr. PLAN FOR INPATIENT GLYCEMIC CONTROL: * Hold outpatient oral diabetes medications * IV insulin * 10 unit bolus followed by 10 units/hr then titrate per BSGs and insulin infusion adjustment calculator * Basal insulin * Lantus 20 units SQ x 1 * Bolus insulin * NovoLog per scale ACHS or Q6hrs while NPO * Goal Range: Low 150 mg/dL - High 250 mg/dL * Correction Factor: per calculator mg/dL/unit * Nutritional / Prandial insulin per carb ratio of 1 unit per per calculator grams CHO consumed
[2021-10-07 21:30] LABS: BUN Creatinine Ratio 18.2 (10-20); Creatinine Clr Calc Pharmacy 65.8 ml/min; Est GFR (African American) 60.8 ml/min; Est GFR (Non-African American) 52.5 ml/min; Magnesium 1.8 mg/dl (1.7-2.4); Potassium 3.4 mmol/L (3.5-5.1)
[2021-10-07] MEDS: PIPERACILLIN/TAZOBACTAM 4.5 GM in DEXTROSE 5% 100 ML IV SCH (21:50)
[2021-10-08 01:45] LABS: BUN Creatinine Ratio 18.8 (10-20); Calcium 8.6 mg/dl (8.5-10.1); Creatinine Clr Calc Pharmacy 73.5 ml/min; Est GFR (African American) 69.5 ml/min; Magnesium 1.8 mg/dl (1.7-2.4); Potassium 3.4 mmol/L (3.5-5.1)
[2021-10-08] MEDS: D5W AND 1/2NSS + 20MEQ KCL 20 MEQ/1,000 ML BAG IV SCH ×2 (04:35→11:06)
[2021-10-08] MEDS: PIPERACILLIN/TAZOBACTAM 4.5 GM in DEXTROSE 5% 100 ML IV SCH ×3 (06:45→20:49)
[2021-10-08] MEDS: LEVOTHYROXINE SODIUM 25 MCG TABLET PO SCH (06:45)
[2021-10-08 06:55] LABS: BUN Creatinine Ratio 18.3 (10-20); Calcium 8.6 mg/dl (8.5-10.1); Creatinine Clr Calc Pharmacy 78.4 ml/min; Est GFR (African American) 75.2 ml/min; Est GFR (Non-African American) 64.9 ml/min; Magnesium 1.7 mg/dl (1.7-2.4); Phosphorus 2.2 mg/dl (2.5-4.9); Potassium 3.5 mmol/L (3.5-5.1)
[2021-10-08] MEDS: INSULIN ASPART PER UNIT SC SCH ×6 (07:41→20:44)
[2021-10-08] MEDS: DONEPEZIL HCL 5 MG TAB PO SCH (07:44)
[2021-10-08] MEDS: SERTRALINE HCL 50 MG TABLET PO SCH (07:44)
[2021-10-08] MEDS: ATORVASTATIN 20 MG TAB PO SCH (07:44)
[2021-10-08] MEDS ORDERED: POTASSIUM PHOS 3 MMOL/1 ML INFUSION IV STA (08:14)
[2021-10-08] MEDS ORDERED: POTASSIUM PHOSPHATE 21 MMOL in DEXTROSE 5% 500 ML IV ONE (08:30)
[2021-10-08 08:36] LABS: Estimated Average Glucose 344 mg/dl; Hemoglobin A1C 13.6 % (4.5-5.6)
[2021-10-08] MEDS ORDERED: INSULIN GLARGINE SOLOSTAR 100 UNITS/ML 3 ML PEN SC ONE ×2 (09:00→21:00)
[2021-10-08 10:59] LABS: BUN Creatinine Ratio 16.5 (10-20); Calcium 8.3 mg/dl (8.5-10.1); Creatinine Clr Calc Pharmacy 77.7 ml/min; Est GFR (African American) 74.4 ml/min; Est GFR (Non-African American) 64.2 ml/min; Magnesium 1.7 mg/dl (1.7-2.4); Phosphorus 2.5 mg/dl (2.5-4.9); Potassium 3.7 mmol/L (3.5-5.1)
--- NOTE | 2021-10-08 12:07 | Pharmacy Report ---
Pharmacy Glycemic Short Note 2 - Date of Service October 08, 2021 - Glycemic Short BSG Results (Last 24 hours): 10/07/21 10/07/21 10/07/21 14:08 14:15 14:17 Glucose 707 H* POC Glucose > 600 H* POC Glucose (other) 691 H* 10/07/21 10/07/21 10/07/21 15:44 17:14 17:20 Glucose 556 H* POC Glucose 598 H* 541 H* POC Glucose (other) 10/07/21 10/07/21 10/07/21 18:32 19:35 20:40 Glucose POC Glucose 379 H* 233 H 152 H POC Glucose (other) 10/07/21 10/07/21 10/07/21 21:02 21:45 22:42 Glucose 134 H POC Glucose 183 H 171 H POC Glucose (other) 10/08/21 10/08/21 10/08/21 00:36 01:07 02:30 Glucose 190 H POC Glucose 193 H 148 H POC Glucose (other) 10/08/21 10/08/21 10/08/21 03:34 04:33 05:43 Glucose POC Glucose 148 H 132 H 129 H POC Glucose (other) 10/08/21 10/08/21 10/08/21 06:04 06:41 07:23 Glucose 123 H POC Glucose 192 H 137 H POC Glucose (other) 10/08/21 10/08/21 10/08/21 08:23 09:26 09:54 Glucose 196 H POC Glucose 146 H 167 H POC Glucose (other) 10/08/21 10/08/21 10:40 11:24 Glucose POC Glucose 227 H 243 H POC Glucose (other) OUTPATIENT ANTIDIABETIC REGIMEN: * Metformin 500 mg PO BIDM * Jardiance 10 mg PO AM * Lantus 18 units SQ HS * Ozempic 0.5 mg SQ weekly * HbA1c = 13.4% (07/27/21) * 13.6% 10/08/21 ASSESSMENT: 10/08 * Gap closed this morning, Bicarb 21, will transition off of insulin drip * Was running at 1.4 units/hr and was to be held per calculator, instructed to decrease to 1.2 units/hr and continue * Patient was then ordered diet, carb ratio 8 with breakfast, dextrose infusion still running @ 150 units/hr * Suspect BSG rising d/t breakfast + dextrose infusion, will tighten carb coverage with lunch and have them cover with novolog @ 1230 BSG check. Will stop insulin infusion and d/c dextrose. Recheck one hour after stopping. 10/07 * 60 yo M admitted secondary to worsening confusion and found to be in DKA. Pharmacy was consulted to assist with inpatient glycemic management. There is a question of non-compliance with this patient given his most recent HbA1c and medication list. * Initial labs were: K+ 4.2, CO2 19, AG 14, Glucose 707, venous pH 7.34. * Patient was given a 10 unit IV insulin bolus followed by starting an IV insulin infusion at 10 units/hr. BSGs began trending down. * Will add a small dose of Lantus this evening to assist with transition off the drip overnight, if possible. * Patient remains NPO and is on Zosyn empirically. Currently running D5 1/2NS + 20 KCl at 150 mL/hr. PLAN FOR INPATIENT GLYCEMIC CONTROL: * Hold outpatient oral diabetes medications * Basal insulin * Lantus 10 units SQ this AM * Tonight per scale * Bolus insulin * NovoLog per scale ACHS or Q6hrs while NPO * Goal Range: Low 110 mg/dL - High 140 mg/dL * Correction Factor: 20 mg/dL/unit * Nutritional / Prandial insulin per carb ratio of 1 unit per 6 grams CHO consumed
[2021-10-08] MEDS ORDERED: VANCOMYCIN CONSULT ACTIVE PRN (12:16)
[2021-10-08] MEDS ORDERED: VANCOMYCIN HCL 2,500 MG in SODIUM CHLORIDE 0.9% 500 ML IV ONE (13:00)
[2021-10-08 14:02] LABS: BUN Creatinine Ratio 14.8 (10-20); Calcium 8.4 mg/dl (8.5-10.1); Creatinine Clr Calc Pharmacy 69.7 ml/min; Est GFR (African American) 65.2 ml/min; Est GFR (Non-African American) 56.3 ml/min; Magnesium 1.7 mg/dl (1.7-2.4); Potassium 3.6 mmol/L (3.5-5.1)
--- NOTE | 2021-10-08 14:09 | Hospitalist Progress Note ---
Date of Service October 08, 2021 Assessment & Plan (1) DKA (diabetic ketoacidosis): Plan: #. Acute metabolic encephalopathy #. DKA #. Pseudohyponatremia #. MACIE over CKD stage III #. 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 Patient takes 18 units of Lantus in the evening daily. Patient presented with worsening confusion since 1 to 2 days on the background of dementia. Admitting imaging [CT head, CXR, CT AP] reviewed. Admitting blood glucose of greater than 600, anion gap elevated, sodium 128, magnesium 1.5, urine analysis pending DKA likely secondary to medication noncompliance versus infection, leading to electrolyte abnormalities/MACIE over CKD III as above and acute metabolic encephalopathy ---> Improving. DKA protocol, diet and breathing insulin in a.m., continue with empiric antibiotic, monitor and replete electrolytes, IV fluids DC when of insulin drip, advance diet as tolerated. life skills educator evaluated, patient will need following prescription: 1.) [employer] Verio Test Strips to check 4x/day. 2.) [employer] Delica Lancets 33 gauge to check 4x/day. #. GPC bacteremia, preliminary Admitting blood culture, 1 of 2 bottles positive for GPC cocci in cluster, follow-up final results Empiric antibiotic with Vanco and Zosyn. ID consult. Repeat blood culture in a.m., ?ECHO. Patient complains of low back pain, at his baseline, assess for need for MRI spine to rule out abscess with further development in culture results. #. Other chronic medical conditions: HTN, HLD, dementia, left frontal lobe lesion Medications reviewed with patient's over the phone. Continue/resume home meds as and when appropriate. life skills educator #. DVT prophylaxis: SCDs, concerns of epistaxis recently per . Disposition: Follow-up culture results. Admission and Anticipated Discharge Date Admission Date: October 07, 2021 Subjective Patient seen and examined at bedside as a follow-up of acute metabolic encephalopathy, DKA, and likely GPC bacteremia and preliminary culture report. Patient was sitting up in bed, on room air, NAD, no new acute events overnight. Patient seems to be forgetful of very recent events including whether or not he ate in the morning. Patient denies headache or dizziness. Patient denies nausea, vomiting, belly pain, chest pain, cough, palpitation. Patient reports low back pain but reports it to be at his baseline with no acute increase in the level of pain. We will start him on diet since his anion gap is closed, breathing insulin, will take his insulin drip gradually out per DKA protocol. Physical Exam Physical Exam: GENERAL: Alert and oriented x3. Forgetful. Slow reaction time. NAD, room air. Obese. HEENT: No pallor, no icterus. Pupils equal, round and reactive to light. Oral mucosa moist. NECK: No JVD, no neck masses. HEART: S1 and S2 heard. Regular rate and rhythm. No murmur, no gallop. RESPIRATORY SYSTEM: Normal AP diameter. No accessory muscle use. No wheezing, no crackles. ABDOMEN: Soft, bowel sounds present, nontender, no distention. CENTRAL NERVOUS SYSTEM: No facial droop. Speech is clear. Obeys simple commands. Moves extremities. EXTREMITIES: Trace BLE edema, no erythema seen. Results & Data Results & Data ([facility]) Vital Signs (Past 12 Hours) Vital Signs Temp Pulse Pulse Resp BP Pulse Ox 10/08/21 12:34 62 16 148/91 H 100 10/08/21 08:00 63 10/08/21 07:04 36.8 C 78 16 120/37 L 98 10/08/21 03:39 37.7 C H 64 16 107/60 98 (1) DKA (diabetic ketoacidosis) Diabetes mellitus complication detail: without coma Diabetes mellitus type: other specified (including SAIGE) Qualified Code(s): E13.10 - Other specified diabetes mellitus with ketoacidosis without coma
[2021-10-08] MEDS ORDERED: levETIRAcetam 1,500 MG in 0.9 % SODIUM CHLORIDE 100 ML IV STA (15:30)
[2021-10-08] MEDS ORDERED: levETIRAcetam 1,000 MG in 0.9 % SODIUM CHLORIDE 100 ML IV STA (15:37)
--- NOTE | 2021-10-08 16:06 | Communication Note ---
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 He has never been treated for seizures in the past has home medications include atorvastatin, Aricept, Jardiance, insulin, levothyroxine, lisinopril, metformin and sertraline Ongoing medical problems include morbid obesity dyslipidemia hypertension diabetes and the effects of his postinfectious encephalomyelitis He has no known drug allergies Family history social history and review of systems are as recorded in the chart and admission note Laboratory studies were consistent with diabetic ketoacidosis with a glucose of 600 and many of these metabolic abnormalities are now much better controlled after appropriate treatment that he also had "pseudohyponatremia" due to the elevated sugar A CT scan of the brain showed evidence for the cystic lesion in the left frontal lobe He has been loaded up with Keppra maintenance therapy has been started and EEG is ordered and an MRI has been ordered Exam done briefly today reveals blood pressure 136/75 pulse is 58 respiration 24 he is afebrile with O2 saturation 94%. When I entered the room he was clearly in the middle of a seizure with right facial twitching and minor movements of the right arm at most. This lasted about 2 minutes and then ceased after which he was lethargic and confused but then after another minute was able to participate with conversing with his m inister who been in the room for several hours That individual reported having seen 3 of these events during the course of the afternoon each preceded by the facial twitching and followed by speech arrest and then clearing The remainder of the examination was done very superficially This man is in focal status epilepticus with serial seizures originating from the left frontal lesion precipitated likely by metabolic encephalopathy and likely ionic and fluid shifting within the cerebral parenchyma adding to the already potentially irritable seizure focus I have discussed the case with his attending Dr. Oscar and have recommended that the Keppra dose maintenance perhaps be raised to 750 mg twice a day after the Keppra load of thousand and that each seizure should be treated with Ativan 1 mg. If he continues to have these events the next several hours he requires up to 3 mg total of Ativan then he should have another gram load of Keppra and the maintenance dose raised to 1000 mg twice a day If this continues he may end up having to be transferred to a tertiary center for monitoring and inpatient seizure management. Hopefully we can obtain some control of these events with the use of Ativan and increasing doses of Keppra I will be available for discussion and advice Randell Amato MD
[2021-10-08] MEDS: levETIRAcetam 750 MG in 0.9 % SODIUM CHLORIDE 100 ML IV SCH (20:48)
[2021-10-08] MEDS ORDERED: levETIRAcetam 500 MG in 0.9 % SODIUM CHLORIDE 100 ML IV SCH (21:00)
[2021-10-08] MEDS ORDERED: GADOBUTROL 65ML VIAL IV ONE (22:22)
[2021-10-09] MEDS: VANCOMYCIN HCL 750 MG in SODIUM CHLORIDE 0.9% 250 ML IV SCH ×2 (01:25→12:34)
[2021-10-09] MEDS: PIPERACILLIN/TAZOBACTAM 4.5 GM in DEXTROSE 5% 100 ML IV SCH ×2 (06:09→13:58)
[2021-10-09] MEDS: LEVOTHYROXINE SODIUM 25 MCG TABLET PO SCH (06:09)
[2021-10-09 06:28] LABS: Hematocrit (blood only) 29.4 % (42-52); Hemoglobin 10.1 g/dL (14.0-18.0); Mean Corpuscular Hemoglobin 31.1 pg (25-34); Mean Corpuscular Hgb Conc 34.4 g/dL (32-36); Mean Corpuscular Volume 90.5 fL (80-100); Mean Platelet Volume 9.8 fL (7.4-10.4); Platelet Count 234 K/uL (130-400); RDW Coefficient of Variation 13.9 % (11.5-14.5); RDW Standard Deviation 46.8 fL (36.4-46.3); Red Blood Count 3.25 M/uL (4.7-6.1); White Blood Count 9.61 K/uL (4.8-10.8)
[2021-10-09 06:56] LABS: BUN Creatinine Ratio 13.8 (10-20); Calcium 8.3 mg/dl (8.5-10.1); Creatinine Clr Calc Pharmacy 86.1 ml/min; Est GFR (African American) 84.5 ml/min; Est GFR (Non-African American) 72.9 ml/min; Magnesium 1.5 mg/dl (1.7-2.4); Phosphorus 2.9 mg/dl (2.5-4.9); Potassium 3.5 mmol/L (3.5-5.1)
[2021-10-09] MEDS: SERTRALINE HCL 50 MG TABLET PO SCH (08:07)
[2021-10-09] MEDS: INSULIN GLARGINE SOLOSTAR 100 UNITS/ML 3 ML PEN SC SCH ×2 (08:07→20:24)
[2021-10-09] MEDS: ATORVASTATIN 20 MG TAB PO SCH (08:07)
[2021-10-09] MEDS: DONEPEZIL HCL 5 MG TAB PO SCH (08:07)
[2021-10-09] MEDS: levETIRAcetam 750 MG in 0.9 % SODIUM CHLORIDE 100 ML IV SCH ×2 (08:08→20:27)
[2021-10-09] MEDS: lisinopril 10 MG TAB PO SCH (08:08)
--- NOTE | 2021-10-09 08:11 | Magnetic Resonance Report ---
MR brain wo/w con CLINICAL HISTORY: seizure TECHNIQUE: Multiplanar and multisequence MR images of the brain were obtained prior to and following administration of gadolinium contrast. Comparison: Comparison is made to MRI brain 05/08/2017 FINDINGS: No abnormal restricted diffusion is identified. The white matter is unremarkable. The ventricular sys tem is normal in appearance. A large cyst is seen in the left frontal region, unchanged. There is gyr al enhancement of the right temporal lobe. No definite hippocampal edema is seen. There is no evidenc e of acute intraparenchymal hemorrhage. No extra axial fluid collections are seen. The corpus callosu m, pituitary gland, and cerebellar tonsils appear grossly unremarkable. Flow voids of the major intracranial arterial vessels are identified. The imaged portions of the para nasal sinuses, mastoid air cells, and orbits are unremarkable. IMPRESSION: Gyral enhancement is seen in the right temporal lobe compatible with postictal state. Redemonstration of old left frontal cyst. ACT 112: Negative or not required by law. Electronically signed by: Omar Schroeder M.D. 10/09/2021 8:10 AM
[2021-10-09] MEDS: INSULIN ASPART PER UNIT SC SCH ×4 (08:14→20:26)
[2021-10-09] MEDS: MAGNESIUM SULFATE / D5W 1 GM/100 ML BAG IV SCH ×3 (09:02→12:52)
[2021-10-09] MEDS: ACETAMINOPHEN 325 MG TAB PO PRN (12:53)
--- NOTE | 2021-10-09 14:36 | Pharmacy Report ---
Pharmacy Glycemic Short Note 2 - Date of Service October 09, 2021 - Glycemic Short BSG Results (Last 24 hours): 10/08/21 10/08/21 10/08/21 15:13 16:30 18:09 Glucose POC Glucose 114 H 79 83 10/08/21 10/09/21 10/09/21 20:18 05:45 07:26 Glucose 96 POC Glucose 127 H 168 H 10/09/21 11:30 Glucose POC Glucose 228 H OUTPATIENT ANTIDIABETIC REGIMEN: * Metformin 500 mg PO BIDM * Jardiance 10 mg PO AM * Lantus 18 units SQ HS * Ozempic 0.5 mg SQ weekly * HbA1c = 13.4% (07/27/21) * 13.6% 10/08/21 ASSESSMENT: 10/09: * Patient successfully transitioned off of the drip receiving 30 units of lantus yesterday. * Fasting BSAG was 96 mg/dL (168 mg/dL on POC). Lantus 15 units BID was initiated this morning based on yesterdays dosing and moderate stress weight based (using adjusted body weight) regimen. Will continue current novolog scale and assess trend. * Patient is tolerating a diet. 10/08 * Gap closed this morning, Bicarb 21, will transition off of insulin drip * Was running at 1.4 units/hr and was to be held per calculator, instructed to decrease to 1.2 units/hr and continue * Patient was then ordered diet, carb ratio 8 with breakfast, dextrose infusion still running @ 150 units/hr * Suspect BSG rising d/t breakfast + dextrose infusion, will tighten carb coverage with lunch and have them cover with novolog @ 1230 BSG check. Will stop insulin infusion and d/c dextrose. Recheck one hour after stopping. 10/07 * 60 yo M admitted secondary to worsening confusion and found to be in DKA. Pharmacy was consulted to assist with inpatient glycemic management. There is a question of non-compliance with this patient given his most recent HbA1c and medication list. * Initial labs were: K+ 4.2, CO2 19, AG 14, Glucose 707, venous pH 7.34. * Patient was given a 10 unit IV insulin bolus followed by starting an IV insulin infusion at 10 units/hr. BSGs began trending down. * Will add a small dose of Lantus this evening to assist with transition off the drip overnight, if possible. * Patient remains NPO and is on Zosyn empirically. Currently running D5 1/2NS + 20 KCl at 150 mL/hr. PLAN FOR INPATIENT GLYCEMIC CONTROL: * Hold outpatient oral diabetes medications * Basal insulin * Lantus 10 units SQ this AM * Tonight per scale * Bolus insulin * NovoLog per scale ACHS or Q6hrs while NPO * Goal Range: Low 110 mg/dL - High 140 mg/dL * Correction Factor: 20 mg/dL/unit * Nutritional / Prandial insulin per carb ratio of 1 unit per 6 grams CHO consumed
--- NOTE | 2021-10-09 16:25 | Hospitalist Progress Note ---
Date of Service October 09, 2021 Assessment & Plan (1) DKA (diabetic ketoacidosis): Plan: #. Acute metabolic encephalopathy #. DKA #. Pseudohyponatremia #. MACIE over CKD stage III #. 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 Patient takes 18 units of Lantus in the evening daily. Patient presented with worsening confusion since 1 to 2 days on the background of dementia. Admitting imaging [CT head, CXR, CT AP] reviewed. Admitting blood glucose of greater than 600, anion gap elevated, sodium 128, magnesium 1.5, urine analysis pending DKA likely secondary to medication noncompliance, leading to electrolyte abnormalities/MACIE over CKD III as above and acute metabolic encephalopathy ---> Improved. s/p DKA protocol, monitor and replete electrolytes, c/w diet perinatal educator evaluated, patient will need following prescription: 1.) OneTouch Verio Test Strips to check 4x/day. 2.) OneTouch Delica Lancets 33 gauge to check 4x/day. #. Focal status epilepticus Serial left-sided facial seizures noted on 10/08/2021, communicated with neurology, started him on Keppra, MRI was positive for postictal changes, follow-up EEG. Patient will need to follow-up with neurology as an outpatient. Had concern of focal seizure in the past in 2018 as well. No further seizure after starting Keppra per RN. #. GPC bacteremia, preliminary --> final contaminant Admitting blood culture, 1 of 2 bottles positive for GPC cocci in cluster, likely contaminant in final result. Empiric antibiotic with Vanco and Zosyn.--> DC atb 10/09 and dc ID consult. continue to monitor off ATB Patient complains of low back pain, at his baseline, assess for need for MRI spine to rule out abscess with further development in culture results. #. Other chronic medical conditions: HTN, HLD, dementia, left frontal lobe lesion Medications reviewed with patient's over the phone. Continue/resume home meds as and when appropriate. perinatal educator #. DVT prophylaxis: Hep SC. MOnitor Hb, concerns of epistaxis prior to hospital admission per . Disposition: Follow-up culture results. Admission and Anticipated Discharge Date Admission Date: October 07, 2021 Subjective Patient seen and examined at bedside as a follow-up of acute metabolic encephalopathy, DKA, and likely GPC bacteremia and preliminary culture report. Patient was sitting up in bed, on room air, NAD, no new acute events overnight. Patient seems to be forgetful of very recent events including whether or not he ate in the morning. Patient denies headache or dizziness. Patient denies nausea, vomiting, belly pain, chest pain, cough, palpitation. Patient reports low back pain but reports it to be at his baseline with no acute increase in the level of pain. Pt tolerating diet well. Physical Exam Physical Exam: GENERAL: Alert and oriented x3. Forgetful. Slow reaction time. NAD, room air. Obese. HEENT: No pallor, no icterus. Pupils equal, round and reactive to light. Oral mucosa moist. NECK: No JVD, no neck masses. HEART: S1 and S2 heard. Regular rate and rhythm. No murmur, no gallop. RESPIRATORY SYSTEM: Normal AP diameter. No accessory muscle use. No wheezing, no crackles. ABDOMEN: Soft, bowel sounds present, nontender, no distention. CENTRAL NERVOUS SYSTEM: No facial droop. Speech is clear. Obeys simple commands. Moves extremities. EXTREMITIES: Trace BLE edema, no erythema seen. Results & Data Results & Data ([facility]) Vital Signs (Past 12 Hours) Vital Signs Temp Pulse Pulse Resp BP Pulse Ox 10/09/21 16:05 36.5 C 55 L 19 97/45 L 96 10/09/21 16:00 54 L 10/09/21 07:23 57 L (1) DKA (diabetic ketoacidosis) Diabetes mellitus complication detail: without coma Diabetes mellitus type: other specified (including SAIGE) Qualified Code(s): E13.10 - Other specified diabetes mellitus with ketoacidosis without coma
--- NOTE | 2021-10-09 16:39 | Communication Note ---
Date of Service: October 09, 2021 Julio is back to what I assume is nearly his baseline level today. He was on the telephone with his with whom I have a prior neurologic relationship and she feels that he is improving but states that he has been ill for about a month with headaches. Some staring and more confusion and 1 wonders if he has not had subclinical left hemispheric seizures all along. His MRI scan is said to show some changes consistent with a post ictal change in the right temporal lobe but of more importance is there is no new areas of inflammation left frontal lobe where the seizure focus was clearly clinically active yesterday Has not had any seizure activity since receiving the Keppra did not require any significant Ativan dosing and is now on 750 mg twice a day which I think is reasonable as he may become more irritable and we need to watch for personality changes on the drug as he already has some baseline cognitive impairment after his encephalomyelitis of several years ago His EEG shows no ongoing potentially epileptogenic activity and no significant slowing over the left hemisphere to indicate a post ictal phenomenon His exam clinically is but I think baseline he is awake alert oriented I see no focal motor activity in the right hemisphere his eye movements are normal his visual stahl are full he is participate in a conversation he follows commands I do see any drift or pronation sign reflexes are generally hypoactive but toes are downgoing no Yesica signs are seen strength testing is grossly intact and detailed sensory examination was not performed The diagnosis is that of probable diabetic ketoacidosis induced focal status epilepticus originating from the scar in the deep portion of the left hemisphere manifested by right facial motor activity and post event aphasia of transient nature. His risk for recurrent seizures is high and hopefully he will be able to tolerate Keppra to 750 mg twice a day dose without having excessive irritability or other issues I would continue the current medications I will check back with him tomorrow Randell Amato MD The above note was generated utilizing voice recognition technology and may have spelling errors punctuation errors pronoun usage errors and syntax errors
--- NOTE | 2021-10-09 17:09 | Electroencephalogram ---
EEG Procedure Note Date of Service October 09, 2021 Start / End Times Start Time: 114 End Time: 134 Referring Physician Randell Amato MD History Focal motor seizures left hemisphere with facial twitching and aphasia Home Medication List Medication Instructions Recorded Confirmed Type atorvastatin 20 mg tablet 20 mg PO DAILY 10/07/21 10/07/21 History donepezil 5 mg tablet 5 mg PO DAILY 10/07/21 10/07/21 History empagliflozin 10 mg tablet 10 mg PO DAILY 10/07/21 10/07/21 History (Jardiance) insulin glargine 100 unit/mL (3 0 unit SUBCUT DAILY 10/07/21 10/07/21 History mL) subcutaneous pen (Lantus Solostar U-100 Insulin) levothyroxine 25 mcg tablet 25 mcg PO DAILY 10/07/21 10/07/21 History lisinopril 10 mg tablet 10 mg PO DAILY 10/07/21 10/07/21 History metformin 500 mg tablet,extended 500 mg PO DAILY 10/07/21 10/07/21 History release 24 hr sertraline 25 mg tablet 25 mg PO DAILY 10/07/21 10/07/21 History Inpatient Medication List Acetaminophen (Acetaminophen 325 Mg Tab) 650 mg PO Q4H PRN PRN Reason: Pain or Fever Stop: 11/06/21 16:54 Last Admin: 10/09/21 12:53 Dose: 650 mg Documented by: [id number] Atorvastatin Calcium (Atorvastatin 20 Mg Tab) 20 mg PO DAILY YANETH Stop: 11/07/21 08:59 Last Admin: 10/09/21 08:07 Dose: 20 mg Documented by: [id number] Admin: 10/08/21 07:44 Dose: 20 mg Documented by: [id number] Donepezil HCl (Donepezil Hcl 5 Mg Tab) 5 mg PO DAILY YANETH Stop: 11/07/21 08:59 Last Admin: 10/09/21 08:07 Dose: 5 mg Documented by: [id number] Admin: 10/08/21 07:44 Dose: 5 mg Documented by: [id number] Levetiracetam 750 mg/ Sodium (Chloride) 107.5 mls @ 420 mls/hr IV BID YANETH Stop: 11/07/21 20:59 Last Infusion: 10/09/21 08:25 Dose: 0 mls/hr Documented by: [id number] Admin: 10/09/21 08:08 Dose: 420 mls/hr Documented by: [id number] Infusion: 10/08/21 21:19 Dose: 0 mls/hr Documented by: [id number] Admin: 10/08/21 20:48 Dose: 420 mls/hr Documented by: [id number] Insulin Aspart (Insulin Aspart Per Unit) 0 units SC ACHS [facility] Stop: 11/07/21 12:29 Last Admin: 10/09/21 16:31 Dose: 5 units Documented by: [id number] Cosigned by: [id number] Admin: 10/09/21 11:54 Dose: 13 units Documented by: [id number] Cosigned by: [id number] Admin: 10/09/21 08:14 Dose: 10 units Documented by: [id number] Cosigned by: [id number] Admin: 10/08/21 20:44 Dose: Not Given Documented by: [id number] Cosigned by: [id number] Admin: 10/08/21 16:30 Dose: Not Given Documented by: [id number] Admin: 10/08/21 12:42 Dose: 8 units Documented by: [id number] Cosigned by: [id number] Insulin Glargine (Insulin Glargine Solostar 100 Units/Ml 3 Ml Pen) 15 units SC BID [facility] Stop: 11/08/21 08:59 Last Admin: 10/09/21 08:07 Dose: 15 units Documented by: [id number] Cosigned by: [id number] Levothyroxine Sodium (Levothyroxine Sodium 25 Mcg Tablet) 25 mcg PO DAILYBB [facility] Stop: 11/07/21 06:29 Last Admin: 10/09/21 06:09 Dose: 25 mcg Documented by: [id number] Admin: 10/08/21 06:45 Dose: 25 mcg Documented by: [id number] Lisinopril (Lisinopril 10 Mg Tab) 10 mg PO DAILY [facility] Stop: 11/08/21 08:59 Last Admin: 10/09/21 08:08 Dose: 10 mg Documented by: [id number] Sertraline HCl (Sertraline Hcl 50 Mg Tablet) 25 mg PO DAILY [facility] Stop: 11/07/21 08:59 Last Admin: 10/09/21 08:07 Dose: 25 mg Documented by: [id number] Admin: 10/08/21 07:44 Dose: 25 mg Documented by: [id number] Discontinued Medications Gadobutrol (Gadobutrol 65ml Vial) 12.2 ml IV ONCE ONE Stop: 10/08/21 22:23 Last Admin: 10/08/21 22:22 Dose: 12.2 ml Documented by: [id number] Sodium Chloride (Nss 1000ml) 1,000 mls @ 999 mls/hr IV .Q1H1M ONE Stop: 10/07/21 15:24 Last Infusion: 10/07/21 15:48 Dose: 0 mls/hr Documented by: [id number] Admin: 10/07/21 14:38 Dose: 999 mls/hr Documented by: [id number] Piperacillin Sod/Tazobactam Sod (Zosyn) 4.5 gm in 120 mls @ 240 mls/hr IV NOW ONE Stop: 10/07/21 15:54 Last Infusion: 10/07/21 16:24 Dose: 0 mls/hr Documented by: [id number] Admin: 10/07/21 15:46 Dose: 240 mls/hr Documented by: [id number] Magnesium Sulfate/Dextrose (Magnesium Sulfate / D5w) 1 gm in 100 mls @ 100 mls/hr IV Q1H YANETH Stop: 10/07/21 17:25 Last Infusion: 10/07/21 18:27 Dose: 0 mls/hr Documented by: [id number] Admin: 10/07/21 17:29 Dose: 100 mls/hr Documented by: [id number] Infusion: 10/07/21 17:29 Dose: 0 mls/hr Documented by: [id number] Admin: 10/07/21 15:58 Dose: 100 mls/hr Documented by: [id number] Sodium Chloride (Nss 1000ml) 1,000 mls @ 999 mls/hr IV .Q1H1M ONE Stop: 10/07/21 16:25 Last Infusion: 10/07/21 17:59 Dose: 0 mls/hr Documented by: [id number] Admin: 10/07/21 15:51 Dose: 999 mls/hr Documented by: [id number] Sodium Chloride (Nss 1000ml) 1,000 mls @ 150 mls/hr IV .Q6H40M YANETH Stop: 11/06/21 16:59 Last Infusion: 10/08/21 07:14 Dose: 0 mls/hr Documented by: [id number] Infusion: 10/07/21 22:21 Dose: 0 mls/hr Documented by: [id number] Admin: 10/07/21 18:56 Dose: 150 mls/hr Documented by: [id number] Insulin Human Regular 250 (units/ Sodium Chloride) 250 mls @ 1.7 mls/hr IV .Q24H YANETH; Protocol Stop: 10/08/21 12:29 Last Titration: 10/09/21 06:59 Dose: 0 units/hr, 0 mls/hr Documented by: [id number] Cosigned by: [id number] Titration: 10/08/21 12:41 Dose: 0 units/hr, 0 mls/hr Documented by: [id number] Cosigned by: [id number] Titration: 10/08/21 11:33 Dose: 1.7 units/hr, 1.7 mls/hr Documented by: [id number] Cosigned by: [id number] Titration: 10/08/21 10:42 Dose: 1.4 units/hr, 1.4 mls/hr Documented by: [id number] Cosigned by: [id number] Titration: 10/08/21 09:29 Dose: 1.2 units/hr, 1.2 mls/hr Documented by: [id number] Cosigned by: [id number] Titration: 10/08/21 08:25 Dose: 1.2 units/hr, 1.2 mls/hr Documented by: [id number] Cosigned by: [id number] Titration: 10/08/21 07:34 Dose: 1.2 units/hr, 1.2 mls/hr Documented by: [id number] Cosigned by: [id number] Titration: 10/08/21 06:43 Dose: 1.4 units/hr, 1.4 mls/hr Documented by: [id number] Cosigned by: [id number] Titration: 10/08/21 05:44 Dose: 1.2 units/hr, 1.2 mls/hr Documented by: [id number] Cosigned by: [id number] Titration: 10/08/21 04:35 Dose: 1.5 units/hr, 1.5 mls/hr Documented by: [id number] Cosigned by: [id number] Titration: 10/08/21 03:35 Dose: 1.9 units/hr, 1.9 mls/hr Documented by: [id number] Cosigned by: [id number] Titration: 10/08/21 02:32 Dose: 2.4 units/hr, 2.4 mls/hr Documented by: [id number] Cosigned by: [id number] Titration: 10/07/21 22:49 Dose: 3 units/hr, 3 mls/hr Documented by: [id number] Cosigned by: [id number] Titration: 10/07/21 21:47 Dose: 3 units/hr, 3 mls/hr Documented by: [id number] Cosigned by: [id number] Titration: 10/07/21 20:42 Dose: 0 units/hr, 0 mls/hr Documented by: [id number] Cosigned by: [id number] Titration: 10/07/21 20:06 Dose: 6 units/hr, 6 mls/hr Documented by: [id number] Cosigned by: [id number] Titration: 10/07/21 19:36 Dose: 0 units/hr, 0 mls/hr Documented by: [id number] Cosigned by: [id number] Titration: 10/07/21 18:54 Dose: 10 units/hr, 10 mls/hr Documented by: [id number] Cosigned by: [id number] Titration: 10/07/21 18:35 Dose: 10 units/hr, 10 mls/hr Documented by: [id number] Cosigned by: [id number] Titration: 10/07/21 18:27 Dose: 10 units/hr, 10 mls/hr Documented by: [id number] Cosigned by: [id number] Admin: 10/07/21 17:33 Dose: 10 units/hr, 10 mls/hr Documented by: [id number] Cosigned by: [id number] Piperacillin Sod/Tazobactam (Sod 4.5 gm/ Dextrose) 120 mls @ 30 mls/hr IV Q8H YANETH; Protocol Stop: 10/21/21 21:59 Last Infusion: 10/09/21 16:27 Dose: 0 mls/hr Documented by: [id number] Admin: 10/09/21 13:58 Dose: 30 mls/hr Documented by: [id number] Infusion: 10/09/21 10:18 Dose: 0 mls/hr Documented by: [id number] Infusion: 10/09/21 08:25 Dose: 30 mls/hr Documented by: [id number] Infusion: 10/09/21 08:16 Dose: 0 mls/hr Documented by: [id number] Admin: 10/09/21 06:09 Dose: 30 mls/hr Documented by: [id number] Infusion: 10/09/21 01:18 Dose: 0 mls/hr Documented by: [id number] Admin: 10/08/21 20:49 Dose: 30 mls/hr Documented by: [id number] Infusion: 10/08/21 17:23 Dose: 0 mls/hr Documented by: [id number] Admin: 10/08/21 13:22 Dose: 30 mls/hr Documented by: [id number] Infusion: 10/08/21 09:47 Dose: 0 mls/hr Documented by: [id number] Admin: 10/08/21 06:45 Dose: 30 mls/hr Documented by: [id number] Infusion: 10/08/21 01:50 Dose: 0 mls/hr Documented by: [id number] Admin: 10/07/21 21:50 Dose: 30 mls/hr Documented by: [id number] Potassium Chloride/Sodium Chloride (1/2 Nss + 20meq Kcl 1000ml) 20 meq in 1,000 mls @ 150 mls/hr IV .Q6H40M YANETH Stop: 11/06/21 19:14 Last Admin: 10/07/21 22:20 Dose: Not Given Documented by: [id number] Potassium Chloride/Dextrose/Sod Cl (D5w And 1/2nss + 20meq Kcl) 20 meq in 1,000 mls @ 150 mls/hr IV .Q6H40M YANETH Stop: 10/08/21 12:30 Last Infusion: 10/09/21 06:59 Dose: 0 mls/hr Documented by: [id number] Infusion: 10/08/21 12:41 Dose: 0 mls/hr Documented by: [id number] Admin: 10/08/21 11:06 Dose: 150 mls/hr Documented by: [id number] Infusion: 10/08/21 11:06 Dose: 150 mls/hr Documented by: [id number] Admin: 10/08/21 04:35 Dose: 150 mls/hr Documented by: [id number] Infusion: 10/08/21 03:36 Dose: 0 mls/hr Documented by: [id number] Admin: 10/07/21 20:42 Dose: 150 mls/hr Documented by: [id number] Potassium Phosphate 21 mmol/ (Dextrose) 507 mls @ 88 mls/hr IV ONE ONE Stop: 10/08/21 14:15 Last Infusion: 10/08/21 15:26 Dose: 0 mls/hr Documented by: [id number] Admin: 10/08/21 08:40 Dose: 88 mls/hr Documented by: [id number] Vancomycin HCl 2,500 mg/ (Sodium Chloride) 550 mls @ 180 mls/hr IV NOW ONE Stop: 10/08/21 16:03 Last Infusion: 10/08/21 16:47 Dose: 0 mls/hr Documented by: [id number] Admin: 10/08/21 13:22 Dose: 180 mls/hr Documented by: [id number] Vancomycin HCl 750 mg/ Sodium (Chloride) 265 mls @ 200 mls/hr IV Q12H YANETH Stop: 10/23/21 00:59 Last Infusion: 10/09/21 13:54 Dose: 0 mls/hr Documented by: [id number] Admin: 10/09/21 12:34 Dose: 200 mls/hr Documented by: [id number] Infusion: 10/09/21 03:04 Dose: 0 mls/hr Documented by: [id number] Admin: 10/09/21 01:25 Dose: 200 mls/hr Documented by: [id number] Levetiracetam 1,500 mg/ Sodium (Chloride) 115 mls @ 440 mls/hr IV NOW STA Stop: 10/08/21 15:45 Last Admin: 10/08/21 16:42 Dose: Not Given Documented by: [id number] Levetiracetam 1,000 mg/ Sodium (Chloride) 110 mls @ 440 mls/hr IV NOW STA Stop: 10/08/21 15:51 Last Infusion: 10/08/21 16:31 Dose: 0 mls/hr Documented by: [id number] Admin: 10/08/21 16:10 Dose: 440 mls/hr Documented by: [id number] Magnesium Sulfate/Dextrose (Magnesium Sulfate / D5w) 1 gm in 100 mls @ 50 mls/hr IV Q2H YANETH Stop: 10/09/21 14:59 Last Infusion: 10/09/21 15:12 Dose: 0 mls/hr Documented by: [id number] Admin: 10/09/21 12:52 Dose: 50 mls/hr Documented by: [id number] Infusion: 10/09/21 12:52 Dose: 50 mls/hr Documented by: [id number] Admin: 10/09/21 11:01 Dose: 50 mls/hr Documented by: [id number] Infusion: 10/09/21 11:01 Dose: 50 mls/hr Documented by: [id number] Admin: 10/09/21 09:02 Dose: 50 mls/hr Documented by: [id number] Insulin Aspart (Insulin Aspart Per Unit) 0 units SC ACHS YANETH Stop: 10/08/21 12:29 Last Admin: 10/08/21 11:49 Dose: 4 units Documented by: [id number] Cosigned by: [id number] Admin: 10/08/21 09:47 Dose: 3 units Documented by: [id number] Cosigned by: [id number] Admin: 10/08/21 07:41 Dose: Not Given Documented by: [id number] Admin: 10/07/21 20:09 Dose: Not Given Documented by: [id number] Admin: 10/07/21 18:38 Dose: Not Given Documented by: [id number] Insulin Glargine (Insulin Glargine Solostar 100 Units/Ml 3 Ml Pen) 20 units SC ONE ONE; Protocol Stop: 10/07/21 21:01 Last Admin: 10/07/21 21:49 Dose: 20 units Documented by: [id number] Cosigned by: [id number] Insulin Glargine (Insulin Glargine Solostar 100 Units/Ml 3 Ml Pen) 10 units SC TODAY@0900 ONE Stop: 10/08/21 09:01 Last Admin: 10/08/21 08:40 Dose: 10 units Documented by: [id number] Cosigned by: [id number] Insulin Glargine (Insulin Glargine Solostar 100 Units/Ml 3 Ml Pen) 0 units SC HS ONE; Protocol Stop: 10/08/21 21:01 Last Admin: 10/08/21 20:46 Dose: 20 units Documented by: [id number] Cosigned by: [id number] Insulin Human Regular (Novolin-R Bolus From Bag) 10 units IV ONE ONE Stop: 10/07/21 17:31 Last Admin: 10/07/21 17:34 Dose: 10 units Documented by: [id number] Cosigned by: [id number] Miscellaneous (Stat Insulin Drip) 1 ea N/A NOW STA Stop: 10/07/21 15:26 Last Admin: 10/07/21 17:28 Dose: 1 ea Documented by: [id number] Miscellaneous (Dka Goal Range 150-250 Mg/Dl) 1 ea N/A ONE ONE Stop: 10/07/21 15:26 Last Admin: 10/07/21 17:28 Dose: 1 ea Documented by: [id number] Miscellaneous (Pending D5 1/2ns+20meq Kcl Ivf) 1 ea N/A Q2H YANETH Stop: 11/06/21 19:14 Last Admin: 10/07/21 22:20 Dose: Not Given Documented by: [id number] Miscellaneous Information (Dc All Previously Ordered Diabetes Meds) 1 ea N/A ONE ONE Stop: 10/07/21 17:00 Last Admin: 10/08/21 07:13 Dose: Not Given Documented by: [id number] Description This is a 21 electrode EEG with a single channel dedicated to limited EKG. The electrodes were placed in accordance with the International 10-20 system. This EEG was done as a bedside recording is of good technical quality. The study was done several hours after clinical seizure activity had stopped and the patient was awake and alert video analysis of patient movement behavior is available. Photic stimulation was performed. Drowsiness and light sleep were not recorded. These conditions there is evidence for normal-appearing background rhythm in the alpha range of up to 9 to 10 Hz maximum frequency and up to 30 V a maximum amplitude which is maximum and posterior head regions bilaterally symmetrical. Modest voltage mid frequency theta activity is seen centrally and symmetrically. Beta activity seen bifrontally. Photic stimulation provokes no significant abnormalities No potentially epileptiform discharges are seen specifically none over the left frontal region where the underlying abnormal finding on MRI is located Interpretation This is a normal EEG during wakefulness Clinical Correlation This is a normal EEG revealing no evidence for focal or generalized encephalopathy no evidence for potentially epileptogenic activity no evidence for ongoing subclinical focal seizure activity originating in the left hemisphere The absence of this activity however does not exclude the diagnosis of a seizure disorder On immaturity
[2021-10-09] MEDS: HEPARIN SOD 5,000 UNIT/0.5 ML VIAL SQ SCH (20:33)
[2021-10-09 22:21] LABS: Appearance Urine Clear (Clear); Bacteria Urine Automated Negative (Negative); Bilirubin Urine Negative (Negative); Blood Urine Negative (Negative); Color Urine Yellow; Epithelial Cell Urine Auto 20-30 /lpf (0-5); Glucose Urine UA Negative (Negative); Ketones Urine Trace (Negative); Leukocyte Esterase Urine Negative (Negative); Nitrite Urine Negative (Negative); Protein Urine Trace (Negative); RBC Urine Automated 0-4 /hpf (0-4); Specific Gravity Urine 1.026 (1.000-1.030); Urobilinogen Urine Negative (Negative)
[2021-10-09 22:28] LABS: Cast Urine Automated 0 /lpf (0-5)
[2021-10-10] MEDS: LEVOTHYROXINE SODIUM 25 MCG TABLET PO SCH (06:12)
[2021-10-10 06:25] LABS: Hematocrit (blood only) 29.2 % (42-52); Mean Corpuscular Hemoglobin 31.1 pg (25-34); Mean Corpuscular Hgb Conc 34.2 g/dL (32-36); Mean Corpuscular Volume 90.7 fL (80-100); Mean Platelet Volume 9.4 fL (7.4-10.4); Platelet Count 234 K/uL (130-400); RDW Coefficient of Variation 14.2 % (11.5-14.5); RDW Standard Deviation 47.2 fL (36.4-46.3); Red Blood Count 3.22 M/uL (4.7-6.1); White Blood Count 7.68 K/uL (4.8-10.8)
[2021-10-10 06:44] LABS: Calcium 8.3 mg/dl (8.5-10.1); Creatinine Clr Calc Pharmacy 79.1 ml/min; Phosphorus 3.6 mg/dl (2.5-4.9); Potassium 3.8 mmol/L (3.5-5.1)
[2021-10-10] MEDS: DONEPEZIL HCL 5 MG TAB PO SCH (08:53)
[2021-10-10] MEDS: ATORVASTATIN 20 MG TAB PO SCH (08:53)
[2021-10-10] MEDS: HEPARIN SOD 5,000 UNIT/0.5 ML VIAL SQ SCH ×2 (08:54→20:43)
[2021-10-10] MEDS: INSULIN GLARGINE SOLOSTAR 100 UNITS/ML 3 ML PEN SC SCH ×2 (08:54→20:44)
[2021-10-10] MEDS: levETIRAcetam 750 MG in 0.9 % SODIUM CHLORIDE 100 ML IV SCH ×2 (08:54→20:44)
[2021-10-10] MEDS: SERTRALINE HCL 50 MG TABLET PO SCH (08:55)
[2021-10-10] MEDS: lisinopril 10 MG TAB PO SCH (08:55)
[2021-10-10] MEDS: INSULIN ASPART PER UNIT SC SCH ×4 (08:55→20:43)
--- NOTE | 2021-10-10 13:27 | Pharmacy Report ---
Pharmacy Glycemic Short Note 2 - Date of Service October 10, 2021 - Glycemic Short BSG Results (Last 24 hours): 10/09/21 10/09/21 10/10/21 16:16 20:11 06:04 Glucose 107 H POC Glucose 104 H 129 H 10/10/21 10/10/21 07:31 11:33 Glucose POC Glucose 133 H 281 H OUTPATIENT ANTIDIABETIC REGIMEN: * Metformin 500 mg PO BIDM * Jardiance 10 mg PO AM * Lantus 18 units SQ HS * Ozempic 0.5 mg SQ weekly * HbA1c = 13.4% (07/27/21) * 13.6% 10/08/21 ASSESSMENT: 10/10: * BSGs generally well controlled yesterday with the exception of lunchtime BSG of 228mg/dL. Today's lunch BSG was high again at 281, however a carb ratio of 20 was used rather than 6 to calculate the novolog coverage, thus only 2 units of insulin administered. This is very likely contributing to this elevation in BSG. * Fasting BSG well controlled at 107 mg/dL. Continue current lantus regimen. 10/09: * Patient successfully transitioned off of the drip receiving 30 units of lantus yesterday. * Fasting BSAG was 96 mg/dL (168 mg/dL on POC). Lantus 15 units BID was initiated this morning based on yesterdays dosing and moderate stress weight based (using adjusted body weight) regimen. Will continue current novolog scale and assess trend. * Patient is tolerating a diet. 10/08 * Gap closed this morning, Bicarb 21, will transition off of insulin drip * Was running at 1.4 units/hr and was to be held per calculator, instructed to decrease to 1.2 units/hr and continue * Patient was then ordered diet, carb ratio 8 with breakfast, dextrose infusion still running @ 150 units/hr * Suspect BSG rising d/t breakfast + dextrose infusion, will tighten carb coverage with lunch and have them cover with novolog @ 1230 BSG check. Will stop insulin infusion and d/c dextrose. Recheck one hour after stopping. 10/07 * 60 yo M admitted secondary to worsening confusion and found to be in DKA. Pharmacy was consulted to assist with inpatient glycemic management. There is a question of non-compliance with this patient given his most recent HbA1c and medication list. * Initial labs were: K+ 4.2, CO2 19, AG 14, Glucose 707, venous pH 7.34. * Patient was given a 10 unit IV insulin bolus followed by starting an IV insulin infusion at 10 units/hr. BSGs began trending down. * Will add a small dose of Lantus this evening to assist with transition off the drip overnight, if possible. * Patient remains NPO and is on Zosyn empirically. Currently running D5 1/2NS + 20 KCl at 150 mL/hr. PLAN FOR INPATIENT GLYCEMIC CONTROL: * Hold outpatient oral diabetes medications * Basal insulin * Lantus 15 units SQ BID * Bolus insulin * NovoLog per scale ACHS or Q6hrs while NPO * Goal Range: Low 110 mg/dL - High 140 mg/dL * Correction Factor: 20 mg/dL/unit * Nutritional / Prandial insulin per carb ratio of 1 unit per 6 grams CHO consumed
--- NOTE | 2021-10-10 13:59 | Hospitalist Progress Note ---
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 Patient takes 18 units of Lantus in the evening daily. Patient presented with worsening confusion since 1 to 2 days on the background of dementia. Admitting blood glucose of greater than 600, anion gap elevated, sodium 128, magnesium 1.5 DKA likely secondary to medication noncompliance, leading to electrolyte abnormalities/MACIE over CKD III as above and acute metabolic encephalopathy ---> Improved. s/p DKA protocol, monitor and replete electrolytes, c/w diet tobacco prevention health educator evaluated, patient will need following prescription: 1.) OneTouch Verio Test Strips to check 4x/day. 2.) OneTouch Delica Lancets 33 gauge to check 4x/day. Appreciate glycemic pharmacist input and recommendation He remains stable on subcu insulin but remains generally weak Will need PT and OT evaluation prior to discharge (2) Acute metabolic encephalopathy: Plan: Likely secondary to diabetic ketoacidosis with associated electrolyte abnormalities Condition improved (3) Electrolyte abnormality: Plan: Secondary to diabetic ketoacidosis Replaced and normalized (4) Seizure disorder: Plan: Focal status epilepticus Serial left-sided facial seizures noted on 10/08/2021, communicated with neurology, started him on Keppra, MRI was positive for postictal changes, follow-up EEG. Patient will need to follow-up with neurology as an outpatient. Had concern of focal seizure in the past in 2018 as well. No further seizure after starting Keppra per RN. (5) Bacteremia: Plan: GPC bacteremia, preliminary --> final contaminant Admitting blood culture, 1 of 2 bottles positive for GPC cocci in cluster, likely contaminant in final result. Empiric antibiotic with Vanco and Zosyn.--> DC atb 10/09 and dc ID consult. continue to monitor off ATB Patient complains of low back pain, at his baseline, assess for need for MRI spine to rule out abscess with further development in culture results. Denies any more symptoms and no fever and or chills and no signs and or symptoms of infection (6) Hypertension: Plan: Other chronic medical conditions: HTN, HLD, dementia, left frontal lobe lesion Medications reviewed with patient's over the phone. Continue/resume home meds as and when appropriate. tobacco prevention health educator (7) Dyslipidemia: Plan: DVT prophylaxis: Hep SC. MOnitor Hb, concerns of epistaxis prior to hospital admission per . Disposition: Follow-up culture results. Admission and Anticipated Discharge Date Admission Date: October 07, 2021 Subjective 10/10/2021 The patient was seen and examined in telemetry unit He is out of bed on a chair and denies any symptoms except weakness and tiredness He needs more physical therapy to get his strength back before discharge Review of Systems Review of Systems: All systems reviewed and are unremarkable except as noted below Physical Exam Physical Exam: Sitting on a recliner without any acute distress Constitutional: well developed, well nourished, + ill appearing and + obese Eyes: PERRL, conjunctivae normal, anicteric sclerae ENMT: external ear and nose normal, oropharynx normal Neck: trachea midline, no thyromegaly Respiratory: no respiratory distress Auscultation: + crackles (Minimal crackles at the bases) Cardiovascular: Rate/Rhythm: regular rate, regular rhythm and + bradycardic Heart Sounds: normal S1 and normal S2; no murmur Extremities: + edema (1+ edema bilaterally) Gastrointestinal (Abdomen): Inspection/Auscultation: normal bowel sounds; abdomen not distended Percussion/Palpation: abdomen soft; abdomen nontender Musculoskeletal: No acute arthritis in any joint Neurologic: Alert, awake and oriented x3. Generally weak but no focal neurodeficit Lymphatic: no cervical or axillary lymphadenopathy Results & Data Results & Data ([facility]) Vital Signs (Past 12 Hours) Vital Signs Temp Pulse Pulse Resp BP Pulse Ox 10/10/21 12:03 36.6 C 57 L 18 98/53 L 99 10/10/21 08:00 36.7 C 59 L 68 23 106/48 L 100 10/10/21 03:14 37.0 C 54 L 18 154/95 H 97 Laboratory Results Short CBC 10/10/21 Range/Units 06:04 WBC 7.68 (4.8-10.8) K/uL Hgb 10.0 L (14.0-18.0) g/dL Hct 29.2 L (42-52) % Plt Count 234 (130-400) K/uL BMP 10/10/21 06:04 Sodium 139 Potassium 3.8 Chloride 113 H Carbon Dioxide 20 L BUN 16 Creatinine 1.14 Glucose 107 H Calcium 8.3 L Urine 10/09/21 Range/Units 21:06 Urine Color Yellow Urine Appearance Clear (Clear) Urine pH 5.0 (4.5-7.5) Ur Specific [place] 1.026 (1.000-1.030) Urine Protein Trace H (Negative) Urine Glucose (UA) Negative (Negative) Medications Administered Current Inpatient Medications Acetaminophen (Acetaminophen 325 Mg Tab) 650 mg PO Q4H PRN PRN Reason: Pain or Fever Stop: 11/06/21 16:54 Last Admin: 10/09/21 12:53 Dose: 650 mg Documented by: Atorvastatin Calcium (Atorvastatin 20 Mg Tab) 20 mg PO DAILY YANETH Stop: 11/07/21 08:59 Last Admin: 10/10/21 08:53 Dose: 20 mg Documented by: Dextrose (Dextrose 50% 50 Ml Syringe) 25 - 50 ml IV UD PRN; Protocol PRN Reason: Hypoglycemia Protocol Stop: 11/06/21 15:24 Donepezil HCl (Donepezil Hcl 5 Mg Tab) 5 mg PO DAILY YANETH Stop: 11/07/21 08:59 Last Admin: 10/10/21 08:53 Dose: 5 mg Documented by: Glucagon (Glucagon For Inj 1 Mg Vial) 1 mg SQ UD PRN; Protocol PRN Reason: Hypoglycemia Protocol Stop: 11/06/21 15:24 Glucose (Glucose 10 Tabs/Tube) 4 - 8 tabs PO UD PRN; Protocol PRN Reason: Hypoglycemia Protocol Stop: 11/06/21 15:24 Glucose (Glucose 40% Gel 15 Gm Tube) 15 - 30 gm PO UD PRN; Protocol PRN Reason: Hypoglycemia Protocol Stop: 11/06/21 15:24 Heparin Sodium (Porcine) (Heparin Sod 5,000 Unit/0.5 Ml Vial) 5,000 units SQ Q12 YANETH Stop: 11/08/21 20:59 Last Admin: 10/10/21 08:54 Dose: 5,000 units Documented by: Levetiracetam 750 mg/ Sodium (Chloride) 107.5 mls @ 420 mls/hr IV BID YANETH Stop: 11/07/21 20:59 Last Infusion: 10/10/21 09:10 Dose: Infused Documented by: Insulin Aspart (Insulin Aspart Per Unit) 0 units SC ACHS YANETH Stop: 11/07/21 12:29 Last Admin: 10/10/21 12:14 Dose: 13 units Documented by: Insulin Glargine (Insulin Glargine Solostar 100 Units/Ml 3 Ml Pen) 15 units SC BID [facility] Stop: 11/08/21 08:59 Last Admin: 10/10/21 08:54 Dose: 15 units Documented by: Levothyroxine Sodium (Levothyroxine Sodium 25 Mcg Tablet) 25 mcg PO DAILYBB [facility] Stop: 11/07/21 06:29 Last Admin: 10/10/21 06:12 Dose: 25 mcg Documented by: Lisinopril (Lisinopril 10 Mg Tab) 10 mg PO DAILY YANETH Stop: 11/08/21 08:59 Last Admin: 10/10/21 08:55 Dose: 10 mg Documented by: Magnesium Hydroxide (Magnesium Hydroxide Susp 30 Ml Udc) 30 ml PO Q12H PRN PRN Reason: Constipation Stop: 11/06/21 16:54 Miscellaneous (Carbohydrates For Hypoglycemia ) 15 - 30 gm PO UD PRN PRN Reason: Hypoglycemia Protocol Stop: 11/06/21 15:24 Miscellaneous Information (Pharmacy Glycemic Mgmt Consult) 1 ea N/A UD PRN PRN Reason: Consult Stop: 11/06/21 16:58 Polyethylene Glycol (Polyethylene (Miralax) 17 Gm Pack) 17 gm PO DAILY PRN PRN Reason: Constipation Stop: 11/06/21 16:54 Sertraline HCl (Sertraline Hcl 50 Mg Tablet) 25 mg PO DAILY [facility] Stop: 11/07/21 08:59 Last Admin: 10/10/21 08:55 Dose: 25 mg Documented by: (1) DKA (diabetic ketoacidosis) Diabetes mellitus complication detail: without coma Diabetes mellitus type: other specified (including SAIGE) Qualified Code(s): E13.10 - Other specified diabetes mellitus with ketoacidosis without coma
--- NOTE | 2021-10-10 15:51 | Communication Note ---
Date of Service: October 10, 2021 Julio is doing well he has had no further seizures he is a little depressed today and a little sleepy and some of this may be the Keppra but at this point I am going to suggest we maintain it at 750 mg twice a day. In the future we may be able to drop the drug dose even further as his EEG showed no ongoing potentially epileptogenic activity and the serial seizures may well have been purely due to a combination of the metabolic disturbance coupled with the underlying structural disorder and now that the metabolic disturbance as been resolved was in the process of resolving, his risk for ongoing seizures may be less but frankly at his age with a structural lesion I think his risk for breakthrough seizures is high and would recommend at least low-dose twice a day Keppra for the remainder of his life if he can tolerate the drug and if not then an alternative anticonvulsant At this point neurology is going to sign off the case and we will arrange to see him in our office in about 3 to 4 weeks Obviously if anything changes we will be happy to reassess him while here in the hospital Randell Amato MD
[2021-10-11] MEDS: ACETAMINOPHEN 325 MG TAB PO PRN ×2 (04:42→14:50)
[2021-10-11] MEDS: LEVOTHYROXINE SODIUM 25 MCG TABLET PO SCH (05:45)
[2021-10-11] MEDS: INSULIN ASPART PER UNIT SC SCH ×4 (08:15→20:18)
[2021-10-11] MEDS: INSULIN GLARGINE SOLOSTAR 100 UNITS/ML 3 ML PEN SC SCH ×2 (08:16→20:44)
[2021-10-11] MEDS: levETIRAcetam 750 MG in 0.9 % SODIUM CHLORIDE 100 ML IV SCH ×2 (08:26→20:37)
[2021-10-11 08:28] LABS: Basophils # (auto) 0.04 K/uL (0-0.2); Basophils % (auto) 0.4 %; Eosinophils % (auto) 2.2 %; Hematocrit (blood only) 34.4 % (42-52); Hemoglobin 11.3 g/dL (14.0-18.0); Immature Granulocytes # (auto) 0.06 K/uL (0.00-0.02); Immature Granulocytes % (auto) 0.7 %; Lymphocytes # (auto) 1.85 K/uL (1.2-3.4); Lymphocytes % (auto) 20.2 %; Mean Corpuscular Hemoglobin 29.9 pg (25-34); Mean Corpuscular Hgb Conc 32.8 g/dL (32-36); Mean Platelet Volume 9.9 fL (7.4-10.4); Monocytes # (auto) 1.21 K/uL (0.11-0.59); Monocytes % (auto) 13.2 %; Neutrophils # (auto) 5.81 K/uL (1.4-6.5); Neutrophils % (auto) 63.3 %; Platelet Count 312 K/uL (130-400); RDW Coefficient of Variation 14.5 % (11.5-14.5); RDW Standard Deviation 48.5 fL (36.4-46.3); Red Blood Count 3.78 M/uL (4.7-6.1); White Blood Count 9.17 K/uL (4.8-10.8)
[2021-10-11] MEDS: DONEPEZIL HCL 5 MG TAB PO SCH (08:29)
[2021-10-11] MEDS: HEPARIN SOD 5,000 UNIT/0.5 ML VIAL SQ SCH ×2 (08:29→20:44)
[2021-10-11] MEDS: ATORVASTATIN 20 MG TAB PO SCH (08:29)
[2021-10-11] MEDS: SERTRALINE HCL 50 MG TABLET PO SCH (08:30)
[2021-10-11 08:37] LABS: BUN Creatinine Ratio 18.1 (10-20); Calcium 9.3 mg/dl (8.5-10.1); Creatinine Clr Calc Pharmacy 97.6 ml/min; Est GFR (Non-African American) 87.2 ml/min; Magnesium 1.7 mg/dl (1.7-2.4); Phosphorus 3.2 mg/dl (2.5-4.9)
[2021-10-11] MEDS: lisinopril 10 MG TAB PO SCH (09:42)
--- NOTE | 2021-10-11 15:31 | Hospitalist Progress Note ---
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 Patient takes 18 units of Lantus in the evening daily. Patient presented with worsening confusion since 1 to 2 days on the background of dementia. Admitting blood glucose of greater than 600, anion gap elevated, sodium 128, magnesium 1.5 DKA likely secondary to medication noncompliance, leading to electrolyte abnormalities/MACIE over CKD III as above and acute metabolic encephalopathy ---> Improved. s/p DKA protocol, monitor and replete electrolytes, c/w diet software educator evaluated, patient will need following prescription: 1.) OneTouch Verio Test Strips to check 4x/day. 2.) OneTouch Delica Lancets 33 gauge to check 4x/day. Appreciate glycemic pharmacist input and recommendation He remains stable on subcu insulin but remains generally weak Will need PT and OT evaluation prior to discharge-not yet ready to be discharged (2) Acute metabolic encephalopathy: Plan: Likely secondary to diabetic ketoacidosis with associated electrolyte abnormalities Condition improved and is back to his baseline (3) Electrolyte abnormality: Plan: Secondary to diabetic ketoacidosis Replaced and normalized (4) Seizure disorder: Plan: Focal status epilepticus Serial left-sided facial seizures noted on 10/08/2021, communicated with neurology, started him on Keppra, MRI was positive for postictal changes, follow-up EEG. Patient will need to follow-up with neurology as an outpatient. Had concern of focal seizure in the past in 2018 as well. No further seizure after starting Keppra per RN. Remains a stable on Keppra (5) Bacteremia: Plan: GPC bacteremia, preliminary --> final contaminant Admitting blood culture, 1 of 2 bottles positive for GPC cocci in cluster, likely contaminant in final result. Empiric antibiotic with Vanco and Zosyn.--> DC atb 10/09 and dc ID consult. continue to monitor off ATB Patient complains of low back pain, at his baseline, assess for need for MRI spine to rule out abscess with further development in culture results. Denies any more symptoms and no fever and or chills and no signs and or symptoms of infection (6) Hypertension: Plan: Other chronic medical conditions: HTN, HLD, dementia, left frontal lobe lesion Medications reviewed with patient's over the phone. Continue/resume home meds as and when appropriate. software educator (7) Dyslipidemia: Plan: DVT prophylaxis: Hep SC. MOnitor Hb, concerns of epistaxis prior to hospital admission per . Likely discharge in a day or 2 Admission and Anticipated Discharge Date Admission Date: October 07, 2021 Subjective 10/10/2021 The patient was seen and examined in telemetry unit He is out of bed on a chair and denies any symptoms except weakness and tiredness He needs more physical therapy to get his strength back before discharge 10/11/2021 The patient was seen and examined in telemetry unit He remains very weak and does not feel that he is ready to go yet Has not got physical therapy yet Review of Systems Review of Systems: All systems reviewed and are unremarkable except as noted below Physical Exam Physical Exam: Sitting on a recliner without any acute distress Constitutional: well developed, well nourished, + ill appearing and + obese Eyes: PERRL, conjunctivae normal, anicteric sclerae ENMT: external ear and nose normal, oropharynx normal Neck: trachea midline, no thyromegaly Respiratory: no respiratory distress Auscultation: + crackles (Minimal crackles at the bases) Cardiovascular: Rate/Rhythm: regular rate, regular rhythm and + bradycardic Heart Sounds: normal S1 and normal S2; no murmur Extremities: + edema (1+ edema bilaterally) Gastrointestinal (Abdomen): Inspection/Auscultation: normal bowel sounds; abdomen not distended Percussion/Palpation: abdomen soft; abdomen nontender Musculoskeletal: No acute arthritis in any joint Neurologic: normal touch/pain/proprioception and moves all extremities; not confused Generally weak and lethargic Lymphatic: no cervical or axillary lymphadenopathy Results & Data Results & Data ([facility]) Vital Signs (Past 12 Hours) Vital Signs Temp Pulse Pulse Resp BP Pulse Ox 10/11/21 14:55 60 10/11/21 12:04 36.6 C 65 20 148/80 H 99 10/11/21 07:21 57 L 10/11/21 07:17 54 L 20 97/63 L 95 Laboratory Results Short CBC 10/11/21 Range/Units 07:58 WBC 9.17 (4.8-10.8) K/uL Hgb 11.3 L (14.0-18.0) g/dL Hct 34.4 L (42-52) % Plt Count 312 (130-400) K/uL BMP 10/11/21 07:58 Sodium 139 Potassium 4.0 Chloride 111 H Carbon Dioxide 22 BUN 17 Creatinine 0.94 Glucose 133 H Calcium 9.3 Medications Administered Current Inpatient Medications Acetaminophen (Acetaminophen 325 Mg Tab) 650 mg PO Q4H PRN PRN Reason: Pain or Fever Stop: 11/06/21 16:54 Last Admin: 10/11/21 14:50 Dose: 650 mg Documented by: Atorvastatin Calcium (Atorvastatin 20 Mg Tab) 20 mg PO DAILY YANETH Stop: 11/07/21 08:59 Last Admin: 10/11/21 08:29 Dose: 20 mg Documented by: Dextrose (Dextrose 50% 50 Ml Syringe) 25 - 50 ml IV UD PRN; Protocol PRN Reason: Hypoglycemia Protocol Stop: 11/06/21 15:24 Donepezil HCl (Donepezil Hcl 5 Mg Tab) 5 mg PO DAILY YANETH Stop: 11/07/21 08:59 Last Admin: 10/11/21 08:29 Dose: 5 mg Documented by: Glucagon (Glucagon For Inj 1 Mg Vial) 1 mg SQ UD PRN; Protocol PRN Reason: Hypoglycemia Protocol Stop: 11/06/21 15:24 Glucose (Glucose 10 Tabs/Tube) 4 - 8 tabs PO UD PRN; Protocol PRN Reason: Hypoglycemia Protocol Stop: 11/06/21 15:24 Glucose (Glucose 40% Gel 15 Gm Tube) 15 - 30 gm PO UD PRN; Protocol PRN Reason: Hypoglycemia Protocol Stop: 11/06/21 15:24 Heparin Sodium (Porcine) (Heparin Sod 5,000 Unit/0.5 Ml Vial) 5,000 units SQ Q12 YANETH Stop: 11/08/21 20:59 Last Admin: 10/11/21 08:29 Dose: 5,000 units Documented by: Levetiracetam 750 mg/ Sodium (Chloride) 107.5 mls @ 420 mls/hr IV BID YANETH Stop: 11/07/21 20:59 Last Infusion: 10/11/21 09:04 Dose: Infused Documented by: Insulin Aspart (Insulin Aspart Per Unit) 0 units SC ACHS YANETH Stop: 11/07/21 12:29 Last Admin: 10/11/21 11:58 Dose: 14 units Documented by: Insulin Glargine (Insulin Glargine Solostar 100 Units/Ml 3 Ml Pen) 15 units SC BID [facility] Stop: 11/08/21 08:59 Last Admin: 10/11/21 08:16 Dose: 15 units Documented by: Levothyroxine Sodium (Levothyroxine Sodium 25 Mcg Tablet) 25 mcg PO DAILYBB [facility] Stop: 11/07/21 06:29 Last Admin: 10/11/21 05:45 Dose: 25 mcg Documented by: Lisinopril (Lisinopril 10 Mg Tab) 10 mg PO DAILY [facility] Stop: 11/08/21 08:59 Last Admin: 10/11/21 09:42 Dose: Not Given Documented by: Magnesium Hydroxide (Magnesium Hydroxide Susp 30 Ml Udc) 30 ml PO Q12H PRN PRN Reason: Constipation Stop: 11/06/21 16:54 Miscellaneous (Carbohydrates For Hypoglycemia ) 15 - 30 gm PO UD PRN PRN Reason: Hypoglycemia Protocol Stop: 11/06/21 15:24 Miscellaneous Information (Pharmacy Glycemic Mgmt Consult) 1 ea N/A UD PRN PRN Reason: Consult Stop: 11/06/21 16:58 Polyethylene Glycol (Polyethylene (Miralax) 17 Gm Pack) 17 gm PO DAILY PRN PRN Reason: Constipation Stop: 11/06/21 16:54 Sertraline HCl (Sertraline Hcl 50 Mg Tablet) 25 mg PO DAILY [facility] Stop: 11/07/21 08:59 Last Admin: 10/11/21 08:30 Dose: 25 mg Documented by: (1) DKA (diabetic ketoacidosis) Diabetes mellitus complication detail: without coma Diabetes mellitus type: other specified (including SAIGE) Qualified Code(s): E13.10 - Other specified diabetes mellitus with ketoacidosis without coma
[2021-10-12] MEDS: LEVOTHYROXINE SODIUM 25 MCG TABLET PO SCH (06:06)
[2021-10-12] MEDS: INSULIN ASPART PER UNIT SC SCH ×4 (08:07→21:31)
[2021-10-12] MEDS: SERTRALINE HCL 50 MG TABLET PO SCH (08:07)
[2021-10-12] MEDS: levETIRAcetam 750 MG in 0.9 % SODIUM CHLORIDE 100 ML IV SCH ×2 (08:09→22:04)
[2021-10-12] MEDS: HEPARIN SOD 5,000 UNIT/0.5 ML VIAL SQ SCH ×2 (08:09→21:32)
[2021-10-12] MEDS: DONEPEZIL HCL 5 MG TAB PO SCH (08:09)
[2021-10-12] MEDS: lisinopril 10 MG TAB PO SCH (08:13)
[2021-10-12] MEDS: ATORVASTATIN 20 MG TAB PO SCH (08:13)
[2021-10-12] MEDS ORDERED: INSULIN GLARGINE SOLOSTAR 100 UNITS/ML 3 ML PEN SC ONE (09:30)
[2021-10-12] MEDS: ACETAMINOPHEN 325 MG TAB PO PRN (10:51)
--- NOTE | 2021-10-12 12:55 | Pharmacy Report ---
Pharmacy Glycemic Short Note 2 - Date of Service October 12, 2021 - Glycemic Short BSG Results (Last 24 hours): 10/11/21 10/11/21 10/12/21 16:23 20:10 07:29 POC Glucose 164 H 111 H 139 H 10/12/21 11:21 POC Glucose 211 H OUTPATIENT ANTIDIABETIC REGIMEN: * Metformin 500 mg PO BIDM * Jardiance 10 mg PO AM * Lantus 18 units SQ HS * Ozempic 0.5 mg SQ weekly * HbA1c = 13.4% (07/27/21) * 13.6% 10/08/21 ASSESSMENT: 10/12: * BSGs well controlled over the last 24 hours, with highest BSG at lunch yesterday. Correct CHO was used (as compared to incorrect CHO ratio at breakfast on 10/10). Will tighten carb ratio with breakfast check only * AM fasting BSG good. However, plan is to discharge patient on once daily *AM* Lantus per clinical document improvement educator documentation, but still split evenly BID as an inpatient. Will transition over to AM administration over the next 24-48 hours 10/10: * BSGs generally well controlled yesterday with the exception of lunchtime BSG of 228mg/dL. Today's lunch BSG was high again at 281, however a carb ratio of 20 was used rather than 6 to calculate the novolog coverage, thus only 2 units of insulin administered. This is very likely contributing to this elevation in BSG. * Fasting BSG well controlled at 107 mg/dL. Continue current lantus regimen. 10/09: * Patient successfully transitioned off of the drip receiving 30 units of lantus yesterday. * Fasting BSAG was 96 mg/dL (168 mg/dL on POC). Lantus 15 units BID was initiated this morning based on yesterdays dosing and moderate stress weight based (using adjusted body weight) regimen. Will continue current novolog scale and assess trend. * Patient is tolerating a diet. PLAN FOR INPATIENT GLYCEMIC CONTROL: * Hold outpatient oral diabetes medications * Basal insulin * Lantus 22 units SQ x1 this AM, then 30 units qAM ongoing after that * Bolus insulin * NovoLog per scale ACHS or Q6hrs while NPO * Goal Range: Low 110 mg/dL - High 140 mg/dL * Correction Factor: 20 mg/dL/unit * CHO ratio: 5 g CHO/unit with breakfast, 6 g CHO/unit with lunch, dinner, bedtime
--- NOTE | 2021-10-12 15:25 | Hospitalist Progress Note ---
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 Patient takes 18 units of Lantus in the evening daily. Patient presented with worsening confusion since 1 to 2 days on the background of dementia. Admitting blood glucose of greater than 600, anion gap elevated, sodium 128, magnesium 1.5 DKA likely secondary to medication noncompliance, leading to electrolyte abnormalities/MACIE over CKD III as above and acute metabolic encephalopathy ---> Improved. s/p DKA protocol, monitor and replete electrolytes, c/w diet simulation educator evaluated, patient will need following prescription: 1.) OneTouch Verio Test Strips to check 4x/day. 2.) OneTouch Delica Lancets 33 gauge to check 4x/day. Appreciate glycemic pharmacist input and recommendation He remains stable on subcu insulin but remains generally weak Will need PT and OT evaluation prior to discharge-not yet ready to be discharged Remains medically stable but generally very weak and lethargic We will transfer him to medical floor and continue physical therapy (2) Acute metabolic encephalopathy: Plan: Likely secondary to diabetic ketoacidosis with associated electrolyte abnormalities Condition improved and is back to his baseline (3) Electrolyte abnormality: Plan: Secondary to diabetic ketoacidosis Replaced and normalized We will recheck electrolytes tomorrow (4) Seizure disorder: Plan: Focal status epilepticus Serial left-sided facial seizures noted on 10/08/2021, communicated with neurology, started him on Keppra, MRI was positive for postictal changes, fol low-up EEG. Patient will need to follow-up with neurology as an outpatient. Had concern of focal seizure in the past in 2018 as well. No further seizure after starting Keppra per RN. Remains a stable on Keppra (5) Bacteremia: Plan: GPC bacteremia, preliminary --> final contaminant Admitting blood culture, 1 of 2 bottles positive for GPC cocci in cluster, likely contaminant in final result. Empiric antibiotic with Vanco and Zosyn.--> DC atb 10/09 and dc ID consult. continue to monitor off ATB Patient complains of low back pain, at his baseline, assess for need for MRI spine to rule out abscess with further development in culture results. Denies any more symptoms and no fever and or chills and no signs and or symptoms of infection (6) Hypertension: Plan: Other chronic medical conditions: HTN, HLD, dementia, left frontal lobe lesion Medications reviewed with patient's over the phone. Continue/resume home meds as and when appropriate. Blood pressure remains on the lower side (7) Dyslipidemia: Plan: DVT prophylaxis: Hep SC. MOnitor Hb, concerns of epistaxis prior to hospital admission per . Likely discharge in a day or 2 Admission and Anticipated Discharge Date Admission Date: October 07, 2021 Subjective 10/10/2021 The patient was seen and examined in telemetry unit He is out of bed on a chair and denies any symptoms except weakness and tiredness He needs more physical therapy to get his strength back before discharge 10/11/2021 The patient was seen and examined in telemetry unit He remains very weak and does not feel that he is ready to go yet Has not got physical therapy yet 10/12/2021 The patient was seen and examined in telemetry unit He remains weak but otherwise asymptomatic He feels that he is not ready yet to be discharged Review of Systems Review of Systems: All systems reviewed and are unremarkable except as noted below Physical Exam Physical Exam: Sitting on a recliner without any acute distress Constitutional: well developed, well nourished, + ill appearing and + obese Eyes: PERRL, conjunctivae normal, anicteric sclerae ENMT: external ear and nose normal, oropharynx normal Neck: trachea midline, no thyromegaly Respiratory: no respiratory distress Auscultation: + crackles (Minimal crackles at the bases) Cardiovascular: Rate/Rhythm: regular rate, regular rhythm and + bradycardic Heart Sounds: normal S1 and normal S2; no murmur Extremities: + edema (1+ edema bilaterally) Gastrointestinal (Abdomen): Inspection/Auscultation: normal bowel sounds; abdomen not distended Percussion/Palpation: abdomen soft; abdomen nontender Musculoskeletal: No acute arthritis in any joint on my Neurologic: normal touch/pain/proprioception and moves all extremities; not confused Psychiatric: A+Ox3, euthymic affect Lymphatic: no cervical or axillary lymphadenopathy Results & Data Results & Data ([facility] [place]) Vital Signs (Past 12 Hours) Vital Signs Temp Pulse Pulse Resp BP Pulse Ox 10/12/21 15:11 36.7 C 60 23 92/56 L 98 10/12/21 14:52 63 05/27/22 12:18 37.0 C 80 20 92/55 L 97 10/12/21 08:55 52 L 10/12/21 08:12 36.7 C 69 18 124/68 97 10/12/21 03:52 36.8 C 57 L 18 142/68 H 96 Medications Administered Current Inpatient Medications Acetaminophen (Acetaminophen 325 Mg Tab) 650 mg PO Q4H PRN PRN Reason: Pain or Fever Stop: 11/06/21 16:54 Last Admin: 10/12/21 10:51 Dose: 650 mg Documented by: Atorvastatin Calcium (Atorvastatin 20 Mg Tab) 20 mg PO DAILY YANETH Stop: 11/07/21 08:59 Last Admin: 10/12/21 08:13 Dose: 20 mg Documented by: Dextrose (Dextrose 50% 50 Ml Syringe) 25 - 50 ml IV UD PRN; Protocol PRN Reason: Hypoglycemia Protocol Stop: 11/06/21 15:24 Donepezil HCl (Donepezil Hcl 5 Mg Tab) 5 mg PO DAILY YANETH Stop: 11/07/21 08:59 Last Admin: 10/12/21 08:09 Dose: 5 mg Documented by: Glucagon (Glucagon For Inj 1 Mg Vial) 1 mg SQ UD PRN; Protocol PRN Reason: Hypoglycemia Protocol Stop: 11/06/21 15:24 Glucose (Glucose 10 Tabs/Tube) 4 - 8 tabs PO UD PRN; Protocol PRN Reason: Hypoglycemia Protocol Stop: 11/06/21 15:24 Glucose (Glucose 40% Gel 15 Gm Tube) 15 - 30 gm PO UD PRN; Protocol PRN Reason: Hypoglycemia Protocol Stop: 11/06/21 15:24 Heparin Sodium (Porcine) (Heparin Sod 5,000 Unit/0.5 Ml Vial) 5,000 units SQ Q12 YANETH Stop: 11/08/21 20:59 Last Admin: 10/12/21 08:09 Dose: 5,000 units Documented by: Levetiracetam 750 mg/ Sodium (Chloride) 107.5 mls @ 420 mls/hr IV BID YANETH Stop: 11/07/21 20:59 Last Infusion: 10/12/21 08:25 Dose: Infused Documented by: Insulin Aspart (Insulin Aspart Per Unit) 0 units SC TID@1130,1630,2100 YANETH Stop: 11/11/21 11:29 Last Admin: 10/12/21 11:39 Dose: 10 units Documented by: Insulin Aspart (Insulin Aspart Per Unit) 0 units SC DAILY@0730 [facility] Stop: 11/11/21 07:29 Last Admin: 10/12/21 08:07 Dose: 9 units Documented by: Insulin Glargine (Insulin Glargine Solostar 100 Units/Ml 3 Ml Pen) 30 units SC [facility]; Protocol Stop: 11/12/21 08:59 Levothyroxine Sodium (Levothyroxine Sodium 25 Mcg Tablet) 25 mcg PO DAILYBB [facility] Stop: 11/07/21 06:29 Last Admin: 10/12/21 06:06 Dose: 25 mcg Documented by: Lisinopril (Lisinopril 10 Mg Tab) 10 mg PO DAILY [facility] Stop: 11/08/21 08:59 Last Admin: 10/12/21 08:13 Dose: 10 mg Documented by: Magnesium Hydroxide (Magnesium Hydroxide Susp 30 Ml Udc) 30 ml PO Q12H PRN PRN Reason: Constipation Stop: 11/06/21 16:54 Miscellaneous (Carbohydrates For Hypoglycemia ) 15 - 30 gm PO UD PRN PRN Reason: Hypoglycemia Protocol Stop: 11/06/21 15:24 Miscellaneous Information (Pharmacy Glycemic Mgmt Consult) 1 ea N/A UD PRN PRN Reason: Consult Stop: 11/06/21 16:58 Polyethylene Glycol (Polyethylene (Miralax) 17 Gm Pack) 17 gm PO DAILY PRN PRN Reason: Constipation Stop: 11/06/21 16:54 Sertraline HCl (Sertraline Hcl 50 Mg Tablet) 25 mg PO DAILY [facility] Stop: 11/07/21 08:59 Last Admin: 10/12/21 08:07 Dose: 25 mg Documented by: (1) DKA (diabetic ketoacidosis) Diabetes mellitus complication detail: without coma Diabetes mellitus type: other specified (including SAIGE) Qualified Code(s): E13.10 - Other specified diabetes mellitus with ketoacidosis without coma
[2021-10-13] MEDS: LEVOTHYROXINE SODIUM 25 MCG TABLET PO SCH (05:39)
[2021-10-13 06:25] LABS: Basophils # (auto) 0.04 K/uL (0-0.2); Basophils % (auto) 0.4 %; Eosinophils # (auto) 0.14 K/uL (0-0.5); Eosinophils % (auto) 1.5 %; Hematocrit (blood only) 31.7 % (42-52); Hemoglobin 10.4 g/dL (14.0-18.0); Immature Granulocytes # (auto) 0.09 K/uL (0.00-0.02); Lymphocytes # (auto) 1.79 K/uL (1.2-3.4); Lymphocytes % (auto) 19.8 %; Mean Corpuscular Hemoglobin 29.9 pg (25-34); Mean Corpuscular Hgb Conc 32.8 g/dL (32-36); Mean Corpuscular Volume 91.1 fL (80-100); Mean Platelet Volume 10.3 fL (7.4-10.4); Monocytes % (auto) 14.4 %; Neutrophils # (auto) 5.69 K/uL (1.4-6.5); Neutrophils % (auto) 62.9 %; Platelet Count 300 K/uL (130-400); RDW Coefficient of Variation 14.1 % (11.5-14.5); RDW Standard Deviation 46.7 fL (36.4-46.3); Red Blood Count 3.48 M/uL (4.7-6.1); White Blood Count 9.05 K/uL (4.8-10.8)
[2021-10-13 06:54] LABS: Calcium 9.2 mg/dl (8.5-10.1); Creatinine Clr Calc Pharmacy 97.5 ml/min; Est GFR (African American) 99.7 ml/min; Est GFR (Non-African American) 86.1 ml/min; Magnesium 1.4 mg/dl (1.7-2.4); Phosphorus 3.4 mg/dl (2.5-4.9); Potassium 4.3 mmol/L (3.5-5.1)
[2021-10-13] MEDS: DONEPEZIL HCL 5 MG TAB PO SCH (07:44)
[2021-10-13] MEDS: lisinopril 10 MG TAB PO SCH (07:44)
[2021-10-13] MEDS: SERTRALINE HCL 50 MG TABLET PO SCH (07:45)
[2021-10-13] MEDS: HEPARIN SOD 5,000 UNIT/0.5 ML VIAL SQ SCH ×2 (07:45→21:02)
[2021-10-13] MEDS: ATORVASTATIN 20 MG TAB PO SCH (07:45)
[2021-10-13] MEDS: levETIRAcetam 750 MG in 0.9 % SODIUM CHLORIDE 100 ML IV SCH ×2 (07:46→21:03)
[2021-10-13] MEDS ORDERED: INSULIN GLARGINE SOLOSTAR 100 UNITS/ML 3 ML PEN SC SCH (09:00)
[2021-10-13] MEDS: INSULIN ASPART PER UNIT SC SCH ×4 (09:22→21:01)
--- NOTE | 2021-10-13 14:16 | Hospitalist Progress Note ---
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 Patient takes 18 units of Lantus in the evening daily. Patient presented with worsening confusion since 1 to 2 days on the background of dementia. Admitting blood glucose of greater than 600, anion gap elevated, sodium 128, magnesium 1.5 DKA likely secondary to medication noncompliance, leading to electrolyte abnormalities/MACIE over CKD III as above and acute metabolic encephalopathy ---> Improved. s/p DKA protocol, monitor and replete electrolytes, c/w diet clinical systems educator evaluated, patient will need following prescription: 1.) OneTouch Verio Test Strips to check 4x/day. 2.) OneTouch Delica Lancets 33 gauge to check 4x/day. Appreciate glycemic pharmacist input and recommendation He remains stable on subcu insulin but remains generally weak Will need PT and OT evaluation prior to discharge-not yet ready to be discharged Remains medically stable but generally very weak and lethargic We will transfer him to medical floor and continue physical therapy Discussed with the in detail-reassured that the patient is doing well and will be evaluated by neurologist as an outpatient The patient is not yet ready to be discharged as per the patient himself Denies any headache and/or any acute symptoms (2) Acute metabolic encephalopathy: Plan: Likely secondary to diabetic ketoacidosis with associated electrolyte abnormalities Condition improved and is back to his baseline Denies any acute issues (3) Electrolyte abnormality: Plan: Secondary to diabetic ketoacidosis Replaced and normalized We will recheck electrolytes tomorrow (4) Seizure disorder: Plan: Focal status epilepticus Serial left-sided facial seizures noted on 10/08/2021, communicated with neuro logy, started him on Keppra, MRI was positive for postictal changes, follow-up EEG. Patient will need to follow-up with neurology as an outpatient. Had concern of focal seizure in the past in 2018 as well. No further seizure after starting Keppra per RN. Remains a stable on Keppra (5) Bacteremia: Plan: GPC bacteremia, preliminary --> final contaminant Admitting blood culture, 1 of 2 bottles positive for GPC cocci in cluster, likely contaminant in final result. Empiric antibiotic with Vanco and Zosyn.--> DC atb 10/09 and dc ID consult. continue to monitor off ATB Patient complains of low back pain, at his baseline, assess for need for MRI spine to rule out abscess with further development in culture results. Denies any more symptoms and no fever and or chills and no signs and or symptoms of infection (6) Hypertension: Plan: Other chronic medical conditions: HTN, HLD, dementia, left frontal lobe lesion Medications reviewed with patient's over the phone. Continue/resume home meds as and when appropriate. Blood pressure remains on the lower side (7) Dyslipidemia: Plan: DVT prophylaxis: Hep SC. MOnitor Hb, concerns of epistaxis prior to hospital admission per . Likely discharge in a day or 2 Admission and Anticipated Discharge Date Admission Date: October 07, 2021 Subjective 10/10/2021 The patient was seen and examined in telemetry unit He is out of bed on a chair and denies any symptoms except weakness and tiredness He needs more physical therapy to get his strength back before discharge 10/11/2021 The patient was seen and examined in telemetry unit He remains very weak and does not feel that he is ready to go yet Has not got physical therapy yet 10/12/2021 The patient was seen and examined in telemetry unit He remains weak but otherwise asymptomatic He feels that he is not ready yet to be discharged 10/13/2021 The patient was seen and examined in medical floor He remained stable and denies any symptoms except generalized weakness Physical therapy recommended home but he feels he is not yet ready to be discharged Review of Systems Review of Systems: All systems reviewed and are unremarkable except as noted below Physical Exam Physical Exam: Lying in bed without any acute distress Constitutional: well developed, well nourished, + ill appearing and + obese Eyes: PERRL, conjunctivae normal, anicteric sclerae ENMT: external ear and nose normal, oropharynx normal Neck: trachea midline, no thyromegaly Respiratory: no respiratory distress Auscultation: + crackles (Minimal crackles at the bases) Cardiovascular: Rate/Rhythm: regular rate, regular rhythm and + bradycardic Heart Sounds: normal S1 and normal S2; no murmur Extremities: + edema (1+ edema bilaterally) Gastrointestinal (Abdomen): Inspection/Auscultation: normal bowel sounds; abdomen not distended Percussion/Palpation: abdomen soft; abdomen nontender Musculoskeletal: No acute arthritis in any joint Neurologic: normal touch/pain/proprioception and moves all extremities; not confused Psychiatric: A+Ox3, euthymic affect Lymphatic: no cervical or axillary lymphadenopathy Results & Data Results & Data ([facility]) Vital Signs (Past 12 Hours) Vital Signs Temp Pulse Resp BP Pulse Ox 10/13/21 08:02 36.4 C L 51 L 16 135/79 97 Laboratory Results Short CBC 10/13/21 Range/Units 05:18 WBC 9.05 (4.8-10.8) K/uL Hgb 10.4 L (14.0-18.0) g/dL Hct 31.7 L (42-52) % Plt Count 300 (130-400) K/uL [facility] 10/13/21 05:18 Sodium 138 Potassium 4.3 Chloride 109 H Carbon Dioxide 21 BUN 19 Creatinine 0.95 Glucose 178 H Calcium 9.2 Medications Administered Short CBC 10/13/21 Range/Units 05:18 WBC 9.05 (4.8-10.8) K/uL Hgb 10.4 L (14.0-18.0) g/dL Hct 31.7 L (42-52) % Plt Count 300 (130-400) K/uL [facility] 10/13/21 05:18 Sodium 138 Potassium 4.3 Chloride 109 H Carbon Dioxide 21 BUN 19 Creatinine 0.95 Glucose 178 H Calcium 9.2 (1) DKA (diabetic ketoacidosis) Diabetes mellitus complication detail: without coma Diabetes mellitus type: other specified (including SAIGE) Qualified Code(s): E13.10 - Other specified diabetes mellitus with ketoacidosis without coma
[2021-10-14] MEDS: LEVOTHYROXINE SODIUM 25 MCG TABLET PO SCH (06:04)
[2021-10-14] MEDS: ATORVASTATIN 20 MG TAB PO SCH (07:52)
[2021-10-14] MEDS: SERTRALINE HCL 50 MG TABLET PO SCH (07:53)
[2021-10-14] MEDS: levETIRAcetam 750 MG in 0.9 % SODIUM CHLORIDE 100 ML IV SCH ×2 (07:53→21:17)
[2021-10-14] MEDS: HEPARIN SOD 5,000 UNIT/0.5 ML VIAL SQ SCH ×2 (07:53→21:07)
[2021-10-14] MEDS: DONEPEZIL HCL 5 MG TAB PO SCH (07:53)
[2021-10-14] MEDS: lisinopril 10 MG TAB PO SCH (07:55)
[2021-10-14 07:57] LABS: Basophils # (auto) 0.03 K/uL (0-0.2); Basophils % (auto) 0.2 %; Eosinophils # (auto) 0.16 K/uL (0-0.5); Eosinophils % (auto) 1.1 %; Hematocrit (blood only) 35.7 % (42-52); Hemoglobin 11.8 g/dL (14.0-18.0); Immature Granulocytes # (auto) 0.13 K/uL (0.00-0.02); Immature Granulocytes % (auto) 0.9 %; Lymphocytes # (auto) 2.34 K/uL (1.2-3.4); Lymphocytes % (auto) 16.3 %; Mean Corpuscular Hemoglobin 30.8 pg (25-34); Mean Corpuscular Hgb Conc 33.1 g/dL (32-36); Mean Corpuscular Volume 93.2 fL (80-100); Monocytes # (auto) 1.87 K/uL (0.11-0.59); Monocytes % (auto) 13.1 %; Neutrophils # (auto) 9.79 K/uL (1.4-6.5); Neutrophils % (auto) 68.4 %; Platelet Count 387 K/uL (130-400); RDW Coefficient of Variation 13.9 % (11.5-14.5); RDW Standard Deviation 47.7 fL (36.4-46.3); Red Blood Count 3.83 M/uL (4.7-6.1); White Blood Count 14.32 K/uL (4.8-10.8)
[2021-10-14 08:04] LABS: Calcium 9.9 mg/dl (8.5-10.1); Creatinine Clr Calc Pharmacy 92.4 ml/min; Est GFR (African American) 93.7 ml/min; Est GFR (Non-African American) 80.9 ml/min; Magnesium 1.4 mg/dl (1.7-2.4); Phosphorus 3.3 mg/dl (2.5-4.9); Potassium 4.1 mmol/L (3.5-5.1)
[2021-10-14] MEDS: INSULIN GLARGINE SOLOSTAR 100 UNITS/ML 3 ML PEN SC SCH (09:25)
[2021-10-14] MEDS: INSULIN ASPART PER UNIT SC SCH ×4 (09:28→21:07)
--- NOTE | 2021-10-14 13:53 | Pharmacy Report ---
Pharmacy Glycemic Short Note 2 - Date of Service October 14, 2021 - Glycemic Short BSG Results (Last 24 hours): 10/13/21 10/13/21 10/14/21 17:03 20:38 07:17 Glucose 180 H POC Glucose 185 H 196 H 10/14/21 10/14/21 08:16 12:41 Glucose POC Glucose 182 H 165 H OUTPATIENT ANTIDIABETIC REGIMEN: * Metformin 500 mg PO BIDM * Jardiance 10 mg PO AM * Lantus 18 units SQ HS * Ozempic 0.5 mg SQ weekly * HbA1c = 13.4% (07/27/21) * 13.6% 10/08/21 ASSESSMENT: 10/14/21: * Lantus has been titrated up for fasting BSG above goal. * Novolog parameters have been adjusted to provide additional prandial coverage with breakfast. * BSGs appear to be stable. No further changes required at this time. 10/12 * BSGs well controlled over the last 24 hours, with highest BSG at lunch yesterday. Correct CHO was used (as compared to incorrect CHO ratio at breakfast on 10/10). Will tighten carb ratio with breakfast check only * AM fasting BSG good. However, plan is to discharge patient on once daily *AM* Lantus per cosmetology educator documentation, but still split evenly BID as an inpatient. Will transition over to AM administration over the next 24-48 hours 10/10 * BSGs generally well controlled yesterday with the exception of lunchtime BSG of 228mg/dL. Today's lunch BSG was high again at 281, however a carb ratio of 20 was used rather than 6 to calculate the novolog coverage, thus only 2 units of insulin administered. This is very likely contributing to this elevation in BSG. * Fasting BSG well controlled at 107 mg/dL. Continue current lantus regimen. 10/09 * Patient successfully transitioned off of the drip receiving 30 units of lantus yesterday. * Fasting BSAG was 96 mg/dL (168 mg/dL on POC). Lantus 15 units BID was initiated this morning based on yesterdays dosing and moderate stress weight based (using adjusted body weight) regimen. Will continue current novolog scale and assess trend. * Patient is tolerating a diet. PLAN FOR INPATIENT GLYCEMIC CONTROL: * Hold outpatient oral diabetes medications * Basal insulin * Lantus 35 units SQ qAM * Bolus insulin * NovoLog per scale ACHS or Q6hrs while NPO * Goal Range: Low 110 mg/dL - High 140 mg/dL * Correction Factor: 20 mg/dL/unit * CHO ratio: 3 g CHO/unit with breakfast, 6 g CHO/unit with lunch, dinner, bedtime
--- NOTE | 2021-10-14 14:35 | Hospitalist Progress Note ---
Date of Service October 14, 2021 Assessment & Plan (1) DKA (diabetic ketoacidosis): Plan: Patient apparently was missing his Jardiance dose since 5 days IT SUPPORT SPECIALIST per his . Patient takes 18 units of Lantus in the evening daily. Patient presented with worsening confusion since 1 to 2 days on the background of dementia. Admitting blood glucose of greater than 600, anion gap elevated, sodium 128, magnesium 1.5 DKA likely secondary to medication noncompliance, leading to electrolyte abnormalities/MACIE over CKD III as above and acute metabolic encephalopathy ---> Improved. s/p DKA protocol, monitor and replete electrolytes, c/w diet clinical trial educator evaluated, patient will need following prescription: 1.) OneTouch Verio Test Strips to check 4x/day. 2.) OneTouch Delica Lancets 33 gauge to check 4x/day. Appreciate glycemic pharmacist input and recommendation He remains stable on subcu insulin but remains generally weak Will need PT and OT evaluation prior to discharge-not yet ready to be discharged Remains medically stable but generally very weak and lethargic We will transfer him to medical floor and continue physical therapy Discussed with the in detail-reassured that the patient is doing well and will be evaluated by neurologist as an outpatient The patient is not yet ready to be discharged as per the patient himself Denies any headache and/or any acute symptoms Remains generally weak (2) Acute metabolic encephalopathy: Plan: Likely secondary to diabetic ketoacidosis with associated electrolyte abnormalities Condition improved and is back to his baseline Complains to have memory impairment Advised to have outpatient neuro appointment in 3 weeks (3) Electrolyte abnormality: Plan: Secondary to diabetic ketoacidosis Replaced and normalized We will recheck electrolytes tomorrow Magnesium is low and will supplement (4) Seizure disorder: Plan: Focal status epilepticus Serial left-sided facial seizures noted on 10/08/2021, communicated with neurology, started him on Keppra, MRI was positive for postictal changes, fol low-up EEG. Patient will need to follow-up with neurology as an outpatient. Had concern of focal seizure in the past in 2018 as well. No further seizure after starting Keppra per RN. Remains a stable on Keppra (5) Bacteremia: Plan: GPC bacteremia, preliminary --> final contaminant Admitting blood culture, 1 of 2 bottles positive for GPC cocci in cluster, likely contaminant in final result. Empiric antibiotic with Vanco and Zosyn.--> DC atb 10/09 and dc ID consult. continue to monitor off ATB Patient complains of low back pain, at his baseline, assess for need for MRI spine to rule out abscess with further development in culture results. Denies any more symptoms and no fever and or chills and no signs and or symptoms of infection (6) Hypertension: Plan: Other chronic medical conditions: HTN, HLD, dementia, left frontal lobe lesion Medications reviewed with patient's over the phone. Continue/resume home meds as and when appropriate. Blood pressure remains on the lower side (7) Dyslipidemia: Plan: DVT prophylaxis: Hep SC. MOnitor Hb, concerns of epistaxis prior to hospital admission per . Likely discharge in a day or 2 Admission and Anticipated Discharge Date Admission Date: October 07, 2021 Subjective 10/10/2021 The patient was seen and examined in telemetry unit He is out of bed on a chair and denies any symptoms except weakness and tiredness He needs more physical therapy to get his strength back before discharge 10/11/2021 The patient was seen and examined in telemetry unit He remains very weak and does not feel that he is ready to go yet Has not got physical therapy yet 10/12/2021 The patient was seen and examined in telemetry unit He remains weak but otherwise asymptomatic He feels that he is not ready yet to be discharged 10/13/2021 The patient was seen and examined in medical floor He remained stable and denies any symptoms except generalized weakness Physical therapy recommended home but he feels he is not yet ready to be discharged 10/14/2021 Patient was seen and examined in medical floor He remains stable but complains to have memory impairment Denies any other symptoms except weakness Review of Systems Review of Systems: All systems reviewed and are unremarkable except as noted below Physical Exam Physical Exam: Lying in bed without any acute distress Constitutional: well developed, well nourished, + ill appearing and + obese Eyes: PERRL, conjunctivae normal, anicteric sclerae ENMT: external ear and nose normal, oropharynx normal Neck: trachea midline, no thyromegaly Respiratory: no respiratory distress Auscultation: + crackles (Minimal crackles at the bases) Cardiovascular: Rate/Rhythm: regular rate, regular rhythm and + bradycardic Heart Sounds: normal S1 and normal S2; no murmur Extremities: + edema (1+ edema bilaterally) Gastrointestinal (Abdomen): Inspection/Auscultation: normal bowel sounds; abdomen not distended Percussion/Palpation: abdomen soft; abdomen nontender Musculoskeletal: No acute arthritis in any joint Neurologic: normal touch/pain/proprioception and moves all extremities; not confused Psychiatric: A+Ox3, euthymic affect Lymphatic: no cervical or axillary lymphadenopathy Results & Data Results & Data ([facility]) Vital Signs (Past 12 Hours) Vital Signs Temp Pulse Resp BP Pulse Ox 10/14/21 07:59 36.4 C L 58 L 16 126/78 97 Laboratory Results Short CBC 10/14/21 Range/Units 07:17 WBC 14.32 H (4.8-10.8) K/uL Hgb 11.8 L (14.0-18.0) g/dL Hct 35.7 L (42-52) % Plt Count 387 (130-400) K/uL BMP 10/14/21 07:17 Sodium 138 Potassium 4.1 Chloride 106 Carbon Dioxide 22 BUN 20 Creatinine 1.00 Glucose 180 H Calcium 9.9 Medications Administered Current Inpatient Medications Acetaminophen (Acetaminophen 325 Mg Tab) 650 mg PO Q4H PRN PRN Reason: Pain or Fever Stop: 11/06/21 16:54 Last Admin: 10/12/21 10:51 Dose: 650 mg Documented by: Atorvastatin Calcium (Atorvastatin 20 Mg Tab) 20 mg PO DAILY YANETH Stop: 11/07/21 08:59 Last Admin: 10/14/21 07:52 Dose: 20 mg Documented by: Dextrose (Dextrose 50% 50 Ml Syringe) 25 - 50 ml IV UD PRN; Protocol PRN Reason: Hypoglycemia Protocol Stop: 11/06/21 15:24 Donepezil HCl (Donepezil Hcl 5 Mg Tab) 5 mg PO DAILY YANETH Stop: 11/07/21 08:59 Last Admin: 10/14/21 07:53 Dose: 5 mg Documented by: Glucagon (Glucagon For Inj 1 Mg Vial) 1 mg SQ UD PRN; Protocol PRN Reason: Hypoglycemia Protocol Stop: 11/06/21 15:24 Glucose (Glucose 10 Tabs/Tube) 4 - 8 tabs PO UD PRN; Protocol PRN Reason: Hypoglycemia Protocol Stop: 11/06/21 15:24 Glucose (Glucose 40% Gel 15 Gm Tube) 15 - 30 gm PO UD PRN; Protocol PRN Reason: Hypoglycemia Protocol Stop: 11/06/21 15:24 Heparin Sodium (Porcine) (Heparin Sod 5,000 Unit/0.5 Ml Vial) 5,000 units SQ Q12 [facility] Stop: 11/08/21 20:59 Last Admin: 10/14/21 07:53 Dose: 5,000 units Documented by: Levetiracetam 750 mg/ Sodium (Chloride) 107.5 mls @ 420 mls/hr IV BID [facility] Stop: 11/07/21 20:59 Last Infusion: 10/14/21 08:19 Dose: Infused Documented by: Insulin Aspart (Insulin Aspart Per Unit) 0 units SC TID@1130,1630,2100 [facility] Stop: 11/11/21 11:29 Last Admin: 10/14/21 13:04 Dose: 4 units Documented by: Insulin Aspart (Insulin Aspart Per Unit) 0 units SC DAILY@0730 [facility] Stop: 11/11/21 07:29 Last Admin: 10/14/21 09:28 Dose: 15 units Documented by: Insulin Glargine (Insulin Glargine Solostar 100 Units/Ml 3 Ml Pen) 35 units SC QAM [facility]; Protocol Stop: 11/13/21 08:59 Last Admin: 10/14/21 09:25 Dose: 35 units Documented by: Levothyroxine Sodium (Levothyroxine Sodium 25 Mcg Tablet) 25 mcg PO DAILYBB [facility] Stop: 11/07/21 06:29 Last Admin: 10/14/21 06:04 Dose: 25 mcg Documented by: Lisinopril (Lisinopril 10 Mg Tab) 10 mg PO DAILY [facility] Stop: 11/08/21 08:59 Last Admin: 10/14/21 07:55 Dose: 10 mg Documented by: Magnesium Hydroxide (Magnesium Hydroxide Susp 30 Ml Udc) 30 ml PO Q12H PRN PRN Reason: Constipation Stop: 11/06/21 16:54 Miscellaneous (Carbohydrates For Hypoglycemia ) 15 - 30 gm PO UD PRN PRN Reason: Hypoglycemia Protocol Stop: 11/06/21 15:24 Miscellaneous Information (Pharmacy Glycemic Mgmt Consult) 1 ea N/A UD PRN PRN Reason: Consult Stop: 11/06/21 16:58 Polyethylene Glycol (Polyethylene (Miralax) 17 Gm Pack) 17 gm PO DAILY PRN PRN Reason: Constipation Stop: 11/06/21 16:54 Sertraline HCl (Sertraline Hcl 50 Mg Tablet) 25 mg PO DAILY YANETH Stop: 11/07/21 08:59 Last Admin: 10/14/21 07:53 Dose: 25 mg Documented by: (1) DKA (diabetic ketoacidosis) Diabetes mellitus complication detail: without coma Diabetes mellitus type: other specified (including SAIGE) Qualified Code(s): E13.10 - Other specified diabetes mellitus with ketoacidosis without coma
[2021-10-14] MEDS: MAGNESIUM OXIDE 400 MG TAB PO SCH (21:07)
[2021-10-15] MEDS: LEVOTHYROXINE SODIUM 25 MCG TABLET PO SCH (05:45)
[2021-10-15] MEDS: MAGNESIUM OXIDE 400 MG TAB PO SCH ×2 (07:52→21:16)
[2021-10-15] MEDS: DONEPEZIL HCL 5 MG TAB PO SCH (07:52)
[2021-10-15] MEDS: HEPARIN SOD 5,000 UNIT/0.5 ML VIAL SQ SCH ×2 (07:52→21:16)
[2021-10-15] MEDS: lisinopril 10 MG TAB PO SCH (07:53)
[2021-10-15] MEDS: SERTRALINE HCL 50 MG TABLET PO SCH (07:53)
[2021-10-15] MEDS: levETIRAcetam 750 MG in 0.9 % SODIUM CHLORIDE 100 ML IV SCH ×2 (07:53→21:15)
[2021-10-15] MEDS: ATORVASTATIN 20 MG TAB PO SCH (07:53)
[2021-10-15] MEDS: INSULIN GLARGINE SOLOSTAR 100 UNITS/ML 3 ML PEN SC SCH (08:59)
[2021-10-15] MEDS: INSULIN ASPART PER UNIT SC SCH ×4 (09:03→21:18)
--- NOTE | 2021-10-15 15:49 | Hospitalist Progress Note ---
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 Patient takes 18 units of Lantus in the evening daily. Patient presented with worsening confusion since 1 to 2 days on the background of dementia. Admitting blood glucose of greater than 600, anion gap elevated, sodium 128, magnesium 1.5 DKA likely secondary to medication noncompliance, leading to electrolyte abnormalities/MACIE over CKD III as above and acute metabolic encephalopathy ---> Improved. s/p DKA protocol, monitor and replete electrolytes, c/w diet med dir evaluated, patient will need following prescription: 1.) OneTouch Verio Test Strips to check 4x/day. 2.) OneTouch Delica Lancets 33 gauge to check 4x/day. Appreciate glycemic pharmacist input and recommendation He remains stable on subcu insulin but remains generally weak Will need PT and OT evaluation prior to discharge-not yet ready to be discharged Remains medically stable but generally very weak and lethargic We will transfer him to medical floor and continue physical therapy Discussed with the in detail-reassured that the patient is doing well and will be evaluated by neurologist as an outpatient The patient is not yet ready to be discharged as per the patient himself Denies any headache and/or any acute symptoms Remains stable without any significant symptoms (2) Acute metabolic encephalopathy: Plan: Likely secondary to diabetic ketoacidosis with associated electrolyte abnormalities Condition improved and is back to his baseline Complains to have memory impairment Advised to have outpatient neuro appointment in 3 weeks No more confusion (3) Electrolyte abnormality: Plan: Secondary to diabetic ketoacidosis Replaced and normalized We will recheck electrolytes tomorrow Magnesium is low and will supplement Will check electrolytes tomorrow (4) Seizure disorder: Plan: Focal status epilepticus Serial left-sided facial seizures noted on 10/08/2021, communicated with n eurology, started him on Keppra, MRI was positive for postictal changes, follow- up EEG. Patient will need to follow-up with neurology as an outpatient. Had concern of focal seizure in the past in 2018 as well. No further seizure after starting Keppra per RN. Remains a stable on Keppra (5) Bacteremia: Plan: GPC bacteremia, preliminary --> final contaminant Admitting blood culture, 1 of 2 bottles positive for GPC cocci in cluster, likely contaminant in final result. Empiric antibiotic with Vanco and Zosyn.--> DC atb 10/09 and dc ID consult. continue to monitor off ATB Patient complains of low back pain, at his baseline, assess for need for MRI spine to rule out abscess with further development in culture results. Denies any more symptoms and no fever and or chills and no signs and or symptoms of infection (6) Hypertension: Plan: Other chronic medical conditions: HTN, HLD, dementia, left frontal lobe lesion Medications reviewed with patient's over the phone. Continue/resume home meds as and when appropriate. Blood pressure remains on the lower side (7) Dyslipidemia: Plan: DVT prophylaxis: Hep SC. MOnitor Hb, concerns of epistaxis prior to hospital admission per . Likely discharge in a day or 2 Admission and Anticipated Discharge Date Admission Date: October 07, 2021 Subjective 10/10/2021 The patient was seen and examined in telemetry unit He is out of bed on a chair and denies any symptoms except weakness and tiredness He needs more physical therapy to get his strength back before discharge 10/11/2021 The patient was seen and examined in telemetry unit He remains very weak and does not feel that he is ready to go yet Has not got physical therapy yet 10/12/2021 The patient was seen and examined in telemetry unit He remains weak but otherwise asymptomatic He feels that he is not ready yet to be discharged 10/13/2021 The patient was seen and examined in medical floor He remained stable and denies any symptoms except generalized weakness Physical therapy recommended home but he feels he is not yet ready to be discharged 10/14/2021 Patient was seen and examined in medical floor He remains stable but complains to have memory impairment Denies any other symptoms except weakness 10/15/2021 The patient was seen and examined in medical floor He remains stable but has been having occasional diarrhea Denies any other symptoms Review of Systems Review of Systems: All systems reviewed and are unremarkable except as noted below Physical Exam Physical Exam: Lying in bed without any acute distress Constitutional: well developed, well nourished, + ill appearing and + obese Eyes: PERRL, conjunctivae normal, anicteric sclerae ENMT: external ear and nose normal, oropharynx normal Neck: trachea midline, no thyromegaly Respiratory: no respiratory distress Auscultation: + crackles (Minimal crackles at the bases) Cardiovascular: Rate/Rhythm: regular rate, regular rhythm and + bradycardic Heart Sounds: normal S1 and normal S2; no murmur Extremities: + edema (1+ edema bilaterally) Gastrointestinal (Abdomen): Inspection/Auscultation: normal bowel sounds; abdomen not distended Percussion/Palpation: abdomen soft; abdomen nontender Neurologic: normal touch/pain/proprioception and moves all extremities; not confused Psychiatric: A+Ox3, euthymic affect Lymphatic: no cervical or axillary lymphadenopathy Results & Data Results & Data ([facility]) Vital Signs (Past 12 Hours) Vital Signs Temp Pulse Resp BP Pulse Ox 10/15/21 07:01 36.7 C 67 20 109/65 96 Medications Administered Current Inpatient Medications Acetaminophen (Acetaminophen 325 Mg Tab) 650 mg PO Q4H PRN PRN Reason: Pain or Fever Stop: 11/06/21 16:54 Last Admin: 10/12/21 10:51 Dose: 650 mg Documented by: Atorvastatin Calcium (Atorvastatin 20 Mg Tab) 20 mg PO DAILY YAN[facility] Stop: 11/07/21 08:59 Last Admin: 10/15/21 07:53 Dose: 20 mg Documented by: Dextrose (Dextrose 50% 50 Ml Syringe) 25 - 50 ml IV UD PRN; Protocol PRN Reason: Hypoglycemia Protocol Stop: 11/06/21 15:24 Donepezil HCl (Donepezil Hcl 5 Mg Tab) 5 mg PO DAILY YAN[facility] Stop: 11/07/21 08:59 Last Admin: 10/15/21 07:52 Dose: 5 mg Documented by: Glucagon (Glucagon For Inj 1 Mg Vial) 1 mg SQ UD PRN; Protocol PRN Reason: Hypoglycemia Protocol Stop: 11/06/21 15:24 Glucose (Glucose 10 Tabs/Tube) 4 - 8 tabs PO UD PRN; Protocol PRN Reason: Hypoglycemia Protocol Stop: 11/06/21 15:24 Glucose (Glucose 40% Gel 15 Gm Tube) 15 - 30 gm PO UD PRN; Protocol PRN Reason: Hypoglycemia Protocol Stop: 11/06/21 15:24 Heparin Sodium (Porcine) (Heparin Sod 5,000 Unit/0.5 Ml Vial) 5,000 units SQ Q12 [facility] Stop: 11/08/21 20:59 Last Admin: 10/15/21 07:52 Dose: 5,000 units Documented by: Levetiracetam 750 mg/ Sodium (Chloride) 107.5 mls @ 420 mls/hr IV BID [facility] Stop: 11/07/21 20:59 Last Infusion: 10/15/21 08:32 Dose: Infused Documented by: Insulin Aspart (Insulin Aspart Per Unit) 0 units SC TID@1130,1630,2100 [facility] Stop: 11/11/21 11:29 Last Admin: 10/15/21 13:23 Dose: 5 units Documented by: Insulin Aspart (Insulin Aspart Per Unit) 0 units SC DAILY@0730 [facility] Stop: 11/11/21 07:29 Last Admin: 10/15/21 09:03 Dose: 21 units Documented by: Insulin Glargine (Insulin Glargine Solostar 100 Units/Ml 3 Ml Pen) 35 units SC QAM [facility]; Protocol Stop: 11/13/21 08:59 Last Admin: 10/15/21 08:59 Dose: 35 units Documented by: Levothyroxine Sodium (Levothyroxine Sodium 25 Mcg Tablet) 25 mcg PO DAILYBB [facility] Stop: 11/07/21 06:29 Last Admin: 10/15/21 05:45 Dose: 25 mcg Documented by: Lisinopril (Lisinopril 10 Mg Tab) 10 mg PO DAILY [facility] Stop: 11/08/21 08:59 Last Admin: 10/15/21 07:53 Dose: 10 mg Documented by: Magnesium Hydroxide (Magnesium Hydroxide Susp 30 Ml Udc) 30 ml PO Q12H PRN PRN Reason: Constipation Stop: 11/06/21 16:54 Magnesium Oxide (Magnesium Oxide 400 Mg Tab) 400 mg PO BID [facility] Stop: 11/13/21 20:59 Last Admin: 10/15/21 07:52 Dose: 400 mg Documented by: Miscellaneous (Carbohydrates For Hypoglycemia ) 15 - 30 gm PO UD PRN PRN Reason: Hypoglycemia Protocol Stop: 11/06/21 15:24 Miscellaneous Information (Pharmacy Glycemic Mgmt Consult) 1 ea N/A UD PRN PRN Reason: Consult Stop: 11/06/21 16:58 Polyethylene Glycol (Polyethylene (Miralax) 17 Gm Pack) 17 gm PO DAILY PRN PRN Reason: Constipation Stop: 11/06/21 16:54 Sertraline HCl (Sertraline Hcl 50 Mg Tablet) 25 mg PO DAILY [facility] Stop: 11/07/21 08:59 Last Admin: 10/15/21 07:53 Dose: 25 mg Documented by: (1) DKA (diabetic ketoacidosis) Diabetes mellitus complication detail: without coma Diabetes mellitus type: other specified (including SAIGE) Qualified Code(s): E13.10 - Other specified diabetes mellitus with ketoacidosis without coma
[2021-10-16] MEDS: LEVOTHYROXINE SODIUM 25 MCG TABLET PO SCH (05:49)
[2021-10-16 07:19] LABS: Basophils # (auto) 0.04 K/uL (0-0.2); Basophils % (auto) 0.3 %; Eosinophils # (auto) 0.25 K/uL (0-0.5); Eosinophils % (auto) 1.9 %; Hematocrit (blood only) 30.6 % (42-52); Hemoglobin 10.1 g/dL (14.0-18.0); Immature Granulocytes % (auto) 0.8 %; Lymphocytes # (auto) 1.99 K/uL (1.2-3.4); Lymphocytes % (auto) 15.4 %; Mean Corpuscular Hemoglobin 30.5 pg (25-34); Mean Corpuscular Volume 92.4 fL (80-100); Mean Platelet Volume 9.3 fL (7.4-10.4); Monocytes # (auto) 1.56 K/uL (0.11-0.59); Monocytes % (auto) 12.1 %; Neutrophils # (auto) 8.96 K/uL (1.4-6.5); Neutrophils % (auto) 69.5 %; Platelet Count 357 K/uL (130-400); RDW Coefficient of Variation 13.8 % (11.5-14.5); RDW Standard Deviation 46.5 fL (36.4-46.3); Red Blood Count 3.31 M/uL (4.7-6.1)
[2021-10-16 07:47] LABS: BUN Creatinine Ratio 21.5 (10-20); Calcium 9.5 mg/dl (8.5-10.1); Creatinine Clr Calc Pharmacy 76.1 ml/min; Est GFR (African American) 74.4 ml/min; Est GFR (Non-African American) 64.2 ml/min; Magnesium 1.5 mg/dl (1.7-2.4); Potassium 4.2 mmol/L (3.5-5.1)
[2021-10-16] MEDS: MAGNESIUM OXIDE 400 MG TAB PO SCH ×2 (08:26→21:14)
[2021-10-16] MEDS: lisinopril 10 MG TAB PO SCH (08:26)
[2021-10-16] MEDS: SERTRALINE HCL 50 MG TABLET PO SCH (08:27)
[2021-10-16] MEDS: ATORVASTATIN 20 MG TAB PO SCH (08:27)
[2021-10-16] MEDS: DONEPEZIL HCL 5 MG TAB PO SCH (08:28)
[2021-10-16] MEDS: HEPARIN SOD 5,000 UNIT/0.5 ML VIAL SQ SCH ×2 (09:16→21:14)
[2021-10-16] MEDS: levETIRAcetam 750 MG in 0.9 % SODIUM CHLORIDE 100 ML IV SCH (09:16)
[2021-10-16] MEDS: INSULIN ASPART PER UNIT SC SCH ×4 (09:16→21:49)
[2021-10-16] MEDS: INSULIN GLARGINE SOLOSTAR 100 UNITS/ML 3 ML PEN SC SCH (10:01)
--- NOTE | 2021-10-16 19:50 | Hospitalist Progress Note ---
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 Patient takes 18 units of Lantus in the evening daily. Patient presented with worsening confusion since 1 to 2 days on the background of dementia. Admitting blood glucose of greater than 600, anion gap elevated, sodium 128, magnesium 1.5 DKA likely secondary to medication noncompliance, leading to electrolyte abnormalities/MACIE over CKD III as above and acute metabolic encephalopathy ---> Improved. s/p DKA protocol, monitor and replete electrolytes, c/w diet senior health educator evaluated, patient will need following prescription: 1.) OneTouch Verio Test Strips to check 4x/day. 2.) OneTouch Delica Lancets 33 gauge to check 4x/day. Appreciate glycemic pharmacist input and recommendation He remains stable on subcu insulin but remains generally weak Will need PT and OT evaluation prior to discharge-not yet ready to be discharged Remains medically stable but generally very weak and lethargic We will transfer him to medical floor and continue physical therapy Discussed with the in detail-reassured that the patient is doing well and will be evaluated by neurologist as an outpatient The patient is not yet ready to be discharged as per the patient himself Denies any headache and/or any acute symptoms Remains stable without any significant symptoms Discussed with the and the case resource manager-plan to discharge him tomorrow (2) Acute metabolic encephalopathy: Plan: Likely secondary to diabetic ketoacidosis with associated electrolyte abnormalities Condition improved and is back to his baseline Complains to have memory impairment Advised to have outpatient neuro appointment in 3 weeks No more confusion-remains stable without any acute confusion (3) Electrolyte abnormality: Plan: Secondary to diabetic ketoacidosis Replaced and normalized We will recheck electrolytes tomorrow Magnesium is low and will supplement Will check electrolytes tomorrow (4) Seizure disorder: Plan: Focal status epilepticus Serial left-sided facial seizures noted on 10/08/2021, communicated with neurology, started him on Keppra, MRI was positive for postictal changes, follow-up EEG. Patient will need to follow-up with neurology as an outpatient. Had concern of focal seizure in the past in 2018 as well. No further seizure after starting Keppra per RN. Remains a stable on Keppra- Will need outpatient neuro appointment in about 2 weeks (5) Bacteremia: Plan: GPC bacteremia, preliminary --> final contaminant Admitting blood culture, 1 of 2 bottles positive for GPC cocci in cluster, likely contaminant in final result. Empiric antibiotic with Vanco and Zosyn.--> DC atb 10/09 and dc ID consult. continue to monitor off ATB Patient complains of low back pain, at his baseline, assess for need for MRI spine to rule out abscess with further development in culture results. Denies any more symptoms and no fever and or chills and no signs and or symptoms of infection (6) Hypertension: Plan: Other chronic medical conditions: HTN, HLD, dementia, left frontal lobe lesion Medications reviewed with patient's over the phone. Continue/resume home meds as and when appropriate. Blood pressure remains on the lower side (7) Dyslipidemia: Plan: DVT prophylaxis: Hep SC. MOnitor Hb, concerns of epistaxis prior to hospital admission per . Discussed with the He can be discharged tomorrow Admission and Anticipated Discharge Date Admission Date: October 07, 2021 Subjective 10/10/2021 The patient was seen and examined in telemetry unit He is out of bed on a chair and denies any symptoms except weakness and tiredness He needs more physical therapy to get his strength back before discharge 10/11/2021 The patient was seen and examined in telemetry unit He remains very weak and does not feel that he is ready to go yet Has not got physical therapy yet 10/12/2021 The patient was seen and examined in telemetry unit He remains weak but otherwise asymptomatic He feels that he is not ready yet to be discharged 10/13/2021 The patient was seen and examined in medical floor He remained stable and denies any symptoms except generalized weakness Physical therapy recommended home but he feels he is not yet ready to be discharged 10/14/2021 Patient was seen and examined in medical floor He remains stable but complains to have memory impairment Denies any other symptoms except weakness 10/15/2021 The patient was seen and examined in medical floor He remains stable but has been having occasional diarrhea Denies any other symptoms 10/16/2021 The patient was seen and examined in medical floor He remains a stable and denies any symptoms except diarrhea He will have a stool for C. difficile toxin Denies any other symptoms Review of Systems Review of Systems: All systems reviewed and are unremarkable except as noted below Physical Exam Physical Exam: Lying in bed without any acute distress Constitutional: well developed, well nourished, + ill appearing and + obese Eyes: PERRL, conjunctivae normal, anicteric sclerae ENMT: external ear and nose normal, oropharynx normal Neck: trachea midline, no thyromegaly Respiratory: no respiratory distress Auscultation: + crackles (Minimal crackles at the bases) Cardiovascular: Rate/Rhythm: regular rate, regular rhythm and + bradycardic Heart Sounds: normal S1 and normal S2; no murmur Extremities: + edema (1+ edema bilaterally) Gastrointestinal (Abdomen): Inspection/Auscultation: normal bowel sounds; abdomen not distended Percussion/Palpation: abdomen soft; abdomen nontender Musculoskeletal: No acute arthritis in any joint Neurologic: normal touch/pain/proprioception and moves all extremities; not confused Psychiatric: A+Ox3, euthymic affect Lymphatic: no cervical or axillary lymphadenopathy Results & Data Results & Data ([facility]) Vital Signs (Past 12 Hours) Vital Signs Temp Pulse Resp BP Pulse Ox 10/16/21 15:23 37.0 C 70 16 98/60 L 96 Laboratory Results Short CBC 10/16/21 Range/Units 06:54 WBC 12.90 H (4.8-10.8) K/uL Hgb 10.1 L (14.0-18.0) g/dL Hct 30.6 L (42-52) % Plt Count 357 (130-400) K/uL BMP 10/16/21 06:54 Sodium 140 Potassium 4.2 Chloride 110 H Carbon Dioxide 21 BUN 26 H Creatinine 1.21 Glucose 128 H Calcium 9.5 Medications Administered Current Inpatient Medications Acetaminophen (Acetaminophen 325 Mg Tab) 650 mg PO Q4H PRN PRN Reason: Pain or Fever Stop: 11/06/21 16:54 Last Admin: 10/12/21 10:51 Dose: 650 mg Documented by: Atorvastatin Calcium (Atorvastatin 20 Mg Tab) 20 mg PO DAILY YANETH Stop: 11/07/21 08:59 Last Admin: 10/16/21 08:27 Dose: 20 mg Documented by: Dextrose (Dextrose 50% 50 Ml Syringe) 25 - 50 ml IV UD PRN; Protocol PRN Reason: Hypoglycemia Protocol Stop: 11/06/21 15:24 Donepezil HCl (Donepezil Hcl 5 Mg Tab) 5 mg PO DAILY [facility] Stop: 11/07/21 08:59 Last Admin: 10/16/21 08:28 Dose: 5 mg Documented by: Glucagon (Glucagon For Inj 1 Mg Vial) 1 mg SQ UD PRN; Protocol PRN Reason: Hypoglycemia Protocol Stop: 11/06/21 15:24 Glucose (Glucose 10 Tabs/Tube) 4 - 8 tabs PO UD PRN; Protocol PRN Reason: Hypoglycemia Protocol Stop: 11/06/21 15:24 Glucose (Glucose 40% Gel 15 Gm Tube) 15 - 30 gm PO UD PRN; Protocol PRN Reason: Hypoglycemia Protocol Stop: 11/06/21 15:24 Heparin Sodium (Porcine) (Heparin Sod 5,000 Unit/0.5 Ml Vial) 5,000 units SQ Q12 [facility]AN[facility] Stop: 11/08/21 20:59 Last Admin: 10/16/21 09:16 Dose: 5,000 units Documented by: Insulin Aspart (Insulin Aspart Per Unit) 0 units SC TID@1130,1630,2100 [facility] Stop: 11/11/21 11:29 Last Admin: 10/16/21 18:25 Dose: 3 units Documented by: Insulin Aspart (Insulin Aspart Per Unit) 0 units SC DAILY@0730 [facility] Stop: 11/11/21 07:29 Last Admin: 10/16/21 09:16 Dose: 15 units Documented by: Insulin Glargine (Insulin Glargine Solostar 100 Units/Ml 3 Ml Pen) 35 units SC QAM [facility]; Protocol Stop: 11/13/21 08:59 Last Admin: 10/16/21 10:01 Dose: 35 units Documented by: Levetiracetam (Levetiracetam 500 Mg Tab) 500 mg PO BID [facility] Stop: 11/15/21 20:59 Levothyroxine Sodium (Levothyroxine Sodium 25 Mcg Tablet) 25 mcg PO DAILYBB [facility] Stop: 11/07/21 06:29 Last Admin: 10/16/21 05:49 Dose: 25 mcg Documented by: Lisinopril (Lisinopril 10 Mg Tab) 10 mg PO DAILY [facility] Stop: 11/08/21 08:59 Last Admin: 10/16/21 08:26 Dose: 10 mg Documented by: Magnesium Hydroxide (Magnesium Hydroxide Susp 30 Ml Udc) 30 ml PO Q12H PRN PRN Reason: Constipation Stop: 11/06/21 16:54 Last Admin: 10/16/21 09:15 Dose: 30 ml Documented by: Magnesium Oxide (Magnesium Oxide 400 Mg Tab) 400 mg PO BID [facility] Stop: 11/13/21 20:59 Last Admin: 10/16/21 08:26 Dose: 400 mg Documented by: Miscellaneous (Carbohydrates For Hypoglycemia ) 15 - 30 gm PO UD PRN PRN Reason: Hypoglycemia Protocol Stop: 11/06/21 15:24 Miscellaneous Information (Pharmacy Glycemic Mgmt Consult) 1 ea N/A UD PRN PRN Reason: Consult Stop: 11/06/21 16:58 Polyethylene Glycol (Polyethylene (Miralax) 17 Gm Pack) 17 gm PO DAILY PRN PRN Reason: Constipation Stop: 11/06/21 16:54 Sertraline HCl (Sertraline Hcl 50 Mg Tablet) 25 mg PO DAILY [facility] Stop: 11/07/21 08:59 Last Admin: 10/16/21 08:27 Dose: 25 mg Documented by: (1) DKA (diabetic ketoacidosis) Diabetes mellitus complication detail: without coma Diabetes mellitus type: other specified (including SAIGE) Qualified Code(s): E13.10 - Other specified diabetes mellitus with ketoacidosis without coma
[2021-10-16] MEDS: levETIRAcetam 500 MG TAB PO SCH (21:14)
[2021-10-16 23:11] LABS: Cdiff Antigen Positive
[2021-10-16 23:12] LABS: Cdiff Toxin A+B Positive Cdiff Toxin (Negative)
[2021-10-17] MEDS: RASPBERRY SYRUP 5 ML UDP PO SCH ×5 (00:07→23:45)
[2021-10-17] MEDS: VANCOMYCIN HCL 125 MG/2.5ML SOLN PO SCH ×5 (00:07→23:45)
[2021-10-17] MEDS: LEVOTHYROXINE SODIUM 25 MCG TABLET PO SCH (05:58)
[2021-10-17] MEDS: INSULIN GLARGINE SOLOSTAR 100 UNITS/ML 3 ML PEN SC SCH (09:13)
[2021-10-17] MEDS: INSULIN ASPART PER UNIT SC SCH ×4 (09:13→21:00)
[2021-10-17] MEDS: HEPARIN SOD 5,000 UNIT/0.5 ML VIAL SQ SCH ×2 (09:14→20:52)
[2021-10-17] MEDS: lisinopril 10 MG TAB PO SCH (09:17)
[2021-10-17] MEDS: SERTRALINE HCL 50 MG TABLET PO SCH (09:17)
[2021-10-17] MEDS: DONEPEZIL HCL 5 MG TAB PO SCH (09:17)
[2021-10-17] MEDS: ATORVASTATIN 20 MG TAB PO SCH (09:17)
[2021-10-17] MEDS: MAGNESIUM OXIDE 400 MG TAB PO SCH (09:18)
[2021-10-17] MEDS: levETIRAcetam 500 MG TAB PO SCH ×2 (09:19→20:53)
--- NOTE | 2021-10-17 11:12 | Pharmacy Report ---
Pharmacy Glycemic Short Note 2 - Date of Service October 17, 2021 - Glycemic Short BSG Results (Last 24 hours): 10/16/21 10/16/21 10/16/21 11:54 17:13 20:46 POC Glucose 115 H 131 H 134 H 10/17/21 08:22 POC Glucose 127 H OUTPATIENT ANTIDIABETIC REGIMEN: * Metformin 500 mg PO BIDM * Jardiance 10 mg PO AM * Lantus 18 units SQ HS * Ozempic 0.5 mg SQ weekly * HbA1c = 13.4% (07/27/21) * 13.6% 10/08/21 ASSESSMENT: 10/17/21: * Patient received total of 55 units of insulin yesterday; 35 units basal and 20 units bolus. * BSGs yesterday were 541-141-114-134 mg/dl. Fasting BSG today was 127 mg/dl. * Continued basal insulin the same as last few days. Post-prandial BSGs are well controlled. Novolog parameters continued the same also. 10/14/21: * Lantus has been titrated up for fasting BSG above goal. * Novolog parameters have been adjusted to provide additional prandial coverage with breakfast. * BSGs appear to be stable. No further changes required at this time. 10/12 * BSGs well controlled over the last 24 hours, with highest BSG at lunch yesterday. Correct CHO was used (as compared to incorrect CHO ratio at breakfast on 10/10). Will tighten carb ratio with breakfast check only * AM fasting BSG good. However, plan is to discharge patient on once daily *AM* Lantus per public health educator documentation, but still split evenly BID as an inpatient. Will transition over to AM administration over the next 24-48 hours 10/10 * BSGs generally well controlled yesterday with the exception of lunchtime BSG of 228mg/dL. Today's lunch BSG was high again at 281, however a carb ratio of 20 was used rather than 6 to calculate the novolog coverage, thus only 2 units of insulin administered. This is very likely contributing to this elevation in BSG. * Fasting BSG well controlled at 107 mg/dL. Continue current lantus regimen. 10/09 * Patient successfully transitioned off of the drip receiving 30 units of lantus yesterday. * Fasting BSAG was 96 mg/dL (168 mg/dL on POC). Lantus 15 units BID was initiated this morning based on yesterdays dosing and moderate stress weight based (using adjusted body weight) regimen. Will continue current novolog scale and assess trend. * Patient is tolerating a diet. PLAN FOR INPATIENT GLYCEMIC CONTROL: * Hold outpatient oral diabetes medications * Basal insulin * Lantus 35 units SQ qAM * Bolus insulin * NovoLog per scale ACHS or Q6hrs while NPO * Goal Range: Low 110 mg/dL - High 140 mg/dL * Correction Factor: 20 mg/dL/unit * CHO ratio: 3 g CHO/unit with breakfast, 6 g CHO/unit with lunch, dinner, bedtime
[2021-10-17] MEDS: MAGNESIUM SULFATE / D5W 1 GM/100 ML BAG IV SCH ×2 (13:12→15:29)
--- NOTE | 2021-10-17 15:38 | Hospitalist Progress Note ---
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 Patient at home was on Lantus 18 units QHS, metformin and Jardiance He has met with asthma educator 3 times this admission but still seems somewhat uncertain about his medications Will ask for DM educator to meet with him again tomorrow prior to release (2) Acute metabolic encephalopathy: Plan: Likely secondary to diabetic ketoacidosis with associated electrolyte abnormalities Condition improved and is back to his baseline Complains to have memory impairment Advised to have outpatient neuro appointment in 3 weeks No more confusion-remains stable without any acute confusion (3) Electrolyte abnormality: Plan: Secondary to diabetic ketoacidosis Replaced and normalized (4) Seizure disorder: Plan: Focal status epilepticus Serial left-sided facial seizures noted on 10/08/2021, communicated with neurology, started him on Keppra, MRI was positive for postictal changes, follow-up EEG. Patient will need to follow-up with neurology as an outpatient. Had concern of focal seizure in the past in 2018 as well. No further seizure after starting Keppra per RN. Remains a stable on Keppra- Will need outpatient neuro appointment in about 2 weeks (5) Bacteremia: Plan: GPC bacteremia, preliminary --> final contaminant (6) Hypertension: Plan: Other chronic medical conditions: HTN, HLD, dementia, left frontal lobe lesion Medications reviewed with patient's over the phone. Continue/resume home meds as and when appropriate. Blood pressure remains on the lower side (7) Dyslipidemia: Plan: DVT prophylaxis: Hep SC. MOnitor Hb, concerns of epistaxis prior to hospital admission per . Plan to discharge home tomorrow Admission and Anticipated Discharge Date Admission Date: October 07, 2021 Subjective Patient reports yesterday having about 5 diarrheal episodes. None today. Overall feels well Seems to not be sure of his home insulin/diabetic regimen. He is agreeable to meeting with asthma educator again to review his DM medications Physical Exam Physical Exam: Appears older than stated age, no acute distress ENMT: Poor dentition Respiratory: Breathing comfortably on room air, no wheezing/rhonchi/rales Cardiovascular: regular rate and rhythm, no murmurs/rubs/gallops Gastrointestinal (Abdomen): soft, non tender, non distended Musculoskeletal: no edema, no cyanosis or clubbing Skin: no rash, no redness, no bruising Neurologic: awake, alert, spontaneously moving extremities, forgetful Results & Data Results & Data ([facility]) Vital Signs (Past 12 Hours) Vital Signs Temp Pulse Resp BP Pulse Ox 10/17/21 08:23 36.4 C L 60 16 129/69 96 (1) DKA (diabetic ketoacidosis) Diabetes mellitus complication detail: without coma Diabetes mellitus type: other specified (including SAIGE) Qualified Code(s): E13.10 - Other specified diabetes mellitus with ketoacidosis without coma
[2021-10-18] MEDS: ACETAMINOPHEN 325 MG TAB PO PRN (00:40)
[2021-10-18] MEDS: RASPBERRY SYRUP 5 ML UDP PO SCH ×2 (05:49→13:04)
[2021-10-18] MEDS: VANCOMYCIN HCL 125 MG/2.5ML SOLN PO SCH ×2 (05:50→13:04)
[2021-10-18] MEDS: LEVOTHYROXINE SODIUM 25 MCG TABLET PO SCH (05:50)
[2021-10-18] MEDS: ATORVASTATIN 20 MG TAB PO SCH (07:50)
[2021-10-18] MEDS: SERTRALINE HCL 50 MG TABLET PO SCH (07:51)
[2021-10-18] MEDS: DONEPEZIL HCL 5 MG TAB PO SCH (07:52)
[2021-10-18] MEDS: HEPARIN SOD 5,000 UNIT/0.5 ML VIAL SQ SCH (07:52)
[2021-10-18] MEDS: lisinopril 10 MG TAB PO SCH (07:52)
[2021-10-18] MEDS: levETIRAcetam 500 MG TAB PO SCH (07:52)
[2021-10-18] MEDS ORDERED: INSULIN GLARGINE SOLOSTAR 100 UNITS/ML 3 ML PEN SC SCH (09:00)
[2021-10-18 09:02] LABS: Hematocrit (blood only) 31.7 % (42-52); Hemoglobin 10.4 g/dL (14.0-18.0); Mean Corpuscular Hemoglobin 30.4 pg (25-34); Mean Corpuscular Hgb Conc 32.8 g/dL (32-36); Mean Corpuscular Volume 92.7 fL (80-100); Platelet Count 360 K/uL (130-400); RDW Coefficient of Variation 13.8 % (11.5-14.5); Red Blood Count 3.42 M/uL (4.7-6.1); White Blood Count 7.83 K/uL (4.8-10.8)
[2021-10-18 09:12] LABS: BUN Creatinine Ratio 24.1 (10-20); Calcium 9.4 mg/dl (8.5-10.1); Creatinine Clr Calc Pharmacy 84.8 ml/min; Est GFR (African American) 85.4 ml/min; Est GFR (Non-African American) 73.7 ml/min; Magnesium 1.9 mg/dl (1.7-2.4); Potassium 4.1 mmol/L (3.5-5.1)
[2021-10-18] MEDS: INSULIN ASPART PER UNIT SC SCH ×2 (09:33→13:08)
--- NOTE | 2021-10-18 09:40 | XRay Report ---
XR chest 1V portable CLINICAL HISTORY: Cough.. COMPARISON STUDY: 10/07/2021 TECHNIQUE: 1 view of the chest FINDINGS: Single frontal view of the chest demonstrates the cardiomediastinal silhouette to be within normal li mits. The lungs are clear of alveolar opacities. There is no evidence for pleural effusion. There is no evidence for vascular congestion. There is no acute osseous pathology. IMPRESSION: 1. No acute cardiopulmonary disease. ACT 112: Negative or not required by law. Electronically signed by: Junito Quintanilla M.D. 10/18/2021 9:39 AM
--- NOTE | 2021-10-18 14:15 | Discharge Summary ---
Date of Service October 18, 2021 Admission HPI Per Admitting Provider 60-year-old gentleman with PMH of T2DM, obesity, HLD, hypothyroidism, CKD stage IIIa, left frontal lobe lesion, postinfectious encephalomyelitis, mild cognitive impairment with memory loss, anemia presented to our ED 10/07 with complaint of worsening headache and confusion. Patient though alert and oriented to time and place, seemed not very reliable for history taking. Talked with patient's over the phone to confirm's patient's given history. Patient is reported to have having worsening headache since last 1 week, he has been having headaches last few weeks. He has been taking 2 Tylenol a day to help with his headache since last 1 week. No relief of headache. Per patient's , he was more confused since 1-2 day prior to arrival, that triggered her to send him to the hospital. Per his , patient has missed his dose of Jardiance since Friday prior to arrival. He takes 18 units of Lantus in the evening daily. Home medications were reviewed with his . He does have history of altered mental status and seizure in the past. Patient denies any headache at bedside, any belly pain, any chest pain or feeling of heart racing. Patient reports that he smoked tobacco in his 20s, no alcohol use or no recreational drug use. Family history [place], patient reports that his grandfather and grandmother of some kind of cancer which he is not aware of. He is not able to elaborate other family history. Principal Diagnosis DKA Acute metabolic Encephalopathy Medication Non compliance C diff diarrhea Seizure disorder MACIE on CKD stage 3 Hypokalemia Hypomagnesemia Discharge Exam Patient reports his diarrhea is improved. On exam appears pleasant and no acute distress Breathing comfortably on room air, no wheezing/rhonchi/rales Regular rate and rhythm No abdominal pain or distension Now leg swelling Discharge Data Allergies Allergy/AdvReac Type Severity Reaction Status Date / Time No Known Allergies Allergy Unverified 05/22/17 15:36 Consultations 10/07/21 16:22 ED Decision to Admit Stat 10/08/21 15:25 Consult Neurology Routine Ordered Studies 10/07/21 14:24 CT abd pelvis wo con Stat CT head/brain wo con Stat 10/08/21 15:28 MR brain wo/w con Routine Diabetes Follow up Diabetes Follow-up Needed for HgbA1c >9% Hospital Course (1) DKA (diabetic ketoacidosis): (2) Acute metabolic encephalopathy: (3) Electrolyte abnormality: (4) Seizure disorder: (5) Bacteremia: (6) Hypertension: (7) Dyslipidemia: Mr Julio Montesinos is a 60 year old man with history of insulin dependent diabetes, dementia, hypertension, hypothyroidism was admitted 10/07 for confusion found to have DKA due to medication non compliance. While here, his diabetes management was adjusted and at the time of discharge his glucose was well controlled. He was discharged on lantus 25 units daily, jardiance 10mg daily and metformin 500mg daily. Patient was seen throughout the hospital course by cosmetology educator but he has memory impairment so will need help from his after discharge. This was discussed with her. He will need to check his finger stick 4 times a day (rather than daily which was what he was doing) and he will need to keep a log book to review with his primary care doctor for his diabetes. While here, he had a seizure episode and was started on Keppra. He will need to follow up with Neurology after discharge. While here, he developed diarrhea and his stool was positive for C difficile toxin. He was started on oral vancomycin for total 10 day course. Total Time Total Time Spent Total Time Spent (In Minutes): 40 Discharge Plan Discharge Items Patient Disposition: Home - Home Health Services Reason For Visit: ALTERED MENTAL STATUS Discharge Diagnosis: DKA Acute metabolic Encephalopathy Medication Non compliance C diff diarrhea Seizure disorder MACIE on CKD stage 3 Hypokalemia Hypomagnesemia Condition on Discharge: Good Activity: Resume your previous activity Non-emergency contact: Primary Care Provider and Neurologist Call non-emergency contact if: you have any medication questions and your symptoms worsen Follow-up/Referrals: [facility] [Other] (A referral has been made to [facility]. The team will contact you to get you set up with the program. Please call if you have any questions. ) Gely Coelho PA-C [Physician [facility]] - 11/12/21 11:20 am (Date & Time 11/12/2021 11:20 AM Provider Gely Coelho PA-C Department Neurology [facility] ) Milind Herrera MD [Outside Practitioners] - 10/18/21 11:20 am (Date & Time 10/18/2021 11:20 AM Provider Milind Herrera MD [facility] ) Diet: Carb Consistent or DM2 Addtl Attending Provider Instructions: You were admitted for DKA due to your diabetes and not taking your medications. It is important that you take your diabetes medicines. You were discharged on: Insulin Lantus 25 units daily Jardiance 10mg daily Metformin 500mg daily Please follow up with your primary care doctor within 1 week of discharge for further management of your diabetes. You should check your finger stick 4 times a day ( fasting and before meals) and keep a log book to review with your doctor. While here, you also developed diarrhea which was positive for C difficile infection. For this, you were started on oral vancomycin and will need to be on it for 10 days total Please call your doctor or return to ER if you have worsening diarrhea, abdominal pain, nausea/vomiting or fever/chills. Pending Studies at Discharge: No Stand-Alone Forms: [facility], Smoking Cessation Medications and DC Order Prescriptions: New levetiracetam [Keppra] 500 mg Tablet 500 mg PO BID 90 Days Qty: 60 RF: 1 vancomycin 1,000 mg Recon Soln 125 mg PO Q6 10 Days Qty: 40 RF: 0 Continued atorvastatin 20 mg tablet 20 mg PO DAILY RF: 0 donepezil 5 mg tablet 5 mg PO DAILY RF: 0 levothyroxine 25 mcg tablet 25 mcg PO DAILY RF: 0 lisinopril 10 mg tablet 10 mg PO DAILY RF: 0 sertraline 25 mg tablet 25 mg PO DAILY RF: 0 metformin 500 mg tablet extended release 24 hr 500 mg PO DAILY RF: 0 Jardiance 10 mg tablet 10 mg PO DAILY RF: 0 Changed insulin glargine [Lantus Solostar U-100 Insulin] 100 unit/mL (3 mL) insulin pen 25 unit SUBCUT DAILY 30 Days Qty: 7.5 RF: 0 Discharge Orders: Discharge Order (Routine); Ordered 10/18/21 Ordered By: Rogelio Silva Admission Data Admit Date/Time: 10/07/21 16:55 Attending Provider: Rogelio Silva Admit Provider: Trino Oscar Primary Care Provider: Quique Palomino Other Providers: rTino Oscar ; Randell Amato ; Sabrina Mi
== END 2021-10-18 17:14 | disposition home health service (06) | DRG 637 ==
LOC: ED 14:02 → 2E 16:55 → SUATTDRO 16:55 → 2E 20:00 → 3N 10-12 17:42

== ENCOUNTER 2021-12-12 17:12 | Inpatient (IN) ==
[2021-12-12] MEDS ORDERED: SODIUM CHLORIDE 0.9% 1000ML 1,000 ML IV ONE ×2 (17:14→18:47)
[2021-12-12] MEDS ORDERED: LORazepam 2 MG/1 ML VIAL IV STA (17:22)
[2021-12-12] MEDS ORDERED: LORazepam 2 MG/1 ML VIAL ONE (17:24)
[2021-12-12] MEDS ORDERED: PANTOPRAZOLE BOLUS/DRIP 1 EACH IV STA (17:36)
[2021-12-12] MEDS ORDERED: PANTOprazole 80 MG in DEXTROSE 5% 100 ML IV ONE (17:36)
[2021-12-12] MEDS ORDERED: SODIUM CHLORIDE 0.9% 1000ML 2,000 ML IV ONE (17:36)
--- NOTE | 2021-12-12 17:42 | XRay Report ---
XR pelvis 1-2V routine HISTORY: 60 years-old Male found down acute pelvic trauma status post fall COMPARISON: CT abdomen and pelvis 10/05/2021 TECHNIQUE: Supine AP view of the pelvis FINDINGS: Limited study secondary to positioning. The lateral right pelvis and femur are partially excluded fro m the [id number]. Vascular calcifications. Unremarkable soft tissues. No definite acute fracture o r dislocation identified. Rotation the left proximal femur also limits the study. IMPRESSION: Limited exam secondary to positioning. No acute fracture or dislocation identified. ACT 112: Negative or not required by law. The above report was generated using voice recognition software. It may contain grammatical, syntax o r spelling errors. Electronically signed by: Rah Toro M.D. 12/12/2021 5:40 PM
[2021-12-12 17:44] LABS: Base Excess VBG -20.3 mEq/L; HCO3 VBG 10 mmol/L; Oxygen Saturation VBG 64.1 %; PCO2 VBG 39 mmHg (38-50); PO2 VBG 42 mmHg; pH VBG 7.02 (7.36-7.41)
--- NOTE | 2021-12-12 17:44 | XRay Report ---
XR chest 1V portable HISTORY: 60 years-old Male found down acute respiratory failure COMPARISON: Chest radiograph 10/18/2021 TECHNIQUE: Portable AP view of the chest FINDINGS: Gaseous distention of the stomach. The heart is enlarged. Pulmonary vascular congestion with asymmetr ic interstitial coarsening throughout the right lung. No pneumothorax, large pleural effusion or loba r airspace consolidation. The endotracheal tube overlies the midline, 2.3 cm superior to the jessee. The bones appear grossly intact. IMPRESSION: 1. Endotracheal tube terminates 2.3 cm superior to the jessee. 2. There is prominent gaseous distention of the stomach. 3. Pulmonary vascular congestion. ACT 112: Negative or not required by law. The above report was generated using voice recognition software. It may contain grammatical, syntax o r spelling errors. Electronically signed by: Rah Toro M.D. 12/12/2021 5:43 PM
[2021-12-12 17:47] LABS: Hematocrit (blood only) 40.9 % (40.1-51.0); Hemoglobin 13.2 g/dl (14.0-18.0); Mean Corpuscular Hemoglobin 30.3 pg (25.0-34.0); Mean Corpuscular Hgb Conc 32.3 g/dL (32.0-36.0); Mean Platelet Volume 10.7 fL (9.4-12.4); Platelet Count 364 K/uL (130-400); RDW Coefficient of Variation 13.4 % (11.5-14.5); RDW Standard Deviation 45.9 fL (36.4-46.3); Red Blood Count 4.35 M/uL (4.63-6.08); White Blood Count 25.65 K/ul (4.8-10.8)
[2021-12-12 17:47] LABS: iSTAT Creatinine 2.6 mg/dl (0.6-1.3); iSTAT Ionized Calcium 1.07 mmol/l (1.12-1.32); iSTAT Potassium 4.5 mmol/L (3.3-5.0)
[2021-12-12] MEDS ORDERED: CEFEPIME 2,000 MG/20 ML VIAL IV STA (17:48)
[2021-12-12] MEDS ORDERED: SODIUM BICARB 8.4% INJ 50 MEQ/50 ML SYR IV ONE (17:48)
[2021-12-12] MEDS ORDERED: VANCOMYCIN CONSULT ACTIVE PRN (17:48)
[2021-12-12] MEDS ORDERED: VANCOMYCIN HCL 2,250 MG in SODIUM CHLORIDE 0.9% 500 ML IV ONE (17:48)
[2021-12-12] MEDS ORDERED: SODIUM BICARB 8.4% INJ 50 MEQ/50 ML SYR IV STA ×2 (17:48→18:47)
[2021-12-12 18:00] LABS: INR 1.1 (0.9-1.1); Partial Thromboplastin Ratio 1.1; Partial Thromboplastin Time 30.3 Seconds (21.0-31.0); Prothrombin Time 12.1 Seconds (9.0-12.0)
[2021-12-12 18:03] LABS: ALC (manual) 0.51 K/uL (1.2-3.4); ANC (manual) 24.37 K/uL (1.4-6.5); Basophils # (manual) 0.26 K/uL (0-0.2); Basophils % (manual) 1 %; Lymphocytes # (manual) 0.51 K/uL (1.2-3.4); Lymphocytes % (manual) 2 %; Monocytes # (manual) 0.77 K/uL (0.24-0.82); Monocytes % (manual) 3 %; Neutrophils # (manual) 24.37 K/uL (1.4-6.5); Neutrophils % (manual) 95 %
[2021-12-12 18:08] LABS: Acetaminophen < 3 ug/ml (10-30); Salicylate < 3.0 mg/dl (3.0-30)
[2021-12-12 18:11] LABS: Albumin Level 3.8 gm/dl (3.4-5.0); Bilirubin Direct 0.1 mg/dl (0-0.2); Bilirubin,Total 0.6 mg/dl (0.2-1.0); Magnesium 2.1 mg/dl (1.7-2.4); Total Protein 6.3 gm/dl (6.0-8.3)
[2021-12-12 18:13] LABS: Troponin I High Sensitivity 21.9 pg/ml (0-20)
[2021-12-12] MEDS ORDERED: NEW Std Conc--fentaNYL 2,500mcg/250mL NSS **10mcg/mL IV SCH (18:15)
--- NOTE | 2021-12-12 18:16 | CT Scan Report ---
CT head/brain wo con CLINICAL HISTORY: 60 years-old Male with found down. The patient was found down. TECHNIQUE: Multiple axial CT images of the head were obtained without contrast. A dose lowering tech nique was utilized adhering to the principles of ALARA. COMPARISON: 10/07/2021 FINDINGS: No acute intracranial hemorrhage, midline shift, new intra-axial mass, hydrocephalus, territorial isc hemia or abnormal extra-axial collection. Unchanged 2.1 cm circumscribed cystic lesion of the left fr ontal lobe on image 24 series 2. Mild white matter hypodensities suggest chronic microvascular ischem ic disease. Cerebral vascular calcifications. Ill-defined decreased attenuation of the left cerebella r hemisphere is favored to be intact. The calvarium is intact. Mastoid air cells are clear. Mild mucosal thickening of the paranasal sinus es with left maxillary and sphenoid sinus air-fluid levels suggestive of acute disease. Unremarkable soft tissues and orbits. IMPRESSION: No acute intracranial abnormality or calvarial fracture. ACT 112: Negative or not required by law. The above report was generated using voice recognition software. It may contain grammatical, syntax o r spelling errors. Electronically signed by: Rah Toro M.D. 12/12/2021 6:14 PM
--- NOTE | 2021-12-12 18:22 | CT Scan Report ---
CT cervical spine wo con CLINICAL HISTORY: 60 years-old Male with found down. Acute neck trauma status post fall COMPARISON: CT head and maxillofacial studies of same day TECHNIQUE: Multiple axial CT images of the cervical spine were obtained without contrast. A dose low ering technique was utilized adhering to the principles of ALARA. FINDINGS: Endotracheal and enteric tubes are partially imaged. The study is motion degraded. Mucosal thickening of the paranasal sinuses with layering secretions within the airway. Left maxillary and sp henoid sinus air-fluid levels. Intralobular septal thickening of the lung apices without pneumothorax . Heterogeneity of the thyroid. No prevertebral edema. Calcifications of the carotid arteries. Multilevel degenerative changes. Degenerative partial bony fusion of the C7-T1 levels. Grade 1 linette listhesis C7 on T1 is likely secondary to chronic facet arthrosis. Advanced multilevel facet arthrosi s. IMPRESSION: No acute cervical spine fracture or subluxation. ACT 112: Negative or not required by law. The above report was generated using voice recognition software. It may contain grammatical, syntax o r spelling errors. Electronically signed by: Rah Toro M.D. 12/12/2021 6:20 PM
[2021-12-12] MEDS ORDERED: levETIRAcetam 1,000 MG in 0.9 % SODIUM CHLORIDE 100 ML IV STA (18:25)
--- NOTE | 2021-12-12 18:25 | Emergency Department Note ---
History of Present Illness General Chief complaint: Trauma Stated complaint: FALL, FACIAL TRAUMA, Time Seen by Provider: 12/12/21 17:13 Source: EMS History of Present Illness Provider complaint: Found down Onset (ago): unknown 60-year-old male presents emergency department via EMS. EMS was called to the patient's residence as he was found down. EMS reports that there was a great amount of blood surrounding the patient and he was standing next to the table. EMS states they are not sure if he had a dose of hematemesis or if he hit his face on the table when he fell. Patient's reported that the patient is a full code. Per EMS the patient is apparently noncompliant with his medications. Home Medications Medication Instructions Recorded Confirmed Type atorvastatin 20 mg tablet 20 mg PO DAILY 10/07/21 12/12/21 History donepezil 5 mg tablet 5 mg PO DAILY 10/07/21 12/12/21 History empagliflozin 10 mg tablet 10 mg PO DAILY 10/07/21 12/12/21 History (Jardiance) levothyroxine 25 mcg tablet 25 mcg PO DAILY 10/07/21 12/12/21 History lisinopril 10 mg tablet 10 mg PO DAILY 10/07/21 12/12/21 History metformin 500 mg tablet,extended 1,000 mg PO DAILY 10/07/21 12/12/21 History release 24 hr sertraline 25 mg tablet 25 mg PO DAILY 10/07/21 12/12/21 History insulin glargine 100 unit/mL (3 25 unit (0.25 mL) subcut DAILY 30 10/18/21 0 12/12/21 Rx mL) subcutaneous pen (Lantus days #7.5 mL Solostar U-100 Insulin) levetiracetam 500 mg tablet 500 mg PO BID 90 days #60 tabs 10/18/21 12/12/21 Rx (Keppra) Allergies Allergy/AdvReac Type Severity Reaction Status Date / Time No Known Allergies Allergy Unverified 12/12/21 17:54 Past Med/Surg History Medical History Abnormal CT of brain Altered mental status AMS (altered mental status) Diabetes mellitus, type 2 DKA (diabetic ketoacidosis) DM (diabetes mellitus), type 2, uncontrolled Dyslipidemia Headache Hypertension Hypothermia Metabolic acidosis Obesity, morbid, BMI 40.0-49.9 Seizure Social History Smoking Status: Unknown if ever smoked Tobacco Type: Cigarettes Hx Alcohol Use: No Hx Substance Use: No Preferred Language: Estonian Communication Ability: Effective 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 Beliefs That Will Affect Care: None marital status: Current Living Situation: Spouse Feels Safe at Home: Yes Assistive Devices: None Review of Systems Unobtainable due to endotracheal tube Physical Exam Vital Signs Vital Signs - 24 hr 12/12/21 17:25 12/12/21 18:14 12/12/21 17:30 Temperature 35.7 C L 34.8 C L Temperature Source Rectal Song Cath ( Temp Sensing) Pulse Rate 108 H Pulse Rate from SpO2 Sensor Pulse Rhythm Regular Pulse Strength Normal Respiratory Rate 23 Blood Pressure 94/53 L Blood Pressure Mean 66 Blood Pressure Position Lying Pulse Oximetry 96 Oxygen Delivery Method Mechanical Vent Mechanical Vent Fraction of Inspired Oxygen Sepsis Recent Fever Within 48 Hours No Sepsis New/Unexplained Change in Mental Status No Sepsis Action Taken by Nursing Physician Notified End-Tidal CO2 12/12/21 17:37 12/12/21 17:40 12/12/21 17:43 Temperature Temperature Source Pulse Rate 111 H 113 H Pulse Rate from SpO2 Sensor 111 H 113 H Pulse Rhythm Pulse Strength Respiratory Rate 22 23 Blood Pressure 69/45 L Blood Pressure Mean 53 Blood Pressure Position Pulse Oximetry 96 95 Oxygen Delivery Method Mechanical Vent Mechanical Vent Fraction of Inspired Oxygen Sepsis Recent Fever Within 48 Hours Sepsis New/Unexplained Change in Mental Status Sepsis Action Taken by Nursing End-Tidal CO2 23 23 12/12/21 17:43 12/12/21 17:45 12/12/21 17:46 Temperature Temperature Source Pulse Rate 112 H 110 H 109 H Pulse Rate from SpO2 Sensor 111 H 108 H 110 H Pulse Rhythm Pulse Strength Respiratory Rate 22 21 22 Blood Pressure Blood Pressure Mean Blood Pressure Position Pulse Oximetry 96 93 93 Oxygen Delivery Method Mechanical Vent Mechanical Vent Mechanical Vent Fraction of Inspired Oxygen Sepsis Recent Fever Within 48 Hours Sepsis New/Unexplained Change in Mental Status Sepsis Action Taken by Nursing End-Tidal CO2 21 21 22 12/12/21 17:46 12/12/21 17:50 12/12/21 17:50 Temperature Temperature Source Pulse Rate 104 H Pulse Rate from SpO2 Sensor 105 H Pulse Rhythm Pulse Strength Respiratory Rate 17 Blood Pressure 77/48 L 81/58 L Blood Pressure Mean 57 65 Blood Pressure Position Pulse Oximetry 95 Oxygen Delivery Method Mechanical Vent Fraction of Inspired Oxygen Sepsis Recent Fever Within 48 Hours Sepsis New/Unexplained Change in Mental Status Sepsis Action Taken by Nursing End-Tidal CO2 35 12/12/21 18:10 12/12/21 18:11 12/12/21 18:11 Temperature Temperature Source Pulse Rate 107 H 108 H Pulse Rate from SpO2 Sensor 107 H 108 H Pulse Rhythm Pulse Strength Respiratory Rate 20 18 Blood Pressure 90/52 L Blood Pressure Mean 64 Blood Pressure Position Pulse Oximetry 97 99 Oxygen Delivery Method Mechanical Vent Mechanical Vent Fraction of Inspired Oxygen Sepsis Recent Fever Within 48 Hours Sepsis New/Unexplained Change in Mental Status Sepsis Action Taken by Nursing End-Tidal CO2 20 12/12/21 18:15 12/12/21 18:15 12/12/21 18:20 Temperature 34.8 C L Temperature Source Pulse Rate 107 H Pulse Rate from SpO2 Sensor 106 H Pulse Rhythm Pulse Strength Respiratory Rate 15 Blood Pressure 103/68 103/42 L Blood Pressure Mean 79 62 Blood Pressure Position Pulse Oximetry 98 Oxygen Delivery Method Mechanical Vent Fraction of Inspired Oxygen Sepsis Recent Fever Within 48 Hours Sepsis New/Unexplained Change in Mental Status Sepsis Action Taken by Nursing End-Tidal CO2 25 12/12/21 18:20 12/12/21 18:25 12/12/21 18:25 Temperature 34.7 C L Temperature Source Pulse Rate 107 H 106 H Pulse Rate from SpO2 Sensor 107 H 106 H Pulse Rhythm Pulse Strength Respiratory Rate 17 18 Blood Pressure 92/74 L Blood Pressure Mean 80 Blood Pressure Position Pulse Oximetry 98 98 Oxygen Delivery Method Mechanical Vent Mechanical Vent Fraction of Inspired Oxygen Sepsis Recent Fever Within 48 Hours Sepsis New/Unexplained Change in Mental Status Sepsis Action Taken by Nursing End-Tidal CO2 26 27 12/12/21 18:30 12/12/21 18:30 12/12/21 18:48 Temperature 34.5 C L Temperature Source Pulse Rate 107 H 107 H Pulse Rate from SpO2 Sensor 108 H Pulse Rhythm Pulse Strength Respiratory Rate 22 24 Blood Pressure 94/76 L Blood Pressure Mean 82 Blood Pressure Position Pulse Oximetry 97 96 Oxygen Delivery Method Fraction of Inspired Oxygen 40 Sepsis Recent Fever Within 48 Hours Sepsis New/Unexplained Change in Mental Status Sepsis Action Taken by Nursing End-Tidal CO2 23 25 Physical Exam GENERAL: Severely distressed. Patient appears dirty. HENT: Exam performed. - Head: From the oropharynx and nasopharynx. - Mouth/Throat: Intubated. EYES: Pupils 2 mm and reactive to light. CV: Normal rate, regular rhythm, normal heart sounds and intact distal pulses. There is no peripheral edema. Palpable radial pulses bue. PULM/CHEST: Rhonchi bilaterally. ABD: The abdomen is soft and obese. NEURO: GCS eye subscore is 2. GCS verbal subscore is T. GCS motor subscore is 3. SKIN: diaphoretic and dirty Course Course 1650: Received a call from store stocker Arturo who states that the patient was found down in as possible facial trauma and is having difficulty breathing. He was asking for medications to intubate. Orders for etomidate for ketamine ordered for him for intubation. 1713: The patient was evaluated in room A1. A complete history and physical exam was performed Cardiac monitoring: An order was placed for continuous cardiac monitoring. The monitor shows a rate of 110 with sinus tachycardia rhythm Patient was found to be hypotensive and hypothermic. Bear hugger ordered for the patient. Patient placed in c-collar. 1720:Patient began having twitching of his face. Patient does have a known history of seizure disorder. Ativan 2 mg IV push ordered for the patient. 1745: Chest x-ray reviewed by me showed that the patient ETT was in place. No acute pelvis fracture. Large amount of gas in the patient's stomach. OG tube was inserted and black fluid was being suctioned out at the stomach was being decompressed. Protonix bolus and drip ordered for the patient. Fluid resuscitation was started on the patient is IV access and labs were obtained. And a map of 65 was achieved the patient was sent to CT. I-STAT shows a glucose of greater than 600 and a creatinine greater than 2. Patient's venous blood gas showed that he had a venous pH of 7. 1 amp of bicarb ordered for the patient. 1822: On return from CT the patient's blood pressure is improving with IV fluid s. CT of the head reviewed by me showed no ICH. Labs show leukocytosis of 25.6 and lactic acid of 3.4. Empiric antibiotics cefepime and vancomycin ordered for the patient. Keppra 1 g IV piggyback ordered for the patient as the patient is supposed to be taking Keppra 500 mg twice daily however there are reports from EMS that the patient is not compliant with his medications. 1831: Niall reliability manager did speak with office of aging. There is an unscheduled visit scheduled on November 23 in the office aphasia reported by and that the patient was not sure what pills he was taking. According to Niall the patient was walking around with a bag full of all his pills but were not sure what they were for or how he was post to take them. The patient was supposed to have a family member come and help him with his medications but is not clear if that was actually occurring. The patient's was in rehab at that time. According to office of aging they reported to Niall that the patient has not been logging his blood sugars since August. 1843: Systolic blood pressure greater than 90. Labs show a glucose of 609 with an anion gap of 37. CO2 10. Repeat VBG shows a venous pH of 7.1. Additional 1 amp of bicarb ordered for the patient. CT of the head C-spine facial bones show no acute traumatic injury. Discussed case with Dr. Selby ICU who agrees to admit the patient. Patient is currently receiving third liter of normal saline bolus. Dr. Selby recommends giving the patient 4th L bolus of normal saline due to the patient's severe DKA. Insulin drip ordered for the patient. Discussed the case with Abby Nunes hospitalist team who states to admit to Dr. Sanford 1914: Spoke with the patient's Reina aguillon [phone]. She confirms that she was in rehab for the last 4 weeks and she does not think that the patient is been taking any of his medications for last 4 weeks. She states she called for the patient to go to the hospital last week but he refused. She confirms story that she found him down bleeding from his nose and mouth and was having labored breathing today. She confirms that the patient is a full resuscitation. Hospitalist team was made aware of these reports. Administered Medications Fentanyl Citrate (Fentanyl Bolus From Bag) 50 mcg IV Q30M PRN PRN Reason: rass 0 to -1 Stop: 12/26/21 18:13 Last Admin: 12/12/21 18:29 Dose: 50 mcg Documented By: LATOYA Pantoprazole Sodium 40 mg/ (Dextrose) 100 mls @ 20 mls/hr IV Q5H [facility] Stop: 01/11/22 17:59 Last Admin: 12/12/21 23:01 Dose: 8 mg/hr, 20 mls/hr Documented By: Infusion: 12/12/21 23:01 Dose: 8 mg/hr, 20 mls/hr Documented By: Admin: 12/12/21 19:00 Dose: 8 mg/hr, 20 mls/hr Documented By: GORDO Fentanyl Citrate (Fentanyl Citrate) 2,500 mcg in 250 mls @ 2.5 mls/hr IV .Q96H YANETH; Protocol Stop: 12/26/21 18:14 Last Admin: 12/12/21 18:24 Dose: 25 mcg/hr, 2.5 mls/hr Documented By: LATOYA Co-signed By: JAMAL Insulin Human Regular 250 (units/ Sodium Chloride) 250 mls @ 8 mls/hr IV .Q24H YANETH; Protocol Stop: 01/11/22 18:44 Last Titration: 12/12/21 23:00 Dose: 8 units/hr, 8 mls/hr Documented By: TG Co-signed By: AMB Titration: 12/12/21 21:34 Dose: 10 units/hr, 10 mls/hr Documented By: TG Co-signed By: AMB Titration: 12/12/21 20:28 Dose: 10 units/hr, 10 mls/hr Documented By: TG Co-signed By: AMB Admin: 12/12/21 19:25 Dose: 10 units/hr, 10 mls/hr Documented By: CC Co-signed By: FRANCHESCA Phenylephrine HCl 20 mg/ (Dextrose) 502 mls @ 84.035 mls/hr IV .Q5H59M YANETH; Protocol Stop: 01/11/22 21:59 Last Admin: 12/12/21 22:22 Dose: 0.5 mcg/kg/min, 84 mls/hr Documented By: TG Co-signed By: AMB Sodium Chloride (Nss 1000ml) 1,000 mls @ 150 mls/hr IV .Q6H40M YANETH Stop: 01/11/22 22:14 Last Admin: 12/12/21 22:24 Dose: 150 mls/hr Documented By: FABIAN Levetiracetam 500 mg/ Sodium (Chloride) 105 mls @ 420 mls/hr IV BID YANETH Stop: 01/11/22 22:14 Last Infusion: 12/12/21 23:41 Dose: 0 mls/hr Documented By: Admin: 12/12/21 22:44 Dose: 420 mls/hr Documented By: FABIAN Midazolam HCl (Versed) 125 mg in 250 mls @ 2 mls/hr IV .Q96H YANETH; Protocol Stop: 01/11/22 22:44 Last Admin: 12/12/21 22:55 Dose: 1 mg/hr, 2 mls/hr Documented By: FABIAN Co-signed By: TIMOTHY Potassium Chloride/Sodium Chloride (1/2 Nss + 20meq Kcl 1000ml) 20 meq in 1,000 mls @ 150 mls/hr IV .Q6H40M YANETH Stop: 01/11/22 23:44 Last Admin: 12/13/21 00:09 Dose: 150 mls/hr Documented By: FABIAN Insulin Aspart (Insulin Aspart Per Unit) 0 units SC ACHS YANETH Stop: 01/11/22 20:59 Last Admin: 12/12/21 22:05 Dose: Not Given Documented By: FABIAN Discontinued Medications Sodium Chloride (Nss 1000ml) 1,000 mls @ 999 mls/hr IV .Q1H1M ONE Stop: 12/12/21 18:14 Last Infusion: 12/12/21 19:29 Dose: 0 mls/hr Documented By: Admin: 12/12/21 17:20 Dose: 999 mls/hr Documented By: JAMAL Sodium Chloride (Nss 1000ml) 2,000 mls @ 999 mls/hr IV .Q2H1M ONE Stop: 12/12/21 19:36 Last Infusion: 12/12/21 19:38 Dose: 0 mls/hr Documented By: Admin: 12/12/21 18:12 Dose: 999 mls/hr Documented By: LATOYA Pantoprazole Sodium 80 mg/ (Dextrose) 120 mls @ 400 mls/hr IV NOW ONE Stop: 12/12/21 17:53 Last Infusion: 12/12/21 20:11 Dose: 0 mls/hr Documented By: Admin: 12/12/21 18:12 Dose: 400 mls/hr Documented By: LATOYA Cefepime HCl (Maxipime) 2,000 mg in 20 mls @ 5 mls/min IV NOW STA; Protocol Stop: 12/12/21 17:51 Last Admin: 12/12/21 18:13 Dose: 5 mls/min Documented By: LATOYA Vancomycin HCl 2,250 mg/ (Sodium Chloride) 545 mls @ 200 mls/hr IV NOW ONE Stop: 12/12/21 20:31 Last Infusion: 12/12/21 22:13 Dose: 0 mls/hr Documented By: Infusion: 12/12/21 19:35 Dose: 200 mls/hr Documented By: Infusion: 12/12/21 19:00 Dose: 0 mls/hr Documented By: Admin: 12/12/21 18:13 Dose: 200 mls/hr Documented By: LATOYA Levetiracetam 1,000 mg/ Sodium (Chloride) 110 mls @ 440 mls/hr IV NOW STA Stop: 12/12/21 18:39 Last Infusion: 12/12/21 19:16 Dose: 0 mls/hr Documented By: Admin: 12/12/21 18:59 Dose: 440 mls/hr Documented By: CC Sodium Chloride (Nss 1000ml) 1,000 mls @ 150 mls/hr IV .Q6H40M YANETH Stop: 01/11/22 18:59 Last Infusion: 12/12/21 23:06 Dose: 0 mls/hr Documented By: Admin: 12/12/21 19:38 Dose: 125 mls/hr Documented By: CC Sodium Chloride (Nss 1000ml) 1,000 mls @ 999 mls/hr IV .Q1H1M ONE Stop: 12/12/21 19:47 Last Infusion: 12/12/21 22:13 Dose: 0 mls/hr Documented By: Admin: 12/12/21 20:09 Dose: 999 mls/hr Documented By: CC Sodium Chloride (Nss 1000ml) 500 mls @ 999 mls/hr IV .Q31M ONE Stop: 12/12/21 22:47 Last Infusion: 12/12/21 23:06 Dose: 0 mls/hr Documented By: Admin: 12/12/21 22:24 Dose: 999 mls/hr Documented By: FABIAN Lorazepam (Lorazepam 2 Mg/1 Ml Vial) 2 mg IV NOW STA; Protocol Stop: 12/12/21 17:23 Last Admin: 12/12/21 17:29 Dose: 2 mg Documented By: JAMAL Lorazepam (Lorazepam 2 Mg/1 Ml Vial) Confirm Administered Dose 1 mg .ROUTE .STK- MED ONE Stop: 12/12/21 17:25 Last Admin: 12/12/21 17:33 Dose: Not Given Documented By: JAMAL Midazolam HCl (Midazolam Hcl 1 Mg/Ml 2ml Vial) 1 mg IV NOW STA Stop: 12/12/21 22:01 Last Admin: 12/12/21 22:14 Dose: 1 mg Documented By: FABIAN Midazolam HCl (Midazolam Hcl 1 Mg/Ml 2ml Vial) Confirm Administered Dose 2 mg .ROUTE .STK-MED ONE Stop: 12/12/21 22:12 Last Admin: 12/12/21 22:15 Dose: Not Given Documented By: FABIAN Sodium Bicarbonate (Sodium Bicarb 8.4% Inj 50 Meq/50 Ml Syr) 50 meq IV NOW STA Stop: 12/12/21 17:49 Last Admin: 12/12/21 17:50 Dose: 50 meq Documented By: LATOYA Sodium Bicarbonate (Sodium Bicarb 8.4% Inj 50 Meq/50 Ml Syr) Confirm Administered Dose 50 meq IV .STK-MED ONE Stop: 12/12/21 17:49 Last Admin: 12/12/21 18:13 Dose: Not Given Documented By: LATOYA Sodium Bicarbonate (Sodium Bicarb 8.4% Inj 50 Meq/50 Ml Syr) 50 meq IV NOW STA Stop: 12/12/21 18:48 Last Admin: 12/12/21 18:55 Dose: 50 meq Documented By: GORDO Critical Care Time Critical Care Time: Yes Total Critical Care Time: 121 I have personally spent greater than 121 minutes of critical care time in the direct management of this patient. This includes bedside care, interpretation of diagnostic studies, and testing, discussion with consultants, patient, and family members, and other required patient management activities. This 121 minutes is in excess of all separately billable procedures. Medical Decision Making Laboratory Data Result diagrams: 12/12/21 17:31 12/12/21 22:36 Lab Results 12/12/21 12/12/21 12/12/21 Range/Units 17:31 17:31 17:31 WBC 25.65 H (4.8-10.8) K/ul RBC 4.35 L (4.63-6.08) M/uL Hgb 13.2 L (14.0-18.0) g/dl POC Hgb (14.0-18.0) g/dl Hct 40.9 (40.1-51.0) % POC Hct (42-52) % MCV 94.0 (80.0-100.0) fL MCH 30.3 (25.0-34.0) pg MCHC 32.3 (32.0-36.0) g/dL RDW Std Deviation 45.9 (36.4-46.3) fL RDW Coeff of Justice 13.4 (11.5-14.5) % Plt Count 364 (130-400) K/uL MPV 10.7 (9.4-12.4) fL Neutrophils % (Manual) 95 % Lymphocytes % (Manual) 2 % Monocytes % (Manual) 3 % Basophils % (Manual) 1 % Neutrophils # (Manual) 24.37 H (1.4-6.5) K/uL Total Absolute Neuts 24.37 H (1.4-6.5) K/uL Lymphocytes # (Manual) 0.51 L (1.2-3.4) K/uL Total Abs Lymphocytes 0.51 L (1.2-3.4) K/uL Monocytes # (Manual) 0.77 (0.24-0.82) K/uL Basophils # (Manual) 0.26 H (0-0.2) K/uL PT 12.1 H (9.0-12.0) Seconds INR 1.1 (0.9-1.1) APTT 30.3 (21.0-31.0) Seconds PTT Ratio 1.1 VBG pH (7.36-7.41) POC VBG pH (7.36-7.41) VBG pCO2 (38-50) mmHg POC VBG pCO2 (38-50) mmHg VBG pO2 mmHg POC VBG pO2 (30-55) mmHg VBG HCO3 mmol/L POC VBG HCO3 (23-28) meq/L POC VBG Total CO2 (24-31) mmol/L VBG O2 Saturation % POC Venous O2 Sat (70-80) % VBG Base Excess mEq/L POC VBG Base Excess meq/L POC Sodium (135-144) mmol/L Sodium (136-145) mmol/L POC Potassium (3.3-5.0) mmol/L Potassium (3.5-5.1) mmol/L POC Chloride (101-112) mmol/L Chloride (98-107) mmol/L Carbon Dioxide (21-32) mmol/L POC Total CO2 (24-31) mmol/L Anion Gap (3-11) POC Anion Gap (16-25) mmol/L POC BUN (7-18) mg/dl BUN (6-23) mg/dl Creatinine (0.6-1.4) mg/dl POC Creatinine (0.6-1.3) mg/dl Est Cr Clr Drug Dosing Est GFR ( Amer) ml/min Est GFR (Non-Af Amer) ml/min BUN/Creatinine Ratio (10-20) Glucose (70-99(Fasting)) mg/dl POC Glucose (other) (70-99) mg/dl Osmolality (280-300) mOsm/kg Lactate (0.4-2.0) mmol/L Calcium (8.5-10.1) mg/dl POC Ioniz Calcium Britney (1.12-1.32) mmol/l Magnesium (1.7-2.4) mg/dl Total Bilirubin (0.2-1.0) mg/dl Direct Bilirubin (0-0.2) mg/dl AST (13-39) U/L ALT (7-52) U/L Alkaline Phosphatase (34-104) U/L Ammonia (18-72) umol/L Total Creatine Kinase (30-223) U/L Troponin I High Sens (0-20) pg/ml Total Protein (6.0-8.3) gm/dl Albumin (3.4-5.0) gm/dl Lipase (11-82) U/L Procalcitonin (0-0.5) ng/ml TSH (0.300-4.500) uIu/ml Prolactin ng/ml Random Cortisol mcg/dl Salicylates (3.0-30) mg/dl Acetaminophen (10-30) ug/ml Ethyl Alcohol mg/dL (<10.0) mg/dl SARS-CoV-2 (PCR) (Negative) Blood Type A Positive Antibody Screen NEGATIVE 12/12/21 12/12/21 12/12/21 Range/Units 17:31 17:31 17:31 WBC (4.8-10.8) K/ul RBC (4.63-6.08) M/uL Hgb (14.0-18.0) g/dl POC Hgb (14.0-18.0) g/dl Hct (40.1-51.0) % POC Hct (42-52) % MCV (80.0-100.0) fL MCH (25.0-34.0) pg MCHC (32.0-36.0) g/dL RDW Std Deviation (36.4-46.3) fL RDW Coeff of Justice (11.5-14.5) % Plt Count (130-400) K/uL MPV (9.4-12.4) fL Neutrophils % (Manual) % Lymphocytes % (Manual) % Monocytes % (Manual) % Basophils % (Manual) % Neutrophils # (Manual) (1.4-6.5) K/uL Total Absolute Neuts (1.4-6.5) K/uL Lymphocytes # (Manual) (1.2-3.4) K/uL Total Abs Lymphocytes (1.2-3.4) K/uL Monocytes # (Manual) (0.24-0.82) K/uL Basophils # (Manual) (0-0.2) K/uL PT (9.0-12.0) Seconds INR (0.9-1.1) APTT (21.0-31.0) Seconds PTT Ratio VBG pH (7.36-7.41) POC VBG pH (7.36-7.41) VBG pCO2 (38-50) mmHg POC VBG pCO2 (38-50) mmHg VBG pO2 mmHg POC VBG pO2 (30-55) mmHg VBG HCO3 mmol/L POC VBG HCO3 (23-28) meq/L POC VBG Total CO2 (24-31) mmol/L VBG O2 Saturation % POC Venous O2 Sat (70-80) % VBG Base Excess mEq/L POC VBG Base Excess meq/L POC Sodium (135-144) mmol/L Sodium (136-145) mmol/L POC Potassium (3.3-5.0) mmol/L Potassium (3.5-5.1) mmol/L POC Chloride (101-112) mmol/L Chloride (98-107) mmol/L Carbon Dioxide (21-32) mmol/L POC Total CO2 (24-31) mmol/L Anion Gap (3-11) POC Anion Gap (16-25) mmol/L POC BUN (7-18) mg/dl BUN (6-23) mg/dl Creatinine (0.6-1.4) mg/dl POC Creatinine (0.6-1.3) mg/dl Est Cr Clr Drug Dosing Est GFR ( Amer) ml/min Est GFR (Non-Af Amer) ml/min BUN/Creatinine Ratio (10-20) Glucose (70-99(Fasting)) mg/dl POC Glucose (other) (70-99) mg/dl Osmolality (280-300) mOsm/kg Lactate (0.4-2.0) mmol/L Calcium (8.5-10.1) mg/dl POC Ioniz Calcium Britney (1.12-1.32) mmol/l Magnesium 2.1 (1.7-2.4) mg/dl Total Bilirubin 0.6 (0.2-1.0) mg/dl Direct Bilirubin 0.1 (0-0.2) mg/dl AST 15 (13-39) U/L ALT 10 (7-52) U/L Alkaline Phosphatase 132 H (34-104) U/L Ammonia 35.0 (18-72) umol/L Total Creatine Kinase 387 H (30-223) U/L Troponin I High Sens 21.9 H (0-20) pg/ml Total Protein 6.3 (6.0-8.3) gm/dl Albumin 3.8 (3.4-5.0) gm/dl Lipase 52 (11-82) U/L Procalcitonin (0-0.5) ng/ml TSH (0.300-4.500) uIu/ml Prolactin 22.30 ng/ml Random Cortisol mcg/dl Salicylates (3.0-30) mg/dl Acetaminophen (10-30) ug/ml Ethyl Alcohol mg/dL (<10.0) mg/dl SARS-CoV-2 (PCR) (Negative) Blood Type Antibody Screen 12/12/21 12/12/21 12/12/21 Range/Units 17:31 17:31 17:31 WBC (4.8-10.8) K/ul RBC (4.63-6.08) M/uL Hgb (14.0-18.0) g/dl POC Hgb (14.0-18.0) g/dl Hct (40.1-51.0) % POC Hct (42-52) % MCV (80.0-100.0) fL MCH (25.0-34.0) pg MCHC (32.0-36.0) g/dL RDW Std Deviation (36.4-46.3) fL RDW Coeff of Justice (11.5-14.5) % Plt Count (130-400) K/uL MPV (9.4-12.4) fL Neutrophils % (Manual) % Lymphocytes % (Manual) % Monocytes % (Manual) % Basophils % (Manual) % Neutrophils # (Manual) (1.4-6.5) K/uL Total Absolute Neuts (1.4-6.5) K/uL Lymphocytes # (Manual) (1.2-3.4) K/uL Total Abs Lymphocytes (1.2-3.4) K/uL Monocytes # (Manual) (0.24-0.82) K/uL Basophils # (Manual) (0-0.2) K/uL PT (9.0-12.0) Seconds INR (0.9-1.1) APTT (21.0-31.0) Seconds PTT Ratio VBG pH (7.36-7.41) POC VBG pH (7.36-7.41) VBG pCO2 (38-50) mmHg POC VBG pCO2 (38-50) mmHg VBG pO2 mmHg POC VBG pO2 (30-55) mmHg VBG HCO3 mmol/L POC VBG HCO3 (23-28) meq/L POC VBG Total CO2 (24-31) mmol/L VBG O2 Saturation % POC Venous O2 Sat (70-80) % VBG Base Excess mEq/L POC VBG Base Excess meq/L POC Sodium (135-144) mmol/L Sodium (136-145) mmol/L POC Potassium (3.3-5.0) mmol/L Potassium (3.5-5.1) mmol/L POC Chloride (101-112) mmol/L Chloride (98-107) mmol/L Carbon Dioxide (21-32) mmol/L POC Total CO2 (24-31) mmol/L Anion Gap (3-11) POC Anion Gap (16-25) mmol/L POC BUN (7-18) mg/dl BUN (6-23) mg/dl Creatinine (0.6-1.4) mg/dl POC Creatinine (0.6-1.3) mg/dl Est Cr Clr Drug Dosing Est GFR ( Amer) ml/min Est GFR (Non-Af Amer) ml/min BUN/Creatinine Ratio (10-20) Glucose (70-99(Fasting)) mg/dl POC Glucose (other) (70-99) mg/dl Osmolality (280-300) mOsm/kg Lactate (0.4-2.0) mmol/L Calcium (8.5-10.1) mg/dl POC Ioniz Calcium Britney (1.12-1.32) mmol/l Magnesium (1.7-2.4) mg/dl Total Bilirubin (0.2-1.0) mg/dl Direct Bilirubin (0-0.2) mg/dl AST (13-39) U/L ALT (7-52) U/L Alkaline Phosphatase (34-104) U/L Ammonia (18-72) umol/L Total Creatine Kinase (30-223) U/L Troponin I High Sens (0-20) pg/ml Total Protein (6.0-8.3) gm/dl Albumin (3.4-5.0) gm/dl Lipase (11-82) U/L Procalcitonin 0.35 (0-0.5) ng/ml TSH (0.300-4.500) uIu/ml Prolactin ng/ml Random Cortisol mcg/dl Salicylates < 3.0 L (3.0-30) mg/dl Acetaminophen < 3 L (10-30) ug/ml Ethyl Alcohol mg/dL < 10.0 (<10.0) mg/dl SARS-CoV-2 (PCR) (Negative) Blood Type Antibody Screen 12/12/21 12/12/21 12/12/21 Range/Units 17:31 17:31 17:31 WBC (4.8-10.8) K/ul RBC (4.63-6.08) M/uL Hgb (14.0-18.0) g/dl POC Hgb (14.0-18.0) g/dl Hct (40.1-51.0) % POC Hct (42-52) % MCV (80.0-100.0) fL MCH (25.0-34.0) pg MCHC (32.0-36.0) g/dL RDW Std Deviation (36.4-46.3) fL RDW Coeff of Justice (11.5-14.5) % Plt Count (130-400) K/uL MPV (9.4-12.4) fL Neutrophils % (Manual) % Lymphocytes % (Manual) % Monocytes % (Manual) % Basophils % (Manual) % Neutrophils # (Manual) (1.4-6.5) K/uL Total Absolute Neuts (1.4-6.5) K/uL Lymphocytes # (Manual) (1.2-3.4) K/uL Total Abs Lymphocytes (1.2-3.4) K/uL Monocytes # (Manual) (0.24-0.82) K/uL Basophils # (Manual) (0-0.2) K/uL PT (9.0-12.0) Seconds INR (0.9-1.1) APTT (21.0-31.0) Seconds PTT Ratio VBG pH 7.02 L (7.36-7.41) POC VBG pH (7.36-7.41) VBG pCO2 39 (38-50) mmHg POC VBG pCO2 (38-50) mmHg VBG pO2 42 mmHg POC VBG pO2 (30-55) mmHg VBG HCO3 10 mmol/L POC VBG HCO3 (23-28) meq/L POC VBG Total CO2 (24-31) mmol/L VBG O2 Saturation 64.1 % POC Venous O2 Sat (70-80) % VBG Base Excess -20.3 mEq/L POC VBG Base Excess meq/L POC Sodium (135-144) mmol/L Sodium 134 L (136-145) mmol/L POC Potassium (3.3-5.0) mmol/L Potassium 4.5 (3.5-5.1) mmol/L POC Chloride (101-112) mmol/L Chloride 87 L (98-107) mmol/L Carbon Dioxide 10 L (21-32) mmol/L POC Total CO2 (24-31) mmol/L Anion Gap 37 H (3-11) POC Anion Gap (16-25) mmol/L POC BUN (7-18) mg/dl BUN 42 H (6-23) mg/dl Creatinine 2.75 H (0.6-1.4) mg/dl POC Creatinine (0.6-1.3) mg/dl Est Cr Clr Drug Dosing Not Reportable Est GFR ( Amer) 27.6 ml/min Est GFR (Non-Af Amer) 23.8 ml/min BUN/Creatinine Ratio 15.3 (10-20) Glucose 609 H* (70-99(Fasting)) mg/dl POC Glucose (other) (70-99) mg/dl Osmolality 338 H (280-300) mOsm/kg Lactate (0.4-2.0) mmol/L Calcium 8.4 L (8.5-10.1) mg/dl POC Ioniz Calcium Britney (1.12-1.32) mmol/l Magnesium (1.7-2.4) mg/dl Total Bilirubin (0.2-1.0) mg/dl Direct Bilirubin (0-0.2) mg/dl AST (13-39) U/L ALT (7-52) U/L Alkaline Phosphatase (34-104) U/L Ammonia (18-72) umol/L Total Creatine Kinase (30-223) U/L Troponin I High Sens (0-20) pg/ml Total Protein (6.0-8.3) gm/dl Albumin (3.4-5.0) gm/dl Lipase (11-82) U/L Procalcitonin (0-0.5) ng/ml TSH (0.300-4.500) uIu/ml Prolactin ng/ml Random Cortisol mcg/dl Salicylates (3.0-30) mg/dl Acetaminophen (10-30) ug/ml Ethyl Alcohol mg/dL (<10.0) mg/dl SARS-CoV-2 (PCR) (Negative) Blood Type Antibody Screen 12/12/21 12/12/21 12/12/21 Range/Units 17:31 17:31 17:34 WBC (4.8-10.8) K/ul RBC (4.63-6.08) M/uL Hgb (14.0-18.0) g/dl POC Hgb (14.0-18.0) g/dl Hct (40.1-51.0) % POC Hct (42-52) % MCV (80.0-100.0) fL MCH (25.0-34.0) pg MCHC (32.0-36.0) g/dL RDW Std Deviation (36.4-46.3) fL RDW Coeff of Justice (11.5-14.5) % Plt Count (130-400) K/uL MPV (9.4-12.4) fL Neutrophils % (Manual) % Lymphocytes % (Manual) % Monocytes % (Manual) % Basophils % (Manual) % Neutrophils # (Manual) (1.4-6.5) K/uL Total Absolute Neuts (1.4-6.5) K/uL Lymphocytes # (Manual) (1.2-3.4) K/uL Total Abs Lymphocytes (1.2-3.4) K/uL Monocytes # (Manual) (0.24-0.82) K/uL Basophils # (Manual) (0-0.2) K/uL PT (9.0-12.0) Seconds INR (0.9-1.1) APTT (21.0-31.0) Seconds PTT Ratio VBG pH (7.36-7.41) POC VBG pH (7.36-7.41) VBG pCO2 (38-50) mmHg POC VBG pCO2 (38-50) mmHg VBG pO2 mmHg POC VBG pO2 (30-55) mmHg VBG HCO3 mmol/L POC VBG HCO3 (23-28) meq/L POC VBG Total CO2 (24-31) mmol/L VBG O2 Saturation % POC Venous O2 Sat (70-80) % VBG Base Excess mEq/L POC VBG Base Excess meq/L POC Sodium (135-144) mmol/L Sodium (136-145) mmol/L POC Potassium (3.3-5.0) mmol/L Potassium (3.5-5.1) mmol/L POC Chloride (101-112) mmol/L Chloride (98-107) mmol/L Carbon Dioxide (21-32) mmol/L POC Total CO2 (24-31) mmol/L Anion Gap (3-11) POC Anion Gap (16-25) mmol/L POC BUN (7-18) mg/dl BUN (6-23) mg/dl Creatinine (0.6-1.4) mg/dl POC Creatinine (0.6-1.3) mg/dl Est Cr Clr Drug Dosing Est GFR ( Amer) ml/min Est GFR (Non-Af Amer) ml/min BUN/Creatinine Ratio (10-20) Glucose (70-99(Fasting)) mg/dl POC Glucose (other) (70-99) mg/dl Osmolality (280-300) mOsm/kg Lactate 3.4 H* (0.4-2.0) mmol/L Calcium (8.5-10.1) mg/dl POC Ioniz Calcium Britney (1.12-1.32) mmol/l Magnesium (1.7-2.4) mg/dl Total Bilirubin (0.2-1.0) mg/dl Direct Bilirubin (0-0.2) mg/dl AST (13-39) U/L ALT (7-52) U/L Alkaline Phosphatase (34-104) U/L Ammonia (18-72) umol/L Total Creatine Kinase (30-223) U/L Troponin I High Sens (0-20) pg/ml Total Protein (6.0-8.3) gm/dl Albumin (3.4-5.0) gm/dl Lipase (11-82) U/L Procalcitonin (0-0.5) ng/ml TSH 3.852 (0.300-4.500) uIu/ml Prolactin ng/ml Random Cortisol 46.36 mcg/dl Salicylates (3.0-30) mg/dl Acetaminophen (10-30) ug/ml Ethyl Alcohol mg/dL (<10.0) mg/dl SARS-CoV-2 (PCR) (Negative) Blood Type Antibody Screen 12/12/21 12/12/21 12/12/21 Range/Units 17:34 18:37 18:44 WBC (4.8-10.8) K/ul RBC (4.63-6.08) M/uL Hgb (14.0-18.0) g/dl POC Hgb 15.0 (14.0-18.0) g/dl Hct (40.1-51.0) % POC Hct 44 (42-52) % MCV (80.0-100.0) fL MCH (25.0-34.0) pg MCHC (32.0-36.0) g/dL RDW Std Deviation (36.4-46.3) fL RDW Coeff of Justice (11.5-14.5) % Plt Count (130-400) K/uL MPV (9.4-12.4) fL Neutrophils % (Manual) % Lymphocytes % (Manual) % Monocytes % (Manual) % Basophils % (Manual) % Neutrophils # (Manual) (1.4-6.5) K/uL Total Absolute Neuts (1.4-6.5) K/uL Lymphocytes # (Manual) (1.2-3.4) K/uL Total Abs Lymphocytes (1.2-3.4) K/uL Monocytes # (Manual) (0.24-0.82) K/uL Basophils # (Manual) (0-0.2) K/uL PT (9.0-12.0) Seconds INR (0.9-1.1) APTT (21.0-31.0) Seconds PTT Ratio VBG pH (7.36-7.41) POC VBG pH 7.12 L* (7.36-7.41) VBG pCO2 (38-50) mmHg POC VBG pCO2 43 (38-50) mmHg VBG pO2 mmHg POC VBG pO2 < 32 (30-55) mmHg VBG HCO3 mmol/L POC VBG HCO3 14 L (23-28) meq/L POC VBG Total CO2 15 L (24-31) mmol/L VBG O2 Saturation % POC Venous O2 Sat 38.0 L (70-80) % VBG Base Excess mEq/L POC VBG Base Excess -16.0 meq/L POC Sodium 132 L (135-144) mmol/L Sodium (136-145) mmol/L POC Potassium 4.5 (3.3-5.0) mmol/L Potassium (3.5-5.1) mmol/L POC Chloride 95 L (101-112) mmol/L Chloride (98-107) mmol/L Carbon Dioxide (21-32) mmol/L POC Total CO2 14 L (24-31) mmol/L Anion Gap (3-11) POC Anion Gap 29.0 H (16-25) mmol/L POC BUN 38 H (7-18) mg/dl BUN (6-23) mg/dl Creatinine (0.6-1.4) mg/dl POC Creatinine 2.6 H (0.6-1.3) mg/dl Est Cr Clr Drug Dosing Est GFR ( Amer) ml/min Est GFR (Non-Af Amer) ml/min BUN/Creatinine Ratio (10-20) Glucose (70-99(Fasting)) mg/dl POC Glucose (other) 615 H* (70-99) mg/dl Osmolality (280-300) mOsm/kg Lactate (0.4-2.0) mmol/L Calcium (8.5-10.1) mg/dl POC Ioniz Calcium Britney 1.07 L (1.12-1.32) mmol/l Magnesium (1.7-2.4) mg/dl Total Bilirubin (0.2-1.0) mg/dl Direct Bilirubin (0-0.2) mg/dl AST (13-39) U/L ALT (7-52) U/L Alkaline Phosphatase (34-104) U/L Ammonia (18-72) umol/L Total Creatine Kinase (30-223) U/L Troponin I High Sens (0-20) pg/ml Total Protein (6.0-8.3) gm/dl Albumin (3.4-5.0) gm/dl Lipase (11-82) U/L Procalcitonin (0-0.5) ng/ml TSH (0.300-4.500) uIu/ml Prolactin ng/ml Random Cortisol mcg/dl Salicylates (3.0-30) mg/dl Acetaminophen (10-30) ug/ml Ethyl Alcohol mg/dL (<10.0) mg/dl SARS-CoV-2 (PCR) NEGATIVE (Negative) Blood Type Antibody Screen Imaging Data Radiologist's Impression: Cervical Spine CT 12/12/21 17:15 CT cervical spine wo con CLINICAL HISTORY: 60 years-old Male with found down. Acute neck trauma status post fall COMPARISON: CT head and maxillofacial studies of same day TECHNIQUE: Multiple axial CT images of the cervical spine were obtained without contrast. A dose lowering technique was utilized adhering to the principles of ALARA. FINDINGS: Endotracheal and enteric tubes are partially imaged. The study is motion degraded. Mucosal thickening of the paranasal sinuses with layering secretions within the airway. Left maxillary and sphenoid sinus air-fluid levels. Intralobular septal thickening of the lung apices without pneumothorax. Heterogeneity of the thyroid. No prevertebral edema. Calcifications of the carotid arteries. Multilevel degenerative changes. Degenerative partial bony fusion of the C7-T1 levels. Grade 1 anterolisthesis C7 on T1 is likely secondary to chronic facet arthrosis. Advanced multilevel facet arthrosis. IMPRESSION: No acute cervical spine fracture or subluxation. ACT 112: Negative or not required by law. The above report was generated using voice recognition software. It may contain grammatical, syntax or spelling errors. Electronically signed by: Rah Toro M.D. 12/12/2021 6:20 PM Chest X-Ray 12/12/21 17:15 XR chest 1V portable HISTORY: 60 years-old Male found down acute respiratory failure COMPARISON: Chest radiograph 10/18/2021 TECHNIQUE: Portable AP view of the chest FINDINGS: Gaseous distention of the stomach. The heart is enlarged. Pulmonary vascular congestion with asymmetric interstitial coarsening throughout the right lung. No pneumothorax, large pleural effusion or lobar airspace consolidation. The endotracheal tube overlies the midline, 2.3 cm superior to the jessee. The bones appear grossly intact. IMPRESSION: 1. Endotracheal tube terminates 2.3 cm superior to the jessee. 2. There is prominent gaseous distention of the stomach. 3. Pulmonary vascular congestion. ACT 112: Negative or not required by law. The above report was generated using voice recognition software. It may contain grammatical, syntax or spelling errors. Electronically signed by: Rah Toro M.D. 12/12/2021 5:[address] 12/12/21 17:15 CT facial bones wo con CLINICAL HISTORY: 60 years-old Male presenting with found down. Acute facial trauma status post fall COMPARISON STUDY: CT head of same day TECHNIQUE: High-resolution CT scan of the facial bones is performed. Images are reviewed in the axial, sagittal, and coronal planes. IV contrast was not administered for this examination. A dose lowering technique was utilized adhering to the principles of ALARA. FINDINGS: Chronic left frontal lobe intracranial cyst is partially imaged. Partially imaged endotracheal and enteric tubes. Atherosclerosis of the aorta. Degenerative changes of the imaged cervical spine. No acute calvarial fracture identified. The mastoid air cells and middle ear cavities are clear. Mild mucosal thickening of the paranasal sinuses with sphenoid and left maxillary sinus air-fluid levels. Periapical cystic changes are noted involving several teeth along with dental caries. No acute facial bone fracture is identified. IMPRESSION: No acute facial bone fracture identified. ACT 112: Negative or not required by law. The above report was generated using voice recognition software. It may contain grammatical, syntax or spelling errors. Electronically signed by: Rah Toro M.D. 12/12/2021 6:[address] 12/12/21 17:15 CT head/brain wo con CLINICAL HISTORY: 60 years-old Male with found down. The patient was found down. TECHNIQUE: Multiple axial CT images of the head were obtained without contrast. A dose lowering technique was utilized adhering to the principles of ALARA. COMPARISON: 10/07/2021 FINDINGS: No acute intracranial hemorrhage, midline shift, new intra-axial mass, hydrocephalus, territorial ischemia or abnormal extra-axial collection. Unchanged 2.1 cm circumscribed cystic lesion of the left frontal lobe on image 24 series 2. Mild white matter hypodensities suggest chronic microvascular ischemic disease. Cerebral vascular calcifications. Ill-defined decreased attenuation of the left cerebellar hemisphere is favored to be intact. The calvarium is intact. Mastoid air cells are clear. Mild mucosal thickening of the paranasal sinuses with left maxillary and sphenoid sinus air-fluid levels suggestive of acute disease. Unremarkable soft tissues and orbits. IMPRESSION: No acute intracranial abnormality or calvarial fracture. ACT 112: Negative or not required by law. The above report was generated using voice recognition software. It may contain grammatical, syntax or spelling errors. Electronically signed by: Rah Toro M.D. 12/12/2021 6:14 PM Pelvis X-Ray 12/12/21 17:15 XR pelvis 1-2V routine HISTORY: 60 years-old Male found down acute pelvic trauma status post fall COMPARISON: CT abdomen and pelvis 10/05/2021 TECHNIQUE: Supine AP view of the pelvis FINDINGS: Limited study secondary to positioning. The lateral right pelvis and femur are partially excluded from the [id number]. Vascular calcifications. Unremarkable soft tissues. No definite acute fracture or dislocation identified. Rotation the left proximal femur also limits the study. IMPRESSION: Limited exam secondary to positioning. No acute fracture or dislocation identified. ACT 112: Negative or not required by law. The above report was generated using voice recognition software. It may contain grammatical, syntax or spelling errors. Electronically signed by: Rah Toro M.D. 12/12/2021 5:40 PM Abdomen/Pelvis CT 12/12/21 17:[address] WITHOUT CONTRAST CT DOSE: 3059.50 mGy.cm HISTORY: Acute abdominal trauma found down TECHNIQUE: Multiaxial CT images of the abdomen and pelvis were performed without contrast. A dose lowering technique was utilized adhering to the principles of ALARA. COMPARISON STUDY: CT abdomen and pelvis 10/07/2021 FINDINGS: Limited exam secondary to respiratory motion, lack of contrast upper extremity positioning. Left greater than right bibasilar airspace opacities are noted along with mucous plugging bronchial wall thickening. There is no pneumatosis or pneumoperitoneum. Imaged inferior cardiac chambers are upper limits of normal in size with coronary arterial calcifications. The unenhanced spleen, mildly atrophic pancreas and right adrenal gland are unremarkable. There is unchanged mild nodular thickening of the left adrenal gland. Unremarkable liver and gallbladder. Mild nonspecific bilateral perinephric stranding. No urolith identified. Mild prostamegaly. Mild urinary bladder wall thickening with partial distention. A Song catheter balloon inserted within the penile urethra. Atherosclerosis of the aorta and branch vessels without aneurysm. There is no lymphadenopathy. Moderate wall thickening of the distal esophagus with mild paraesophageal stranding, progressed from the prior study. Small hiatal hernia. Distended air and fluid-filled stomach. Distal tip of enteric tube projects over the distal stomach. There is mild colonic fecal retention. No bowel obstruction or bowel wall thickening. No free fluid or retroperitoneal hematoma identified. Degenerative changes of the spine, pelvis and hips. Multilevel central canal or neural foraminal narrowing of the lumbar spine. Healing subacute nondisplaced anterior left-sided rib fractures. No definite acute fracture identified. IMPRESSION: 1 Limited exam as above. There is no acute posttraumatic intra-abdominal or intrapelvic abnormality. 2. No acute fracture identified. 3. Healing subacute nondisplaced anterior left-sided rib fractures. 4. Wall thickening of the distal esophagus with adjacent inflammatory stranding has progressed from 10/07/2021. Correlate clinically to exclude esophagitis. 5. Left greater than right bibasilar opacities are suggestive of an infectious or inflammatory pneumonitis, possibly aspiration. 6. Distal tip of enteric tube projects over the distal stomach. 7. Additional findings as above. ACT 112: Negative or not required by law. The above report was generated using voice recognition software. It may contain grammatical, syntax or spelling errors. Electronically signed by: Rah Toro M.D. 12/12/2021 6:42 PM ECG Data Indication: + other (found down) Rate (beats per minute): 99 Rhythm: + normal sinus ECG Intervals/blocks: + Normal QRS, + Normal [place] and + Normal QT-c ECG ST segments: + Normal ST segments MDM Narrative 1650: Received a call from store stocker Arturo who states that the patient was found down in as possible facial trauma and is having difficulty breathing. He was asking for medications to intubate. Orders for etomidate for ketamine ordered for him for intubation. 1713: The patient was evaluated in room A1. A complete history and physical exam was performed Cardiac monitoring: An order was placed for continuous cardiac monitoring. The monitor shows a rate of 110 with sinus tachycardia rhythm Patient was found to be hypotensive and hypothermic. Bear hugger ordered for the patient. Patient placed in c-collar. 1720:Patient began having twitching of his face. Patient does have a known history of seizure disorder. Ativan 2 mg IV push ordered for the patient. 1745: Chest x-ray reviewed by me showed that the patient ETT was in place. No acute pelvis fracture. Large amount of gas in the patient's stomach. OG tube was inserted and black fluid was being suctioned out at the stomach was being decompressed. Protonix bolus and drip ordered for the patient. Fluid resuscitation was started on the patient is IV access and labs were obtained. And a map of 65 was achieved the patient was sent to CT. I-STAT shows a glucose of greater than 600 and a creatinine greater than 2. Patient's venous blood gas showed that he had a venous pH of 7. 1 amp of bicarb ordered for the patient. 1822: On return from CT the patient's blood pressure is improving with IV fluids. CT of the head reviewed by me showed no ICH. Labs show leukocytosis of 25.6 and lactic acid of 3.4. Empiric antibiotics cefepime and vancomycin ordered for the patient. Keppra 1 g IV piggyback ordered for the patient as the patient is supposed to be taking Keppra 500 mg twice daily however there are reports from EMS that the patient is not compliant with his medications. 1830: Niall reliability manager did speak with office of aging. There is an unscheduled visit scheduled on November 23 in the office aphasia reported by and that the patient was not sure what pills he was taking. According to Niall the patient was walking around with a bag full of all his pills but were not sure what they were for or how he was post to take them. The patient was supposed to have a family member come and help him with his medications but is not clear if that was actually occurring. The patient's was in rehab at that time. According to office of aging they reported to Niall that the patient has not been logging his blood sugars since August. 1843: Systolic blood pressure greater than 90. Labs show a glucose of 609 with an anion gap of 37. CO2 10. Repeat VBG shows a venous pH of 7.1. Additional 1 amp of bicarb ordered for the patient. CT of the head C-spine facial bones show no acute traumatic injury. Discussed case with Dr. Selby ICU who agrees to admit the patient. Patient is currently receiving third liter of normal saline bolus. Dr. Selby recommends giving the patient 4th L bolus of normal saline due to the patient's severe DKA. Insulin drip ordered for the patient. Discussed the case with Abby Nunes hospitalist team who states to admit to Dr. Sanford 1914: Spoke with the patient's Reina aguillon [phone]. She confirms that she was in rehab for the last 4 weeks and she does not think that the patient is been taking any of his medications for last 4 weeks. She states she called for the patient to go to the hospital last week but he refused. She confirms story that she found him down bleeding from his nose and mouth and was having labored breathing today. She confirms that the patient is a full resuscitation. Hospitalist team was made aware of these reports. Impression & Plan DKA (diabetic ketoacidosis), Seizure, Seizure disorder, Hypothermia, GIB (gastrointestinal bleeding), Aspiration pneumonia Discharge Plan Visit Data Chief Complaint: Trauma Stated Complaint: FALL, FACIAL TRAUMA, ED Provider: Riley Dumont Discharge Problem: DKA (diabetic ketoacidosis), Seizure, Seizure disorder, Hypothermia, GIB (gastrointestinal bleeding), Aspiration pneumonia Patient Disposition: Admitted As Inpatient Discharge Instructions Interventions: ED Discharge Assessment Last Done: 12/12/21 20:48
[2021-12-12 18:30] LABS: Anion Gap 37 (3-11); BUN Creatinine Ratio 15.3 (10-20); Blood Urea Nitrogen 42 mg/dl (6-23); Calcium 8.4 mg/dl (8.5-10.1); Carbon Dioxide 10 mmol/L (21-32); Chloride 87 mmol/L (98-107); Est GFR (African American) 27.6 ml/min; Est GFR (Non-African American) 23.8 ml/min; Glucose 609 mg/dl (70-99(Fasting)); Potassium 4.5 mmol/L (3.5-5.1); Sodium 134 mmol/L (136-145)
--- NOTE | 2021-12-12 18:30 | CT Scan Report ---
CT facial bones wo con CLINICAL HISTORY: 60 years-old Male presenting with found down. Acute facial trauma status post fall COMPARISON STUDY: CT head of same day TECHNIQUE: High-resolution CT scan of the facial bones is performed. Images are reviewed in the axia l, sagittal, and coronal planes. IV contrast was not administered for this examination. A dose lower ing technique was utilized adhering to the principles of ALARA. FINDINGS: Chronic left frontal lobe intracranial cyst is partially imaged. Partially imaged endotracheal and en teric tubes. Atherosclerosis of the aorta. Degenerative changes of the imaged cervical spine. No acut e calvarial fracture identified. The mastoid air cells and middle ear cavities are clear. Mild mucosa l thickening of the paranasal sinuses with sphenoid and left maxillary sinus air-fluid levels. Periap ical cystic changes are noted involving several teeth along with dental caries. No acute facial bone fracture is identified. IMPRESSION: No acute facial bone fracture identified. ACT 112: Negative or not required by law. The above report was generated using voice recognition software. It may contain grammatical, syntax o r spelling errors. Electronically signed by: Rah Toro M.D. 12/12/2021 6:28 PM
[2021-12-12] MEDS ORDERED: GLUCOSE 40% GEL 15 GM TUBE PO PRN (18:32)
[2021-12-12] MEDS ORDERED: CARBOHYDRATES FOR HYPOGLYCEMIA PO PRN (18:32)
[2021-12-12] MEDS ORDERED: GLUCAGON FOR INJ 1 MG VIAL SQ PRN (18:32)
[2021-12-12] MEDS ORDERED: DEXTROSE 50% 50 ML SYRINGE IV PRN (18:32)
[2021-12-12] MEDS ORDERED: GLUCOSE 10 TAB/TUBE PO PRN (18:32)
[2021-12-12] MEDS ORDERED: STAT INSULIN DRIP STA (18:32)
[2021-12-12] MEDS ORDERED: INSULIN REGULAR 250 UNITS in SODIUM CHLORIDE 0.9% 247.5 ML IV SCH ×2 (18:45→22:15)
--- NOTE | 2021-12-12 18:45 | CT Scan Report ---
ABDOMEN AND PELVIS CT WITHOUT CONTRAST CT DOSE: 3059.50 mGy.cm HISTORY: Acute abdominal trauma found down TECHNIQUE: Multiaxial CT images of the abdomen and pelvis were performed without contrast. A dose lo wering technique was utilized adhering to the principles of ALARA. COMPARISON STUDY: CT abdomen and pelvis 10/07/2021 FINDINGS: Limited exam secondary to respiratory motion, lack of contrast upper extremity positioning. Left grea ter than right bibasilar airspace opacities are noted along with mucous plugging bronchial wall thick ening. There is no pneumatosis or pneumoperitoneum. Imaged inferior cardiac chambers are upper limits of normal in size with coronary arterial calcifications. The unenhanced spleen, mildly atrophic panc reas and right adrenal gland are unremarkable. There is unchanged mild nodular thickening of the left adrenal gland. Unremarkable liver and gallbladder. Mild nonspecific bilateral perinephric stranding. No urolith identified. Mild prostamegaly. Mild urin yvette bladder wall thickening with partial distention. A Song catheter balloon inserted within the pen ile urethra. Atherosclerosis of the aorta and branch vessels without aneurysm. There is no lymphadeno roselia. Moderate wall thickening of the distal esophagus with mild paraesophageal stranding, progressed from the prior study. Small hiatal hernia. Distended air and fluid-filled stomach. Distal tip of enteric t ube projects over the distal stomach. There is mild colonic fecal retention. No bowel obstruction or bowel wall thickening. No free fluid or retroperitoneal hematoma identified. Degenerative changes of the spine, pelvis and hips. Multilevel central canal or neural foraminal narrowing of the lumbar spi ne. Healing subacute nondisplaced anterior left-sided rib fractures. No definite acute fracture ident ified. IMPRESSION: 1 Limited exam as above. There is no acute posttraumatic intra-abdominal or intrapelvic abnormality. 2. No acute fracture identified. 3. Healing subacute nondisplaced anterior left-sided rib fractures. 4. Wall thickening of the distal esophagus with adjacent inflammatory stranding has progressed from . Correlate clinically to exclude esophagitis. 5. Left greater than right bibasilar opacities are suggestive of an infectious or inflammatory pneumo nitis, possibly aspiration. 6. Distal tip of enteric tube projects over the distal stomach. 7. Additional findings as above. ACT 112: Negative or not required by law. The above report was generated using voice recognition software. It may contain grammatical, syntax o r spelling errors. Electronically signed by: Rah Toro M.D. 12/12/2021 6:42 PM
[2021-12-12 18:59] LABS: iSTAT Venous Carbon Dioxide 15 mmol/L (24-31)
[2021-12-12] MEDS ORDERED: SODIUM CHLORIDE 0.9% 1000ML 1,000 ML IV SCH ×2 (19:00→22:15)
[2021-12-12] MEDS: PANTOprazole 40 MG in DEXTROSE 5% 100 ML IV SCH ×2 (19:00→23:01)
--- NOTE | 2021-12-12 19:03 | History & Physical Report ---
Date of Service December 12, 2021 Assessment & Plan (1) Seizure disorder: (2) Diabetes mellitus, type 2: (3) Altered mental status: (4) Hypothermia: (5) Metabolic acidosis: Plan Mr. Julio Montesinos is a 60 year old male who was found down at home for unknown downtime. He was found covered in blood and had questionable trauma to his head and face. Patient was intubated for airway protection and is now hemodynamically unstable with tachycardia, hypotension, hypothermia, leukocytosis and metabolic acidosis/encephalopathy. Appears to be in septic shock and will be admitted to the ICU for further management. Marianela confirmed full code for now. Altered Mental Status/ acute metabolic encephalopathy: -Multifactorial; sepsis: possible breakthrough seizure -Patient found down covered with blood; questionable hitting of his head and with possible facial trauma -Intubated in ED for airway protected: ETT #7.5; on Fentanyl for sedation -Head CT negative -Facial x-ray negative -CXR negative Possible GIB: -Blood found around patient; possible coffee ground emesis. -Hgb 13.2 -OGT placed in ET; coffee ground emesis -Protonix gtt started in ED -Consider GI consult in AM based on stability. Profound Metabolic Acidosis: septic shock: -WBC 25.65 -Received 0.9 NS IV x4L. BP 82/53; likely require vasopressors. -started on IV Cefepime and Vancomycin in ED -VBG obtained in ED: pH 7.02, CO2 39, HCO3 10. -received 2 amps of HCO3 in ED -ICU to further manage Aspiration PNA: -Abdominal/pelvic CT obtained: possible aspiration -WBC: 25.65; started on IV Cefepime and Vancomycin in ED Seizure disorder: -Chronic known seizure disorder; takes Keppra at baseline 500 mg PO BID; however, unsure med adherence x past 4 weeks. 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 -ICU to manage Hypothyroidism: -On Synthroid at home -Check TSH and Cortisol levels Disposition: -PCP: Dr. Palomino -Code Status: Full Code Next of Kin: Pt : Reina: [phone]. Left a voicemail and ED MD did talk with her. -May need to consider placement, at least short term for rehab if extubated. OOA involved. Attending Addendum: care coordinated with VENKAT Park please refer to her notes for full details, I agree with her notes patient seen and examined, records reviewed by myself as well on exam, patient Seen intubated, sedated, not in distress no other symptoms VS noted and reviewed sedated, intubated, not in distress, no accessory muscle use normal rate, regular rhythm, no murmurs clear breath sounds bilaterally non distended, soft, nontender R knee; (+) erythema, abrasion mild lower leg bipedal edema, erythema, warmth no neuro deficits WBC 25 Hg 13 Crea 2.75 ph 7.02 HCO3 10 CXR: (+) bilateral lower lobe pneumonia ASSESSMENT AND PLAN other diagnoses and plan of care as per [] Alejandro Sanford MD History of Present Illness Chief Complaint: unresponsive Primary Care Provider: Quique Palomino Mr. Julio Montesinos is a 60 year old male who was found down at home for unknown downtime. He was found covered in blood and had questionable trauma to his head and face. Upon arrival to the ED from EMS he was found to be hypotensive, hypothermic, and hyperglycemic. Patient was intubated for airway protection and is now hemodynamically unstable with tachycardia, hypotension, hypothermia, leukocytosis and metabolic acidosis/encephalopathy. Appears to be in septic shock and will be admitted to the ICU for further management of septic shock. Additional PMH includes: senile degeneration of the brain, IDDM2, HTN, HLD, and seizure disorder. Discussion held on the phone with his , Marianela and patient will remain a Full Code for now. Please see A/P for further details. Allergies Allergy/AdvReac Type Severity Reaction Status Date / Time No Known Allergies Allergy Unverified 12/12/21 17:54 Home Medications Medication Instructions Recorded Confirmed Type atorvastatin 20 mg tablet 20 mg PO DAILY 10/07/21 12/12/21 History donepezil 5 mg tablet 5 mg PO DAILY 10/07/21 12/12/21 History empagliflozin 10 mg tablet 10 mg PO DAILY 10/07/21 12/12/21 History (Jardiance) levothyroxine 25 mcg tablet 25 mcg PO DAILY 10/07/21 12/12/21 History lisinopril 10 mg tablet 10 mg PO DAILY 10/07/21 12/12/21 History metformin 500 mg tablet,extended 1,000 mg PO DAILY 10/07/21 12/12/21 History release 24 hr sertraline 25 mg tablet 25 mg PO DAILY 10/07/21 12/12/21 History insulin glargine 100 unit/mL (3 25 unit (0.25 mL) subcut DAILY 30 10/18/21 12/12/21 Rx mL) subcutaneous pen (Lantus days #7.5 mL Solostar U-100 Insulin) levetiracetam 500 mg tablet 500 mg PO BID 90 days #60 tabs 10/18/21 12/12/21 Rx (Keppra) Past Med/Surg History Medical History (Updated 12/12/21 @ 19:01 by VENKAT Monson) Abnormal CT of brain Altered mental status AMS (altered mental status) Diabetes mellitus, type 2 DKA (diabetic ketoacidosis) DM (diabetes mellitus), type 2, uncontrolled Dyslipidemia Headache Hypertension Hypothermia Metabolic acidosis Obesity, morbid, BMI 40.0-49.9 Seizure Social History Smoking Status: Unknown if ever smoked Tobacco Type: Cigarettes Hx Alcohol Use: No Hx Substance Use: No Preferred Language: Slovenian Communication Ability: Effective [employer] Program Technician Required: No Beliefs That Will Affect Care: None marital status: Current Living Situation: Spouse Feels Safe at Home: Yes Assistive Devices: None Review of Systems Review of Systems: Unobtainable due to endotracheal tube Physical Exam 2 Physical Exam: Neuro: Pt sedated; opens eyes, no tracking HEENT: head normocephalic, dry moist mucus membranes. Disheveled. CV: S1/S2, (-) M/G/R, (-) edema, cap refill < 3 seconds Resp: Intubated ETT #7.5. 26cm @ lip. Lung coarse in all lung stahl. GI: Abdomen S/NT/ND, Ax4 bowel sounds, OGT in place Musculoskeletal: Skin: (-) rashes , (-) erythema. Results & Data Results & Data ([facility]) Vital Signs (Past 12 Hours) Vital Signs Temp Pulse Resp BP Pulse Ox O2 Del Method FiO2 12/12/21 18:48 107 H 24 96 40 12/12/21 18:30 34.5 C L 107 H 22 97 12/12/21 18:30 94/76 L 12/12/21 18:25 106 H 18 98 Mechanical Vent 12/12/21 18:25 92/74 L 12/12/21 18:20 34.7 C L 107 H 17 98 Mechanical Vent 12/12/21 18:20 103/42 L 12/12/21 18:15 34.8 C L 107 H 15 98 Mechanical Vent 12/12/21 18:15 103/68 12/12/21 18:11 90/52 L 12/12/21 18:11 108 H 18 99 Mechanical Vent 12/12/21 18:10 107 H 20 97 Mechanical Vent 12/12/21 17:50 104 H 17 95 Mechanical Vent 12/12/21 17:50 81/58 L 12/12/21 17:46 77/48 L 12/12/21 17:46 109 H 22 93 Mechanical Vent 12/12/21 17:45 110 H 21 93 Mechanical Vent 12/12/21 17:43 112 H 22 96 Mechanical Vent 12/12/21 17:43 69/45 L 12/12/21 17:40 113 H 23 95 Mechanical Vent 12/12/21 17:37 111 H 22 96 Mechanical Vent 12/12/21 17:30 Mechanical Vent 12/12/21 18:14 34.8 C L 12/12/21 17:25 35.7 C L 108 H 23 94/53 L 96 Mechanical Vent Laboratory Results Short CBC 12/12/21 Range/Units 17:31 WBC 25.65 H (4.8-10.8) K/ul Hgb 13.2 L (14.0-18.0) g/dl Hct 40.9 (40.1-51.0) % Plt Count 364 (130-400) K/uL BMP 12/12/21 17:31 Sodium 134 L Potassium 4.5 Chloride 87 L Carbon Dioxide 10 L BUN 42 H Creatinine 2.75 H Glucose 609 H* Calcium 8.4 L Cardiac Enzymes 12/12/21 Range/Units 17:31 Total Creatine Kinase 387 H (30-223) U/L Liver Function 12/12/21 Range/Units 17:31 Total Bilirubin 0.6 (0.2-1.0) mg/dl Direct Bilirubin 0.1 (0-0.2) mg/dl AST 15 (13-39) U/L ALT 10 (7-52) U/L Alkaline Phosphatase 132 H (34-104) U/L Albumin 3.8 (3.4-5.0) gm/dl Diagnostic Findings Cervical Spine CT 12/12/21 17:15 CT cervical spine wo con CLINICAL HISTORY: 60 years-old Male with found down. Acute neck trauma status post fall COMPARISON: CT head and maxillofacial studies of same day TECHNIQUE: Multiple axial CT images of the cervical spine were obtained without contrast. A dose lowering technique was utilized adhering to the principles of ALARA. FINDINGS: Endotracheal and enteric tubes are partially imaged. The study is motion degraded. Mucosal thickening of the paranasal sinuses with layering secretions within the airway. Left maxillary and sphenoid sinus air-fluid levels. Intralobular septal thickening of the lung apices without pneumothorax. Heterogeneity of the thyroid. No prevertebral edema. Calcifications of the carotid arteries. Multilevel degenerative changes. Degenerative partial bony fusion of the C7-T1 levels. Grade 1 anterolisthesis C7 on T1 is likely secondary to chronic facet arthrosis. Advanced multilevel facet arthrosis. IMPRESSION: No acute cervical spine fracture or subluxation. ACT 112: Negative or not required by law. The above report was generated using voice recognition software. It may contain grammatical, syntax or spelling errors. Electronically signed by: Rah Toro M.D. 12/12/2021 6:20 PM Chest X-Ray 12/12/21 17:15 XR chest 1V portable HISTORY: 60 years-old Male found down acute respiratory failure COMPARISON: Chest radiograph 10/18/2021 TECHNIQUE: Portable AP view of the chest FINDINGS: Gaseous distention of the stomach. The heart is enlarged. Pulmonary vascular congestion with asymmetric interstitial coarsening throughout the right lung. No pneumothorax, large pleural effusion or lobar airspace consolidation. The endotracheal tube overlies the midline, 2.3 cm superior to the jessee. The bones appear grossly intact. IMPRESSION: 1. Endotracheal tube terminates 2.3 cm superior to the jessee. 2. There is prominent gaseous distention of the stomach. 3. Pulmonary vascular congestion. ACT 112: Negative or not required by law. The above report was generated using voice recognition software. It may contain grammatical, syntax or spelling errors. Electronically signed by: Rah Toro M.D. 12/12/2021 5:[address] 12/12/21 17:15 CT facial bones wo con CLINICAL HISTORY: 60 years-old Male presenting with found down. Acute facial trauma status post fall COMPARISON STUDY: CT head of same day TECHNIQUE: High-resolution CT scan of the facial bones is performed. Images are reviewed in the axial, sagittal, and coronal planes. IV contrast was not administered for this examination. A dose lowering technique was utilized adhering to the principles of ALARA. FINDINGS: Chronic left frontal lobe intracranial cyst is partially imaged. Partially imaged endotracheal and enteric tubes. Atherosclerosis of the aorta. Degenerative changes of the imaged cervical spine. No acute calvarial fracture identified. The mastoid air cells and middle ear cavities are clear. Mild mucosal thickening of the paranasal sinuses with sphenoid and left maxillary sinus air-fluid levels. Periapical cystic changes are noted involving several teeth along with dental caries. No acute facial bone fracture is identified. IMPRESSION: No acute facial bone fracture identified. ACT 112: Negative or not required by law. The above report was generated using voice recognition software. It may contain grammatical, syntax or spelling errors. Electronically signed by: Rah Toro M.D. 12/12/2021 6:[address] 12/12/21 17:15 CT head/brain wo con CLINICAL HISTORY: 60 years-old Male with found down. The patient was found down. TECHNIQUE: Multiple axial CT images of the head were obtained without contrast. A dose lowering technique was utilized adhering to the principles of ALARA. COMPARISON: 10/07/2021 FINDINGS: No acute intracranial hemorrhage, midline shift, new intra-axial mass, hydrocephalus, territorial ischemia or abnormal extra-axial collection. Unchanged 2.1 cm circumscribed cystic lesion of the left frontal lobe on image 24 series 2. Mild white matter hypodensities suggest chronic microvascular ischemic disease. Cerebral vascular calcifications. Ill-defined decreased attenuation of the left cerebellar hemisphere is favored to be intact. The calvarium is intact. Mastoid air cells are clear. Mild mucosal thickening of the paranasal sinuses with left maxillary and sphenoid sinus air-fluid levels suggestive of acute disease. Unremarkable soft tissues and orbits. IMPRESSION: No acute intracranial abnormality or calvarial fracture. ACT 112: Negative or not required by law. The above report was generated using voice recognition software. It may contain grammatical, syntax or spelling errors. Electronically signed by: Rah Toro M.D. 12/12/2021 6:14 PM Pelvis X-Ray 12/12/21 17:15 XR pelvis 1-2V routine HISTORY: 60 years-old Male found down acute pelvic trauma status post fall COMPARISON: CT abdomen and pelvis 10/05/2021 TECHNIQUE: Supine AP view of the pelvis FINDINGS: Limited study secondary to positioning. The lateral right pelvis and femur are partially excluded from the [id number]. Vascular calcifications. Unremarkable soft tissues. No definite acute fracture or dislocation identified. Rotation the left proximal femur also limits the study. IMPRESSION: Limited exam secondary to positioning. No acute fracture or dislocation identified. ACT 112: Negative or not required by law. The above report was generated using voice recognition software. It may contain grammatical, syntax or spelling errors. Electronically signed by: Rah Toro M.D. 12/12/2021 5:40 PM Abdomen/Pelvis CT 12/12/21 17:[address] WITHOUT CONTRAST CT DOSE: 3059.50 mGy.cm HISTORY: Acute abdominal trauma found down TECHNIQUE: Multiaxial CT images of the abdomen and pelvis were performed without contrast. A dose lowering technique was utilized adhering to the principles of ALARA. COMPARISON STUDY: CT abdomen and pelvis 10/07/2021 FINDINGS: Limited exam secondary to respiratory motion, lack of contrast upper extremity positioning. Left greater than right bibasilar airspace opacities are noted along with mucous plugging bronchial wall thickening. There is no pneumatosis or pneumoperitoneum. Imaged inferior cardiac chambers are upper limits of normal in size with coronary arterial calcifications. The unenhanced spleen, mildly atrophic pancreas and right adrenal gland are unremarkable. There is unchanged mild nodular thickening of the left adrenal gland. Unremarkable liver and gallbladder. Mild nonspecific bilateral perinephric stranding. No urolith identified. Mild prostamegaly. Mild urinary bladder wall thickening with partial distention. A Song catheter balloon inserted within the penile urethra. Atherosclerosis of the aorta and branch vessels without aneurysm. There is no lymphadenopathy. Moderate wall thickening of the distal esophagus with mild paraesophageal stranding, progressed from the prior study. Small hiatal hernia. Distended air and fluid-filled stomach. Distal tip of enteric tube projects over the distal stomach. There is mild colonic fecal retention. No bowel obstruction or bowel wall thickening. No free fluid or retroperitoneal hematoma identified. Degenerative changes of the spine, pelvis and hips. Multilevel central canal or neural foraminal narrowing of the lumbar spine. Healing subacute nondisplaced anterior left-sided rib fractures. No definite acute fracture identified. IMPRESSION: 1 Limited exam as above. There is no acute posttraumatic intra-abdominal or intrapelvic abnormality. 2. No acute fracture identified. 3. Healing subacute nondisplaced anterior left-sided rib fractures. 4. Wall thickening of the distal esophagus with adjacent inflammatory stranding has progressed from 10/07/2021. Correlate clinically to exclude esophagitis. 5. Left greater than right bibasilar opacities are suggestive of an infectious or inflammatory pneumonitis, possibly aspiration. 6. Distal tip of enteric tube projects over the distal stomach. 7. Additional findings as above. ACT 112: Negative or not required by law. The above report was generated using voice recognition software. It may contain grammatical, syntax or spelling errors. Electronically signed by: Rah Toro M.D. 12/12/2021 6:42 PM Code Status & VTE Plan Code Status Full Code as discussed with the patients through ED VTE Prophylaxis Plan VTE Prophylaxis will be ordered: Yes
[2021-12-12] MEDS ORDERED: ICU PROTOCOL FOR HYPERGLYCEMIA PRN (21:33)
[2021-12-12] MEDS ORDERED: MIDAZOLAM HCL 1 MG/ML 2ML VIAL IV STA (22:00)
[2021-12-12] MEDS ORDERED: STAT IV Infusion **Titration per Protocol STA ×3 (22:00→22:31)
[2021-12-12] MEDS ORDERED: DKA GOAL RANGE 150-250 mg/dl ONE (22:04)
[2021-12-12] MEDS ORDERED: PHARMACY GLYCEMIC MGMT CONSULT PRN (22:04)
[2021-12-12] MEDS ORDERED: DC ALL PREVIOUSLY ORDERED DIABETES MEDS ONE (22:04)
[2021-12-12] MEDS: INSULIN ASPART PER UNIT SC SCH (22:05)
[2021-12-12 22:08] LABS: iSTAT Art Bld Gas pCO2 Correct 26 mmHg (35-46); iSTAT Art Bld Gas pH Corrected 7.287 (7.35-7.45); iSTAT Arterial Blood Gas HCO3 13 meg/L (19-24); iSTAT Arterial Blood Gas pCO2 28 mmHg (35-46); iSTAT Arterial Blood Gas pH 7.27 (7.35-7.45); iSTAT Arterial Blood Gas pO2 87 mmHg (80-95); iSTAT Arterial Blood Gas pO2 C 79; iSTAT Carbon Dioxide 13 mmol/L (24-31); iSTAT FiO2 40 %; iSTAT Hematocrit 35 % (42-52); iSTAT Hemoglobin 11.9 g/dl (14.0-18.0); iSTAT Site Art Line; iSTAT Sodium 138 mmol/L (135-144)
[2021-12-12] MEDS ORDERED: MIDAZOLAM HCL 1 MG/ML 2ML VIAL ONE (22:11)
[2021-12-12] MEDS ORDERED: levETIRAcetam 500 MG in 0.9 % SODIUM CHLORIDE 100 ML IV SCH (22:15)
[2021-12-12] MEDS ORDERED: SODIUM CHLORIDE 0.9% 1000ML 500 ML IV ONE (22:17)
--- NOTE | 2021-12-12 22:17 | Procedure Note ---
Procedure Note Date of Service December 12, 2021 Note Procedure: Arterial Line Placement Attending: Dr. Selby APC: Sheldon Rubi PA-C Indication: Hemodynamic monitoring Anesthesia: Lidocaine 1% Emergent Consent implied in the setting of clinical deterioration and need for close hemodynamic monitoring, ABG monitoring, frequent lab draws, etc. A time-out was completed verifying correct patient, procedure, site, positioning, and implant(s) or special equipment if applicable. Allens test was performed to ensure adequate perfusion. Patients RIGHT wrist was prepped and draped in the usual sterile fashion. Ultrasound guidance was used to aid needle placement. A 20g Arrow arterial line was introduced into the RIGHT Radial artery. Catheter was threaded, and the needle was removed with appropriate blood return. Good waveform was observed. The patient tolerated the procedure well. Confirmation of placement with ultrasound. Blood Loss: Minimal Complications: None Procedural Ultrasound Guidance: Procedure Date: 12/12/2021 Indication: Hemodynamic Monitoring, Frequent ABGs/Lab draws. Attending: Dr. Selby APC: Sheldon Rubi PA-C Artery Identified: YES Line confirmed in Artery with ultrasound: YES Complications: NONE Patient tolerated procedure: WELL Coding CPT Codes Tubes, Drains, and Vasc Access - Tubes, Drains, and Vasc Access: [id number] Place Catheter In Artery ([id number]) [facility] [place]Charges) Tubes, Drains, and Vasc Access Procedure 1: Tubes, Drains, and Vasc Access: [id number] Place Catheter In Artery
--- NOTE | 2021-12-12 22:17 | Critical Care Consultation ---
Date of Consultation December 12, 2021 Assessment & Plan (1) Seizure: Reason Critically Ill: 60-year-old male presenting with altered mental status and concern for breakthrough seizures as well as associated DKA requiring ongoing ventilator management, close monitoring of hemodynamics, and aggressive management of DKA. NEURO - * CAM ICU: Unable to assess 2/2 sedation * AMS: * Patient found down in his home surrounded by blood. Patient with known history of seizure disorder. There is concern of whether the patient had been taking his medications as prescribed as he has been noncompliant in the past. Additionally, his is not been able to help him with his medications secondary to her being in a rehab facility herself. * Patient was intubated in the field secondary to altered mental status as well as concern for airway with blood noted around the patient as well with concerns for upper GI bleed. * He was noted to have facial twitching in the emergency department with concerns for focal seizure activity. He received loading dose of 1 g of Keppra at that point. He had been doing fine up until arrival in the ICU. Initially, he was mildly hypotensive with pressures in the 70s. He was started on a Manjinder-Synephrine drip. Additionally, he received a dose of 1 mg Versed for sedation. As adjustments to medications were being made, the patient did have tachycardia and hypertension on the monitor. When I presented at bedside, the patient was having focal bilateral upper extremity tonic/clonic movements with staring and unresponsiveness. He received an additional 2 mg IV Versed and was started on a Versed drip as well. * 2252: Spoke with Dr. Mendez of neurology and discussed case and my concerns. She agrees that the patient would benefit for continuous EEG monitoring with ongoing seizure activity despite aggressive management. * 2303: Spoke with Dr. Roberto Curran at [facility]. Accepts the patient in transfer to their [facility]. * 2327: Spoke with patient's , Reina ([phone]) and provided update. She agrees with transfer for higher level of care. * Received update from transfer center. Patient to go to [facility] 543. We are pending air transport. * 2345: Provided update to patient's . CARDIAC/VASCULAR - * Hypotension: * Multifactorial in the DKA patient w/ ?? underlying infectious source also requiring sedation. * Received aggressive IVF resuscitation in the ED (>4L). * Will start Manjinder gtt at this point as patient is persistently tachycardic. * ECHO (10/08/2021): EF 60-65% * Monitor on telemetry. RESPIRATORY - * VDRF: * Likely 2/2 seizure, AMS, metabolic encephalopathy. * Titrate down ventilatory settings as tolerated. GI/NUTRITION - * UGIB: * No h/o the same. * Continue Protonix gtt RENAL/LYTES - * MACIE on CKD III: * Likely prerenal in the setting of hypovolemia and transient hypotension. * Continue w/ ongoing IVF management per DKA protocol. - * Traumatic Song Placement in the ED. * Buried Penis * Coude Song placed by myself. * Osng in place - Strict I&Os. ENDO - * DKA: * BSGs per unit protocol. ISS --> gtt per unit policy. HEME - * Stable H&H ID - * Sepsis from ?? source * Continue w/ abx in the critically ill patient. LINES/IV ACCESS - * PIVs x4 * RIGHT Radial A line * Song * ETT * OGT * Rectal temp probe DVT PROPHYLAXIS - * Hold in the setting of UGIB * SCDs I have personally spent 90 minutes of critical care time in the direct management of this patient. This is a life/limb threatening event. This includes time spent evaluating patient, direct bedside care, chart review, placing orders, interpretation of diagnostic studies, discussion with consultants, patient, and family members, as well as other required patient management activities. This time is exclusive of all separately billable procedures, and teaching time and separate from and in addition to any other critical care service time. Thank you for allowing us to participate in the care of this patient. Please refer to my attending physician's documentation for any further recommendations. (2) Altered mental status: (3) DKA (diabetic ketoacidosis): (4) Dyslipidemia: (5) Hypertension: History of Present Illness Attending Physician: Alejandro Sanford MD History of Present Illness Patient is a 60-year-old male with significant past medical history of diabetes, hypertension, hyperlipidemia, seizure disorder, history of postinfectious encephalitis, LEFT frontal cystic lesion, and congenital impairment. Patient is with known seizure disorder and currently on Keppra. He was admitted this institution at the beginning of October for similar presentation of DKA with breakthrough seizure activity. Patient's medications are typically controlled by his , however she has been in rehab or self secondary to a fall with associated injuries. There was concern that the patient had not been taking his medications as prescribed. Specifically, has not been taking his antiepileptic medications. Patient was found down today for an unknown amount of time. He was surrounded by blood. He was intubated in the field. Upon arrival in the emergency department, patient was noted to have seizure-like activity with facial twitching. He received loading dose of Keppra and was sedated on fentanyl alone. Patient was noted to be in DKA. He received aggressive IV fluid resuscitation and started on an insulin drip. He was broadly covered with cefepime and vancomycin. Trauma CT evaluation without acute findings. Upon evaluation in the ICU, the patient is appropriately sedated. Blood pressures were soft. Arterial line was placed. Please see separate note. Patient was started on phenylephrine and orders placed for one-time bolus of Versed. He is unable to contribute to HPI otherwise. Allergies Allergy/AdvReac Type Severity Reaction Status Date / Time No Known Allergies Allergy Unverified 12/12/21 17:54 Home Medications Medication Instructions Recorded Confirmed Type atorvastatin 20 mg tablet 20 mg PO DAILY 10/07/21 12/12/21 History donepezil 5 mg tablet 5 mg PO DAILY 10/07/21 12/12/21 History empagliflozin 10 mg tablet 10 mg PO DAILY 10/07/21 12/12/21 History (Jardiance) levothyroxine 25 mcg tablet 25 mcg PO DAILY 10/07/21 12/12/21 History lisinopril 10 mg tablet 10 mg PO DAILY 10/07/21 12/12/21 History metformin 500 mg tablet,extended 1,000 mg PO DAILY 10/07/21 12/12/21 History release 24 hr sertraline 25 mg tablet 25 mg PO DAILY 10/07/21 12/12/21 History insulin glargine 100 unit/mL (3 25 unit (0.25 mL) subcut DAILY 30 10/18/21 12/12/21 Rx mL) subcutaneous pen (Lantus days #7.5 mL Solostar U-100 Insulin) levetiracetam 500 mg tablet 500 mg PO BID 90 days #60 tabs 10/18/21 12/12/21 Rx (Keppra) Patient History Medical History Abnormal CT of brain Altered mental status AMS (altered mental status) Diabetes mellitus, type 2 DKA (diabetic ketoacidosis) DM (diabetes mellitus), type 2, uncontrolled Dyslipidemia Headache Hypertension Hypothermia Metabolic acidosis Obesity, morbid, BMI 40.0-49.9 Seizure Social History Smoking Status: Unknown if ever smoked Tobacco Type: Cigarettes Hx Alcohol Use: No Hx Substance Use: No Preferred Language: Marshallese Communication Ability: Effective Documentation Manager Required: No Beliefs That Will Affect Care: None marital status: Current Living Situation: Spouse Feels Safe at Home: Yes Assistive Devices: None Review of Systems 2 Review of Systems: Unobtainable due to cognitive status and Unobtainable due to endotracheal tube Physical Exam Physical Exam: VITAL SIGNS - Vital signs and nursing notes were reviewed. GENERAL - 60-year-old male appearing older than his stated age who is intubated and sedated. SKIN - Without rashes. HEAD - NC/AT. EYES - PERRL. Sclera anicteric. EARS - No deformities of external structures noted on gross examination bilaterally. NOSE - Midline and without cyanosis. No epistaxis or purulent drainage noted. MOUTH/OROPHARYNX - ETT/OGT in place. Without perioral cyanosis. NECK - Neck with FROM. Supple to palpation. No lymphadenopathy noted. No nuchal rigidity. LUNGS - Chest wall symmetric without accessory muscle use, intercostals retractions, or central cyanosis. Normal vesicular breath sounds CTA B/L. No wheezes, rales, or rhonchi appreciated. CARDIAC - RRR with S1/S2. No murmur, rubs, or gallops appreciated. ABDOMEN - Abdominal contour obese without pulsations or visible masses. BS normoactive all four quadrants. No tenderness, palpable masses, hepatosplenomegaly, or ascites noted. EXTREMITIES - No clubbing or peripheral cyanosis. No pretibial edema present. +3/5 radial and dorsalis pedis pulses palpated throughout. NEUROLOGIC - No focal neurological deficits on exam. Limited secondary to sedation. Results & Data Results & Data ([facility]) Vital Signs (Past 12 Hours) Vital Signs Temp Pulse Resp BP Pulse Ox O2 Del Method FiO2 07/27/22 21:15 35 H 95 40 12/12/21 20:48 118 H 25 H 95/55 L 100 Mechanical Vent 12/12/21 20:15 35.0 C L 115 H 23 108/76 99 12/12/21 20:10 35.0 C L 116 H 23 99 12/12/21 20:10 90/68 L 12/12/21 20:05 35.0 C L 118 H 22 98 12/12/21 20:05 123/69 12/12/21 20:00 34.9 C L 116 H 20 98 12/12/21 20:00 96/69 L 12/12/21 19:59 109/58 L 12/12/21 19:59 34.9 C L 114 H 20 98 12/12/21 19:57 109/58 L 12/12/21 19:57 34.9 C L 116 H 23 99 12/12/21 19:55 34.9 C L 116 H 21 98 12/12/21 19:50 34.8 C L 115 H 18 99 12/12/21 19:45 34.8 C L 114 H 24 99 12/12/21 19:40 34.7 C L 115 H 16 98 12/12/21 19:35 34.7 C L 113 H 18 98 12/12/21 19:30 34.7 C L 114 H 23 98 12/12/21 19:30 103/54 L 12/12/21 19:25 34.6 C L 114 H 22 98 12/12/21 19:25 109/52 L 12/12/21 19:21 102/45 L 12/12/21 19:21 34.6 C L 113 H 25 H 98 12/12/21 19:20 34.6 C L 113 H 23 98 12/12/21 19:16 34.6 C L 115 H 20 99 12/12/21 19:16 82/53 L 12/12/21 19:15 34.6 C L 116 H 22 98 12/12/21 19:11 105/49 L 12/12/21 19:11 117 H 20 99 12/12/21 19:10 116 H 23 98 12/12/21 19:05 115 H 18 99 12/12/21 19:05 90/58 L 12/12/21 19:01 84/68 L 12/12/21 19:01 116 H 17 97 12/12/21 19:00 118 H 21 99 12/12/21 18:48 107 H 24 96 40 12/12/21 18:30 34.5 C L 107 H 22 97 12/12/21 18:30 94/76 L 12/12/21 18:25 106 H 18 98 Mechanical Vent 12/12/21 18:25 92/74 L 12/12/21 18:20 34.7 C L 107 H 17 98 Mechanical Vent 12/12/21 18:20 103/42 L 12/12/21 18:15 34.8 C L 107 H 15 98 Mechanical Vent 12/12/21 18:15 103/68 12/12/21 18:11 90/52 L 12/12/21 18:11 108 H 18 99 Mechanical Vent 12/12/21 18:10 107 H 20 97 Mechanical Vent 12/12/21 17:50 104 H 17 95 Mechanical Vent 12/12/21 17:50 81/58 L 12/12/21 17:46 77/48 L 12/12/21 17:46 109 H 22 93 Mechanical Vent 12/12/21 17:45 110 H 21 93 Mechanical Vent 12/12/21 17:43 112 H 22 96 Mechanical Vent 12/12/21 17:43 69/45 L 12/12/21 17:40 113 H 23 95 Mechanical Vent 12/12/21 17:37 111 H 22 96 Mechanical Vent 12/12/21 17:30 Mechanical Vent 12/12/21 18:14 34.8 C L 12/12/21 17:25 35.7 C L 108 H 23 94/53 L 96 Mechanical Vent Coding Level of Care Code Critical Care 1st 30-74 mins Diagnoses Seizure R56.9 Altered mental status R41.82 DKA (diabetic ketoacidosis) E11.10 Dyslipidemia E78.5 Hypertension I10 Time Spent (min) 90
[2021-12-12] MEDS: PHENYLEPHRINE HCL 20 MG in DEXTROSE 5% 500 ML IV SCH (22:22)
[2021-12-12] MEDS ORDERED: MIDAZOLAM BOLUS FROM BAG IV PRN (22:31)
[2021-12-12] MEDS ORDERED: MIDAZOLAM HCL 125 MG/250 ML BAG IV SCH (22:45)
[2021-12-12 22:49] LABS: Base Excess ABG -10.5 mEq/L (-9-1.8); HCO3 ABG 14 mmol/L (19-24); Oxygen Saturation ABG > 100.0 % (90-95); PCO2 ABG 26 mmHg (35-46); PO2 ABG 105 mmHg (80-95); pH ABG 7.33 (7.35-7.45)
[2021-12-12 22:51] LABS: Allen Test POS (Pos)
[2021-12-12 23:09] LABS: Appearance Urine Clear (Clear); Bacteria Urine Automated Negative (Negative); Bilirubin Urine Negative (Negative); Blood Urine 3+ (Negative); Color Urine Yellow; Glucose Urine UA 3+ (Negative); Ketones Urine 2+ (Negative); Leukocyte Esterase Urine Negative (Negative); Nitrite Urine Negative (Negative); Protein Urine 1+ (Negative); RBC Urine Automated >30 /hpf (0-4); Specific Gravity Urine 1.026 (1.000-1.030); Urobilinogen Urine Negative (Negative)
[2021-12-12 23:30] LABS: BUN Creatinine Ratio 18.1 (10-20); Calcium 7.4 mg/dl (8.5-10.1); Creatinine Clr Calc Pharmacy 35.9 ml/min; Est GFR (African American) 31.1 ml/min; Est GFR (Non-African American) 26.8 ml/min; Magnesium 1.6 mg/dl (1.7-2.4); Phosphorus 5.7 mg/dl (2.5-4.9); Troponin I High Sensitivity 35.2 pg/ml (0-20)
[2021-12-13] MEDS ORDERED: PENDING D5 1/2NS+20mEq KCL IVF SCH
[2021-12-13] MEDS ORDERED: PENDING 1/2NSS+20mEq KCL IVF SCH
[2021-12-13] MEDS: SODIUM CHLOR 0.45% + 20MEQ KCL 20 MEQ/1,000 ML BAG IV SCH ×2 (00:09→00:32)
[2021-12-13] MEDS: MAGNESIUM SULFATE / D5W 1 GM/100 ML BAG IV SCH ×4 (00:30→09:13)
[2021-12-13] MEDS: POTASSIUM CHLORIDE / WTR 10 MEQ/100 ML PLCT IV SCH ×6 (00:30→09:13)
--- NOTE | 2021-12-13 00:31 | Discharge Summary ---
Date of Service December 13, 2021 Admission HPI Per Admitting Provider Mr. Julio Montesinos is a 60 year old male who was found down at home for unknown downtime. He was found covered in blood and had questionable trauma to his head and face. Upon arrival to the ED from EMS he was found to be hypotensive, hypothermic, and hyperglycemic. Patient was intubated for airway protection and is now hemodynamically unstable with tachycardia, hypotension, hypothermia, leukocytosis and metabolic acidosis/encephalopathy. Appears to be in septic shock and will be admitted to the ICU for further management of septic shock. Additional PMH includes: senile degeneration of the brain, IDDM2, HTN, HLD, and seizure disorder. Discussion held on the phone with his , Marianela and patient will remain a Full Code for now. Please see A/P for further details. Discharge Data Consultations 12/12/21 18:52 ED Decision to Admit Stat 12/12/21 21:33 Consult Revenue Integrity Analyst Routine 12/12/21 23:24 Burn CD for patient Stat 12/12/21 23:31 Burn CD for patient Stat Hospital Course (1) Seizure disorder: (2) Diabetes mellitus, type 2: (3) Altered mental status: (4) Hypothermia: (5) Metabolic acidosis: Plan Mr. Julio Montesinos is a 60 year old male who was found down at home for unknown downtime. He was found covered in blood and had questionable trauma to his head and face. Patient was intubated for airway protection and is now hemodynamically unstable with tachycardia, hypotension, hypothermia, l eukocytosis and metabolic acidosis/encephalopathy. Appears to be in septic shock and will be admitted to the ICU for further management. Marianela confirmed full code for now. Altered Mental Status/ acute metabolic encephalopathy: -Multifactorial; sepsis: possible breakthrough seizure -Patient found down covered with blood; questionable hitting of his head and with possible facial trauma -Intubated in ED for airway protected: ETT #7.5; on Fentanyl for sedation -Head CT negative -Facial x-ray negative -CXR negative Possible GIB: -Blood found around patient; possible coffee ground emesis. -Hgb 13.2 -OGT placed in ET; coffee ground emesis -Protonix gtt started in ED -Consider GI consult in AM based on stability. Profound Metabolic Acidosis: septic shock: -WBC 25.65 -Received 0.9 NS IV x4L. BP 82/53; likely require vasopressors. -started on IV Cefepime and Vancomycin in ED -VBG obtained in ED: pH 7.02, CO2 39, HCO3 10. -received 2 amps of HCO3 in ED -ICU to further manage Aspiration PNA: -Abdominal/pelvic CT obtained: possible aspiration -WBC: 25.65; started on IV Cefepime and Vancomycin in ED Seizure disorder: -Chronic known seizure disorder; takes Keppra at baseline 500 mg PO BID; however, unsure med adherence x past 4 weeks. 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 -ICU to manage Hypothyroidism: -On Synthroid at home -Check TSH and Cortisol levels Disposition: -PCP: Dr. Palomino -Code Status: Full Code Next of Kin: Pt : Reina: [phone]. Left a voicemail and ED MD did talk with her. -May need to consider placement, at least short term for rehab if extubated. OOA involved. Attending Addendum: care coordinated with VEN[place] please refer to her notes for full details, I agree with her notes patient seen and examined, records reviewed by myself as well on exam, patient Seen intubated, sedated, not in distress no other symptoms VS noted and reviewed sedated, intubated, not in distress, no accessory muscle use normal rate, regular rhythm, no murmurs clear breath sounds bilaterally non distended, soft, nontender R knee; (+) erythema, abrasion mild lower leg bipedal edema, erythema, warmth no neuro deficits WBC 25 Hg 13 Crea 2.75 ph 7.02 HCO3 10 CXR: (+) bilateral lower lobe pneumonia (Preceding documentation as per admitting provider.) Patient admitted to the ICU. ICU provider on-call discussed case with neurologist given ongoing seizure activity despite aggressive management . Tertiary center transfer recommended for continuous EEG monitoring. Patient kindly accepted for [place] by Dr. Curran [place] [facility]. Total time to prepare this discharge summary was less than 10 minutes.
[2021-12-13 00:33] LABS: Mucus Urine Present (None Prsent)
[2021-12-13] MEDS: PHENYLEPHRINE HCL 20 MG in DEXTROSE 5% 500 ML IV SCH ×5 (01:39→07:52)
[2021-12-13 03:05] LABS: Allen Test Pos (Pos); Base Excess ABG -2.1 mEq/L (-9-1.8); HCO3 ABG 21 mmol/L (19-24); Oxygen Saturation ABG 99.8 % (90-95); PCO2 ABG 29 mmHg (35-46); PO2 ABG 129 mmHg (80-95); pH ABG 7.46 (7.35-7.45)
[2021-12-13 03:27] LABS: BUN Creatinine Ratio 17.7 (10-20); Calcium 7.1 mg/dl (8.5-10.1); Creatinine Clr Calc Pharmacy 38.7 ml/min; Est GFR (African American) 34.1 ml/min; Est GFR (Non-African American) 29.4 ml/min; Magnesium 1.8 mg/dl (1.7-2.4); Potassium 3.4 mmol/L (3.5-5.1)
[2021-12-13] MEDS: PANTOprazole 40 MG in DEXTROSE 5% 100 ML IV SCH (04:01)
[2021-12-13] MEDS ORDERED: D5W AND 1/2NSS + 20MEQ KCL 20 MEQ/1,000 ML BAG IV SCH (04:30)
[2021-12-13] MEDS ORDERED: CEFEPIME 2,000 MG in SYRINGE 0 ML IV SCH (06:00)
[2021-12-13 06:42] LABS: Base Excess ABG -1.1 mEq/L (-9-1.8); HCO3 ABG 22 mmol/L (19-24); Oxygen Saturation ABG 99.6 % (90-95); PCO2 ABG 33 mmHg (35-46); PO2 ABG 96 mmHg (80-95); pH ABG 7.44 (7.35-7.45)
[2021-12-13 06:43] LABS: Allen Test Pos (Pos)
[2021-12-13 07:22] LABS: Albumin Level 2.9 gm/dl (3.4-5.0); Bilirubin Direct 0.1 mg/dl (0-0.2); Bilirubin,Total 0.5 mg/dl (0.2-1.0); Calcium 6.8 mg/dl (8.5-10.1); Creatinine Clr Calc Pharmacy 44.3 ml/min; Est GFR (African American) 39.4 ml/min; Magnesium 1.8 mg/dl (1.7-2.4); Phosphorus 2.7 mg/dl (2.5-4.9); Potassium 3.5 mmol/L (3.5-5.1); Total Protein 4.9 gm/dl (6.0-8.3)
[2021-12-13] MEDS ORDERED: INSULIN ASPART PER UNIT SC SCH (07:30)
[2021-12-13 07:47] LABS: Basophils # (auto) 0.05 K/uL (0-0.2); Basophils % (auto) 0.2 %; Hematocrit (blood only) 31.9 % (40.1-51.0); Hemoglobin 11.1 g/dl (14.0-18.0); Immature Granulocytes # (auto) 0.17 K/uL (0.00-0.02); Immature Granulocytes % (auto) 0.7 %; Lymphocytes # (auto) 1.52 K/uL (1.2-3.4); Lymphocytes % (auto) 6.6 %; Mean Corpuscular Hemoglobin 30.6 pg (25.0-34.0); Mean Corpuscular Hgb Conc 34.8 g/dL (32.0-36.0); Mean Corpuscular Volume 87.9 fL (80.0-100.0); Monocytes % (auto) 8.7 %; Neutrophils # (auto) 19.24 K/uL (1.4-6.5); Neutrophils % (auto) 83.8 %; Platelet Count 279 K/uL (130-400); RDW Coefficient of Variation 13.1 % (11.5-14.5); RDW Standard Deviation 41.9 fL (36.4-46.3); Red Blood Count 3.63 M/uL (4.63-6.08); White Blood Count 22.98 K/ul (4.8-10.8)
[2021-12-13] MEDS ORDERED: PIPERACILLIN/TAZOBACTAM 4.5 GM in DEXTROSE 5% 100 ML IV ONE (08:00)
[2021-12-13] MEDS ORDERED: PHENYLEPHRINE HCL IV SCH (08:00)
[2021-12-13] MEDS ORDERED: SODIUM CHLORIDE 0.9% IV SCH (08:00)
--- NOTE | 2021-12-13 08:29 | Critical Care Progress Note ---
Date of Service December 13, 2021 Assessment & Plan (1) Aspiration pneumonia: (2) Altered mental status: (3) Seizure disorder: (4) DKA (diabetic ketoacidosis): (5) Hypothermia: Plan Reason Critically Ill: 60-year-old male presenting with altered mental status and concern for breakthrough seizures as well as associated DKA requiring ongoing ventilator management, close monitoring of hemodynamics, and aggressive management of DKA. NEURO - * CAM ICU: Unable to assess 2/2 sedation * AMS: * Patient was intubated in the field secondary to altered mental status as well as concern for airway with blood noted around the patient as well with concerns for upper GI bleed. * He was noted to have facial twitching in the emergency department with concerns for focal seizure activity. He received loading dose of 1 g of Keppra at that point. He had been doing fine up until arrival in the ICU. * Dr. Mendez of neurology agrees that the patient would benefit for con tinuous EEG monitoring with ongoing seizure activity despite aggressive management. * Dr. Roberto Curran at [facility] [place]. Accept[place] in [place] [facility] [place] Continue with Keppra 5 mg twice daily IV, Ativan as needed for breakthrough seizures CARDIAC/VASCULAR - * Hypotension: * Multifactorial in the DKA patient, hypovolemia, aspiration pneumonia as well as sedation * Received aggressive IVF resuscitation in the ED (>4L). * Continue with vasopressor support to keep MAP greater than 65 * ECHO (10/08/2021): EF 60-65% * Monitor on telemetry. RESPIRATORY - * VDRF: * Likely 2/2 seizure, AMS, metabolic encephalopathy. * Titrate down ventilatory settings as tolerated. GI/NUTRITION - * UGIB: * No h/o the same. * Continue Protonix gtt RENAL/LYTES - * MACIE on CKD III: * Likely prerenal in the setting of hypovolemia and transient hypotension. * Continue w/ ongoing IVF management per DKA protocol. - * Traumatic Song Placement in the ED. * Buried Penis * Coude Song placed by myself. * Song in place - Strict I&Os. ENDO - * DKA: * BSGs per unit protocol. ISS --> gtt per unit policy. HEME - * Monitor H&H ID - * Sepsis seems to be from DKA Aspiration pneumonia is also possibility looking at the CT chest, procalcitonin 0.35 * Continue w/ abx in the critically ill patient. --Prophylaxis VTE: IPC GI: Protonix Lines: Right radial, peripheral Diet: N.p.o. Plan: In/out: +7.4 L, urine output 1620 Hypokalemia and hypomagnesemia being replaced Will change cefepime to Zosyn to cover for anaerobes for possible aspiration pneumonia, will do sputum culture Repeat H&H in the afternoon and if it is stable we will change the Protonix drip to 40 mg twice daily Patient is awaiting transfer. Currently he is tolerating pressure support but unfortunately not following commands. Continue with pressure support if he tolerates it. Case was discussed with bedside by RN once patient to be transferred. I have personally spent 38 minutes of critical care time in the direct management of this patient. This is a life/limb threatening event. This includes time spent evaluating patient, direct bedside care, chart review, placing orders, interpretation of diagnostic studies, discussion with consultants, patient, and family members, as well as other required patient management activities. This time is exclusive of all separately billable procedures, and teaching time and separate from and in addition to any other critical care service time. Please note the above document was generated using voice recognition software. It may contain grammatical, syntax or spelling errors. Admission and Anticipated Discharge Date Admission Date: December 12, 2021 Subjective Patient seen and examined at bedside. No acute distress On midazolam 1, fentanyl 25, phenylephrine 1.5 the time of examination Patient was breathing over the vent. He was not following commands but was grimacing to pain. Afebrile. Review of Systems Review of Systems: Unobtainable due to endotracheal tube Physical Exam Physical Exam: Constitutional: No acute distress HEENT: PERRLA Respiratory system: Decreased air entry bilaterally, no wheeze, rhonchi, positive crackles bilateral lower lobe CVS: S1-S2 positive, no murmurs or gallops Abdomen: Soft, nontender, nondistended, positive bowel sounds x4 Extremities: +2 pulses bilaterally radialis/ dorsalis pedis, no cyanosis, no edema Neuro: Intubated, sedated, positive corneal, positive gag, breathing over the vent Psych: Unable to assess G/U: Positive Song Skin: no rashes, warm and dry Lymphatic: no cervical or axillary lymphadenopathy Results & Data Results & Data ([facility]) Vital Signs (Past 12 Hours) Vital Signs Temp Pulse Resp BP Pulse Ox O2 Del Method FiO2 12/13/21 07:59 Mechanical Vent 12/13/21 07:42 30 12/13/21 07:42 79 98/54 L 12/13/21 07:00 36.3 C L 79 22 96 30 12/13/21 07:00 98/54 L 12/13/21 06:45 96/52 L 12/13/21 06:45 36.3 C L 79 20 96 30 12/13/21 06:30 98/54 L 12/13/21 06:30 36.3 C L 80 21 96 12/13/21 06:26 36.3 C L 79 18 96 12/13/21 06:26 97/61 L 30 12/13/21 06:23 98/53 L 12/13/21 06:23 36.3 C L 81 19 96 30 12/13/21 06:15 36.3 C L 84 20 96 12/13/21 06:15 92/56 L 30 12/13/21 06:00 36.4 C L 84 20 95 12/13/21 06:00 85/55 L 12/13/21 05:55 36.4 C L 86 20 95 12/13/21 05:55 94/56 L 12/13/21 05:45 101/69 12/13/21 05:45 36.4 C L 90 23 95 12/13/21 05:30 36.4 C L 85 21 12/13/21 05:30 103/60 12/13/21 05:21 36.5 C 82 20 12/13/21 05:21 97/60 L 12/13/21 05:16 105/60 12/13/21 05:16 36.5 C 82 20 12/13/21 05:00 36.5 C 77 20 96 12/13/21 05:00 96/61 L Mechanical Vent 12/13/21 04:30 36.5 C 73 20 96/61 L 97 Mechanical Vent 12/13/21 04:00 36.4 C L 71 20 105/65 97 30 12/13/21 03:30 36.5 C 75 24 104/63 98 12/13/21 03:00 36.5 C 78 24 99/62 L 98 Mechanical Vent 30 12/13/21 02:30 36.4 C L 77 21 100 40 12/13/21 02:30 100/62 Mechanical Vent 40 12/13/21 02:04 36.3 C L 79 24 99 Mechanical Vent 40 12/13/21 04:00 76 98/65 L 12/13/21 04:00 30 12/13/21 03:53 20 30 12/13/21 02:30 79 24 98 40 12/13/21 01:30 36.2 C L 82 24 93/59 L 98 40 12/13/21 01:15 36.2 C L 83 24 92/61 L 98 40 12/13/21 01:00 36.2 C L 85 24 91/58 L 97 40 12/13/21 00:45 36.2 C L 88 24 92/60 L 97 40 12/13/21 00:30 36.1 C L 84 24 108/65 97 40 12/13/21 00:15 36.1 C L 85 24 95/62 L 97 Mechanical Vent 40 12/13/21 00:04 36.0 C L 84 20 96/65 L 96 40 12/13/21 00:00 36.0 C L 83 20 93/60 L 97 40 12/13/21 00:00 36.2 C L 12/13/21 00:00 40 12/12/21 21:33 Mechanical Vent 40 12/13/21 00:19 36.0 C L 24 97 12/12/21 23:46 36.0 C L 86 24 97 Mechanical Vent 40 12/12/21 23:46 102/69 12/12/21 23:35 35.9 C L 88 24 97 Mechanical Vent 40 12/12/21 23:35 85/56 L 12/12/21 23:30 35.9 C L 92 H 24 98 Mechanical Vent 40 12/12/21 23:30 98/58 L 12/12/21 23:15 35.7 C L 97 H 24 99 Mechanical Vent 40 12/12/21 23:15 112/64 12/12/21 23:00 35.7 C L 94 H 24 97 Mechanical Vent 40 12/12/21 23:00 94/60 L 12/12/21 22:45 35.6 C L 94 H 24 97 Mechanical Vent 40 12/12/21 22:45 92/69 L 07/27/22 22:43 35.6 C L 92 H 24 96 Mechanical Vent 40 12/12/21 22:43 79/63 L 12/12/21 22:30 78/58 L 40 12/12/21 22:30 35.7 C L 97 H 24 96 Mechanical Vent 40 12/12/21 22:28 35.7 C L 100 H 24 96 Mechanical Vent 40 12/12/21 22:28 96/63 L 12/12/21 22:23 35.7 C L 101 H 24 70/56 L 95 12/12/21 22:15 35.7 C L 106 H 24 84/49 L 95 12/12/21 22:00 35.6 C L 120 H 24 94 Mechanical Vent 40 12/12/21 22:00 91/56 L 12/12/21 21:45 35.6 C L 117 H 27 H 71/53 L 95 12/12/21 21:30 35.6 C L 123 H 24 93/65 L 96 Mechanical Vent 40 12/12/21 21:12 121 H 25 H 95/58 L 95 12/12/21 21:01 119 H 26 H 40 12/12/21 20:40 35.2 C L 115 H 23 100 40 12/12/21 20:35 35.1 C L 119 H 23 105/59 L 99 Mechanical Vent 12/12/21 20:30 35.1 C L 120 H 21 111/77 100 Mechanical Vent 40 12/12/21 20:25 35.1 C L 117 H 25 H 107/64 99 12/12/21 20:23 35.1 C L 117 H 21 105/65 99 12/12/21 23:55 97 H 12/12/21 21:33 121 H 12/12/21 21:15 24 95 40 12/12/21 20:48 118 H 25 H 95/55 L 100 Mechanical Vent Laboratory Results 12/13/21 05:16 12/13/21 06:23 Coding Level of Care Code Critical Care 1st 30-74 mins Diagnoses Aspiration pneumonia J69.0 Aspiration pneumonia type: unspecified Laterality: unspecified laterality Lung location: unspecified part of lung Altered mental status R41.82 Seizure disorder G40.909 DKA (diabetic ketoacidosis) E13.11 Diabetes mellitus complication detail: with coma Diabetes mellitus type: other specified (including SAIGE) Hypothermia T68.XXXA Time Spent (min) 38 (1) DKA (diabetic ketoacidosis) Diabetes mellitus complication detail: with coma Diabetes mellitus type: other specified (including SAIGE) Qualified Code(s): E13.11 - Other specified diabetes mellitus with ketoacidosis with coma (2) Aspiration pneumonia Aspiration pneumonia type: unspecified Laterality: unspecified laterality Lung location: unspecified part of lung Qualified Code(s): J69.0 - Pneumonitis due to inhalation of food and vomit
[2021-12-13] MEDS: INSULIN ASPART PER UNIT SC SCH (08:39)
[2021-12-13] MEDS ORDERED: PIPERACILLIN/TAZOBACTAM 4.5 GM in DEXTROSE 5% 100 ML IV SCH (14:00)
[2021-12-13] MEDS ORDERED: VANCOMYCIN HCL 1,000 MG in SODIUM CHLORIDE 0.9% 250 ML IV SCH (16:00)
--- NOTE | 2021-12-13 17:59 | Electrocardiogram Report ---
Test Reason : Blood Pressure : / mmHG Vent. Rate : 099 BPM Atrial Rate : 099 BPM P-R Int : 146 ms QRS Dur : 090 ms QT Int : 374 ms P-R-T Axes : 077 005 043 degrees QTc Int : 479 ms Poor data quality, interpretation may be adversely affected Normal sinus rhythm Left atrial enlargement Abnormal ECG When compared with ECG of 07-OCT-2021 14:23, Premature ventricular complexes are no longer Present Confirmed by Jose Alvarez ([id number]) on 12/13/2021 5:58:38 PM Referred By: REFERRED SELF Confirmed By:Jose Alvarez
== END 2021-12-13 10:15 | disposition short-term general hospital (02) | DRG 100 ==
LOC: ED 17:12 → SUATTDRO 18:54 → 1E 18:54

== ENCOUNTER 2021-12-30 10:53 | Inpatient (IN) ==
[2021-12-30] MEDS ORDERED: SODIUM CHLORIDE 0.9% 1000ML 1,000 ML IV SCH (11:15)
--- NOTE | 2021-12-30 11:21 | Emergency Department Note ---
History of Present Illness General Chief complaint: Abnormal Labs/Diagnostic Testing Time Seen by Provider: 12/30/21 11:05 History of Present Illness Maximum Pain Intensity: 0 61 year old male presents to the ED with a chief complaint of abnormal laboratory studies done as an outpatient this morning. The patient does not have any specific complaints. He does have some history of dementia and therefore is a poor historian. The patient came from [facility]. He had normal labs this morning consisting of a BUN of 53 and creatinine of 4.2. About 2 weeks ago when the patient was here, the patient had a creatinine of 2.0. His potassium this morning was 4.9. He does have a history of seizures disorder, diabetes, dementia and chronic kidney disease. The patient reportedly, per EMS did have a short run of V. tach during transportation. He was asymptomatic during that interval. It was not documented by EMS. Allergies Allergy/AdvReac Type Severity Reaction Status Date / Time No Known Allergies Allergy Unverified 12/12/21 17:54 Past Med/Surg History Medical History Abnormal CT of brain Altered mental status AMS (altered mental status) Diabetes mellitus, type 2 DKA (diabetic ketoacidosis) DM (diabetes mellitus), type 2, uncontrolled Dyslipidemia Headache Hypertension Hypothermia Metabolic acidosis Obesity, morbid, BMI 40.0-49.9 Seizure Social History Smoking Status: Former smoker Tobacco Type: Cigarettes Hx Alcohol Use: No Hx Substance Use: No Preferred Language: Mohawk Communication Ability: Effective [employer] Required: No Beliefs That Will Affect Care: None marital status: Current Living Situation: Spouse Feels Safe at Home: Yes Assistive Devices: None Review of Systems A total of 10 systems reviewed and were otherwise negative Physical Exam Vital Signs Vital Signs - 24 hr 12/30/21 10:52 12/30/21 10:52 12/30/21 11:32 Temperature 36.7 C Temperature Source Oral Pulse Rate 86 82 Pulse Rate [Right Finger] 76 Respiratory Rate 16 24 Respiratory Effort / Characteristics Non-Labored Non-Labored Respiratory Depth Normal Blood Pressure 97/55 L Blood Pressure [Right Arm] 82/49 L Blood Pressure Mean 69 Blood Pressure Mean [Right Arm] 60 Pulse Oximetry 97 98 Oxygen Delivery Method Room Air Room Air Room Air Sepsis Recent Fever Within 48 Hours No Sepsis New/Unexplained Change in Mental Status N/A Sepsis Action Taken by Nursing No Action Required 12/30/21 11:47 12/30/21 12:00 Temperature Temperature Source Pulse Rate Pulse Rate [Right Finger] 70 76 Respiratory Rate 20 24 Respiratory Effort / Characteristics Non-Labored Non-Labored Respiratory Depth Normal Normal Blood Pressure Blood Pressure [Right Arm] 82/41 L 85/48 L Blood Pressure Mean Blood Pressure Mean [Right Arm] 54 60 Pulse Oximetry 98 96 Oxygen Delivery Method Room Air Room Air Sepsis Recent Fever Within 48 Hours Sepsis New/Unexplained Change in Mental Status Sepsis Action Taken by Nursing CONSTITUTIONAL/VITAL SIGNS: Reviewed / noted above. GENERAL: Non-toxic in appearance. Generalized weakness. INTEGUMENTARY: Warm, dry, and [place]. HEAD: Normocephalic. EYES: without scleral icterus or trauma. ENT/OROPHARYNX: clear and moist. LYMPHADENOPATHY/NECK: Is supple without lymphadenopathy or meningismus. RESPIRATORY: Clear to auscultation bilaterally. No increased work of breathing. CARDIOVASCULAR: Regular rate and rhythm. GI/ABDOMEN: Soft and nontender. No organomegaly or pulsatile mass. EXTREMITIES: Warm and well perfused. BACK: No CVA tenderness. NEUROLOGICAL: Intact without focal deficits. Answers basic questions appropriately. Awake and alert. PSYCHIATRIC: normal affect. MUSCULOSKELETAL: Normally developed with poor to average muscle tone. TRIAGE NURSING DOCUMENTATION REVIEWED. Course Administered Medications Discontinued Medications Sodium Chloride (Nss 1000ml) 1,000 mls @ 999 mls/hr IV .Q1H1M YANETH Stop: 12/30/21 12:15 Last Admin: 12/30/21 11:31 Dose: 999 mls/hr Documented By: NRB Medical Decision Making Differential Diagnosis Differential includes acute coronary syndrome, myocardial infarction, CVA, TIA, anemia, infection, pneumonia, UTI, pyelonephritis, poor nutrition, dehydration, electrolyte disturbance,hypoglycemia. Medical Records Attestation: I reviewed the patient's medical records. Home Medications Current Medication List: was personally reviewed by me Laboratory Data Attestation: I reviewed the patient's lab results. Result diagrams: 12/30/21 11:03 12/30/21 11:03 Lab Results 12/30/21 12/30/21 12/30/21 Range/Units 11:03 11:03 11:03 WBC 9.06 (4.8-10.8) K/ul RBC 3.48 L (4.63-6.08) M/uL Hgb 10.3 L (14.0-18.0) g/dl Hct 32.1 L (40.1-51.0) % MCV 92.2 (80.0-100.0) fL MCH 29.6 (25.0-34.0) pg MCHC 32.1 (32.0-36.0) g/dL RDW Std Deviation 44.7 (36.4-46.3) fL RDW Coeff of Justice 13.3 (11.5-14.5) % Plt Count 449 H (130-400) K/uL MPV 9.9 (9.4-12.4) fL Immature Gran % (Auto) 1.4 % Neut % (Auto) 66.2 % Lymph % (Auto) 20.1 % [place] % (Auto) 8.3 % Eos % (Auto) 2.6 % Baso % (Auto) 1.4 % Neut # (Auto) 5.99 (1.4-6.5) K/uL Lymph # (Auto) 1.82 (1.2-3.4) K/uL [place] # (Auto) 0.75 (0.24-0.82) K/uL Eos # (Auto) 0.24 (0-0.50) K/uL Baso # (Auto) 0.13 (0-0.2) K/uL Immature Gran # (Auto) 0.13 H (0.00-0.02) K/uL Sodium 134 L (136-145) mmol/L Potassium 5.0 (3.5-5.1) mmol/L Chloride 96 L (98-107) mmol/L Carbon Dioxide 26 (21-32) mmol/L Anion Gap 12 H (3-11) BUN 56 H (6-23) mg/dl Creatinine 4.52 H* (0.6-1.4) mg/dl Est Cr Clr Drug Dosing 19.5 ml/min Est GFR ( Amer) 15.0 ml/min Est GFR (Non-Af Amer) 13.0 ml/min BUN/Creatinine Ratio 12.4 (10-20) Glucose 276 H (70-99(Fasting)) mg/dl Calcium 9.5 (8.5-10.1) mg/dl Magnesium 1.7 (1.7-2.4) mg/dl Total Bilirubin 0.4 (0.2-1.0) mg/dl AST 43 H (13-39) U/L ALT 27 (7-52) U/L Alkaline Phosphatase 104 (34-104) U/L Total Creatine Kinase 592 H (30-223) U/L Troponin I High Sens 12.4 D (0-20) pg/ml Total Protein 6.7 (6.0-8.3) gm/dl Albumin 3.4 (3.4-5.0) gm/dl Globulin 3.3 (2.5-4.0) gm/dl Albumin/Globulin Ratio 1.0 (0.9-2) TSH 5.265 H (0.300-4.500) uIu/ml Imaging Data Radiologist's Impression: Chest X-Ray 12/30/21 11:12 XR chest 1V portable CLINICAL HISTORY: weakness. Evaluate cardiopulmonary status COMPARISON STUDY: 12/12/2021 TECHNIQUE: 1 view of the chest FINDINGS: Single frontal view of the chest demonstrates the cardiomediastinal silhouette to be within normal limits. The lungs are clear of alveolar opacities. There is no evidence for pleural effusion. There is no evidence for vascular congestion. There is no acute osseous pathology. IMPRESSION: 1. No acute cardiopulmonary disease. ACT 112: Negative or not required by law. Electronically signed by: Junito Quintanilla M.D. 12/30/2021 11:21 AM ECG Data Attestation: I personally reviewed and interpreted this ECG as follows: Additional Comments: Twelve-lead EKG shows a normal sinus rhythm at a rate of 87. No ST elevation. No PVCs. Normal QTC. MDM Narrative 61-year-old male presents with abnormal labs this morning. He had a BUN of 53 and creatinine of 4.2 and a potassium of 4.9. He has no specific complaints this time. Vital signs reveal blood pressure of 97/55, otherwise unremarkable vital signs. Twelve-lead EKG shows a normal sinus rhythm. No ischemic changes. The patient's CBC was unremarkable. Chemistry panel shows a BUN of 56 and creatinine of 4.5. Glucose is 276. CK is 592. Troponin was negative and a chest x-ray was negative for acute disease. The patient was given a couple of liters of normal saline IV. The patient will be seen by the hospitalist for further inpatient evaluation and care. Impression & Plan MACIE (acute kidney injury), Generalized muscle weakness, Acute dehydration Discharge Plan Visit Data Chief Complaint: Abnormal Labs/Diagnostic Testing ED Provider: Ty Sawyer Discharge Problem: MACIE (acute kidney injury), Generalized muscle weakness, Acute dehydration Patient Disposition: Being Evaluated by Hospitalist Forms Stand Alone Forms: [facility] Referrals Referrals: Quique Palomino M.D. [Non-Staff] -
[2021-12-30 11:22] LABS: Basophils # (auto) 0.13 K/uL (0-0.2); Basophils % (auto) 1.4 %; Eosinophils # (auto) 0.24 K/uL (0-0.50); Eosinophils % (auto) 2.6 %; Hematocrit (blood only) 32.1 % (40.1-51.0); Hemoglobin 10.3 g/dl (14.0-18.0); Immature Granulocytes # (auto) 0.13 K/uL (0.00-0.02); Immature Granulocytes % (auto) 1.4 %; Lymphocytes # (auto) 1.82 K/uL (1.2-3.4); Lymphocytes % (auto) 20.1 %; Mean Corpuscular Hemoglobin 29.6 pg (25.0-34.0); Mean Corpuscular Hgb Conc 32.1 g/dL (32.0-36.0); Mean Corpuscular Volume 92.2 fL (80.0-100.0); Mean Platelet Volume 9.9 fL (9.4-12.4); Monocytes # (auto) 0.75 K/uL (0.24-0.82); Monocytes % (auto) 8.3 %; Neutrophils # (auto) 5.99 K/uL (1.4-6.5); Neutrophils % (auto) 66.2 %; Platelet Count 449 K/uL (130-400); RDW Coefficient of Variation 13.3 % (11.5-14.5); RDW Standard Deviation 44.7 fL (36.4-46.3); Red Blood Count 3.48 M/uL (4.63-6.08); White Blood Count 9.06 K/ul (4.8-10.8)
[2021-12-30 12:08] LABS: Thyroid Stimulating Hormone 5.265 uIu/ml (0.300-4.500)
[2021-12-30 12:21] LABS: Albumin Level 3.4 gm/dl (3.4-5.0); BUN Creatinine Ratio 12.4 (10-20); Bilirubin,Total 0.4 mg/dl (0.2-1.0); Calcium 9.5 mg/dl (8.5-10.1); Creatinine Clr Calc Pharmacy 19.5 ml/min; Globulin 3.3 gm/dl (2.5-4.0); Magnesium 1.7 mg/dl (1.7-2.4); Total Protein 6.7 gm/dl (6.0-8.3); Troponin I High Sensitivity 12.4 pg/ml (0-20)
[2021-12-30] MEDS ORDERED: SODIUM CHLORIDE 0.9% 1000ML 1,000 ML IV ONE (12:41)
[2021-12-30 12:52] LABS: T4 Free Thyroxine 1.01 ng/dl (0.61-1.60)
--- NOTE | 2021-12-30 13:45 | Electrocardiogram Report ---
Test Reason : Blood Pressure : / mmHG Vent. Rate : 087 BPM Atrial Rate : 087 BPM P-R Int : 160 ms QRS Dur : 090 ms QT Int : 372 ms P-R-T Axes : 038 -17 048 degrees QTc Int : 447 ms Poor data quality, interpretation may be adversely affected Normal sinus rhythm Poor R wave progression, consider anterior OR vs. lead placement vs. LVH Abnormal ECG When compared with ECG of 12-DEC-2021 17:16, ST less depressed in Anterior leads T wave amplitude has decreased in Anterior leads Confirmed by Dante Ferguson ([id number]) on 12/30/2021 1:45:12 PM Referred By: [facility] Confirmed By:Dante Ferguson
[2021-12-30 13:48] LABS: Appearance Urine Clear (Clear); Bacteria Urine Automated Negative (Negative); Bilirubin Urine Negative (Negative); Blood Urine 2+ (Negative); Color Urine Yellow; Epithelial Cell Urine Auto 0-5 /lpf (0-5); Glucose Urine UA 2+ (Negative); Ketones Urine Negative (Negative); Leukocyte Esterase Urine Negative (Negative); Nitrite Urine Negative (Negative); Protein Urine Negative (Negative); RBC Urine Automated 0-4 /hpf (0-4); Specific Gravity Urine 1.008 (1.000-1.030); Urobilinogen Urine Negative (Negative)
--- NOTE | 2021-12-30 14:58 | History & Physical Report ---
Date of Service December 30, 2021 Assessment & Plan (1) MACIE (acute kidney injury): Plan: 61-year-old male with history of seizure, diabetes type 2, hypertension, CKD stage III, other below presenting with elevated creatinine while at [facility]. Acute renal failure on CKD stage III Hypotension Likely prerenal etiology Baseline creatinine 1.3, now 4.5 Continue IV NSS Check urinalysis Check renal ultrasound Hold lisinopril Possible Episode of Nonsustained V tach short run noted by EMS en route to the hospital, not documented though, as per ED physician Sinus rhythm per EKG on admission denies chest pain, dyspnea, etc DM 2 hold Metformin, Ozempic, Jardiance continue Lantus 25 units AM start ISS Hypertension hold Lisinopril in light of hypotension on admission Seizure continue Keppra 500mg BID Hypothyroidism continue Levothyroxine DVT prophylaxis SCDs patient suspected to have possible GI bleed during last admission Full Code per patient Disposition anticipate return to [facility] when medically stable History of Present Illness Primary Care Provider: [facility] 61-year-old male with history of seizure, diabetes type 2, hypertension, CKD stage III, other #below presenting with elevated creatinine while at [facility]. Patient was recently admitted to [facility] and subsequently transferred to [facility] for unresponsive episode, related to breakthrough seizure from nonadherence to his Keppra. Patient was then transitioned to [facility] last December 27, 2021. Per routine labs today, patient's creatinine was found to be 4.5. Recent baseline is 1.3 which was drawn last December 28, 2021. Patient brought to the ER for evaluation. Per ER notes, patient had transient episode of nonsustained V. tach while en route to the hospital. Patient was received at the ER hypotensive, systolic 80s. He was given 2 L of IV fluid boluses, with improvement of blood pressure to systolic 100s. On exam, patient was seen sleeping but easily awakened, oriented x2, answers most questions appropriately. Denies problems with urination, no recent vomiting, diarrhea, reports appetite is good. No other symptoms. Allergies Allergy/AdvReac Type Severity Reaction Status Date / Time No Known Allergies Allergy Unverified 12/12/21 17:54 Home Medications Medication Instructions Recorded Confirmed Type Ecotrin 81 mg PO DAILY 12/30/21 12/30/21 History Flomax 0.4 mg PO DAILY 12/30/21 12/30/21 History aspirin 81 mg PO DAILY 12/30/21 12/30/21 History atorvastatin 20 mg tablet 20 mg PO DAILY 12/30/21 12/30/21 History donepezil 10 mg PO HS 12/30/21 12/30/21 History donepezil 5 mg tablet 5 mg PO QAM 12/30/21 12/30/21 History insulin glargine 100 unit/mL (3 25 unit subcut QAM 12/30/21 12/30/21 History mL) subcutaneous pen (Lantus Solostar U-100 Insulin) levetiracetam 500 mg tablet 500 mg PO BID 12/30/21 12/30/21 History levothyroxine 25 mcg tablet 25 mcg PO DAILY 12/30/21 12/30/21 History lisinopril 10 mg tablet 10 mg PO DAILY 12/30/21 12/30/21 History metformin 500 mg tablet,extended 500 mg PO BID 12/30/21 12/30/21 History release 24 hr semaglutide 0.25 mg or 0.5 mg (2 0.25 mg subcut WK 12/30/21 12/30/21 History mg/1.5 mL) subcutaneous pen injector (Ozempic) sertraline 25 mg tablet 25 mg PO DAILY 12/30/21 12/30/21 History Past Med/Surg History Medical History Abnormal CT of brain Altered mental status AMS (altered mental status) Diabetes mellitus, type 2 DKA (diabetic ketoacidosis) DM (diabetes mellitus), type 2, uncontrolled Dyslipidemia Headache Hypertension Hypothermia Metabolic acidosis Obesity, morbid, BMI 40.0-49.9 Seizure Social History Smoking Status: Former smoker Tobacco Type: Cigarettes Hx Alcohol Use: No Hx Substance Use: No Preferred Language: Citizen Of [place] Communication Ability: Effective 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: No Beliefs That Will Affect Care: None marital status: Current Living Situation: Spouse Current Living Situation Comment: Lives with ; is currently looking at SNF for both Other Information That Helps Us Care for You: No Feels Safe at Home: Yes Safety Concerns: Feels Safe At This Time Assistive Devices: Glasses Review of Systems Review of Systems: all noted and negative except for above Physical Exam Physical Exam: General- oriented x 2, not in distress, speaks in sentences with no effort or accessory muscle use Head- atraumatic Eyes- PERRL, EOMI, anicteric ENT- oropharynx clear Neck- supple, no JVD, no adenopathy, no thyromegaly; carotids +2/2, no bruits appreciated Lungs- clear to auscultation bilaterally, no rales/wheezes Heart- normal rate, regular rhythm; no murmur, no gallop, no rub appreciated Abdomen- normal bowel sounds, nondistended, soft, nontender, no masses or hepatosplenomegaly Extremities- no pretibial edema, no calf tenderness; peripheral pulses intact Neuro- alert, oriented x 2; CN 2-12 grossly intact; motor 5/5 bilaterally;sensa tion 100% on all extremities; no other gross focal neurologic deficits Skin- warm & dry Results & Data Results & Data ([facility]) Vital Signs (Past 12 Hours) Vital Signs Temp Pulse Pulse Resp BP BP Pulse Ox 12/30/21 14:30 87 20 82/55 L 96 12/30/21 14:15 80 18 101/68 93 12/30/21 14:00 84 17 91 12/30/21 14:00 101/53 L 12/30/21 13:45 69 18 94 12/30/21 13:45 93/54 L 12/30/21 13:30 77 19 96 12/30/21 13:15 78 21 98 12/30/21 13:15 91/55 L 12/30/21 13:00 80 17 97 12/30/21 12:46 90/44 L 12/30/21 12:46 78 15 97 12/30/21 12:45 77 18 93 12/30/21 12:45 74/48 L 12/30/21 12:30 82 18 95 12/30/21 12:15 82 18 99 12/30/21 12:15 97/55 L 12/30/21 12:00 82 19 97 12/30/21 12:00 85/48 L 12/30/21 11:47 82/41 L 12/30/21 11:47 76 17 98 12/30/21 11:45 74 21 95 12/30/21 11:30 79 21 98 12/30/21 11:29 82/49 L 12/30/21 11:29 80 20 12/30/21 11:24 93/50 L 12/30/21 11:23 80 22 96 12/30/21 11:15 75 21 99 12/30/21 11:15 97/46 L 12/30/21 11:01 84 16 12/30/21 11:00 97/55 L 12/30/21 12:47 76 20 90/44 L 97 12/30/21 12:00 76 24 85/48 L 96 12/30/21 11:47 70 20 82/41 L 98 12/30/21 11:32 76 24 82/49 L 98 12/30/21 10:52 82 12/30/21 10:52 36.7 C 86 16 97/55 L 97 O2 Del Method 12/30/21 14:30 12/30/21 14:15 12/30/21 14:00 12/30/21 14:00 12/30/21 13:45 12/30/21 13:45 12/30/21 13:30 12/30/21 13:15 12/30/21 13:15 12/30/21 13:00 12/30/21 12:46 12/30/21 12:46 12/30/21 12:45 12/30/21 12:45 12/30/21 12:30 12/30/21 12:15 12/30/21 12:15 12/30/21 12:00 12/30/21 12:00 12/30/21 11:47 12/30/21 11:47 12/30/21 11:45 12/30/21 11:30 12/30/21 11:29 12/30/21 11:29 12/30/21 11:24 12/30/21 11:23 12/30/21 11:15 12/30/21 11:15 12/30/21 11:01 12/30/21 11:00 12/30/21 12:47 Room Air 12/30/21 12:00 Room Air 12/30/21 11:47 Room Air 12/30/21 11:32 Room Air 12/30/21 10:52 Room Air 12/30/21 10:52 Room Air Code Status & VTE Plan VTE Prophylaxis Plan VTE Prophylaxis will be ordered: Yes
[2021-12-30] MEDS ORDERED: GLUCOSE 10 TAB/TUBE PO PRN (16:10)
[2021-12-30] MEDS ORDERED: DEXTROSE 50% 50 ML SYRINGE IV PRN (16:10)
[2021-12-30] MEDS ORDERED: GLUCOSE 40% GEL 15 GM TUBE PO PRN (16:10)
[2021-12-30] MEDS ORDERED: GLUCAGON FOR INJ 1 MG VIAL SQ PRN (16:10)
[2021-12-30] MEDS ORDERED: ACETAMINOPHEN 325 MG TAB PO PRN (16:10)
[2021-12-30] MEDS ORDERED: CARBOHYDRATES FOR HYPOGLYCEMIA PO PRN (16:10)
[2021-12-30] MEDS: INSULIN ASPART PER UNIT SC SCH ×2 (16:58→21:56)
[2021-12-30] MEDS: SODIUM CHLORIDE 0.9% 1000ML 1,000 ML IV SCH (17:01)
[2021-12-30 17:10] LABS: Appearance Urine Clear (Clear); Bacteria Urine Automated Negative (Negative); Bilirubin Urine Negative (Negative); Blood Urine 2+ (Negative); Color Urine Yellow; Glucose Urine UA 2+ (Negative); Ketones Urine Negative (Negative); Leukocyte Esterase Urine Trace (Negative); Nitrite Urine Negative (Negative); Protein Urine Negative (Negative); RBC Urine Automated 0-4 /hpf (0-4); Specific Gravity Urine 1.007 (1.000-1.030); Urobilinogen Urine Negative (Negative); pH Urine 5.5 (4.5-7.5)
--- NOTE | 2021-12-30 18:04 | Ultrasound Report ---
RENAL ULTRASOUND CLINICAL HISTORY: Acute renal failure. COMPARISON STUDY: CT of the abdomen and pelvis December 12, 2021. TECHNIQUE: Sonography of the kidneys and the urinary bladder was performed. FINDINGS: The right kidney measures 9.7 x 4.4 x 3.9 cm and the left measures 9.6 x 5.3 x 3.7 cm. Ther e is no hydronephrosis. No renal calculi or masses are identified. A Song balloon within the bladder is noted. Bladder wall is thickened. Bladder is underdistended. IMPRESSION: 1. No hydronephrosis. 2. Song balloon within the bladder. Nonspecific bladder wall thickening. ACT 112: Negative or not required by law. Electronically signed by: Adan Raman M.D. 12/30/2021 6:02 PM
[2021-12-30] MEDS: DONEPEZIL HCL 10 MG TAB PO SCH (22:03)
[2021-12-30] MEDS: levETIRAcetam 500 MG TAB PO SCH (22:03)
[2021-12-31] MEDS: SODIUM CHLORIDE 0.9% 1000ML 1,000 ML IV SCH ×3 (05:23→23:07)
[2021-12-31] MEDS: LEVOTHYROXINE SODIUM 25 MCG TABLET PO SCH (05:25)
[2021-12-31 07:07] LABS: Basophils # (auto) 0.11 K/uL (0-0.2); Basophils % (auto) 1.6 %; Eosinophils # (auto) 0.23 K/uL (0-0.50); Eosinophils % (auto) 3.4 %; Hemoglobin 8.6 g/dl (14.0-18.0); Immature Granulocytes % (auto) 1.5 %; Lymphocytes # (auto) 1.56 K/uL (1.2-3.4); Lymphocytes % (auto) 23.2 %; Mean Corpuscular Hemoglobin 29.6 pg (25.0-34.0); Mean Corpuscular Hgb Conc 31.9 g/dL (32.0-36.0); Mean Corpuscular Volume 92.8 fL (80.0-100.0); Mean Platelet Volume 9.6 fL (9.4-12.4); Monocytes # (auto) 0.86 K/uL (0.24-0.82); Monocytes % (auto) 12.8 %; Neutrophils # (auto) 3.85 K/uL (1.4-6.5); Neutrophils % (auto) 57.5 %; Platelet Count 390 K/uL (130-400); RDW Coefficient of Variation 13.3 % (11.5-14.5); RDW Standard Deviation 45.4 fL (36.4-46.3); Red Blood Count 2.91 M/uL (4.63-6.08); White Blood Count 6.71 K/ul (4.8-10.8)
[2021-12-31 07:42] LABS: Albumin Globulin Ratio 1.1 (0.9-2); Albumin Level 2.7 gm/dl (3.4-5.0); BUN Creatinine Ratio 13.2 (10-20); Bilirubin,Total 0.3 mg/dl (0.2-1.0); Calcium 8.4 mg/dl (8.5-10.1); Creatinine Clr Calc Pharmacy 22.2 ml/min; Est GFR (African American) 17.3 ml/min; Est GFR (Non-African American) 14.9 ml/min; Globulin 2.5 gm/dl (2.5-4.0); Total Protein 5.2 gm/dl (6.0-8.3)
[2021-12-31] MEDS: levETIRAcetam 500 MG TAB PO SCH ×2 (07:54→20:19)
[2021-12-31] MEDS: SERTRALINE HCL 50 MG TABLET PO SCH (07:54)
[2021-12-31] MEDS: ASPIRIN 81 MG ECTAB PO SCH (07:54)
[2021-12-31] MEDS: ATORVASTATIN 20 MG TAB PO SCH (07:55)
[2021-12-31] MEDS: TAMSULOSIN HCL 0.4 MG CAP PO SCH (07:55)
[2021-12-31] MEDS: DONEPEZIL HCL 5 MG TAB PO SCH (07:55)
[2021-12-31] MEDS: INSULIN ASPART PER UNIT SC SCH ×4 (07:57→20:27)
[2021-12-31] MEDS: LANTUS PER UNIT CHARGE SQ SCH (07:57)
[2021-12-31 09:50] LABS: Estimated Average Glucose 301 mg/dl; Hemoglobin A1C 12.1 % (4.5-5.6)
--- NOTE | 2021-12-31 16:53 | Hospitalist Progress Note ---
Date of Service December 31, 2021 Assessment & Plan (1) MACIE (acute kidney injury): Plan: 61-year-old male with history of seizure, diabetes type 2, hypertension, CKD stage III, other below presented 12/30 with elevated creatinine while at [facility]. Per Pt's , he is very forgetful but he knows where is at @baseline, he has gone downhill mentation mcfarland since last 4 months. He is being managed for the following: Acute renal failure on CKD stage III Hypotension Likely prerenal etiology Baseline creatinine around 1.3, admitting Cr 4.52 and BUN 56 Admitting Renal US w/ no hydronephrosis. Song balloon w/in bladder. Hold nephrotoxics/lisinopril, c/w gentle ivf, nephro on board, awaiting recs. BMP in AM. Chronic anemia, ?? acute anemia on top of it Baseline Hb around 11, admitting Hb 10.3, today 8.6, repeat Hb Repeat Hb in evening, get FOBT. Pt w/ not tachy, denies dizziness. Protonix BD starting now. Blood transfusion consent obtained from patient's Reina over the phone. Possible Episode of Nonsustained V tach short run noted by EMS en route to the hospital, not documented though, as per ED physician Sinus rhythm per EKG on admission denies chest pain, dyspnea, etc DM 2 hold Metformin, Ozempic, Jardiance continue Lantus 25 units AM ISS Hypertension hold Lisinopril in light of hypotension on admission Seizure continue Keppra 500mg BID Hypothyroidism continue Levothyroxine DVT prophylaxis: SCDs, patient suspected to have possible GI bleed during last admission. Hb on lower side. Full Code Disposition: anticipate return to [facility] when medically stable Admission and Anticipated Discharge Date Admission Date: December 30, 2021 Subjective Patient seen and examined at bedside as a follow-up of MACIE on CKD stage III. Patient was lying in bed, on room air, NAD, appears to be confused, oriented x1. Patient states he does not know many of things including whether or not he ate his morning breakfast. Per RN he ate his breakfast well, no acute events overnight. Patient reports pain everywhere in the body, but does not know if he takes any pain medications at home. ROS n/a due to cognition status. Physical Exam Physical Exam: GENERAL: confused, Ox1, RA, NAD HEENT: No pallor, no icterus. Pupils equal, round and reactive to light. Oral mucosa moist. NECK: No JVD, no neck masses. HEART: S1 and S2 heard. Regular rate and rhythm. No murmur, no gallop. RESPIRATORY SYSTEM: Normal AP diameter. No accessory muscle use. No wheezing, no crackles. ABDOMEN: Soft, bowel sounds present, nontender, no distention. CENTRAL NERVOUS SYSTEM: No facial droop. Speech is clear. Obeys simple commands. Moves extremities. EXTREMITIES: No edema, no erythema seen. UC w/ light yellow urine collection noted. Results & Data Results & Data ([facility]) Vital Signs (Past 12 Hours) Vital Signs Temp Pulse Pulse Resp BP Pulse Ox O2 Del Method 12/31/21 15:04 72 12/31/21 11:30 36.8 C 70 16 115/63 96 12/31/21 09:32 61 12/31/21 08:29 36.8 C 82 16 104/61 97 12/31/21 08:11 Room Air
[2021-12-31 17:14] LABS: Hematocrit (blood only) 27.6 % (40.1-51.0); Hemoglobin 8.6 g/dl (14.0-18.0)
[2021-12-31] MEDS: PANTOprazole 40 MG TAB PO SCH (17:50)
--- NOTE | 2021-12-31 20:05 | Nephrology Consultation ---
Date of Consultation December 31, 2021 Assessment & Plan (1) MACIE (acute kidney injury): nonoliguric stage 3 MACIE, likely prerenal versus ischemic ATN d/t starting routine OP medications which he likely at home was not actually taking in the first place. baseline creatinine 1.0; was already trending toward MACIE w/ 12/28 labs showing creatinine 1.3, then w/ abrupt uptick to 4.5 on 12/30 and w/ creat 4.0 today after holding meds and w/ IV fluids, BP support. chemistries acceptable; appears to be volume depleted -continue NS -no indication for urgent dialysis at this time -daily BMP -continue strict I/O -continue Song -defer to primary service to determine if his MS is at baseline (2) History of medication noncompliance: possible / presumptive cause of MACIE > starting meds he wasn't actually taking in first place but which had been rx'd in past History of Present Illness Reason for Consultation: MACIE on CKD Requesting Physician: Dr Oscar Attending Physician: Trino Oscar MD History of Present Illness 61 y/o M whom I'm asked to see for MACIE on CKD 3. 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 The patient was [place] [facility] [place] for breatkthrough seizures attributed to medication non adherence. His baseline creatinine is 1.0; was 1.3 most recently on 12/28 on the day after his admission to [facility]. Yesterday his labs were remarkable for abruptly worsened creatinine at 4.2. He was sent to [facility] for further evaluation where creatinine yesterday AM here was 4.5; this AM he is at 4.0 after jardiance, lisinopril, metformin, and ozempic were all held. Per report he did have SBP in 80s and episode of NSVT en route to [facility]. Of note the patient had not been on any of these aforementioned medications during recent [facility] [place] and appears to have been instructed to resume these OP meds at hospital d/c and so they were all started at rehab on 12/27. he also had significant urinary retention at recent hospital stay and was started on flomax at d/c. He is confused and cannot really participate on ROS extensively. He does however deny sob or musculoskeletal/ abdominal/ or chest pain. denies n/v. does tell me he feels urge to urinate. Allergies Allergy/AdvReac Type Severity Reaction Status Date / Time No Known Allergies Allergy Unverified 12/12/21 17:54 Home Medications Medication Instructions Recorded Confirmed Type Ecotrin 81 mg PO DAILY 12/30/21 12/30/21 History Flomax 0.4 mg PO DAILY 12/30/21 12/30/21 History aspirin 81 mg PO DAILY 12/30/21 12/30/21 History atorvastatin 20 mg tablet 20 mg PO DAILY 12/30/21 12/30/21 History donepezil 10 mg PO HS 12/30/21 12/30/21 History donepezil 5 mg tablet 5 mg PO QAM 12/30/21 12/30/21 History insulin glargine 100 unit/mL (3 25 unit subcut QAM 12/30/21 12/30/21 History mL) subcutaneous pen (Lantus Solostar U-100 Insulin) levetiracetam 500 mg tablet 500 mg PO BID 12/30/21 12/30/21 History levothyroxine 25 mcg tablet 25 mcg PO DAILY 12/30/21 12/30/21 History lisinopril 10 mg tablet 10 mg PO DAILY 12/30/21 12/30/21 History metformin 500 mg tablet,extended 500 mg PO BID 12/30/21 12/30/21 History release 24 hr semaglutide 0.25 mg or 0.5 mg (2 0.25 mg subcut WK 12/30/21 History mg/1.5 mL) subcutaneous pen injector (Ozempic) sertraline 25 mg tablet 25 mg PO DAILY 12/30/21 12/30/21 History Patient History Medical History (Updated 12/31/21 @ 20:04 by Tea Hopkins MD, PhD) Abnormal CT of brain Altered mental status AMS (altered mental status) Diabetes mellitus, type 2 DKA (diabetic ketoacidosis) DM (diabetes mellitus), type 2, uncontrolled Dyslipidemia Headache History of medication noncompliance Hypertension Hypothermia Metabolic acidosis Obesity, morbid, BMI 40.0-49.9 Seizure Social History Smoking Status: Former smoker Tobacco Type: Cigarettes Hx Alcohol Use: No Hx Substance Use: No Preferred Language: Danish Communication Ability: Effective Seismograph Observer Required: No Beliefs That Will Affect Care: None marital status: Current Living Situation: Spouse Current Living Situation Comment: Lives with ; is currently looking at SNF for both Other Information That Helps Us Care for You: No Feels Safe at Home: Yes Safety Concerns: Feels Safe At This Time Assistive Devices: Glasses Review of Systems Review of Systems: All systems reviewed & are unremarkable except as noted in HPI & below and Unobtainable due to cognitive status Physical Exam Constitutional: well developed, well nourished, + morbidly obese, + altered mental status, + physical limitations and + frail appearing Eyes: EOM intact bilaterally ENMT: Ears: no external ear abnormality Nose: no external nose abnormality Mouth: + dry oral mucous membranes bitemporal wasting Neck: no nuchal rigidity Respiratory: normal respiratory effort Auscultation: + diminished lung sounds Cardiovascular: RRR, no murmur, no edema Gastrointestinal (Abdomen): Inspection/Auscultation: normal bowel sounds Percussion/Palpation: abdomen soft; abdomen nontender Musculoskeletal: Extremities: + abnormal strength Skin: no rashes, warm and dry Neurologic: mace, fluent speech, no tremor Psychiatric: Orientation: oriented to person and cooperative Affect: + tearful affect Insight: + poor insight Judgement: + poor judgement Genitourinary: ample light yellow urine Results & Data ([facility]) Vital Signs (Past 12 Hours) Vital Signs Temp Pulse Pulse Resp BP Pulse Ox O2 Del Method 12/31/21 19:11 36.3 C L 75 17 107/68 95 Room Air 12/31/21 16:00 36.9 C 91 H 16 115/65 97 12/31/21 15:04 72 12/31/21 11:30 36.8 C 70 16 115/63 96 12/31/21 09:32 61 12/31/21 08:29 36.8 C 82 16 104/61 97 12/31/21 08:11 Room Air Laboratory Results 12/31/21 17:05 12/31/21 06:37 UA w/ 2+ glucose, blood; no bacteria, 5-10 WBC, 10-20 epis (catheterized specimen) Diagnostic Findings renal u/s 1. No hydronephrosis. 2. Song balloon within the bladder. Nonspecific bladder wall thickening. (3. symmetric kidneys) CXR w/o acute CP process
[2021-12-31] MEDS: DONEPEZIL HCL 10 MG TAB PO SCH (20:18)
[2022-01-01] MEDS: LEVOTHYROXINE SODIUM 25 MCG TABLET PO SCH (05:52)
[2022-01-01] MEDS: ASPIRIN 81 MG ECTAB PO SCH (07:51)
[2022-01-01] MEDS: levETIRAcetam 500 MG TAB PO SCH ×2 (07:51→22:18)
[2022-01-01] MEDS: PANTOprazole 40 MG TAB PO SCH (07:51)
[2022-01-01] MEDS: SERTRALINE HCL 50 MG TABLET PO SCH (07:52)
[2022-01-01] MEDS: ATORVASTATIN 20 MG TAB PO SCH (07:52)
[2022-01-01] MEDS: DONEPEZIL HCL 5 MG TAB PO SCH (07:52)
[2022-01-01] MEDS: TAMSULOSIN HCL 0.4 MG CAP PO SCH (07:53)
[2022-01-01] MEDS: INSULIN ASPART PER UNIT SC SCH ×4 (07:56→22:06)
[2022-01-01] MEDS: LANTUS PER UNIT CHARGE SQ SCH (07:56)
[2022-01-01 08:44] LABS: Hematocrit (blood only) 27.3 % (40.1-51.0); Hemoglobin 8.8 g/dl (14.0-18.0); Mean Corpuscular Hemoglobin 29.3 pg (25.0-34.0); Mean Corpuscular Hgb Conc 32.2 g/dL (32.0-36.0); Mean Platelet Volume 9.7 fL (9.4-12.4); Platelet Count 432 K/uL (130-400); RDW Coefficient of Variation 13.4 % (11.5-14.5); RDW Standard Deviation 44.1 fL (36.4-46.3); White Blood Count 6.78 K/ul (4.8-10.8)
[2022-01-01 09:10] LABS: Albumin Level 2.9 gm/dl (3.4-5.0); BUN Creatinine Ratio 14.5 (10-20); Bilirubin,Total 0.3 mg/dl (0.2-1.0); Calcium 8.8 mg/dl (8.5-10.1); Creatinine Clr Calc Pharmacy 30.7 ml/min; Est GFR (African American) 25.7 ml/min; Est GFR (Non-African American) 22.2 ml/min; Globulin 2.8 gm/dl (2.5-4.0); Magnesium 1.5 mg/dl (1.7-2.4); Phosphorus 3.6 mg/dl (2.5-4.9); Potassium 3.9 mmol/L (3.5-5.1); Total Protein 5.7 gm/dl (6.0-8.3)
[2022-01-01] MEDS: SODIUM CHLORIDE 0.9% 1000ML 1,000 ML IV SCH (12:25)
--- NOTE | 2022-01-01 14:18 | Hospitalist Progress Note ---
Date of Service January 01, 2022 Assessment & Plan (1) MACIE (acute kidney injury): Plan: 61-year-old male with history of seizure, diabetes type 2, hypertension, CKD stage III, other below presented 12/30 with elevated creatinine while at [facility]. Per Pt's , he is very forgetful but he knows where is at @baseline, he has gone downhill mentation mcfarland since last 4 months. He has mild cognitive impairment w/ dementia. He is being managed for the following: Acute renal failure on CKD stage III Hypotension Likely prerenal etiology Baseline creatinine around 1.3, admitting Cr 4.52 and BUN 56 Admitting Renal US w/ no hydronephrosis. Song balloon w/in bladder. Hold nephrotoxics/lisinopril, c/w gentle ivf, nephro on board,appreciate recs. Cr trending down. BMP in AM. Chronic anemia, ?? acute anemia on top of it Baseline Hb around 11, admitting Hb 10.3 then 8.6 -->8.6 -->8.8, cbc in AM get FOBT. Pt w/ not tachy, denies dizziness. Protonix daily for now. Blood transfusion consent obtained from patient's Reina over the phone. Possible Episode of Nonsustained V tach short run noted by EMS en route to the hospital, not documented though, as per ED physician Sinus rhythm per EKG on admission denies chest pain, dyspnea, etc continue to monitor. DM 2 hold Metformin, Ozempic, Jardiance continue Lantus 25 units AM ISS Hypertension hold Lisinopril in light of hypotension on admission Seizure continue Keppra 500mg BID Hypothyroidism continue Levothyroxine DVT prophylaxis: SCDs, patient suspected to have possible GI bleed during last admission. Hb on lower side. Full Code Disposition: anticipate return to [facility] when medically stable Admission and Anticipated Discharge Date Admission Date: December 30, 2021 Subjective Patient seen and examined at bedside as a follow-up of MACIE on CKD stage III. Patient was lying in bed, on room air, NAD, AOx3. Pt able to meaningfully converse today, denies pain/discomfort/headache/sorethroat/chest pain/palpitations/other ROS. Reports eating OK, reports no BM in few days. Physical Exam Physical Exam: GENERAL: AOx3, RA, NAD HEENT: No pallor, no icterus. Pupils equal, round and reactive to light. Oral mucosa moist. NECK: No JVD, no neck masses. HEART: S1 and S2 heard. Regular rate and rhythm. No murmur, no gallop. RESPIRATORY SYSTEM: Normal AP diameter. No accessory muscle use. No wheezing, no crackles. ABDOMEN: Soft, bowel sounds present, nontender, no distention. CENTRAL NERVOUS SYSTEM: No facial droop. Speech is clear. Obeys simple commands. Moves extremities. EXTREMITIES: No edema, no erythema seen. UC w/ light yellow urine collection noted. Results & Data Results & Data ([facility]) Vital Signs (Past 12 Hours) Vital Signs Temp Pulse Pulse Resp BP Pulse Ox O2 Del Method 01/01/22 11:30 36.6 C 74 18 96/59 L 98 01/01/22 07:30 60 01/01/22 08:49 Room Air 01/01/22 08:00 36.5 C 68 18 109/63 96 01/01/22 04:02 36.5 C 68 18 102/64 94 Room Air
--- NOTE | 2022-01-01 14:48 | Nephrology Progress Note ---
Date of Service January 01, 2022 Assessment & Plan (1) MACIE (acute kidney injury): Plan: improving nonoliguric stage 3 MACIE, prerenal versus ischemic ATN d/t starting rou [place] OP medications which he likely at home was not actually taking in the first place. baseline creatinine 1.0; was already trending toward MACIE w/ 12/28 labs showing creatinine 1.3, then w/ abrupt uptick to 4.5 on 12/30 and w/ creat 4.0 12/31 after holding meds and w/ IV fluids, BP support. chemistries acceptable; appears to be volume depleted -continue NS (once IV reestablished) -daily BMP -continue strict I/O -ok to d/c Song from neph standpoint if primary service agrees -defer to primary service to determine if his MS is at baseline (2) History of medication noncompliance: Plan: possible / presumptive cause of MACIE > starting meds he wasn't actually taking in first place but which had been rx'd in past Admission and Anticipated Discharge Date Admission Date: December 30, 2021 Subjective no acut einterval clinical events; sbp has improved somewhat; pt struggles to participate in ROS but denies sob, edema, uncontrolled pain, n/v; endorses urge to void (has mónica) Review of Systems Review of Systems: All systems reviewed & are unremarkable except as noted in Subjective and Unobtainable due to cognitive status Physical Exam Constitutional: well developed, well nourished, + morbidly obese, + altered mental status, + physical limitations and + frail appearing Eyes: EOM intact bilaterally ENMT: Ears: no external ear abnormality Nose: no external nose abnormality Mouth: + dry oral mucous membranes Neck: no nuchal rigidity Respiratory: normal respiratory effort Auscultation: + diminished lung sounds Cardiovascular: RRR, no murmur, no edema Gastrointestinal (Abdomen): Inspection/Auscultation: normal bowel sounds Percussion/Palpation: abdomen soft; abdomen nontender Musculoskeletal: Extremities: + abnormal strength Skin: no rashes, warm and dry Psychiatric: Orientation: oriented to person and cooperative Affect: + tearful affect Insight: + poor insight Judgement: + poor judgement Results & Data ([facility]) Vital Signs (Past 12 Hours) Vital Signs Temp Pulse Pulse Resp BP Pulse Ox O2 Del Method 01/01/22 11:30 36.6 C 74 18 96/59 L 98 01/01/22 07:30 60 01/01/22 08:49 Room Air 01/01/22 08:00 36.5 C 68 18 109/63 96 01/01/22 04:02 36.5 C 68 18 102/64 94 Room Air Laboratory Results 01/01/22 08:10 01/01/22 08:10
[2022-01-01] MEDS: MAGNESIUM SULFATE / D5W 1 GM/100 ML BAG IV SCH ×2 (15:01→17:24)
[2022-01-01] MEDS: DONEPEZIL HCL 10 MG TAB PO SCH (22:18)
[2022-01-02] MEDS: SODIUM CHLORIDE 0.9% 1000ML 1,000 ML IV SCH ×2 (03:13→16:04)
[2022-01-02] MEDS: LEVOTHYROXINE SODIUM 25 MCG TABLET PO SCH (05:35)
[2022-01-02 07:40] LABS: Hematocrit (blood only) 29.6 % (40.1-51.0); Hemoglobin 9.4 g/dl (14.0-18.0); Mean Corpuscular Hemoglobin 29.5 pg (25.0-34.0); Mean Corpuscular Hgb Conc 31.8 g/dL (32.0-36.0); Mean Corpuscular Volume 92.8 fL (80.0-100.0); Platelet Count 480 K/uL (130-400); RDW Coefficient of Variation 13.1 % (11.5-14.5); RDW Standard Deviation 44.2 fL (36.4-46.3); Red Blood Count 3.19 M/uL (4.63-6.08); White Blood Count 6.37 K/ul (4.8-10.8)
[2022-01-02] MEDS: INSULIN ASPART PER UNIT SC SCH ×4 (07:49→22:07)
[2022-01-02] MEDS: ASPIRIN 81 MG ECTAB PO SCH (07:57)
[2022-01-02] MEDS: DONEPEZIL HCL 5 MG TAB PO SCH (07:58)
[2022-01-02] MEDS: levETIRAcetam 500 MG TAB PO SCH ×2 (07:58→22:08)
[2022-01-02] MEDS: PANTOprazole 40 MG TAB PO SCH (07:58)
[2022-01-02] MEDS: ATORVASTATIN 20 MG TAB PO SCH (07:58)
[2022-01-02] MEDS: TAMSULOSIN HCL 0.4 MG CAP PO SCH (07:59)
[2022-01-02] MEDS: SERTRALINE HCL 50 MG TABLET PO SCH (07:59)
[2022-01-02 08:22] LABS: BUN Creatinine Ratio 17.9 (10-20); Bilirubin,Total 0.4 mg/dl (0.2-1.0); Calcium 9.1 mg/dl (8.5-10.1); Creatinine Clr Calc Pharmacy 39.2 ml/min; Est GFR (African American) 35.3 ml/min; Est GFR (Non-African American) 30.5 ml/min; Globulin 2.9 gm/dl (2.5-4.0); Magnesium 1.8 mg/dl (1.7-2.4); Potassium 3.8 mmol/L (3.5-5.1); Total Protein 5.9 gm/dl (6.0-8.3)
[2022-01-02] MEDS: LANTUS PER UNIT CHARGE SQ SCH (09:12)
--- NOTE | 2022-01-02 14:14 | Hospitalist Progress Note ---
Date of Service January 02, 2022 Assessment & Plan (1) MACIE (acute kidney injury): Plan: 61-year-old male with history of seizure, diabetes type 2, hypertension, CKD stage III, other below presented 12/30 with elevated creatinine [facility] at [facility] Per Pt's , he is very forgetful but he knows where is at @baseline, he has gone downhill mentation mcfarland since last 4 months. He has mild cognitive impairment w/ dementia. He is being managed for the following: Acute renal failure on CKD stage III Hypotension Likely prerenal etiology (vs. ischemic ATN) Baseline creatinine around 1.3, admitting Cr 4.52 and BUN 56 Admitting Renal US w/ no hydronephrosis. Song balloon w/in bladder. Hold nephrotoxics/lisinopril, c/w gentle ivf, nephrology following, appreciate recs. Cr trending down. Monitor BMP. Chronic anemia, ?? acute anemia on top of it Baseline Hb around 11, admitting Hb 10.3 then 8.6 -->8.6 -->8.8 Current hemoglobin 9.4 and stable (01/02/22) FOBT negative Likely secondary to initial dehydration -> IVF Pt w/ not tachy, denies dizziness. Protonix daily for now. Continue to closely monitor Blood transfusion consent obtained from patient's Reina over the phone. Possible Episode of Nonsustained V tach short run noted by EMS en route to the hospital, not documented though, as per ED physician Sinus rhythm per EKG on admission denies chest pain, dyspnea, etc continue to monitor. DM 2 hold Metformin, Ozempic, Jardiance (pt possibly not taking these at home) continue Lantus 25 units AM ISS Hypertension hold Lisinopril in light of hypotension on admission (pt possibly not using at home) Seizure continue Keppra 500mg BID Hypothyroidism continue Levothyroxine DVT prophylaxis: SCDs, patient suspected to have possible GI bleed during last admission. Hb on lower side. Full Code Disposition: anticipate return to [facility] when medically stable Admission and Anticipated Discharge Date Admission Date: December 30, 2021 Subjective Patient seen and examined at bedside as a follow-up of MACIE on CKD stage III. Laying in bed in no acute distress. He is able to answer simple questions a ppropriately. Denies any fevers, chills, chest pain, shortness of breath, abdominal pain, nausea vomiting. Also denies any palpitations, dizziness or lightheadedness. Review of Systems Review of Systems: All systems reviewed & are unremarkable except as noted in Subjective Physical Exam Physical Exam: GENERAL: Chronically ill-appearing obese M (appears older than stated age), AOx3, RA, NAD HEENT: NC/AT. EOMI. Pupils equal, round and reactive to light. Oral mucosa moist. NECK: No JVD, no neck masses. HEART: S1 and S2 heard. Regular rate and rhythm. No murmur, no gallop. RESPIRATORY: Normal AP diameter. No accessory muscle use. No wheezing, no crackles. ABDOMEN: Soft, bowel sounds present, nontender, no distention. : Song cath placed draining light yellow urine NEURO: Awake and alert, able to answer simple questions appropriately.No facial droop. Speech is clear. Obeys simple commands. Moves extremities. EXTREMITIES: No edema, no erythema seen. Results & Data Results & Data ([facility]) Vital Signs (Past 12 Hours) Vital Signs Temp Pulse Pulse Resp BP Pulse Ox O2 Del Method 01/02/22 08:00 64 01/02/22 11:38 36.9 C 90 19 124/82 99 Room Air 01/02/22 06:49 36.4 C L 74 18 176/99 H 97 Room Air 01/02/22 02:32 37.0 C 70 18 125/73 96 Room Air Laboratory Results 01/02/22 01/02/22 01/02/22 Range/Units 10:57 07:22 05:58 WBC (4.8-10.8) K/ul RBC (4.63-6.08) M/uL Hgb (14.0-18.0) g/dl Hct (40.1-51.0) % MCV (80.0-100.0) fL MCH (25.0-34.0) pg MCHC (32.0-36.0) g/dL RDW Std Deviation (36.4-46.3) fL RDW Coeff of Justice (11.5-14.5) % Plt Count (130-400) K/uL MPV (9.4-12.4) fL Sodium 140 (136-145) mmol/L Potassium 3.8 (3.5-5.1) mmol/L Chloride 107 (98-107) mmol/L Carbon Dioxide 25 (21-32) mmol/L Anion Gap 8 (3-11) BUN 40 H (6-23) mg/dl Creatinine 2.23 H D (0.6-1.4) mg/dl Est Cr Clr Drug Dosing 39.2 ml/min Est GFR ( Amer) 35.3 ml/min Est GFR (Non-Af Amer) 30.5 ml/min BUN/Creatinine Ratio 17.9 (10-20) Glucose 111 H (70-99(Fasting)) mg/dl POC Glucose 210 H 134 H (70-99) mg/dl Calcium 9.1 (8.5-10.1) mg/dl Magnesium 1.8 (1.7-2.4) mg/dl Total Bilirubin 0.4 (0.2-1.0) mg/dl AST 21 (13-39) U/L ALT 18 (7-52) U/L Alkaline Phosphatase 79 (34-104) U/L Total Protein 5.9 L (6.0-8.3) gm/dl Albumin 3.0 L (3.4-5.0) gm/dl Globulin 2.9 (2.5-4.0) gm/dl Albumin/Globulin Ratio 1.0 (0.9-2) Stool Occult Bld Scrn (Negative) 01/02/22 01/02/22 01/01/22 Range/Units 05:58 05:37 20:19 WBC 6.37 (4.8-10.8) K/ul RBC 3.19 L (4.63-6.08) M/uL Hgb 9.4 L (14.0-18.0) g/dl Hct 29.6 L (40.1-51.0) % MCV 92.8 (80.0-100.0) fL MCH 29.5 (25.0-34.0) pg MCHC 31.8 L (32.0-36.0) g/dL RDW Std Deviation 44.2 (36.4-46.3) fL RDW Coeff of Justice 13.1 (11.5-14.5) % Plt Count 480 H (130-400) K/uL MPV 10.0 (9.4-12.4) fL Sodium (136-145) mmol/L Potassium (3.5-5.1) mmol/L Chloride (98-107) mmol/L Carbon Dioxide (21-32) mmol/L Anion Gap (3-11) BUN (6-23) mg/dl Creatinine (0.6-1.4) mg/dl Est Cr Clr Drug Dosing ml/min Est GFR ( Amer) ml/min Est GFR (Non-Af Amer) ml/min BUN/Creatinine Ratio (10-20) Glucose (70-99(Fasting)) mg/dl POC Glucose 151 H (70-99) mg/dl Calcium (8.5-10.1) mg/dl Magnesium (1.7-2.4) mg/dl Total Bilirubin (0.2-1.0) mg/dl AST (13-39) U/L ALT (7-52) U/L Alkaline Phosphatase (34-104) U/L Total Protein (6.0-8.3) gm/dl Albumin (3.4-5.0) gm/dl Globulin (2.5-4.0) gm/dl Albumin/Globulin Ratio (0.9-2) Stool Occult Bld Scrn Negative (Negative) 01/01/22 Range/Units 16:35 WBC (4.8-10.8) K/ul RBC (4.63-6.08) M/uL Hgb (14.0-18.0) g/dl Hct (40.1-51.0) % MCV (80.0-100.0) fL MCH (25.0-34.0) pg MCHC (32.0-36.0) g/dL RDW Std Deviation (36.4-46.3) fL RDW Coeff of Justice (11.5-14.5) % Plt Count (130-400) K/uL MPV (9.4-12.4) fL Sodium (136-145) mmol/L Potassium (3.5-5.1) mmol/L Chloride (98-107) mmol/L Carbon Dioxide (21-32) mmol/L Anion Gap (3-11) BUN (6-23) mg/dl Creatinine (0.6-1.4) mg/dl Est Cr Clr Drug Dosing ml/min Est GFR ( Amer) ml/min Est GFR (Non-Af Amer) ml/min BUN/Creatinine Ratio (10-20) Glucose (70-99(Fasting)) mg/dl POC Glucose 162 H (70-99) mg/dl Calcium (8.5-10.1) mg/dl Magnesium (1.7-2.4) mg/dl Total Bilirubin (0.2-1.0) mg/dl AST (13-39) U/L ALT (7-52) U/L Alkaline Phosphatase (34-104) U/L Total Protein (6.0-8.3) gm/dl Albumin (3.4-5.0) gm/dl Globulin (2.5-4.0) gm/dl Albumin/Globulin Ratio (0.9-2) Stool Occult Bld Scrn (Negative) Medications Administered Current Inpatient Medications Acetaminophen (Acetaminophen 325 Mg Tab) 650 mg PO Q4H PRN PRN Reason: Pain or Fever Stop: 01/29/22 16:09 Last Admin: 12/31/21 07:53 Dose: 650 mg Aspirin (Aspirin 81 Mg Ectab) 81 mg PO DAILY YANETH Stop: 01/30/22 08:59 Last Admin: 01/02/22 07:57 Dose: 81 mg Atorvastatin Calcium (Atorvastatin 20 Mg Tab) 20 mg PO DAILY YANETH Stop: 01/30/22 08:59 Last Admin: 01/02/22 07:58 Dose: 20 mg Dextrose (Dextrose 50% 50 Ml Syringe) 25 - 50 ml IV UD PRN; Protocol PRN Reason: Hypoglycemia Protocol Stop: 01/29/22 16:09 Donepezil HCl (Donepezil Hcl 5 Mg Tab) 5 mg PO QAM YANETH Stop: 01/30/22 08:59 Last Admin: 01/02/22 07:58 Dose: 5 mg Donepezil HCl (Donepezil Hcl 10 Mg Tab) 10 mg PO HS YANETH Stop: 01/29/22 21:07 Last Admin: 01/01/22 22:18 Dose: 10 mg Glucagon (Glucagon For Inj 1 Mg Vial) 1 mg SQ UD PRN; Protocol PRN Reason: Hypoglycemia Protocol Stop: 01/29/22 16:09 Glucose (Glucose 40% Gel 15 Gm Tube) 15 - 30 gm PO UD PRN; Protocol PRN Reason: Hypoglycemia Protocol Stop: 01/29/22 16:09 Glucose (Glucose 10 Tab/Tube) 4 - 8 tab PO UD PRN; Protocol PRN Reason: Hypoglycemia Treatment Stop: 01/29/22 16:09 Sodium Chloride (Nss 1000ml) 1,000 mls @ 75 mls/hr IV .[id number] YANETH Stop: 01/29/22 16:09 Last Admin: 01/02/22 03:13 Dose: 75 mls/hr Insulin Aspart (Insulin Aspart Per Unit) 0 units SC ACHS YANETH Stop: 01/29/22 16:29 Last Admin: 01/02/22 11:43 Dose: 4 units Insulin Glargine (Lantus Per Unit Charge) 25 units SQ DAILY YANETH Stop: 01/30/22 08:59 Last Admin: 01/02/22 09:12 Dose: 25 units Levetiracetam (Levetiracetam 500 Mg Tab) 500 mg PO BID YANETH Stop: 01/29/22 21:07 Last Admin: 01/02/22 07:58 Dose: 500 mg Levothyroxine Sodium (Levothyroxine Sodium 25 Mcg Tablet) 25 mcg PO DAILYBB YANETH Stop: 01/30/22 06:29 Last Admin: 01/02/22 05:35 Dose: 25 mcg Miscellaneous (Carbohydrates For Hypoglycemia ) 15 - 30 gm PO UD PRN PRN Reason: Hypoglycemia Protocol Stop: 01/29/22 16:09 Pantoprazole Sodium (Pantoprazole 40 Mg Tab) 40 mg PO QAM YANETH Stop: 02/01/22 08:59 Last Admin: 01/02/22 07:58 Dose: 40 mg Sertraline HCl (Sertraline Hcl 50 Mg Tablet) 25 mg PO DAILY YANETH Stop: 01/30/22 08:59 Last Admin: 01/02/22 07:59 Dose: 25 mg Tamsulosin HCl (Tamsulosin Hcl 0.4 Mg Cap) 0.4 mg PO DAILY YANETH Stop: 01/30/22 08:59 Last Admin: 01/02/22 07:59 Dose: 0.4 mg
[2022-01-02] MEDS: POLYETHYLENE (MIRALAX) 17 GM PACK PO SCH (16:05)
--- NOTE | 2022-01-02 17:35 | Nephrology Progress Note ---
Date of Service January 02, 2022 Assessment & Plan (1) MACIE (acute kidney injury): Plan: further improving nonoliguric stage 3 MACIE, prerenal versus ischemic ATN d/t star ting routine OP medications which he likely at home was not actually taking in the first place. baseline creatinine 1.0; was already trending toward MACIE w/ 12/28 labs showing creatinine 1.3, then w/ abrupt uptick to 4.5 on 12/30 and w/ creat 4.0 12/31 after holding meds and w/ IV fluids, BP support. chemistries acceptable; appears to be volume depleted -continue NS -daily BMP -continue strict I/O -ok to d/c Song from neph standpoint if primary service agrees -defer to primary service to determine if his MS is at baseline Will sign off; nephro d/c recommendations >> -would hold ozempic, metformin, jardiance, lisinopril until renal function at baseline - then reintroduce one at a time -monitor bmp q Mon/Thurs until bck to baseline -nephro f/u w/ hospital d/c appt at clinic nearest his house about a month after d/c (2) History of medication noncompliance: Plan: possible / presumptive cause of MACIE > starting meds he wasn't actually taking in first place but which had been rx'd in past Admission and Anticipated Discharge Date Admission Date: December 30, 2021 Subjective no interval events. denies n/v, uncontrolled pain, sob. he remains memory impaired and anxious about his pet care at home Review of Systems Review of Systems: All systems reviewed & are unremarkable except as noted in Subjective Physical Exam Constitutional: well developed, well nourished, + morbidly obese, + altered mental status, + physical limitations and + frail appearing Eyes: EOM intact bilaterally ENMT: Ears: no external ear abnormality Nose: no external nose abnormality Mouth: + dry oral mucous membranes Neck: no nuchal rigidity Respiratory: normal respiratory effort Auscultation: + diminished lung sounds Cardiovascular: RRR, no murmur, no edema Gastrointestinal (Abdomen): Inspection/Auscultation: normal bowel sounds Percussion/Palpation: abdomen soft; abdomen nontender Musculoskeletal: Extremities: + abnormal strength Skin: no rashes, warm and dry Psychiatric: Orientation: oriented to person and cooperative Affect: + tearful affect Insight: + poor insight Judgement: + poor judgement Results & Data ([facility]) Vital Signs (Past 12 Hours) Vital Signs Temp Pulse Pulse Resp BP Pulse Ox O2 Del Method 01/02/22 15:38 72 01/02/22 15:15 36.8 C 72 20 104/66 97 Room Air 01/02/22 08:00 64 01/02/22 11:38 36.9 C 90 19 124/82 99 Room Air 01/02/22 06:49 36.4 C L 74 18 176/99 H 97 Room Air Laboratory Results 01/02/22 05:58 01/02/22 05:58
[2022-01-02] MEDS: DONEPEZIL HCL 10 MG TAB PO SCH (22:08)
[2022-01-03] MEDS: SODIUM CHLORIDE 0.9% 1000ML 1,000 ML IV SCH (05:42)
[2022-01-03] MEDS: LEVOTHYROXINE SODIUM 25 MCG TABLET PO SCH (06:28)
[2022-01-03 07:25] LABS: Potassium 4.1 mmol/L (3.5-5.1)
[2022-01-03 07:26] LABS: Albumin Level 2.9 gm/dl (3.4-5.0); BUN Creatinine Ratio 20.6 (10-20); Bilirubin,Total 0.3 mg/dl (0.2-1.0); Calcium 8.9 mg/dl (8.5-10.1); Creatinine Clr Calc Pharmacy 54.8 ml/min; Est GFR (African American) 52.7 ml/min; Est GFR (Non-African American) 45.5 ml/min; Globulin 2.8 gm/dl (2.5-4.0); Magnesium 1.5 mg/dl (1.7-2.4); Phosphorus 3.5 mg/dl (2.5-4.9); Total Protein 5.7 gm/dl (6.0-8.3)
[2022-01-03] MEDS: levETIRAcetam 500 MG TAB PO SCH ×2 (08:25→20:49)
[2022-01-03] MEDS: TAMSULOSIN HCL 0.4 MG CAP PO SCH (08:26)
[2022-01-03] MEDS: SERTRALINE HCL 50 MG TABLET PO SCH (08:26)
[2022-01-03] MEDS: DONEPEZIL HCL 5 MG TAB PO SCH (08:26)
[2022-01-03] MEDS: PANTOprazole 40 MG TAB PO SCH (08:26)
[2022-01-03] MEDS: ATORVASTATIN 20 MG TAB PO SCH (08:26)
[2022-01-03] MEDS: POLYETHYLENE (MIRALAX) 17 GM PACK PO SCH (08:26)
[2022-01-03] MEDS: ASPIRIN 81 MG ECTAB PO SCH (08:27)
[2022-01-03] MEDS: INSULIN ASPART PER UNIT SC SCH ×4 (08:43→22:15)
[2022-01-03] MEDS: LANTUS PER UNIT CHARGE SQ SCH (08:43)
--- NOTE | 2022-01-03 10:24 | Hospitalist Progress Note ---
Date of Service January 03, 2022 Assessment & Plan (1) MACIE (acute kidney injury): Plan: 61-year-old male with history of seizure, diabetes type 2, hypertension, CKD stage III, other below presented 12/30 with elevated creatinine while at [facility]. Per Pt's , he is very forgetful but he knows where is at @baseline, he has gone downhill mentation mcfarland since last 4 months. He has mild cognitive impairment w/ dementia. He is being managed for the following: Acute renal failure on CKD stage III Hypotension Likely prerenal etiology (vs. ischemic ATN) Baseline creatinine around 1.3, admitting Cr 4.52 and BUN 56 Admitting Renal US w/ no hydronephrosis. Song balloon w/in bladder. Hold nephrotoxics/lisinopril, c/w gentle ivf, nephrology following, appreciate recs. Cr trending down. Monitor BMP. 01/03 -current creatinine 1.6 Nephrology signed off yesterday, as creatinine has been improving. Discharge recommendations include holding Ozempic, metformin, Jardiance, lisinopril, until creatinine at baseline, then introduce one at a time. BMP on Friday and until back to baseline. Nephrology follow-up 1 month after hospital discharge. Chronic anemia, ?? acute anemia on top of it Baseline Hb around 11, admitting Hb 10.3 then 8.6 -->8.6 -->8.8 Current hemoglobin 9.4 and stable (01/02/22) FOBT negative Likely secondary to initial dehydration -> IVF Pt w/ not tachy, denies dizziness. Protonix daily for now. Continue to closely monitor Blood transfusion consent obtained from patient's Reina over the phone. Recommend to monitor H&H as outpt Possible Episode of Nonsustained V tach short run noted by EMS en route to the hospital, not documented though, as per ED physician Sinus rhythm per EKG on admission denies chest pain, dyspnea, etc continue to monitor. DM 2 hold Metformin, Ozempic, Jardiance (pt possibly not taking these at home) continue Lantus 25 units AM ISS Hypertension hold Lisinopril in light of hypotension on admission and MACIE (pt possibly not using at home) Seizure continue Keppra 500mg BID Hypothyroidism continue Levothyroxine DVT prophylaxis: SCDs, patient suspected to have possible GI bleed during last admission. Hb on lower side. Full Code Disposition: anticipate return to [facility] today or tmrw Admission and Anticipated Discharge Date Admission Date: December 30, 2021 Subjective Patient seen and examined at bedside as a follow-up of MACIE on CKD stage III. Laying in bed in no acute distress. He is able to answer simple questions appropriately. He knows he is in the hospital in [place] but does not remember much from his hospitalization in [place]. He does not remember talking to me yesterday. He is intermittently joking, however also intermittently tearful about pets / puppies at home, and worried who is taking care of them. Denies any fevers, chills, chest pain, shortness of breath, abdominal pain, nausea vomiting. Also denies any palpitations, dizziness or lightheadedness. Review of Systems Review of Systems: All systems reviewed & are unremarkable except as noted in Subjective Physical Exam Physical Exam: GENERAL: Chronically ill-appearing obese M (appears older than stated age), AOx3, RA, NAD HEENT: NC/AT. EOMI. Pupils equal, round and reactive to light. Oral mucosa moist. NECK: No JVD, no neck masses. HEART: S1 and S2 heard. Regular rate and rhythm. No murmur, no gallop. RESPIRATORY: Normal AP diameter. No accessory muscle use. No wheezing, no crackles. ABDOMEN: Soft, bowel sounds present, nontender, no distention. : Osng cath placed draining light yellow urine NEURO: Awake and alert, able to answer simple questions appropriately.No facial droop. Speech is clear. Obeys simple commands. Moves extremities. EXTREMITIES: No edema, no erythema seen. Results & Data Results & Data ([facility]) Vital Signs (Past 12 Hours) Vital Signs Temp Pulse Resp BP Pulse Ox O2 Del Method 01/03/22 08:11 36.6 C 73 16 122/68 96 01/03/22 02:40 37.0 C 61 17 121/72 95 Room Air 01/02/22 23:48 36.8 C 68 17 113/67 96 Room Air Laboratory Results 01/03/22 01/03/22 01/02/22 Range/Units 07:46 06:28 20:58 Sodium 142 (136-145) mmol/L Potassium 4.1 (3.5-5.1) mmol/L Chloride 110 H (98-107) mmol/L Carbon Dioxide 26 (21-32) mmol/L Anion Gap 6 (3-11) BUN 33 H (6-23) mg/dl Creatinine 1.60 H D (0.6-1.4) mg/dl Est Cr Clr Drug Dosing 54.8 ml/min Est GFR ( Amer) 52.7 ml/min Est GFR (Non-Af Amer) 45.5 ml/min BUN/Creatinine Ratio 20.6 H (10-20) Glucose 72 (70-99(Fasting)) mg/dl POC Glucose 75 112 H (70-99) mg/dl Calcium 8.9 (8.5-10.1) mg/dl Phosphorus 3.5 (2.5-4.9) mg/dl Magnesium 1.5 L (1.7-2.4) mg/dl Total Bilirubin 0.3 (0.2-1.0) mg/dl AST 18 (13-39) U/L ALT 16 (7-52) U/L Alkaline Phosphatase 73 (34-104) U/L Total Protein 5.7 L (6.0-8.3) gm/dl Albumin 2.9 L (3.4-5.0) gm/dl Globulin 2.8 (2.5-4.0) gm/dl Albumin/Globulin Ratio 1.0 (0.9-2) 01/02/22 01/02/22 Range/Units 16:17 10:57 Sodium (136-145) mmol/L Potassium (3.5-5.1) mmol/L Chloride (98-107) mmol/L Carbon Dioxide (21-32) mmol/L Anion Gap (3-11) BUN (6-23) mg/dl Creatinine (0.6-1.4) mg/dl Est Cr Clr Drug Dosing ml/min Est GFR ( Amer) ml/min Est GFR (Non-Af Amer) ml/min BUN/Creatinine Ratio (10-20) Glucose (70-99(Fasting)) mg/dl POC Glucose 136 H 210 H (70-99) mg/dl Calcium (8.5-10.1) mg/dl Phosphorus (2.5-4.9) mg/dl Magnesium (1.7-2.4) mg/dl Total Bilirubin (0.2-1.0) mg/dl AST (13-39) U/L ALT (7-52) U/L Alkaline Phosphatase (34-104) U/L Total Protein (6.0-8.3) gm/dl Albumin (3.4-5.0) gm/dl Globulin (2.5-4.0) gm/dl Albumin/Globulin Ratio (0.9-2) Medications Administered Current Inpatient Medications Acetaminophen (Acetaminophen 325 Mg Tab) 650 mg PO Q4H PRN PRN Reason: Pain or Fever Stop: 01/29/22 16:09 Last Admin: 12/31/21 07:53 Dose: 650 mg Aspirin (Aspirin 81 Mg Ectab) 81 mg PO DAILY YANETH Stop: 01/30/22 08:59 Last Admin: 01/03/22 08:27 Dose: 81 mg Atorvastatin Calcium (Atorvastatin 20 Mg Tab) 20 mg PO DAILY YANETH Stop: 01/30/22 08:59 Last Admin: 01/03/22 08:26 Dose: 20 mg Dextrose (Dextrose 50% 50 Ml Syringe) 25 - 50 ml IV UD PRN; Protocol PRN Reason: Hypoglycemia Protocol Stop: 01/29/22 16:09 Donepezil HCl (Donepezil Hcl 5 Mg Tab) 5 mg PO QAM [facility] Stop: 01/30/22 08:59 Last Admin: 01/03/22 08:26 Dose: 5 mg Donepezil HCl (Donepezil Hcl 10 Mg Tab) 10 mg PO HS [facility] Stop: 01/29/22 21:07 Last Admin: 01/02/22 22:08 Dose: 10 mg Glucagon (Glucagon For Inj 1 Mg Vial) 1 mg SQ UD PRN; Protocol PRN Reason: Hypoglycemia Protocol Stop: 01/29/22 16:09 Glucose (Glucose 40% Gel 15 Gm Tube) 15 - 30 gm PO UD PRN; Protocol PRN Reason: Hypoglycemia Protocol Stop: 01/29/22 16:09 Glucose (Glucose 10 Tab/Tube) 4 - 8 tab PO UD PRN; Protocol PRN Reason: Hypoglycemia Treatment Stop: 01/29/22 16:09 Sodium Chloride (Nss 1000ml) 1,000 mls @ 75 mls/hr IV .[id number] YANETH Stop: 01/29/22 16:09 Last Admin: 01/03/22 05:42 Dose: 75 mls/hr Insulin Aspart (Insulin Aspart Per Unit) 0 units SC ACHS YANETH Stop: 01/29/22 16:29 Last Admin: 01/03/22 08:43 Dose: Not Given Insulin Glargine (Lantus Per Unit Charge) 25 units SQ DAILY YANETH Stop: 01/30/22 08:59 Last Admin: 01/03/22 08:43 Dose: 25 units Levetiracetam (Levetiracetam 500 Mg Tab) 500 mg PO BID YANETH Stop: 01/29/22 21:07 Last Admin: 01/03/22 08:25 Dose: 500 mg Levothyroxine Sodium (Levothyroxine Sodium 25 Mcg Tablet) 25 mcg PO DAILYBB YANETH Stop: 01/30/22 06:29 Last Admin: 01/03/22 06:28 Dose: 25 mcg Miscellaneous (Carbohydrates For Hypoglycemia ) 15 - 30 gm PO UD PRN PRN Reason: Hypoglycemia Protocol Stop: 01/29/22 16:09 Pantoprazole Sodium (Pantoprazole 40 Mg Tab) 40 mg PO QAM YANETH Stop: 02/01/22 08:59 Last Admin: 01/03/22 08:26 Dose: 40 mg Polyethylene Glycol (Polyethylene (Miralax) 17 Gm Pack) 17 gm PO DAILY YANETH Stop: 02/01/22 15:29 Last Admin: 01/03/22 08:26 Dose: 17 gm Sertraline HCl (Sertraline Hcl 50 Mg Tablet) 25 mg PO DAILY YANETH Stop: 01/30/22 08:59 Last Admin: 01/03/22 08:26 Dose: 25 mg Tamsulosin HCl (Tamsulosin Hcl 0.4 Mg Cap) 0.4 mg PO DAILY YANETH Stop: 01/30/22 08:59 Last Admin: 01/03/22 08:26 Dose: 0.4 mg
[2022-01-03] MEDS ORDERED: MAGNESIUM SULFATE / D5W 1 GM/100 ML BAG IV ONE (10:57)
[2022-01-03] MEDS: DONEPEZIL HCL 10 MG TAB PO SCH (20:49)
[2022-01-04] MEDS: SODIUM CHLORIDE 0.9% 1000ML 1,000 ML IV SCH ×2 (00:28→09:22)
[2022-01-04] MEDS: LEVOTHYROXINE SODIUM 25 MCG TABLET PO SCH (06:01)
[2022-01-04 07:23] LABS: BUN Creatinine Ratio 18.9 (10-20); Calcium 8.8 mg/dl (8.5-10.1); Creatinine Clr Calc Pharmacy 54.9 ml/min; Est GFR (African American) 53.1 ml/min; Est GFR (Non-African American) 45.8 ml/min; Magnesium 1.6 mg/dl (1.7-2.4); Phosphorus 3.5 mg/dl (2.5-4.9); Potassium 3.5 mmol/L (3.5-5.1)
[2022-01-04] MEDS ORDERED: MAGNESIUM SULFATE / D5W 1 GM/100 ML BAG IV ONE (08:30)
[2022-01-04] MEDS ORDERED: MAGNESIUM OXIDE 400 MG TAB PO SCH (09:00)
[2022-01-04] MEDS: ASPIRIN 81 MG ECTAB PO SCH (09:20)
[2022-01-04] MEDS: ATORVASTATIN 20 MG TAB PO SCH (09:20)
[2022-01-04] MEDS: DONEPEZIL HCL 5 MG TAB PO SCH (09:20)
[2022-01-04] MEDS: PANTOprazole 40 MG TAB PO SCH (09:20)
[2022-01-04] MEDS: TAMSULOSIN HCL 0.4 MG CAP PO SCH (09:20)
[2022-01-04] MEDS: levETIRAcetam 500 MG TAB PO SCH (09:20)
[2022-01-04] MEDS: SERTRALINE HCL 50 MG TABLET PO SCH (09:21)
[2022-01-04] MEDS: POLYETHYLENE (MIRALAX) 17 GM PACK PO SCH (09:21)
[2022-01-04] MEDS: INSULIN ASPART PER UNIT SC SCH ×2 (10:59→12:48)
[2022-01-04] MEDS: LANTUS PER UNIT CHARGE SQ SCH (10:59)
[2022-01-04] MEDS ORDERED: POTASSIUM CHLORIDE PWD 20 MEQ PACK PO ONE (12:09)
--- NOTE | 2022-01-04 12:10 | Hospitalist Progress Note ---
Date of Service January 04, 2022 Assessment & Plan (1) MACIE (acute kidney injury): Plan: 61-year-old male with history of seizure, diabetes type 2, hypertension, CKD stage III, other below presented 12/30 with elevated creatinine while at [facility]. Per Pt's , he is very forgetful but he knows where is at @baseline, he has gone downhill mentation mcfarland since last 4 months. He has mild cognitive impairment w/ dementia. He is being managed for the following: Acute renal failure on CKD stage III Hypotension Likely prerenal etiology (vs. ischemic ATN) Baseline creatinine around 1.3, admitting Cr 4.52 and BUN 56 Admitting Renal US w/ no hydronephrosis. Song balloon w/in bladder. Hold nephrotoxics/lisinopril, c/w gentle ivf, nephrology following, appreciate recs. Cr trending down. Monitor BMP. 01/03 -current creatinine 1.6 Nephrology signed off on 01/02, as creatinine has been improving. Discharge recommendations include holding Ozempic, metformin, Jardiance, lisinopril, until creatinine at baseline, then introduce one at a time. BMP on Friday and until back to baseline. Nephrology follow-up 1 month after hospital discharge. Chronic anemia, ?? acute anemia on top of it Baseline Hb around 11, admitting Hb 10.3 then 8.6 -->8.6 -->8.8 Current hemoglobin 9.4 and stable (01/02/22) FOBT negative Likely secondary to initial dehydration -> IVF Pt w/ not tachy, denies dizziness. Protonix daily for now. Continue to closely monitor Blood transfusion consent obtained from patient's Reina over the phone. Recommend to monitor H&H as outpt/ follow up on outpt work-up Possible Episode of Nonsustained V tach short run noted by EMS en route to the hospital, not documented though, as per ED physician Sinus rhythm per EKG on admission denies chest pain, dyspnea, etc continue to monitor. DM 2 hold Metformin, Ozempic, Jardiance (pt possibly not taking these at home) - cont. to hold these on DC , as above continue Lantus 25 units AM ISS Hypertension hold Lisinopril in light of hypotension on admission and MACIE (pt possibly not using at home) Seizure continue Keppra 500mg BID Hypothyroidism continue Levothyroxine DVT prophylaxis: SCDs, patient suspected to have possible GI bleed during last admission. Hb on lower side. Full Code Disposition: plan to DC to [facility] (his is to join him in next few days as well) Admission and Anticipated Discharge Date Admission Date: December 30, 2021 Subjective Patient seen and examined at bedside as a follow-up of MACIE on CKD stage III. Pt is sitting up in chair, in NAD, eating lunch. He is able to answer simple questions appropriately. He knows he is in the hospital in [place] but does not remember much from his hospitalization in [place]. He does not remember talking to me yesterday or day before yesterday. He is intermittently joking, however also intermittently tearful about pets / puppies at home, and worried who is taking care of them. His is currently also hospitalized. I made patient aware. She is trying to reach him over the phone, RN aware and will facilitate. Plan is to discharge patient to [facility], his should join him in the next few days. Pt denies any fevers, chills, chest pain, shortness of breath, abdominal pain, nausea vomiting. Also denies any palpitations, dizziness or lightheadedness. Song catheter was removed yesterday - per RN pt has been voiding without difficulty. Bladder scan today - shows no significant retention. Review of Systems Review of Systems: All systems reviewed & are unremarkable except as noted in Subjective Physical Exam Physical Exam: GENERAL: Chronically ill-appearing obese M (appears older than stated age), AOx3, RA, NAD HEENT: NC/AT. EOMI. Pupils equal, round and reactive to light. Oral mucosa moist. NECK: No JVD, no neck masses. HEART: S1 and S2 heard. Regular rate and rhythm. No murmur, no gallop. RESPIRATORY: Normal AP diameter. No accessory muscle use. No wheezing, no crackles. ABDOMEN: Soft, bowel sounds present, nontender, no distention. NEURO: Awake and alert, able to answer simple questions appropriately (however does not remember any conversations we had before).No facial droop. Speech is clear. Obeys simple commands. Moves extremities. EXTREMITIES: No edema, no erythema seen. Results & Data Results & Data ([facility]) Vital Signs (Past 12 Hours) Vital Signs Temp Pulse Resp BP BP Pulse Ox O2 Del Method 01/04/22 11:33 36.5 C 78 22 103/70 97 Room Air 01/04/22 07:35 36.5 C 68 19 112/69 98 Room Air 01/04/22 03:15 36.6 C 75 15 104/65 97 Room Air Laboratory Results 01/04/22 01/04/22 01/04/22 Range/Units 11:12 07:21 06:22 Sodium 138 (136-145) mmol/L Potassium 3.5 (3.5-5.1) mmol/L Chloride 108 H (98-107) mmol/L Carbon Dioxide 20 L (21-32) mmol/L Anion Gap 10 (3-11) BUN 30 H (6-23) mg/dl Creatinine 1.59 H (0.6-1.4) mg/dl Est Cr Clr Drug Dosing 54.9 ml/min Est GFR ( Amer) 53.1 ml/min Est GFR (Non-Af Amer) 45.8 ml/min BUN/Creatinine Ratio 18.9 (10-20) Glucose 152 H (70-99(Fasting)) mg/dl POC Glucose 208 H 139 H (70-99) mg/dl Calcium 8.8 (8.5-10.1) mg/dl Phosphorus 3.5 (2.5-4.9) mg/dl Magnesium 1.6 L (1.7-2.4) mg/dl 01/03/22 01/03/22 01/03/22 Range/Units 20:19 16:30 12:27 Sodium (136-145) mmol/L Potassium (3.5-5.1) mmol/L Chloride (98-107) mmol/L Carbon Dioxide (21-32) mmol/L Anion Gap (3-11) BUN (6-23) mg/dl Creatinine (0.6-1.4) mg/dl Est Cr Clr Drug Dosing ml/min Est GFR ( Amer) ml/min Est GFR (Non-Af Amer) ml/min BUN/Creatinine Ratio (10-20) Glucose (70-99(Fasting)) mg/dl POC Glucose 188 H 138 H 152 H (70-99) mg/dl Calcium (8.5-10.1) mg/dl Phosphorus (2.5-4.9) mg/dl Magnesium (1.7-2.4) mg/dl Medications Administered Current Inpatient Medications Acetaminophen (Acetaminophen 325 Mg Tab) 650 mg PO Q4H PRN PRN Reason: Pain or Fever Stop: 01/29/22 16:09 Last Admin: 12/31/21 07:53 Dose: 650 mg Aspirin (Aspirin 81 Mg Ectab) 81 mg PO DAILY [facility] Stop: 01/30/22 08:59 Last Admin: 01/04/22 09:20 Dose: 81 mg Atorvastatin Calcium (Atorvastatin 20 Mg Tab) 20 mg PO DAILY [facility] Stop: 01/30/22 08:59 Last Admin: 01/04/22 09:20 Dose: 20 mg Dextrose (Dextrose 50% 50 Ml Syringe) 25 - 50 ml IV UD PRN; Protocol PRN Reason: Hypoglycemia Protocol Stop: 01/29/22 16:09 Donepezil HCl (Donepezil Hcl 5 Mg Tab) 5 mg PO QAM [facility] Stop: 01/30/22 08:59 Last Admin: 01/04/22 09:20 Dose: 5 mg Donepezil HCl (Donepezil Hcl 10 Mg Tab) 10 mg PO HS [facility] Stop: 01/29/22 21:07 Last Admin: 01/03/22 20:49 Dose: 10 mg Glucagon (Glucagon For Inj 1 Mg Vial) 1 mg SQ UD PRN; Protocol PRN Reason: Hypoglycemia Protocol Stop: 01/29/22 16:09 Glucose (Glucose 40% Gel 15 Gm Tube) 15 - 30 gm PO UD PRN; Protocol PRN Reason: Hypoglycemia Protocol Stop: 01/29/22 16:09 Glucose (Glucose 10 Tab/Tube) 4 - 8 tab PO UD PRN; Protocol PRN Reason: Hypoglycemia Treatment Stop: 01/29/22 16:09 Sodium Chloride (Nss 1000ml) 1,000 mls @ 75 mls/hr IV .[id number] [facility] Stop: 01/29/22 16:09 Last Admin: 01/04/22 09:22 Dose: 75 mls/hr Insulin Aspart (Insulin Aspart Per Unit) 0 units SC ACHS [facility] Stop: 01/29/22 16:29 Last Admin: 01/04/22 10:59 Dose: Not Given Insulin Glargine (Lantus Per Unit Charge) 25 units SQ DAILY [facility] Stop: 01/30/22 08:59 Last Admin: 01/04/22 10:59 Dose: 25 units Levetiracetam (Levetiracetam 500 Mg Tab) 500 mg PO BID [facility] Stop: 01/29/22 21:07 Last Admin: 01/04/22 09:20 Dose: 500 mg Levothyroxine Sodium (Levothyroxine Sodium 25 Mcg Tablet) 25 mcg PO DAILYBB [facility] Stop: 01/30/22 06:29 Last Admin: 01/04/22 06:01 Dose: 25 mcg Magnesium Oxide (Magnesium Oxide 400 Mg Tab) 400 mg PO QAM [facility] Stop: 02/03/22 08:59 Last Admin: 01/04/22 09:21 Dose: 400 mg Miscellaneous (Carbohydrates For Hypoglycemia ) 15 - 30 gm PO UD PRN PRN Reason: Hypoglycemia Protocol Stop: 01/29/22 16:09 Pantoprazole Sodium (Pantoprazole 40 Mg Tab) 40 mg PO QAM [facility] Stop: 02/01/22 08:59 Last Admin: 01/04/22 09:20 Dose: 40 mg Polyethylene Glycol (Polyethylene (Miralax) 17 Gm Pack) 17 gm PO DAILY [facility] Stop: 02/01/22 15:29 Last Admin: 01/04/22 09:21 Dose: 17 gm Potassium Chloride (Potassium Chloride Pwd 20 Meq Pack) 40 meq PO ONE ONE Stop: 01/04/22 12:10 Sertraline HCl (Sertraline Hcl 50 Mg Tablet) 25 mg PO DAILY [facility] Stop: 01/30/22 08:59 Last Admin: 01/04/22 09:21 Dose: 25 mg Tamsulosin HCl (Tamsulosin Hcl 0.4 Mg Cap) 0.4 mg PO DAILY [facility] Stop: 01/30/22 08:59 Last Admin: 01/04/22 09:20 Dose: 0.4 mg
--- NOTE | 2022-01-04 12:37 | Discharge Summary ---
Date of Service January 04, 2022 Admission HPI Per Admitting Provider 61-year-old male with history of seizure, diabetes type 2, hypertension, CKD stage III, other #below presenting with elevated creatinine while at [facility]. Patient was recently admitted to [facility] and subsequently transferred to [facility] for unresponsive episode, related to breakthrough seizure from nonadherence to his Keppra. Patient was then transitioned to [facility] last December 27, 2021. Per routine labs today, patient's creatinine was found to be 4.5. Recent baseline is 1.3 which was drawn last December 28, 2021. Patient brought to the ER for evaluation. Per ER notes, patient had transient episode of nonsustained V. tach while en route to the hospital. Patient was received at the ER hypotensive, systolic 80s. He was given 2 L of IV fluid boluses, with improvement of blood pressure to systolic 100s. On exam, patient was seen sleeping but easily awakened, oriented x2, answers most questions appropriately. Denies problems with urination, no recent vomiting, diarrhea, reports appetite is good. No other symptoms. Admission Exam Per Admitting Provider General- oriented x 2, not in distress, speaks in sentences with no effort or accessory muscle use Head- atraumatic Eyes- PERRL, EOMI, anicteric ENT- oropharynx clear Neck- supple, no JVD, no adenopathy, no thyromegaly; carotids +2/2, no bruits appreciated Lungs- clear to auscultation bilaterally, no rales/wheezes Heart- normal rate, regular rhythm; no murmur, no gallop, no rub appreciated Abdomen- normal bowel sounds, nondistended, soft, nontender, no masses or hepatosplenomegaly Extremities- no pretibial edema, no calf tenderness; peripheral pulses intact Neuro- alert, oriented x 2; CN 2-12 grossly intact; motor 5/5 bilaterally;sensation 100% on all extremities; no other gross focal neurologic deficits Skin- warm & dry Principal Diagnosis MACIE on CKD, hypotension Discharge Exam GENERAL: Chronically ill-appearing obese M (appears older than stated age), AOx3, RA, NAD HEENT: NC/AT. EOMI. Pupils equal, round and reactive to light. Oral mucosa moist. NECK: No JVD, no neck masses. HEART: S1 and S2 heard. Regular rate and rhythm. No murmur, no gallop. RESPIRATORY: Normal AP diameter. No accessory muscle use. No wheezing, no crackles. ABDOMEN: Soft, bowel sounds present, nontender, no distention. NEURO: Awake and alert, able to answer simple questions appropriately (however does not remember any conversations we had before).No facial droop. Speech is clear. Obeys simple commands. Moves extremities. EXTREMITIES: No edema, no erythema seen. Discharge Data Allergies Allergy/AdvReac Type Severity Reaction Status Date / Time No Known Allergies Allergy Unverified 12/12/21 17:54 Consultations 12/30/21 13:29 ED Decision to Admit Stat 12/30/21 16:10 Consult Nephrology Routine Ordered Studies 12/30/21 16:10 US renal/blad retro comp Urgent FINDINGS: The right kidney measures 9.7 x 4.4 x 3.9 cm and the left measures 9.6 x 5.3 x 3.7 cm. There is no hydronephrosis. No renal calculi or masses are identified. A Song balloon within the bladder is noted. Bladder wall is thickened. Bladder is underdistended. IMPRESSION: 1. No hydronephrosis. 2. Song balloon within the bladder. Nonspecific bladder wall thickening. Hospital Course (1) MACIE (acute kidney injury): 61-year-old male with history of seizure, diabetes type 2, hypertension, CKD stage III, other below presented 12/30 with elevated creatinine while at [facility]. Per Pt's , he is very forgetful but he knows where is at @baseline, he has gone downhill mentation mcfarland since last 4 months. He has mild cognitive impairment w/ dementia. He is being managed for the following: Acute renal failure on CKD stage III Hypotension Likely prerenal etiology (vs. ischemic ATN) Baseline creatinine around 1.3, admitting Cr 4.52 and BUN 56 Admitting Renal US w/ no hydronephrosis. Song balloon w/in bladder. Hold nephrotoxics/lisinopril, c/w gentle ivf, nephrology following, appreciate recs. Cr trending down. Monitor BMP. 01/03 -current creatinine 1.6 Nephrology signed off on 01/02, as creatinine has been improving. Discharge recommendations include holding Ozempic, metformin, Jardiance, lisinopril, until creatinine at baseline, then introduce one at a time. BMP on Friday and until back to baseline. Nephrology follow-up 1 month after hospital discharge. Chronic anemia, ?? acute anemia on top of it Baseline Hb around 11, admitting Hb 10.3 then 8.6 -->8.6 -->8.8 Current hemoglobin 9.4 and stable (01/02/22) FOBT negative Likely secondary to initial dehydration -> IVF Pt w/ not tachy, denies dizziness. Protonix daily for now. Continue to closely monitor Blood transfusion consent obtained from patient's Reina over the phone. Recommend to monitor H&H as outpt/ follow up on outpt work-up Possible Episode of Nonsustained V tach short run noted by EMS en route to the hospital, not documented though, as per ED physician Sinus rhythm per EKG on admission denies chest pain, dyspnea, etc continue to monitor. DM 2 hold Metformin, Ozempic, Jardiance (pt possibly not taking these at home) - cont. to hold these on DC , as above continue Lantus 25 units AM ISS Hypertension hold Lisinopril in light of hypotension on admission and MACIE (pt possibly not using at home) Seizure continue Keppra 500mg BID Hypothyroidism continue Levothyroxine Disposition: plan to [facility] to [facility] (his is to join him in next few days as well) Total Time Total Time Spent Total Time Spent (In Minutes): 40 Discharge Plan Discharge Items Patient Disposition: Transfer [facility] Reason For Visit: ACUTE RENAL FAILURE,HYPOTENSION Discharge Diagnosis: MACIE on CKD, hypotension Activity: Per Instructions section Non-emergency contact: Primary Care Provider and Agency Sales Management Assistant Call non-emergency contact if: you have any medication questions and your symptoms worsen Follow-up/Referrals: [facility] [Primary Care Provider] - Diet: Carb Consistent or DM2 and Dialysis Renal Addtl Attending Provider Instructions: Follow-up with primary care doctor within 1 week. Hold Ozempic, metformin, Jardiance, lisinopril, until creatinine at baseline, then introduce one at a time. BMP on Friday and until renal function back to baseline. Nephrology follow-up 1 month after hospital discharge. There was also concern for urinary retention, and patient had Song catheter placed. Song catheter was removed yesterday, patient has been voiding without difficulty. Bladder scan obtained and normal today. Recommend to monitor for urinary retention. Encourage p.o. intake. (Patient will need to be reminded as he does not remember instructions from the providers). Pending Studies at Discharge: No Stand-Alone Forms: My [facility] Skilled Items Patient informed of condition?: Yes DNR: No Discharge Level of Care: Skilled Communicable Disease: No Discharge Prognosis: Stable Lines: None Urinary Catheter: No Medications and DC Order Prescriptions: New magnesium oxide 400 mg (241.3 mg magnesium) Tablet 400 mg PO QAM Qty: 14 0RF pantoprazole 40 mg Tablet,Delayed Release (Dr/Ec) 40 mg PO QAM Qty: 30 0RF Continued atorvastatin 20 mg tablet 20 mg PO DAILY donepezil 5 mg tablet 5 mg PO QAM levetiracetam 500 mg tablet 500 mg PO BID levothyroxine 25 mcg tablet 25 mcg PO DAILY lisinopril 10 mg tablet 10 mg PO DAILY sertraline 25 mg tablet 25 mg PO DAILY metformin 500 mg tablet extended release 24 hr 500 mg PO BID insulin glargine [Lantus Solostar U-100 Insulin] 100 unit/mL (3 mL) insulin pen 25 unit SUBCUT QAM Ozempic 0.25 mg or 0.5 mg(2 mg/1.5 mL) pen injector 0.25 mg SUBCUT WK Label Comments: Is not taking due to cost Ecotrin 81 mg PO DAILY Flomax 0.4 mg PO DAILY aspirin 81 mg PO DAILY donepezil 10 mg PO HS Discharge Orders: Discharge Order (Routine); Ordered 01/04/22 Ordered By: Robert Castillo Admission Data Admit Date/Time: 12/30/21 13:16 Attending Provider: Robert Castillo Admit Provider: Alejandro Sanford Primary Care Provider: [place] Other Providers: Alejandro Sanford ; [facility] ; Trino Oscar ; [facility] ; [place] [place]
== END 2022-01-04 16:30 | DRG 683 ==
LOC: ED 10:53 → 2S 13:16 → SUATTDRO 13:16 → 2S 15:08
DX: I95.9 Hypotension, unspecified; Z87.891 Personal history of nicotine dependence; Z79.890 Hormone replacement therapy; E66.01 Morbid (severe) obesity due to excess calories; E11.22 Type 2 diabetes mellitus with diabetic chronic kidney disease; I12.9 Hypertensive chronic kidney disease with stage 1 through stage 4 chronic kidney disease, or unspecified chronic kidney disease; G40.909 Epilepsy, unspecified, not intractable, without status epilepticus; E03.9 Hypothyroidism, unspecified; N17.9 Acute kidney failure, unspecified; Z68.41 Body mass index [BMI] 40.0-44.9, adult; N18.30 Chronic kidney disease, stage 3 unspecified